=== PATIENT | female | born 1955 | race Caucasian/White ===

== ENCOUNTER 2018-03-03 17:53 | Inpatient (IN) | payer OTHER ==
[~2018-03-03] VITALS: Ht 157.5 cm; Wt 50.8 kg
[2018-03-03] MEDS ORDERED: IPRATROPIUM BROM 0.5 MG/2.5 ML VIAL.NEB (ATROVENT) INH ONE (18:00)
[2018-03-03] MEDS ORDERED: LevALBUTEROL HCL 1.25 MG/0.5 ML *CONC.* VIAL.NEB (XOPENEX CONC.) INH ONE ×2 (18:00→22:00)
[2018-03-03 18:04] VITALS: BP_SYST 146
[2018-03-03] MEDS ORDERED: methylPREDNISolone SOD SUCC/PF 62.5 MG/ML VIAL IVP ONE (18:30)
[2018-03-03] MEDS ORDERED: ALBMDI INH (18:43)
[2018-03-03] MEDS ORDERED: KETOROLAC TROMETHAMINE 15 MG VIAL IVP ONE (18:45)
[2018-03-03 18:46] LABS: CALCIUM 7.6 mg/dL (8.4-11.0); CREATININE 3.04 mg/dL (0.55-1.30); POTASSIUM 5.5 mmol/L (3.5-5.1)
[2018-03-03 18:49] LABS: PROTHROMBIN TIME 9.9 SECS (9.5-12.5)
[2018-03-03 18:50] LABS: ALBUMIN 2.9 g/dL (3.4-4.8); TOTAL BILIRUBIN 0.6 mg/dL (0.0-1.0)
[2018-03-03 19:10] LABS: BASOPHILS % (AUTO) 0.5 % (0.0-2.0); EOSINOPHILS % (AUTO) 0.4 % (0.0-4.0); LYMPHOCYTES # (AUTO) 0.7 K/uL (1.0-5.5); LYMPHOCYTES % (AUTO) 12.4 % (20.5-51.5); MEAN CORPUSCULAR HEMOGLOBIN 24 pg (27-31); MEAN CORPUSCULAR HGB CONC 32 % (32-36); MEAN CORPUSCULAR VOLUME 77 fL (79.0-98.0); MONOCYTES # (AUTO) 0.4 K/uL (0.0-1.0); NEUTROPHILS # (AUTO) 4.9 K/uL (1.8-7.7); NEUTROPHILS % (AUTO) 79.7 % (40.0-70.0); PLATELET COUNT (AUTO) 270 K/uL (130-430); RED CELL DISTRIBUTION WIDTH 18.1 % (9.0-15.0)
[2018-03-03 19:11] LABS: RED BLOOD CELL COUNT(AUTO) 1.46 MIL/uL (4.2-6.2)
[2018-03-03 19:15] LABS: HEMATOCRIT 11.2 % (36-48); HEMOGLOBIN 3.6 g/dL (12.0-16.0)
[2018-03-03 19:17] LABS: CREATINE KINASE MB 2.8 ng/mL (0-3.6)
[2018-03-03 19:43] LABS: TOTAL IRON BIND. CAPACITY 320 ug/dL (250-450)
[2018-03-03 19:59] LABS: PROTHROMBIN TIME 9.8 SECS (9.5-12.5)
[2018-03-03] MEDS ORDERED: MAG-AL HYDROX/SIMETH 30 ML UDC PO ONE (20:15)
[2018-03-03 21:10] VITALS: BP_SYST 131
[2018-03-03] MEDS ORDERED: LevALBUTEROL HCL 1.25 MG/0.5 ML *CONC.* VIAL.NEB (XOPENEX CONC.) INH PRN (21:45)
[2018-03-03] MEDS ORDERED: ACETAMINOPHEN 325 MG TABLET PO PRN (21:45)
[2018-03-03] MEDS: D5/0.45 NS 1,000 ML IV SCH (21:46)
[2018-03-03] MEDS: MORPHINE 2 MG/ML INJ. SYRINGE IVP PRN (21:47)
[2018-03-03 22:00] VITALS: BP_SYST 146
[2018-03-03] MEDS ORDERED: PANTOPRAZOLE SODIUM 40 MG/VIAL (PROTONIX) IVP ONE (22:00)
[2018-03-03 22:03] VITALS: BP_SYST 130
[2018-03-03 23:00] VITALS: BP_SYST 141
[2018-03-04] VITALS (18 sets, daily range): BP systolic 125–160
[2018-03-04 01:03] LABS: BILIRUBIN,URINE NEGATIVE (NEGATIVE); BLOOD, URINE 1+ (NEGATIVE); CLARITY/URINE HAZY (CLEAR); COLOR,URINE YELLOW (YELLOW); GLUCOSE,URINE NEGATIVE (NEGATIVE); KETONES,URINE NEGATIVE (NEGATIVE); LEUKOCYTE ESTERASE ,URINE 3+ (NEGATIVE); NITRITE, URINE NEGATIVE (NEGATIVE); PROTEIN URINE TRACE (NEGATIVE); UROBILINOGEN,URINE 0.2 (0.2-1.0)
[2018-03-04 01:43] LABS: BACTERIA,URINE MODERATE /HPF (None Seen); WBC,URINE 80-100 /HPF (0-3)
[2018-03-04] MEDS: MORPHINE 2 MG/ML INJ. SYRINGE IVP PRN ×3 (02:04→20:51)
[2018-03-04 03:45] LABS: HEMOGLOBIN 6.7 g/dL (12.0-16.0)
[2018-03-04 03:46] LABS: HEMATOCRIT 20.6 % (36-48)
[2018-03-04] MEDS: LevALBUTEROL HCL 1.25 MG/0.5 ML *CONC.* VIAL.NEB (XOPENEX CONC.) INH SCH ×3 (07:00→20:03)
[2018-03-04 09:50] LABS: TOTAL IRON BIND. CAPACITY 304 ug/dL (250-450)
[2018-03-04] MEDS: PANTOPRAZOLE SODIUM 40 MG/VIAL (PROTONIX) IVP SCH ×2 (10:14→20:42)
[2018-03-04] MEDS: traMADol HCL HCL 50 MG TABLET (ULTRAM) PO PRN (12:56)
[2018-03-04] MEDS: D5/0.45 NS 1,000 ML IV SCH (15:52)
[2018-03-04 16:02] LABS: BASOPHILS % (AUTO) 0.4 % (0.0-2.0); HEMOGLOBIN 10.7 g/dL (12.0-16.0); LYMPHOCYTES # (AUTO) 0.7 K/uL (1.0-5.5); LYMPHOCYTES % (AUTO) 5.5 % (20.5-51.5); MEAN CORPUSCULAR HEMOGLOBIN 29 pg (27-31); MEAN CORPUSCULAR HGB CONC 34 % (32-36); MEAN CORPUSCULAR VOLUME 85 fL (79.0-98.0); MONOCYTES # (AUTO) 0.9 K/uL (0.0-1.0); MONOCYTES % (AUTO) 7.2 % (1.7-9.3); NEUTROPHILS # (AUTO) 10.3 K/uL (1.8-7.7); NEUTROPHILS % (AUTO) 86.9 % (40.0-70.0); PLATELET COUNT (AUTO) 242 K/uL (130-430); RED BLOOD CELL COUNT(AUTO) 3.75 MIL/uL (4.2-6.2); RED CELL DISTRIBUTION WIDTH 15.5 % (9.0-15.0); WHITE BLOOD COUNT (AUTO) 11.9 K/uL (4.8-10.8)
[2018-03-04 16:11] LABS: CALCIUM 8.3 mg/dL (8.4-11.0); CREATININE 2.91 mg/dL (0.55-1.30)
[2018-03-04] MEDS ORDERED: ONDANSETRON HCL 4 MG/2 ML VIAL IVP PRN (16:15)
[2018-03-04 16:16] LABS: POTASSIUM 6.1 mmol/L (3.5-5.1)
[2018-03-04 16:20] LABS: PHOSPHORUS 4.4 mg/dL (2.7-4.5)
[2018-03-04] MEDS ORDERED: THIAMINE HCL 100 MG in NS 50 ML IV SCH (17:00)
[2018-03-04] MEDS ORDERED: FOLIC ACID 5 MG/ML VIAL IV ONE (17:00)
[2018-03-04] MEDS ORDERED: CYANOCOBALAMIN 1000 MCG/ML VIAL SUBCUT ONE (17:00)
[2018-03-04] MEDS ORDERED: IRON DEXTRAN COMPLEX 75 MG in NS 100 ML IV ONE (17:15)
[2018-03-04] MEDS ORDERED: IRON DEXTRAN COMPLEX 25 MG in NS 50 ML IV ONE (17:15)
[2018-03-04] MEDS ORDERED: THIAMINE HCL 100 MG in NS 50 ML IV ONE (17:36)
[2018-03-04] MEDS ORDERED: SODIUM POLYSTYRENE SULFONATE 15 GM/60 ML UDBTL PO ONE (22:45)
[2018-03-04] MEDS ORDERED: SODIUM POLYSTYRENE SULFONATE 15 GM/60 ML UDBTL ONE (22:53)
[2018-03-04] MEDS ORDERED: SODIUM POLYSTYRENE SULFONATE 15 GM/60 ML UDBTL GT SCH (23:00)
[2018-03-05 00:35] VITALS: BP_SYST 136
[2018-03-05] MEDS: LevALBUTEROL HCL 1.25 MG/0.5 ML *CONC.* VIAL.NEB (XOPENEX CONC.) INH SCH ×4 (01:30→19:22)
[2018-03-05 02:10] LABS: HEMATOCRIT 30.1 % (36-48); HEMOGLOBIN 10.2 g/dL (12.0-16.0)
[2018-03-05 02:36] LABS: CALCIUM 7.5 mg/dL (8.4-11.0); CREATININE 2.91 mg/dL (0.55-1.30)
[2018-03-05 07:06] LABS: FOLATE (FOLIC ACID) >20.0 ng/mL (>3.0)
[2018-03-05 07:23] LABS: PROTHROMBIN TIME 9.7 SECS (9.5-12.5)
[2018-03-05 07:31] LABS: BASOPHILS % (AUTO) 0.4 % (0.0-2.0); EOSINOPHILS # (AUTO) 0.1 K/uL (0.0-0.4); HEMOGLOBIN 11.1 g/dL (12.0-16.0); LYMPHOCYTES # (AUTO) 0.9 K/uL (1.0-5.5); LYMPHOCYTES % (AUTO) 11.4 % (20.5-51.5); MEAN CORPUSCULAR HEMOGLOBIN 29 pg (27-31); MEAN CORPUSCULAR HGB CONC 34 % (32-36); MEAN CORPUSCULAR VOLUME 86 fL (79.0-98.0); MONOCYTES # (AUTO) 0.7 K/uL (0.0-1.0); MONOCYTES % (AUTO) 9.5 % (1.7-9.3); NEUTROPHILS # (AUTO) 6.1 K/uL (1.8-7.7); NEUTROPHILS % (AUTO) 77.7 % (40.0-70.0); PLATELET COUNT (AUTO) 231 K/uL (130-430); RED BLOOD CELL COUNT(AUTO) 3.83 MIL/uL (4.2-6.2); RED CELL DISTRIBUTION WIDTH 15.5 % (9.0-15.0); WHITE BLOOD COUNT (AUTO) 7.8 K/uL (4.8-10.8)
[2018-03-05 07:55] LABS: ALBUMIN 2.5 g/dL (3.4-4.8); CALCIUM 7.7 mg/dL (8.4-11.0); CREATININE 2.85 mg/dL (0.55-1.30); POTASSIUM 4.8 mmol/L (3.5-5.1); THYROID STIMULATING HORMONE 7.07 uIu/mL (0.34-4.82); TOTAL BILIRUBIN 0.4 mg/dL (0.0-1.0)
[2018-03-05 08:19] VITALS: BP_SYST 150
[2018-03-05] MEDS: PANTOPRAZOLE SODIUM 40 MG/VIAL (PROTONIX) IVP SCH ×2 (08:37→20:57)
[2018-03-05] MEDS: FOLIC ACID 1 MG TABLET PO SCH (08:37)
[2018-03-05] MEDS: THIAMINE HCL 100 MG in NS 50 ML IV SCH (08:38)
[2018-03-05] MEDS: MORPHINE 2 MG/ML INJ. SYRINGE IVP PRN ×4 (08:41→21:11)
[2018-03-05] MEDS: IRON DEXTRAN COMPLEX 100 MG in NS 100 ML IV SCH (08:52)
[2018-03-05] MEDS: D5/0.45 NS 1,000 ML IV SCH (12:20)
[2018-03-05 12:25] VITALS: BP_SYST 146
[2018-03-05 16:15] LABS: ANTI NUCLEAR AB WITH REFLEX Negative (Negative)
[2018-03-05 16:25] VITALS: BP_SYST 151
[2018-03-05 20:20] VITALS: BP_SYST 148
[2018-03-05] MEDS ORDERED: BISACODYL 10 MG/SUPPOSITORY RC PRN (20:30)
[2018-03-05] MEDS ORDERED: BISACODYL 10 MG/SUPPOSITORY RC ONE (20:30)
[2018-03-05] MEDS ORDERED: NA PHOS,M-B/NA PHOS,DI-BA 118 ML (FLEET ENEMA) RC ONE (20:30)
[2018-03-05] MEDS: SENNOSIDES 8.6 MG TABLET PO SCH (20:57)
[2018-03-05] MEDS: hydrALAZINE HCL 10 MG TABLET PO SCH (21:10)
[2018-03-06] VITALS: BP_SYST 149
[2018-03-06 00:40] LABS: HEMOGLOBIN 11.1 g/dL (12.0-16.0)
[2018-03-06] MEDS: LevALBUTEROL HCL 1.25 MG/0.5 ML *CONC.* VIAL.NEB (XOPENEX CONC.) INH SCH ×4 (01:30→19:27)
[2018-03-06] MEDS: MORPHINE 2 MG/ML INJ. SYRINGE IVP PRN ×5 (01:39→20:34)
[2018-03-06] MEDS: hydrALAZINE HCL 10 MG TABLET PO SCH ×3 (06:31→21:21)
[2018-03-06] MEDS: D5/0.45 NS 1,000 ML IV SCH (06:32)
[2018-03-06 08:02] VITALS: BP_SYST 149
[2018-03-06] MEDS: FOLIC ACID 1 MG TABLET PO SCH (08:25)
[2018-03-06] MEDS: PANTOPRAZOLE SODIUM 40 MG/VIAL (PROTONIX) IVP SCH ×2 (08:25→20:35)
[2018-03-06] MEDS: THIAMINE HCL 100 MG in NS 50 ML IV SCH (08:25)
[2018-03-06] MEDS: IRON DEXTRAN COMPLEX 100 MG in NS 100 ML IV SCH (08:31)
[2018-03-06] MEDS: traMADol HCL HCL 50 MG TABLET (ULTRAM) PO PRN ×2 (12:24→17:33)
[2018-03-06 12:30] VITALS: BP_SYST 159
[2018-03-06 14:11] LABS: ATYPICAL pANCA <1:20 titer (Neg:<1:20); CYTOPLASMIC (C-ANCA) <1:20 titer (Neg:<1:20); CYTOPLASMIC (P-ANCA) <1:20 titer (Neg:<1:20)
[2018-03-06 16:20] VITALS: BP_SYST 144
[2018-03-06 17:34] VITALS: BP_SYST 144
[2018-03-06 20:12] VITALS: BP_SYST 164
[2018-03-06] MEDS: SENNOSIDES 8.6 MG TABLET PO SCH (20:37)
[2018-03-07 00:06] VITALS: BP_SYST 131
[2018-03-07] MEDS: MORPHINE 2 MG/ML INJ. SYRINGE IVP PRN ×3 (00:49→14:13)
[2018-03-07] MEDS: LevALBUTEROL HCL 1.25 MG/0.5 ML *CONC.* VIAL.NEB (XOPENEX CONC.) INH SCH ×4 (01:28→19:57)
[2018-03-07 02:57] LABS: HEMATOCRIT 36.9 % (36-48); HEMOGLOBIN 12.1 g/dL (12.0-16.0)
[2018-03-07] MEDS: D5/0.45 NS 1,000 ML IV SCH (03:01)
[2018-03-07] MEDS: hydrALAZINE HCL 10 MG TABLET PO SCH ×3 (06:23→21:01)
[2018-03-07 08:00] VITALS: BP_SYST 144
[2018-03-07 08:23] LABS: BASOPHILS % (AUTO) 0.3 % (0.0-2.0); EOSINOPHILS # (AUTO) 0.1 K/uL (0.0-0.4); EOSINOPHILS % (AUTO) 0.7 % (0.0-4.0); HEMATOCRIT 33.7 % (36-48); HEMOGLOBIN 11.4 g/dL (12.0-16.0); LYMPHOCYTES % (AUTO) 11.3 % (20.5-51.5); MEAN CORPUSCULAR HEMOGLOBIN 29 pg (27-31); MEAN CORPUSCULAR HGB CONC 34 % (32-36); MEAN CORPUSCULAR VOLUME 86 fL (79.0-98.0); MONOCYTES % (AUTO) 11.4 % (1.7-9.3); NEUTROPHILS # (AUTO) 6.5 K/uL (1.8-7.7); NEUTROPHILS % (AUTO) 76.3 % (40.0-70.0); PLATELET COUNT (AUTO) 256 K/uL (130-430); RED BLOOD CELL COUNT(AUTO) 3.94 MIL/uL (4.2-6.2); RED CELL DISTRIBUTION WIDTH 16.1 % (9.0-15.0); WHITE BLOOD COUNT (AUTO) 8.6 K/uL (4.8-10.8)
[2018-03-07 08:38] LABS: CALCIUM 7.8 mg/dL (8.4-11.0)
[2018-03-07 08:39] LABS: ALBUMIN 2.3 g/dL (3.4-4.8); CREATININE 2.73 mg/dL (0.55-1.30); TOTAL BILIRUBIN 0.5 mg/dL (0.0-1.0)
[2018-03-07] MEDS: PANTOPRAZOLE SODIUM 40 MG/VIAL (PROTONIX) IVP SCH ×2 (09:05→21:01)
[2018-03-07] MEDS: FOLIC ACID 1 MG TABLET PO SCH (09:05)
[2018-03-07] MEDS: IRON DEXTRAN COMPLEX 100 MG in NS 100 ML IV SCH (09:05)
[2018-03-07] MEDS: THIAMINE HCL 100 MG in NS 50 ML IV SCH (09:05)
[2018-03-07] MEDS: traMADol HCL HCL 50 MG TABLET (ULTRAM) PO PRN ×3 (11:58→22:39)
[2018-03-07 13:05] VITALS: BP_SYST 146
[2018-03-07 16:58] VITALS: BP_SYST 132
[2018-03-07 20:00] VITALS: BP_SYST 146
[2018-03-07] MEDS: SENNOSIDES 8.6 MG TABLET PO SCH (21:01)
[2018-03-08 00:06] VITALS: BP_SYST 130
[2018-03-08 00:44] LABS: HEMOGLOBIN 10.1 g/dL (12.0-16.0)
[2018-03-08] MEDS: D5/0.45 NS 1,000 ML IV SCH ×2 (00:56→19:27)
[2018-03-08] MEDS: LevALBUTEROL HCL 1.25 MG/0.5 ML *CONC.* VIAL.NEB (XOPENEX CONC.) INH SCH ×4 (01:11→19:48)
[2018-03-08] MEDS: hydrALAZINE HCL 10 MG TABLET PO SCH ×3 (05:35→21:22)
[2018-03-08 07:43] LABS: BASOPHILS % (AUTO) 0.4 % (0.0-2.0); EOSINOPHILS # (AUTO) 0.1 K/uL (0.0-0.4); EOSINOPHILS % (AUTO) 0.7 % (0.0-4.0); HEMATOCRIT 30.4 % (36-48); HEMOGLOBIN 9.9 g/dL (12.0-16.0); LYMPHOCYTES # (AUTO) 0.9 K/uL (1.0-5.5); LYMPHOCYTES % (AUTO) 10.4 % (20.5-51.5); MEAN CORPUSCULAR HEMOGLOBIN 28 pg (27-31); MEAN CORPUSCULAR HGB CONC 33 % (32-36); MEAN CORPUSCULAR VOLUME 86 fL (79.0-98.0); MONOCYTES # (AUTO) 0.9 K/uL (0.0-1.0); MONOCYTES % (AUTO) 10.8 % (1.7-9.3); NEUTROPHILS # (AUTO) 6.4 K/uL (1.8-7.7); NEUTROPHILS % (AUTO) 77.7 % (40.0-70.0); PLATELET COUNT (AUTO) 260 K/uL (130-430); RED BLOOD CELL COUNT(AUTO) 3.54 MIL/uL (4.2-6.2); RED CELL DISTRIBUTION WIDTH 16.2 % (9.0-15.0); WHITE BLOOD COUNT (AUTO) 8.3 K/uL (4.8-10.8)
[2018-03-08 08:05] VITALS: BP_SYST 134
[2018-03-08] MEDS: THIAMINE HCL 100 MG in NS 50 ML IV SCH (09:03)
[2018-03-08] MEDS: FOLIC ACID 1 MG TABLET PO SCH (09:03)
[2018-03-08] MEDS: PANTOPRAZOLE SODIUM 40 MG/VIAL (PROTONIX) IVP SCH ×2 (09:03→21:22)
[2018-03-08] MEDS: SOD FERRIC GLUC COMPLEX/SUC 125 MG in NS 100 ML IV SCH (09:04)
[2018-03-08] MEDS: MORPHINE 2 MG/ML INJ. SYRINGE IVP PRN ×4 (09:06→21:23)
[2018-03-08 12:10] VITALS: BP_SYST 146
[2018-03-08] MEDS: traMADol HCL HCL 50 MG TABLET (ULTRAM) PO PRN ×2 (14:51→23:34)
[2018-03-08 16:01] VITALS: BP_SYST 127
[2018-03-08 19:15] VITALS: BP_SYST 151
[2018-03-08] MEDS: SENNOSIDES 8.6 MG TABLET PO SCH (21:22)
[2018-03-09 00:04] VITALS: BP_SYST 151
[2018-03-09 00:50] LABS: HEMOGLOBIN 10.6 g/dL (12.0-16.0)
[2018-03-09] MEDS: LevALBUTEROL HCL 1.25 MG/0.5 ML *CONC.* VIAL.NEB (XOPENEX CONC.) INH SCH ×4 (01:10→20:10)
[2018-03-09] MEDS: MORPHINE 2 MG/ML INJ. SYRINGE IVP PRN ×5 (01:26→22:37)
[2018-03-09] MEDS: traMADol HCL HCL 50 MG TABLET (ULTRAM) PO PRN ×4 (04:33→20:07)
[2018-03-09] MEDS: hydrALAZINE HCL 10 MG TABLET PO SCH ×3 (05:30→21:25)
[2018-03-09 06:54] LABS: BASOPHILS % (AUTO) 0.1 % (0.0-2.0); EOSINOPHILS # (AUTO) 0.1 K/uL (0.0-0.4); EOSINOPHILS % (AUTO) 0.7 % (0.0-4.0); HEMATOCRIT 29.5 % (36-48); HEMOGLOBIN 9.9 g/dL (12.0-16.0); LYMPHOCYTES # (AUTO) 0.7 K/uL (1.0-5.5); LYMPHOCYTES % (AUTO) 6.9 % (20.5-51.5); MEAN CORPUSCULAR HEMOGLOBIN 29 pg (27-31); MEAN CORPUSCULAR HGB CONC 34 % (32-36); MEAN CORPUSCULAR VOLUME 87 fL (79.0-98.0); MONOCYTES # (AUTO) 1.1 K/uL (0.0-1.0); MONOCYTES % (AUTO) 10.8 % (1.7-9.3); NEUTROPHILS % (AUTO) 81.5 % (40.0-70.0); PLATELET COUNT (AUTO) 280 K/uL (130-430); RED BLOOD CELL COUNT(AUTO) 3.41 MIL/uL (4.2-6.2); RED CELL DISTRIBUTION WIDTH 16.1 % (9.0-15.0); WHITE BLOOD COUNT (AUTO) 9.9 K/uL (4.8-10.8)
[2018-03-09 07:06] LABS: CALCIUM 7.5 mg/dL (8.4-11.0); CREATININE 2.55 mg/dL (0.55-1.30); POTASSIUM 3.4 mmol/L (3.5-5.1); TOTAL BILIRUBIN 0.3 mg/dL (0.0-1.0)
[2018-03-09 07:45] VITALS: BP_SYST 125
[2018-03-09] MEDS: PANTOPRAZOLE SODIUM 40 MG/VIAL (PROTONIX) IVP SCH ×2 (08:52→21:26)
[2018-03-09] MEDS: FOLIC ACID 1 MG TABLET PO SCH (08:52)
[2018-03-09] MEDS: THIAMINE HCL 100 MG in NS 50 ML IV SCH (08:53)
[2018-03-09] MEDS: SOD FERRIC GLUC COMPLEX/SUC 125 MG in NS 100 ML IV SCH (08:53)
[2018-03-09 08:55] VITALS: BP_SYST 125
[2018-03-09] MEDS ORDERED: POTASSIUM CHLORIDE 20 MEQ TAB.PRT.SR PO ONE (10:00)
[2018-03-09 12:42] VITALS: BP_SYST 152
[2018-03-09] MEDS: D5/0.45 NS 1,000 ML IV SCH (16:02)
[2018-03-09 16:22] VITALS: BP_SYST 144
[2018-03-09 19:20] VITALS: BP_SYST 150
[2018-03-09] MEDS: SENNOSIDES 8.6 MG TABLET PO SCH (21:24)
[2018-03-10] VITALS: BP_SYST 145
[2018-03-10] MEDS: LevALBUTEROL HCL 1.25 MG/0.5 ML *CONC.* VIAL.NEB (XOPENEX CONC.) INH SCH ×3 (01:10→19:00)
[2018-03-10] MEDS: MORPHINE 2 MG/ML INJ. SYRINGE IVP PRN ×4 (04:12→20:38)
[2018-03-10] MEDS: traMADol HCL HCL 50 MG TABLET (ULTRAM) PO PRN ×2 (05:48→15:38)
[2018-03-10] MEDS: hydrALAZINE HCL 10 MG TABLET PO SCH ×3 (05:50→22:17)
[2018-03-10 08:08] VITALS: BP_SYST 156
[2018-03-10] MEDS: PANTOPRAZOLE SODIUM 40 MG/VIAL (PROTONIX) IVP SCH ×2 (08:50→20:37)
[2018-03-10] MEDS: FOLIC ACID 1 MG TABLET PO SCH (08:50)
[2018-03-10] MEDS: THIAMINE HCL 100 MG in NS 50 ML IV SCH (09:18)
[2018-03-10] MEDS: SOD FERRIC GLUC COMPLEX/SUC 125 MG in NS 100 ML IV SCH (09:18)
[2018-03-10] MEDS: D5/0.45 NS 1,000 ML IV SCH (11:29)
[2018-03-10 13:03] VITALS: BP_SYST 155
[2018-03-10 16:47] VITALS: BP_SYST 141
[2018-03-10 19:40] VITALS: BP_SYST 147
[2018-03-10] MEDS: SENNOSIDES 8.6 MG TABLET PO SCH (20:37)
[2018-03-11] MEDS: traMADol HCL HCL 50 MG TABLET (ULTRAM) PO PRN ×2 (00:21→09:57)
[2018-03-11 00:26] VITALS: BP_SYST 135
[2018-03-11] MEDS: LevALBUTEROL HCL 1.25 MG/0.5 ML *CONC.* VIAL.NEB (XOPENEX CONC.) INH SCH ×4 (01:00→19:54)
[2018-03-11] MEDS: hydrALAZINE HCL 10 MG TABLET PO SCH ×3 (06:44→22:28)
[2018-03-11] MEDS: D5/0.45 NS 1,000 ML IV SCH (06:45)
[2018-03-11 08:00] VITALS: BP_SYST 151
[2018-03-11] MEDS: FOLIC ACID 1 MG TABLET PO SCH (09:57)
[2018-03-11] MEDS: PANTOPRAZOLE SODIUM 40 MG/VIAL (PROTONIX) IVP SCH ×2 (09:57→20:38)
[2018-03-11] MEDS: THIAMINE HCL 100 MG in NS 50 ML IV SCH (09:58)
[2018-03-11 12:00] VITALS: BP_SYST 149
[2018-03-11] MEDS: MORPHINE 2 MG/ML INJ. SYRINGE IVP PRN ×3 (13:53→23:21)
[2018-03-11] MEDS ORDERED: SOD FERRIC GLUC COMPLEX/SUC 125 MG in NS 100 ML IV ONE (16:00)
[2018-03-11 16:28] VITALS: BP_SYST 139
[2018-03-11] MEDS: SOD FERRIC GLUC COMPLEX/SUC 125 MG in NS 100 ML IV SCH (18:16)
[2018-03-11 20:36] VITALS: BP_SYST 149
[2018-03-11] MEDS: SENNOSIDES 8.6 MG TABLET PO SCH (20:38)
[2018-03-12 00:45] VITALS: BP_SYST 110
[2018-03-12] MEDS: LevALBUTEROL HCL 1.25 MG/0.5 ML *CONC.* VIAL.NEB (XOPENEX CONC.) INH SCH ×4 (01:15→19:53)
[2018-03-12] MEDS: MORPHINE 2 MG/ML INJ. SYRINGE IVP PRN ×4 (05:15→18:37)
[2018-03-12] MEDS: D5/0.45 NS 1,000 ML IV SCH (05:16)
[2018-03-12] MEDS: hydrALAZINE HCL 10 MG TABLET PO SCH ×3 (06:05→20:59)
[2018-03-12 08:04] VITALS: BP_SYST 154
[2018-03-12] MEDS: FOLIC ACID 1 MG TABLET PO SCH (09:08)
[2018-03-12] MEDS: PANTOPRAZOLE SODIUM 40 MG/VIAL (PROTONIX) IVP SCH ×2 (09:08→20:58)
[2018-03-12] MEDS: THIAMINE HCL 100 MG in NS 50 ML IV SCH (09:09)
[2018-03-12 12:20] VITALS: BP_SYST 146
[2018-03-12] MEDS: traMADol HCL HCL 50 MG TABLET (ULTRAM) PO PRN ×2 (12:30→20:59)
[2018-03-12 16:01] VITALS: BP_SYST 137
[2018-03-12 19:20] VITALS: BP_SYST 158
[2018-03-12] MEDS: SENNOSIDES 8.6 MG TABLET PO SCH (20:59)
[2018-03-12 21:19] VITALS: BP_SYST 158
== END 2018-03-12 22:01 | disposition home or self-care (01) | DRG 280 ==
LOC: SED 17:53 → STU 19:56 → SIC 20:23 → STU 03-04 14:57
PROVIDERS: ADMIT Family Medicine; ATTEND Family Medicine
PROC: 30233N1 Transfusion of Nonautologous Red Blood Cells into Peripheral Vein, Percutaneous Approach (ICD-10-PCS; principal; 2018-03-03)
DX: I21.A1 Myocardial infarction type 2 (principal); E43 Unspecified severe protein-calorie malnutrition; N17.9 Acute kidney failure, unspecified; N13.30 Unspecified hydronephrosis; N18.4 Chronic kidney disease, stage 4 (severe); M54.9 Dorsalgia, unspecified; J44.9 Chronic obstructive pulmonary disease, unspecified; D63.1 Anemia in chronic kidney disease; B19.20 Unspecified viral hepatitis C without hepatic coma; D50.9 Iron deficiency anemia, unspecified; N83.202 Unspecified ovarian cyst, left side; R31.9 Hematuria, unspecified; E11.22 Type 2 diabetes mellitus with diabetic chronic kidney disease; E87.5 Hyperkalemia; M19.90 Unspecified osteoarthritis, unspecified site; G89.4 Chronic pain syndrome; Z98.84 Bariatric surgery status; Z87.891 Personal history of nicotine dependence; Z68.20 Body mass index [BMI] 20.0-20.9, adult; Z90.49 Acquired absence of other specified parts of digestive tract
CPT/HCPCS: 36415; 71045; 76700-TC; 80048; 80053; 80061; 81000-TC; 82272; 82306; 82550-TC; 82553-TC; 82607; 82728; 82746; 83540-TC; 83550-TC; 83690-TC; 83735-TC; 83880; 84100-TC; 84443-TC; 84484; 85018-TC; 85025; 85610-TC; 85730-TC; 86038; 86256; 86886; 86900; 86901; 86920; 87081; 87086; 93005; 93306; 94640; 94760; 96374; 96375; 99291; C9113; J1750; J1885; J2270; J2405; J2916; J2930; J3411; J3420; J3490; J7040; J7612; P9021

== ENCOUNTER 2018-04-03 05:55 | Inpatient (IN) | payer OTHER, MEDICAID ==
[~2018-04-03] VITALS: Ht 160 cm; Wt 54.4 kg
[2018-04-03] VITALS (16 sets, daily range): BP systolic 106–191
[~2018-04-03 05:55] MED LIST: ALBMDI INH
[2018-04-03] MEDS ORDERED: NACL 0.9% 1,000 ML IV ONE (06:30)
[2018-04-03] MEDS ORDERED: LORazepam 2 MG/ML VIAL (FOR ER USE) IM ONE (06:30)
[2018-04-03] MEDS ORDERED: DIPHENHYDRAMINE INJ 50 MG/ML VIAL IM ONE (06:30)
[2018-04-03] MEDS ORDERED: HALOPERIDOL LACTATE 5 MG/ML VIAL IM ONE (06:30)
[2018-04-03] MEDS ORDERED: FOLI-43 PO (06:42)
[2018-04-03] MEDS ORDERED: BACL20TA PO (06:42)
[2018-04-03 07:14] LABS: ANION GAP 14 (5-15); CALCIUM 7.8 mg/dL (8.4-11.0); CHLORIDE 112 mmol/L (98-107); CREATININE 2.32 mg/dL (0.55-1.30); GLUCOSE 126 mg/dL (70-99); POTASSIUM 4.8 mmol/L (3.5-5.1); SODIUM SERUM 143 mmol/L (136-145); UREA NITROGEN, BLOOD 45 mg/dL (8-21)
[2018-04-03 07:18] LABS: GFR AFRICAN AMERICAN 27 mL/min (>90)
[2018-04-03 07:19] LABS: ALANINE AMINOTRANSFERASE 24 U/L (12-78); ALBUMIN 3.2 g/dL (3.4-4.8); ASPARTATE AMINOTRANSFERASE 20 U/L (10-37); TOTAL BILIRUBIN 0.2 mg/dL (0.0-1.0)
[2018-04-03 07:22] LABS: ALCOHOL, BLOOD < 3 mg/dL (<10)
[2018-04-03 07:27] LABS: HEMATOCRIT 30.1 % (36-48); HEMOGLOBIN 10.2 g/dL (12.0-16.0); MEAN CORPUSCULAR HEMOGLOBIN 30 pg (27-31); MEAN CORPUSCULAR HGB CONC 34 % (32-36); MEAN CORPUSCULAR VOLUME 89 fL (79.0-98.0); PLATELET COUNT (AUTO) 175 K/uL (130-430); RED BLOOD CELL COUNT(AUTO) 3.39 MIL/uL (4.2-6.2); RED CELL DISTRIBUTION WIDTH 17.5 % (9.0-15.0); WHITE BLOOD COUNT (AUTO) 9.9 K/uL (4.8-10.8)
[2018-04-03 07:41] LABS: INR 0.9 (0.8-1.2); PROTHROMBIN TIME 9.2 SECS (9.5-12.5)
[2018-04-03] MEDS ORDERED: LORazepam 2 MG/ML VIAL (FOR ER USE) ONE (07:41)
[2018-04-03] MEDS ORDERED: LORazepam 2 MG/ML VIAL (FOR ER USE) IVP ONE (07:45)
[2018-04-03 07:47] LABS: ACETAMINOPHEN < 1 ug/mL (1-30)
[2018-04-03 08:06] LABS: BAND % (MANUAL) 2 % (0-6); BASOPHILS % (MANUAL) 0 % (0-2); EOSINOPHILS % (MANUAL) 2 % (0-7); LYMPHOCYTES % (MANUAL) 12 % (20-46); MONOCYTES % (MANUAL) 3 % (0-11)
[2018-04-03] MEDS ORDERED: KCL 20 mEq in D5/0.45NS 1000mL 1,000 ML IV ONE (09:00)
[2018-04-03 09:28] LABS: BILIRUBIN,URINE NEGATIVE (NEGATIVE); BLOOD, URINE 2+ (NEGATIVE); CLARITY/URINE CLEAR (CLEAR); COLOR,URINE YELLOW (YELLOW); GLUCOSE,URINE NEGATIVE (NEGATIVE); KETONES,URINE NEGATIVE (NEGATIVE); LEUKOCYTE ESTERASE ,URINE 2+ (NEGATIVE); NITRITE, URINE NEGATIVE (NEGATIVE); PH,URINE 6.5 (5.0-8.0); PROTEIN URINE 2+ (NEGATIVE); UROBILINOGEN,URINE 0.2 (0.2-1.0)
[2018-04-03 09:45] LABS: BARBITURATE, URINE NEGATIVE (NEG <=200); BENZODIAZEPINE, URINE NEGATIVE (NEG <=150); CANNABINOID, URINE NEGATIVE (NEG <=50); COCAINE, URINE NEGATIVE (NEG <=150); METHAMPHETAMINES SCREEN,URINE NEGATIVE (NEG <=500); OPIATE, URINE NEGATIVE (NEG <=100); PHENCYCLIDINE SCREEN,URINE NEGATIVE (NEG <=25); UR TRICYCLIC ANTIDEPRESSANTS NEGATIVE (NEG <=300); URINE AMPHETAMINE NEGATIVE (NEG <=500); URINE METHADONE NEGATIVE (NEG <=200); URINE OXYCODONE SCREEN NEGATIVE (NEG <=100); URINE PROPOXYPHENE SCREEN NEGATIVE (NEG <=300)
[2018-04-03 09:54] LABS: BACTERIA,URINE FEW /HPF (None Seen)
[2018-04-03 09:55] LABS: MUCUS,URINE None Seen /LPF (None Seen)
[2018-04-03] MEDS ORDERED: ONDANSETRON HCL 4 MG/2 ML VIAL IVP PRN (13:00)
[2018-04-03] MEDS ORDERED: PANTOPRAZOLE SODIUM 40 MG/VIAL (PROTONIX) IVP ONE (13:15)
[2018-04-03] MEDS ORDERED: KCL 20 mEq in D5NS 1000 mL 1,000 ML IV SCH (14:00)
[2018-04-03] MEDS ORDERED: cefTRIAXone 1 GM in D5W 50 ML IV ONE (14:00)
[2018-04-03] MEDS: SODIUM BICARBONATE 8.4% VIAL 100 MEQ in 0.45% NACL 1,000 ML IV SCH (15:00)
[2018-04-03] MEDS: PANTOPRAZOLE SODIUM 40 MG/VIAL (PROTONIX) IVP SCH (21:15)
[2018-04-04] VITALS (24 sets, daily range): BP systolic 111–210
[2018-04-04] MEDS: SODIUM BICARBONATE 8.4% VIAL 100 MEQ in 0.45% NACL 1,000 ML IV SCH ×3 (01:05→21:34)
[2018-04-04 06:48] LABS: CALCIUM 8.2 mg/dL (8.4-11.0); CREATININE 2.06 mg/dL (0.55-1.30); POTASSIUM 3.9 mmol/L (3.5-5.1)
[2018-04-04 07:33] LABS: HEMATOCRIT 30.8 % (36-48); HEMOGLOBIN 10.3 g/dL (12.0-16.0); MEAN CORPUSCULAR HEMOGLOBIN 30 pg (27-31); MEAN CORPUSCULAR HGB CONC 33 % (32-36); MEAN CORPUSCULAR VOLUME 89 fL (79.0-98.0); PLATELET COUNT (AUTO) 201 K/uL (130-430); RED BLOOD CELL COUNT(AUTO) 3.48 MIL/uL (4.2-6.2); RED CELL DISTRIBUTION WIDTH 17.7 % (9.0-15.0); WHITE BLOOD COUNT (AUTO) 9.9 K/uL (4.8-10.8)
[2018-04-04] MEDS: PANTOPRAZOLE SODIUM 40 MG/VIAL (PROTONIX) IVP SCH ×2 (09:07→21:34)
[2018-04-04] MEDS: cefTRIAXone 1 GM in D5W 50 ML IV SCH (09:07)
[2018-04-04 10:05] LABS: BASOPHILS % (MANUAL) 0 % (0-2); EOSINOPHILS % (MANUAL) 1 % (0-7); LYMPHOCYTES % (MANUAL) 6 % (20-46); MONOCYTES % (MANUAL) 2 % (0-11)
[2018-04-04] MEDS: hydrALAZINE HCL 20 MG/ML VIAL IVP PRN ×3 (10:27→21:35)
[2018-04-04] MEDS ORDERED: LABETALOL 100 MG/ 20ML VIAL IVP PRN (15:45)
[2018-04-05] VITALS (24 sets, daily range): BP systolic 90–157
[2018-04-05 06:26] LABS: BASOPHILS # (AUTO) 0.1 K/uL (0.0-0.2); BASOPHILS % (AUTO) 0.5 % (0.0-2.0); EOSINOPHILS # (AUTO) 0.1 K/uL (0.0-0.4); EOSINOPHILS % (AUTO) 0.7 % (0.0-4.0); HEMATOCRIT 33.1 % (36-48); HEMOGLOBIN 11.2 g/dL (12.0-16.0); LYMPHOCYTES # (AUTO) 1.2 K/uL (1.0-5.5); LYMPHOCYTES % (AUTO) 10.4 % (20.5-51.5); MEAN CORPUSCULAR HEMOGLOBIN 30 pg (27-31); MEAN CORPUSCULAR HGB CONC 34 % (32-36); MEAN CORPUSCULAR VOLUME 88 fL (79.0-98.0); MONOCYTES # (AUTO) 1.3 K/uL (0.0-1.0); MONOCYTES % (AUTO) 10.9 % (1.7-9.3); NEUTROPHILS # (AUTO) 9.2 K/uL (1.8-7.7); NEUTROPHILS % (AUTO) 77.5 % (40.0-70.0); PLATELET COUNT (AUTO) 210 K/uL (130-430); RED BLOOD CELL COUNT(AUTO) 3.78 MIL/uL (4.2-6.2); RED CELL DISTRIBUTION WIDTH 17.6 % (9.0-15.0); WHITE BLOOD COUNT (AUTO) 11.9 K/uL (4.8-10.8)
[2018-04-05 07:03] LABS: POTASSIUM 3.4 mmol/L (3.5-5.1)
[2018-04-05 07:04] LABS: CALCIUM 8.8 mg/dL (8.4-11.0); CREATININE 1.97 mg/dL (0.55-1.30)
[2018-04-05 07:13] LABS: ALBUMIN 2.7 g/dL (3.4-4.8); TOTAL BILIRUBIN 0.2 mg/dL (0.0-1.0)
[2018-04-05 07:14] LABS: THYROID STIMULATING HORMONE 2.48 uIu/mL (0.36-3.74)
[2018-04-05] MEDS: PANTOPRAZOLE SODIUM 40 MG/VIAL (PROTONIX) IVP SCH ×2 (09:14→20:19)
[2018-04-05] MEDS: cefTRIAXone 1 GM in D5W 50 ML IV SCH (09:14)
[2018-04-05] MEDS: SODIUM BICARBONATE 8.4% VIAL 100 MEQ in 0.45% NACL 1,000 ML IV SCH (09:14)
[2018-04-05] MEDS ORDERED: CARVEDILOL 6.25 MG TABLET (COREG) PO ONE (09:15)
[2018-04-05] MEDS: 0.45% NACL 1,000 ML IV SCH (12:09)
[2018-04-05] MEDS: ATORVASTATIN 20 MG TABLET PO SCH (20:19)
[2018-04-05] MEDS: CARVEDILOL 6.25 MG TABLET (COREG) PO SCH (20:21)
[2018-04-05] MEDS ORDERED: VANCOMYCIN HCL 1000 MG/VIAL IV ONE (21:36)
[2018-04-05] MEDS ORDERED: VANCOMYCIN HCL 1 GM/NS PREMIX 250 ML IV ONE (22:00)
[2018-04-05] MEDS: MORPHINE 2 MG/ML INJ. SYRINGE IVP PRN (23:06)
[2018-04-05] MEDS ORDERED: MORPHINE 2 MG/ML INJ. SYRINGE ONE (23:10)
[2018-04-06] VITALS (18 sets, daily range): BP systolic 100–142
[2018-04-06] MEDS: MORPHINE 2 MG/ML INJ. SYRINGE IVP PRN ×4 (03:19→22:43)
[2018-04-06] MEDS: 0.45% NACL 1,000 ML IV SCH (05:37)
[2018-04-06 06:20] LABS: BASOPHILS % (AUTO) 0.4 % (0.0-2.0); EOSINOPHILS # (AUTO) 0.2 K/uL (0.0-0.4); EOSINOPHILS % (AUTO) 2.6 % (0.0-4.0); HEMATOCRIT 29.4 % (36-48); LYMPHOCYTES # (AUTO) 1.5 K/uL (1.0-5.5); LYMPHOCYTES % (AUTO) 18.5 % (20.5-51.5); MEAN CORPUSCULAR HEMOGLOBIN 28 pg (27-31); MEAN CORPUSCULAR HGB CONC 32 % (32-36); MEAN CORPUSCULAR VOLUME 88 fL (79.0-98.0); MONOCYTES # (AUTO) 0.8 K/uL (0.0-1.0); MONOCYTES % (AUTO) 10.1 % (1.7-9.3); NEUTROPHILS # (AUTO) 5.4 K/uL (1.8-7.7); NEUTROPHILS % (AUTO) 68.4 % (40.0-70.0); PLATELET COUNT (AUTO) 175 K/uL (130-430); RED BLOOD CELL COUNT(AUTO) 3.35 MIL/uL (4.2-6.2); RED CELL DISTRIBUTION WIDTH 17.3 % (9.0-15.0); WHITE BLOOD COUNT (AUTO) 7.9 K/uL (4.8-10.8)
[2018-04-06 06:24] LABS: HEMOGLOBIN 9.4 g/dL (12.0-16.0)
[2018-04-06 06:47] LABS: ALBUMIN 2.2 g/dL (3.4-4.8); CALCIUM 7.8 mg/dL (8.4-11.0); CREATININE 1.95 mg/dL (0.55-1.30); POTASSIUM 3.3 mmol/L (3.5-5.1); TOTAL BILIRUBIN 0.4 mg/dL (0.0-1.0)
[2018-04-06] MEDS: cefTRIAXone 1 GM in D5W 50 ML IV SCH (08:06)
[2018-04-06] MEDS: PANTOPRAZOLE SODIUM 40 MG/VIAL (PROTONIX) IVP SCH ×2 (08:06→20:02)
[2018-04-06] MEDS: ASPIRIN 81 MG TAB.CHEW PO SCH (08:06)
[2018-04-06] MEDS: CARVEDILOL 6.25 MG TABLET (COREG) PO SCH ×2 (08:07→20:03)
[2018-04-06] MEDS ORDERED: HEPARIN SODIUM,PORCINE 5000 UNITS/ML VIAL SUBCUT ONE (09:30)
[2018-04-06] MEDS: ATORVASTATIN 20 MG TABLET PO SCH (20:03)
[2018-04-06] MEDS: HEPARIN SODIUM,PORCINE 5000 UNITS/ML VIAL SUBCUT SCH (20:09)
[2018-04-07 01:01] VITALS: BP_SYST 107
[2018-04-07] MEDS: MORPHINE 2 MG/ML INJ. SYRINGE IVP PRN ×2 (05:02→16:02)
[2018-04-07 07:02] LABS: BASOPHILS % (AUTO) 0.3 % (0.0-2.0); EOSINOPHILS # (AUTO) 0.2 K/uL (0.0-0.4); EOSINOPHILS % (AUTO) 3.4 % (0.0-4.0); HEMATOCRIT 29.3 % (36-48); HEMOGLOBIN 9.3 g/dL (12.0-16.0); LYMPHOCYTES # (AUTO) 1.2 K/uL (1.0-5.5); MEAN CORPUSCULAR HEMOGLOBIN 28 pg (27-31); MEAN CORPUSCULAR HGB CONC 32 % (32-36); MEAN CORPUSCULAR VOLUME 88 fL (79.0-98.0); MONOCYTES # (AUTO) 0.6 K/uL (0.0-1.0); MONOCYTES % (AUTO) 8.1 % (1.7-9.3); NEUTROPHILS # (AUTO) 4.9 K/uL (1.8-7.7); NEUTROPHILS % (AUTO) 70.2 % (40.0-70.0); PLATELET COUNT (AUTO) 169 K/uL (130-430); RED BLOOD CELL COUNT(AUTO) 3.33 MIL/uL (4.2-6.2); RED CELL DISTRIBUTION WIDTH 16.7 % (9.0-15.0); WHITE BLOOD COUNT (AUTO) 6.9 K/uL (4.8-10.8)
[2018-04-07 07:11] LABS: CREATININE 2.04 mg/dL (0.55-1.30); POTASSIUM 3.7 mmol/L (3.5-5.1)
[2018-04-07 07:19] LABS: CREATININE 1.96 mg/dL (0.55-1.30); POTASSIUM 3.6 mmol/L (3.5-5.1); TOTAL BILIRUBIN 0.3 mg/dL (0.0-1.0)
[2018-04-07 08:03] VITALS: BP_SYST 109
[2018-04-07] MEDS: cefTRIAXone 1 GM in D5W 50 ML IV SCH (08:32)
[2018-04-07] MEDS: PANTOPRAZOLE SODIUM 40 MG/VIAL (PROTONIX) IVP SCH ×2 (08:32→21:13)
[2018-04-07] MEDS: ASPIRIN 81 MG TAB.CHEW PO SCH (08:33)
[2018-04-07] MEDS: CARVEDILOL 6.25 MG TABLET (COREG) PO SCH (08:33)
[2018-04-07] MEDS: HEPARIN SODIUM,PORCINE 5000 UNITS/ML VIAL SUBCUT SCH ×2 (08:35→21:14)
[2018-04-07 09:14] LABS: ALBUMIN 2.5 g/dL (3.4-4.8)
[2018-04-07 09:20] LABS: CALCIUM 8.2 mg/dL (8.4-10.2)
[2018-04-07 09:59] LABS: VANCOMYCIN,RANDOM 9.6 ug/mL
[2018-04-07 11:21] VITALS: BP_SYST 112
[2018-04-07] MEDS: VANCOMYCIN HCL 1 GM/NS PREMIX 250 ML IV SCH (11:58)
[2018-04-07 15:48] VITALS: BP_SYST 101
[2018-04-07] MEDS ORDERED: VANCOMYCIN HCL 1 GM/NS PREMIX 250 ML IV SCH (20:00)
[2018-04-07 21:00] VITALS: BP_SYST 119
[2018-04-07] MEDS: ATORVASTATIN 20 MG TABLET PO SCH (21:12)
[2018-04-07] MEDS: CARVEDILOL 12.5 MG TABLET (COREG) PO SCH (21:13)
[2018-04-08] VITALS (7 sets, daily range): BP systolic 106–125
[2018-04-08] MEDS: MORPHINE 2 MG/ML INJ. SYRINGE IVP PRN ×6 (00:32→21:29)
[2018-04-08 06:50] LABS: ALBUMIN 2.4 g/dL (3.4-4.8); CREATININE 2.04 mg/dL (0.55-1.30); POTASSIUM 3.7 mmol/L (3.5-5.1); TOTAL BILIRUBIN 0.2 mg/dL (0.0-1.0)
[2018-04-08] MEDS: ASPIRIN 81 MG TAB.CHEW PO SCH (08:54)
[2018-04-08] MEDS: CARVEDILOL 12.5 MG TABLET (COREG) PO SCH ×2 (08:54→20:10)
[2018-04-08] MEDS: cefTRIAXone 1 GM in D5W 50 ML IV SCH (08:55)
[2018-04-08] MEDS: PANTOPRAZOLE SODIUM 40 MG/VIAL (PROTONIX) IVP SCH ×2 (08:55→20:09)
[2018-04-08] MEDS: HEPARIN SODIUM,PORCINE 5000 UNITS/ML VIAL SUBCUT SCH ×2 (08:59→20:12)
[2018-04-08] MEDS: VANCOMYCIN HCL 1 GM/NS PREMIX 250 ML IV SCH (12:58)
[2018-04-08] MEDS ORDERED: LevALBUTEROL HCL 1.25 MG/0.5 ML *CONC.* VIAL.NEB (XOPENEX CONC.) INH SCH (19:15)
[2018-04-08] MEDS: ATORVASTATIN 20 MG TABLET PO SCH (20:09)
[2018-04-09] MEDS: MORPHINE 2 MG/ML INJ. SYRINGE IVP PRN ×5 (01:03→15:01)
[2018-04-09 01:10] VITALS: BP_SYST 115
[2018-04-09 08:01] VITALS: BP_SYST 125
[2018-04-09] MEDS: ASPIRIN 81 MG TAB.CHEW PO SCH (08:45)
[2018-04-09] MEDS: cefTRIAXone 1 GM in D5W 50 ML IV SCH (08:46)
[2018-04-09] MEDS: PANTOPRAZOLE SODIUM 40 MG/VIAL (PROTONIX) IVP SCH (08:46)
[2018-04-09] MEDS: CARVEDILOL 12.5 MG TABLET (COREG) PO SCH (08:46)
[2018-04-09] MEDS: HEPARIN SODIUM,PORCINE 5000 UNITS/ML VIAL SUBCUT SCH (08:49)
[2018-04-09] MEDS ORDERED: COLCHICINE 0.6 MG TABLET PO SCH (09:00)
[2018-04-09 12:01] VITALS: BP_SYST 96
[2018-04-09] MEDS: VANCOMYCIN HCL 1 GM/NS PREMIX 250 ML IV SCH (12:32)
[2018-04-09 12:42] VITALS: BP_SYST 107
[2018-04-09 16:30] VITALS: BP_SYST 107
== END 2018-04-09 19:40 | DRG 871 ==
LOC: SED 05:55 → STU 08:56 → SIC 10:19 → STU 04-06 15:55
PROVIDERS: ADMIT Family Medicine; ATTEND Family Medicine
DX: A41.2 Sepsis due to unspecified staphylococcus (principal); I21.9 Acute myocardial infarction, unspecified; G93.41 Metabolic encephalopathy; E87.2 Acidosis; E46 Unspecified protein-calorie malnutrition; N17.9 Acute kidney failure, unspecified; N18.4 Chronic kidney disease, stage 4 (severe); N13.30 Unspecified hydronephrosis; N39.0 Urinary tract infection, site not specified; N83.209 Unspecified ovarian cyst, unspecified side; M25.571 Pain in right ankle and joints of right foot; M10.9 Gout, unspecified; D64.9 Anemia, unspecified; J44.9 Chronic obstructive pulmonary disease, unspecified; F03.90 Unspecified dementia, unspecified severity, without behavioral disturbance, psychotic disturbance, mood disturbance, and anxiety; I12.9 Hypertensive chronic kidney disease with stage 1 through stage 4 chronic kidney disease, or unspecified chronic kidney disease; B96.20 Unspecified Escherichia coli [E. coli] as the cause of diseases classified elsewhere; R65.20 Severe sepsis without septic shock; T42.8X1A Poisoning by antiparkinsonism drugs and other central muscle-tone depressants, accidental (unintentional), initial encounter; T50.991A Poisoning by other drugs, medicaments and biological substances, accidental (unintentional), initial encounter; M19.90 Unspecified osteoarthritis, unspecified site; G89.29 Other chronic pain; M54.5 Low back pain; E11.22 Type 2 diabetes mellitus with diabetic chronic kidney disease; I25.10 Atherosclerotic heart disease of native coronary artery without angina pectoris; Z87.440 Personal history of urinary (tract) infections; Z98.84 Bariatric surgery status; Z79.899 Other long term (current) drug therapy; Y92.89 Other specified places as the place of occurrence of the external cause; Z68.21 Body mass index [BMI] 21.0-21.9, adult; Z87.891 Personal history of nicotine dependence; Z82.49 Family history of ischemic heart disease and other diseases of the circulatory system
CPT/HCPCS: 36415; 36600; 70450-TC; 70551; 71045; 80048; 80053; 80061; 80069; 80202-TC; 80307; 81000-TC; 82140-TC; 82550-TC; 82803-TC; 83690-TC; 83735-TC; 83880; 84443-TC; 84484; 84550-TC; 85007; 85025; 85027; 85610-TC; 85651-TC; 85730-TC; 87040-TC; 87081; 87086; 87186-TC; 93005; 93306; 94640; 94760; 95816; 96361; 96372; 96374; 97110-GP; 97116-GP; 97530-GP; 97535-GP; 99291; C9113; G0480; G0481; G0482; J0360; J0696; J1200; J1630; J1644; J2060; J2270; J3370; J7030; J7050; J7060; J7612

== ENCOUNTER 2018-05-10 11:31 | Inpatient (IN) | payer OTHER, MEDICAID ==
[~2018-05-10] VITALS: Ht 160 cm; Wt 54.4 kg
[2018-05-10 11:31] VITALS: BP_SYST 150
[~2018-05-10 11:31] MED LIST changes: -ALBMDI INH; +BACL20TA PO; +FOLI-43 PO
[2018-05-10 12:24] LABS: BASOPHILS % (AUTO) 0.2 % (0.0-2.0); EOSINOPHILS # (AUTO) 0.4 K/uL (0.0-0.4); EOSINOPHILS % (AUTO) 5.7 % (0.0-4.0); HEMATOCRIT 37.5 % (36-48); HEMOGLOBIN 12.2 g/dL (12.0-16.0); LYMPHOCYTES # (AUTO) 0.6 K/uL (1.0-5.5); LYMPHOCYTES % (AUTO) 9.5 % (20.5-51.5); MEAN CORPUSCULAR HEMOGLOBIN 29 pg (27-31); MEAN CORPUSCULAR HGB CONC 33 % (32-36); MEAN CORPUSCULAR VOLUME 88 fL (79.0-98.0); MONOCYTES # (AUTO) 0.5 K/uL (0.0-1.0); MONOCYTES % (AUTO) 7.1 % (1.7-9.3); NEUTROPHILS % (AUTO) 77.5 % (40.0-70.0); PLATELET COUNT (AUTO) 159 K/uL (130-430); RED BLOOD CELL COUNT(AUTO) 4.25 MIL/uL (4.2-6.2); RED CELL DISTRIBUTION WIDTH 16.4 % (9.0-15.0); WHITE BLOOD COUNT (AUTO) 6.5 K/uL (4.8-10.8)
[2018-05-10 12:25] LABS: PROTHROMBIN TIME 10.5 SECS (9.5-12.5)
[2018-05-10 13:07] LABS: ACETAMINOPHEN < 1 ug/mL (1-30)
[2018-05-10 13:15] LABS: CHLORIDE 112 mmol/L (98-107); SODIUM SERUM 141 mmol/L (136-145)
[2018-05-10 13:16] LABS: CALCIUM 8.9 mg/dL (8.4-11.0); CREATININE 2.46 mg/dL (0.55-1.30); GFR AFRICAN AMERICAN 25 mL/min (>90); GLUCOSE 106 mg/dL (70-99); UREA NITROGEN, BLOOD 35 mg/dL (8-21)
[2018-05-10 13:18] LABS: ANION GAP 14 (5-15); POTASSIUM 6.9 mmol/L (3.5-5.1)
[2018-05-10 13:19] LABS: TOTAL BILIRUBIN 0.4 mg/dL (0.0-1.0)
[2018-05-10 13:20] LABS: ALANINE AMINOTRANSFERASE 22 U/L (12-78); ALBUMIN 3.4 g/dL (3.4-4.8); ASPARTATE AMINOTRANSFERASE 52 U/L (10-37)
[2018-05-10 13:29] LABS: ALCOHOL, BLOOD < 3 mg/dL (<10)
[2018-05-10] MEDS ORDERED: DEXTROSE 50% JECT 50 ML DISP.SYRIN IVP ONE (13:30)
[2018-05-10] MEDS ORDERED: CALCIUM CHLORIDE 1 GM/10ML VIAL (13.6 mEq Ca++/VIAL) IVP ONE (13:30)
[2018-05-10] MEDS ORDERED: SODIUM BICARBONATE 8.4% JECT 50 MEQ/50 ML SYRINGE IVP ONE (13:30)
[2018-05-10] MEDS ORDERED: INSULIN REGULAR, HUMAN 10 UNITS/0.1 ML INJ IVP ONE (13:30)
[2018-05-10] MEDS ORDERED: SODIUM POLYSTYRENE SULFONATE 15 GM/60 ML UDBTL PO ONE (13:30)
[2018-05-10] MEDS ORDERED: CALCIUM CHLORIDE 1 GM/10 ML DISP.SYRIN (14 mEq Ca++/SYR) ONE (14:11)
[2018-05-10 14:55] VITALS: BP_SYST 92
[2018-05-10] MEDS: D5/0.45 NS 1,000 ML IV SCH (15:06)
[2018-05-10] MEDS ORDERED: LORazepam 2 MG/ML VIAL IVP PRN (17:00)
[2018-05-10] MEDS ORDERED: ACETAMINOPHEN 325 MG TABLET PO PRN (17:00)
[2018-05-10] MEDS ORDERED: ONDANSETRON HCL 4 MG/2 ML VIAL IVP PRN (17:00)
[2018-05-10 17:11] VITALS: BP_SYST 135
[2018-05-10] MEDS ORDERED: SODIUM POLYSTYRENE SULFONATE 15 GM/60 ML UDBTL PO PRN (17:15)
[2018-05-10 19:59] LABS: CREATININE 2.53 mg/dL (0.55-1.30); POTASSIUM 5.1 mmol/L (3.5-5.1)
[2018-05-10 20:00] VITALS: BP_SYST 138
[2018-05-11] MEDS: D5/0.45 NS 1,000 ML IV SCH ×3 (00:25→20:55)
[2018-05-11 00:30] VITALS: BP_SYST 153
[2018-05-11 07:35] LABS: BASOPHILS % (AUTO) 0.3 % (0.0-2.0); EOSINOPHILS # (AUTO) 0.6 K/uL (0.0-0.4); EOSINOPHILS % (AUTO) 7.4 % (0.0-4.0); HEMATOCRIT 32.6 % (36-48); HEMOGLOBIN 10.6 g/dL (12.0-16.0); LYMPHOCYTES # (AUTO) 1.1 K/uL (1.0-5.5); LYMPHOCYTES % (AUTO) 13.8 % (20.5-51.5); MEAN CORPUSCULAR HEMOGLOBIN 29 pg (27-31); MEAN CORPUSCULAR HGB CONC 33 % (32-36); MEAN CORPUSCULAR VOLUME 88 fL (79.0-98.0); MONOCYTES # (AUTO) 0.7 K/uL (0.0-1.0); MONOCYTES % (AUTO) 9.5 % (1.7-9.3); NEUTROPHILS # (AUTO) 5.3 K/uL (1.8-7.7); PLATELET COUNT (AUTO) 135 K/uL (130-430); RED BLOOD CELL COUNT(AUTO) 3.71 MIL/uL (4.2-6.2); RED CELL DISTRIBUTION WIDTH 16.4 % (9.0-15.0); WHITE BLOOD COUNT (AUTO) 7.7 K/uL (4.8-10.8)
[2018-05-11 07:42] VITALS: BP_SYST 152
[2018-05-11] MEDS: HYDROcodone/ACETAMIN 5-325 MG TAB (NORCO/ VICODIN) PO PRN (07:42)
[2018-05-11 08:17] LABS: CALCIUM 7.9 mg/dL (8.4-11.0); CREATININE 2.29 mg/dL (0.55-1.30); POTASSIUM 4.3 mmol/L (3.5-5.1)
[2018-05-11 08:27] LABS: ALBUMIN 2.9 g/dL (3.4-4.8); PHOSPHORUS 3.5 mg/dL (2.7-4.5); TOTAL BILIRUBIN 0.3 mg/dL (0.0-1.0)
[2018-05-11] MEDS ORDERED: MORPHINE 2 MG/ML INJ. SYRINGE IVP ONE (08:45)
[2018-05-11 11:23] VITALS: BP_SYST 142
[2018-05-11 15:25] VITALS: BP_SYST 148
[2018-05-11 20:00] VITALS: BP_SYST 145
[2018-05-11] MEDS: HYDROcodone/ACETAMIN 10-325 MG TAB PO PRN (20:55)
[2018-05-12 02:17] VITALS: BP_SYST 125
[2018-05-12] MEDS: D5/0.45 NS 1,000 ML IV SCH ×2 (06:44→17:00)
[2018-05-12 06:56] LABS: BASOPHILS % (AUTO) 0.3 % (0.0-2.0); EOSINOPHILS # (AUTO) 0.4 K/uL (0.0-0.4); EOSINOPHILS % (AUTO) 6.3 % (0.0-4.0); HEMOGLOBIN 10.9 g/dL (12.0-16.0); LYMPHOCYTES # (AUTO) 0.9 K/uL (1.0-5.5); LYMPHOCYTES % (AUTO) 12.9 % (20.5-51.5); MEAN CORPUSCULAR HEMOGLOBIN 28 pg (27-31); MEAN CORPUSCULAR HGB CONC 32 % (32-36); MEAN CORPUSCULAR VOLUME 89 fL (79.0-98.0); MONOCYTES # (AUTO) 0.6 K/uL (0.0-1.0); MONOCYTES % (AUTO) 8.5 % (1.7-9.3); NEUTROPHILS # (AUTO) 4.8 K/uL (1.8-7.7); PLATELET COUNT (AUTO) 148 K/uL (130-430); RED BLOOD CELL COUNT(AUTO) 3.83 MIL/uL (4.2-6.2); RED CELL DISTRIBUTION WIDTH 16.1 % (9.0-15.0); WHITE BLOOD COUNT (AUTO) 6.7 K/uL (4.8-10.8)
[2018-05-12 07:13] LABS: CALCIUM 7.9 mg/dL (8.4-11.0); CREATININE 2.02 mg/dL (0.55-1.30); PHOSPHORUS 3.3 mg/dL (2.7-4.5); POTASSIUM 3.8 mmol/L (3.5-5.1)
[2018-05-12 08:59] VITALS: BP_SYST 136
[2018-05-12] MEDS: HYDROcodone/ACETAMIN 10-325 MG TAB PO PRN ×3 (11:20→23:17)
[2018-05-12 12:59] VITALS: BP_SYST 122
[2018-05-12 17:54] VITALS: BP_SYST 134
[2018-05-12] MEDS: HYDROcodone/ACETAMIN 5-325 MG TAB (NORCO/ VICODIN) PO PRN (18:51)
[2018-05-12 20:44] VITALS: BP_SYST 125
[2018-05-13 00:40] VITALS: BP_SYST 138
[2018-05-13] MEDS: D5/0.45 NS 1,000 ML IV SCH ×3 (03:12→20:50)
[2018-05-13 06:53] LABS: CALCIUM 7.7 mg/dL (8.4-11.0); CREATININE 1.97 mg/dL (0.55-1.30); PHOSPHORUS 3.8 mg/dL (2.7-4.5); POTASSIUM 3.9 mmol/L (3.5-5.1)
[2018-05-13 07:12] LABS: BASOPHILS % (AUTO) 0.8 % (0.0-2.0); EOSINOPHILS # (AUTO) 0.4 K/uL (0.0-0.4); EOSINOPHILS % (AUTO) 8.9 % (0.0-4.0); HEMATOCRIT 31.8 % (36-48); HEMOGLOBIN 10.1 g/dL (12.0-16.0); LYMPHOCYTES # (AUTO) 0.9 K/uL (1.0-5.5); LYMPHOCYTES % (AUTO) 17.8 % (20.5-51.5); MEAN CORPUSCULAR HEMOGLOBIN 29 pg (27-31); MEAN CORPUSCULAR HGB CONC 32 % (32-36); MEAN CORPUSCULAR VOLUME 91 fL (79.0-98.0); MONOCYTES # (AUTO) 0.5 K/uL (0.0-1.0); MONOCYTES % (AUTO) 10.3 % (1.7-9.3); NEUTROPHILS # (AUTO) 3.1 K/uL (1.8-7.7); NEUTROPHILS % (AUTO) 62.2 % (40.0-70.0); PLATELET COUNT (AUTO) 124 K/uL (130-430); RED BLOOD CELL COUNT(AUTO) 3.52 MIL/uL (4.2-6.2); RED CELL DISTRIBUTION WIDTH 15.8 % (9.0-15.0); WHITE BLOOD COUNT (AUTO) 4.9 K/uL (4.8-10.8)
[2018-05-13 08:27] VITALS: BP_SYST 123
[2018-05-13] MEDS: HYDROcodone/ACETAMIN 10-325 MG TAB PO PRN ×2 (10:16→13:36)
[2018-05-13 11:10] VITALS: BP_SYST 121
[2018-05-13] MEDS ORDERED: DOCUSATE SODIUM 100 MG CAPSULE PO ONE (13:00)
[2018-05-13 15:19] VITALS: BP_SYST 132
[2018-05-13] MEDS: MORPHINE 2 MG/ML INJ. SYRINGE IVP PRN ×2 (16:54→21:26)
[2018-05-13 19:45] VITALS: BP_SYST 135
[2018-05-13] MEDS: DOCUSATE SODIUM 100 MG CAPSULE PO SCH (20:42)
[2018-05-14 00:55] VITALS: BP_SYST 139
[2018-05-14] MEDS: HYDROcodone/ACETAMIN 5-325 MG TAB (NORCO/ VICODIN) PO PRN (05:11)
[2018-05-14] MEDS: D5/0.45 NS 1,000 ML IV SCH (06:38)
[2018-05-14 08:05] VITALS: BP_SYST 129
[2018-05-14 08:24] LABS: CALCIUM 7.6 mg/dL (8.4-11.0); CREATININE 1.93 mg/dL (0.55-1.30); PHOSPHORUS 3.3 mg/dL (2.7-4.5)
[2018-05-14] MEDS: DOCUSATE SODIUM 100 MG CAPSULE PO SCH (08:43)
[2018-05-14] MEDS: HYDROcodone/ACETAMIN 10-325 MG TAB PO PRN (08:43)
[2018-05-14 08:52] LABS: BASOPHILS % (AUTO) 0.6 % (0.0-2.0); EOSINOPHILS # (AUTO) 0.5 K/uL (0.0-0.4); EOSINOPHILS % (AUTO) 7.9 % (0.0-4.0); HEMOGLOBIN 9.8 g/dL (12.0-16.0); LYMPHOCYTES # (AUTO) 0.9 K/uL (1.0-5.5); LYMPHOCYTES % (AUTO) 13.8 % (20.5-51.5); MEAN CORPUSCULAR HEMOGLOBIN 28 pg (27-31); MEAN CORPUSCULAR HGB CONC 32 % (32-36); MEAN CORPUSCULAR VOLUME 90 fL (79.0-98.0); MONOCYTES # (AUTO) 0.7 K/uL (0.0-1.0); MONOCYTES % (AUTO) 11.6 % (1.7-9.3); NEUTROPHILS # (AUTO) 4.3 K/uL (1.8-7.7); NEUTROPHILS % (AUTO) 66.1 % (40.0-70.0); PLATELET COUNT (AUTO) 134 K/uL (130-430); RED BLOOD CELL COUNT(AUTO) 3.45 MIL/uL (4.2-6.2); RED CELL DISTRIBUTION WIDTH 15.3 % (9.0-15.0); WHITE BLOOD COUNT (AUTO) 6.4 K/uL (4.8-10.8)
[2018-05-14] MEDS: MORPHINE 2 MG/ML INJ. SYRINGE IVP PRN (10:56)
[2018-05-14] MEDS ORDERED: DOCU-144 PO (12:37)
[2018-05-14 12:49] VITALS: BP_SYST 128
[2018-05-14 13:49] VITALS: BP_SYST 134
== END 2018-05-14 14:07 | disposition home health service (06) | DRG 917 ==
LOC: SED 11:31 → STU 14:09
PROVIDERS: ADMIT Preventive Medicine Preventive Medicine/Occupational Environmental Medicine; ATTEND Preventive Medicine Preventive Medicine/Occupational Environmental Medicine
DX: T45.0X1A Poisoning by antiallergic and antiemetic drugs, accidental (unintentional), initial encounter (principal); N17.0 Acute kidney failure with tubular necrosis; N13.30 Unspecified hydronephrosis; E87.5 Hyperkalemia; K80.20 Calculus of gallbladder without cholecystitis without obstruction; J44.9 Chronic obstructive pulmonary disease, unspecified; N83.9 Noninflammatory disorder of ovary, fallopian tube and broad ligament, unspecified; D64.9 Anemia, unspecified; I12.9 Hypertensive chronic kidney disease with stage 1 through stage 4 chronic kidney disease, or unspecified chronic kidney disease; N18.9 Chronic kidney disease, unspecified; R73.9 Hyperglycemia, unspecified; R07.9 Chest pain, unspecified; R74.0 Nonspecific elevation of levels of transaminase and lactic acid dehydrogenase [LDH]; D69.6 Thrombocytopenia, unspecified; G89.29 Other chronic pain; M54.9 Dorsalgia, unspecified; F32.9 Major depressive disorder, single episode, unspecified; E83.51 Hypocalcemia; Y92.89 Other specified places as the place of occurrence of the external cause; Z90.710 Acquired absence of both cervix and uterus; Z87.440 Personal history of urinary (tract) infections
CPT/HCPCS: 36415; 70450-TC; 71045; 74018; 76770; 80048; 80053; 80061; 82140-TC; 83605; 83735-TC; 83880; 84100-TC; 84439; 84484; 85025; 85610-TC; 85730-TC; 87040-TC; 87081; 93005; 93306; 96374; 96375; 99285; G0480; G0482; J1815; J2270

== ENCOUNTER 2019-11-22 18:31 | Inpatient (IN) | payer MEDICAID, OTHER ==
[~2019-11-22] VITALS: Ht 160 cm; Wt 59.0 kg
[~2019-11-22 18:31] MED LIST changes: -BACL20TA PO; +DOCU-144 PO; -FOLI-43 PO
[2019-11-22 18:36] VITALS: BP_SYST 155
[2019-11-22] MEDS ORDERED: NACL 0.9% 1,000 ML IV ONE (18:36)
[2019-11-22] MEDS ORDERED: IPRATROPIUM BROM 0.5 MG/2.5 ML VIAL.NEB (ATROVENT) INH ONE (18:45)
[2019-11-22] MEDS ORDERED: ALBUTEROL SULFATE 0.083% 2.5 MG/3 ML VIAL.NEB INH ONE (18:45)
[2019-11-22] MEDS ORDERED: methylPREDNISolone SOD SUCC/PF 62.5 MG/ML VIAL IVP ONE (18:45)
[2019-11-22] MEDS ORDERED: KETOROLAC TROMETHAMINE 30 MG VIAL IVP ONE (18:45)
[2019-11-22 19:18] LABS: BASOPHILS % (AUTO) 0.4 % (0.0-2.0); HEMATOCRIT 28.7 % (36-48); HEMOGLOBIN 9.3 g/dL (12.0-16.0); LYMPHOCYTES # (AUTO) 0.5 K/uL (1.0-5.5); LYMPHOCYTES % (AUTO) 4.5 % (20.5-51.5); MEAN CORPUSCULAR HEMOGLOBIN 28 pg (27-31); MEAN CORPUSCULAR HGB CONC 33 % (32-36); MEAN CORPUSCULAR VOLUME 86 fL (79.0-98.0); MONOCYTES # (AUTO) 0.6 K/uL (0.0-1.0); NEUTROPHILS # (AUTO) 8.9 K/uL (1.8-7.7); NEUTROPHILS % (AUTO) 89.1 % (40.0-70.0); PLATELET COUNT (AUTO) 160 K/uL (130-430); RED BLOOD CELL COUNT(AUTO) 3.35 MIL/uL (4.2-6.2); RED CELL DISTRIBUTION WIDTH 14.9 % (9.0-15.0); WHITE BLOOD COUNT (AUTO) 9.9 K/uL (4.8-10.8)
[2019-11-22 19:38] LABS: BILIRUBIN,URINE NEGATIVE (NEGATIVE); BLOOD, URINE 3+ (NEGATIVE); CLARITY/URINE CLOUDY (CLEAR); GLUCOSE,URINE NEGATIVE (NEGATIVE); KETONES,URINE NEGATIVE (NEGATIVE); LEUKOCYTE ESTERASE ,URINE 1+ (NEGATIVE); NITRITE, URINE POSITIVE (NEGATIVE); PH,URINE 6.5 (5.0-8.0); PROTEIN URINE 3+ (NEGATIVE)
[2019-11-22 19:42] LABS: CREATININE 2.53 mg/dL (0.55-1.30); POTASSIUM 5.4 mmol/L (3.5-5.1)
[2019-11-22 19:48] LABS: ALBUMIN 3.3 g/dL (3.4-4.8); TOTAL BILIRUBIN 0.5 mg/dL (0.0-1.0)
[2019-11-22 19:52] LABS: PROTHROMBIN TIME 10.5 SECS (9.5-12.5)
[2019-11-22 19:57] LABS: CALCIUM 6.5 mg/dL (8.4-11.0)
[2019-11-22] MEDS ORDERED: ALBU8.5H8 INH (20:03)
[2019-11-22 20:07] LABS: COLOR,URINE AMBER (YELLOW)
[2019-11-22 20:17] LABS: CKMB RELATIVE INDEX 0.7 (0.0-2.9); CREATINE KINASE MB 1.9 ng/mL (0-3.6)
[2019-11-22 20:21] LABS: BACTERIA,URINE FEW /HPF (None Seen); RBC,URINE >100 /HPF (0-3); WBC,URINE 80-100 /HPF (0-3)
[2019-11-22 20:22] LABS: MUCUS,URINE None Seen /LPF (None Seen)
[2019-11-22] MEDS ORDERED: CALCIUM CHLORIDE 1 GM in NS 100 ML IV ONE (20:30)
[2019-11-22] MEDS ORDERED: CALCIUM CHLORIDE 1 GM/10 ML DISP.SYRIN (14 mEq Ca++/SYR) ONE (21:57)
[2019-11-22] MEDS ORDERED: cefTRIAXone 1 GM IVPB PREMIX 50 ML IV ONE (22:00)
[2019-11-22] MEDS ORDERED: L.RH1CAP PO (23:15)
[2019-11-22] MEDS ORDERED: ASA81 PO (23:15)
[2019-11-22] MEDS ORDERED: APIX2.5T PO (23:15)
[2019-11-22] MEDS ORDERED: CALC-823 PO (23:15)
[2019-11-22] MEDS ORDERED: CYAN100070 PO (23:15)
[2019-11-22] MEDS ORDERED: LIP40 PO (23:15)
[2019-11-23] MEDS ORDERED: ALBUTEROL SULFATE 0.083% 2.5 MG/3 ML VIAL.NEB INH PRN (02:00)
[2019-11-23] MEDS ORDERED: HYDROcodone/ACETAMIN 5-325 MG TAB (NORCO/ VICODIN) PO PRN (02:00)
[2019-11-23] MEDS ORDERED: ONDANSETRON HCL 4 MG/2 ML VIAL IVP PRN (02:00)
[2019-11-23] MEDS ORDERED: CALCIUM GLUCONATE 1 GM in NS 100 ML IV ONE (02:00)
[2019-11-23] MEDS ORDERED: ACETAMINOPHEN 325 MG TABLET PO PRN (02:00)
[2019-11-23 02:02] VITALS: BP_SYST 133
[2019-11-23] MEDS: HYDROcodone/ACETAMIN 10-325 MG TAB PO PRN ×3 (02:34→19:02)
[2019-11-23] MEDS ORDERED: CALCIUM GLUCONATE 1 GM/10 ML VIAL ONE (02:52)
[2019-11-23 04:26] LABS: BASOPHILS % (AUTO) 0.4 % (0.0-2.0); HEMATOCRIT 25.8 % (36-48); HEMOGLOBIN 8.2 g/dL (12.0-16.0); LYMPHOCYTES # (AUTO) 0.2 K/uL (1.0-5.5); MEAN CORPUSCULAR HEMOGLOBIN 28 pg (27-31); MEAN CORPUSCULAR HGB CONC 32 % (32-36); MEAN CORPUSCULAR VOLUME 87 fL (79.0-98.0); MONOCYTES # (AUTO) 0.1 K/uL (0.0-1.0); MONOCYTES % (AUTO) 1.5 % (1.7-9.3); NEUTROPHILS # (AUTO) 6.8 K/uL (1.8-7.7); NEUTROPHILS % (AUTO) 95.1 % (40.0-70.0); PLATELET COUNT (AUTO) 140 K/uL (130-430); RED BLOOD CELL COUNT(AUTO) 2.98 MIL/uL (4.2-6.2); RED CELL DISTRIBUTION WIDTH 15.2 % (9.0-15.0); WHITE BLOOD COUNT (AUTO) 7.1 K/uL (4.8-10.8)
[2019-11-23 04:37] LABS: ALBUMIN 2.9 g/dL (3.4-4.8); CALCIUM 7.3 mg/dL (8.4-11.0); CREATININE 2.7 mg/dL (0.55-1.30); POTASSIUM 4.8 mmol/L (3.5-5.1); TOTAL BILIRUBIN 0.4 mg/dL (0.0-1.0)
[2019-11-23] MEDS ORDERED: CALCIUM CHLORIDE 1 GM in NS 100 ML IV ONE (06:15)
[2019-11-23 07:56] VITALS: BP_SYST 140
[2019-11-23] MEDS: CALCIUM CARBONATE/VITAMIN D3 1 TAB TABLET PO SCH (10:00)
[2019-11-23] MEDS: ASPIRIN 81 MG TAB.CHEW PO SCH (10:00)
[2019-11-23] MEDS: APIXABAN 2.5 MG TABLET PO SCH ×2 (10:02→20:32)
[2019-11-23] MEDS: cefTRIAXone 1 GM IVPB PREMIX 50 ML IV SCH ×2 (11:09→20:26)
[2019-11-23 12:00] VITALS: BP_SYST 139
[2019-11-23] MEDS ORDERED: MORPHINE SULFATE 10 MG/ML VIAL IVP ONE (13:15)
[2019-11-23 17:15] VITALS: BP_SYST 148
[2019-11-23 20:15] VITALS: BP_SYST 128
[2019-11-23] MEDS: ATORVASTATIN 20 MG TABLET PO SCH (20:25)
[2019-11-24 01:32] VITALS: BP_SYST 118
[2019-11-24] MEDS: HYDROcodone/ACETAMIN 10-325 MG TAB PO PRN ×3 (06:26→19:44)
[2019-11-24 07:08] LABS: BASOPHILS % (AUTO) 0.6 % (0.0-2.0); EOSINOPHILS % (AUTO) 0.3 % (0.0-4.0); HEMATOCRIT 25.1 % (36-48); LYMPHOCYTES # (AUTO) 1.1 K/uL (1.0-5.5); LYMPHOCYTES % (AUTO) 19.6 % (20.5-51.5); MEAN CORPUSCULAR HEMOGLOBIN 28 pg (27-31); MEAN CORPUSCULAR HGB CONC 32 % (32-36); MEAN CORPUSCULAR VOLUME 87 fL (79.0-98.0); MONOCYTES # (AUTO) 0.5 K/uL (0.0-1.0); MONOCYTES % (AUTO) 8.5 % (1.7-9.3); PLATELET COUNT (AUTO) 146 K/uL (130-430); RED BLOOD CELL COUNT(AUTO) 2.91 MIL/uL (4.2-6.2); RED CELL DISTRIBUTION WIDTH 15.4 % (9.0-15.0); WHITE BLOOD COUNT (AUTO) 5.6 K/uL (4.8-10.8)
[2019-11-24 07:32] LABS: ALBUMIN 2.7 g/dL (3.4-4.8); CREATININE 3.01 mg/dL (0.55-1.30); POTASSIUM 4.5 mmol/L (3.5-5.1); TOTAL BILIRUBIN 0.2 mg/dL (0.0-1.0)
[2019-11-24 07:53] LABS: CALCIUM 6.4 mg/dL (8.4-11.0)
[2019-11-24] MEDS: cefTRIAXone 1 GM IVPB PREMIX 50 ML IV SCH ×2 (09:42→21:01)
[2019-11-24] MEDS: ASPIRIN 81 MG TAB.CHEW PO SCH (09:42)
[2019-11-24] MEDS: CALCIUM CARBONATE/VITAMIN D3 1 TAB TABLET PO SCH (09:42)
[2019-11-24] MEDS: APIXABAN 2.5 MG TABLET PO SCH ×2 (09:43→21:02)
[2019-11-24] MEDS ORDERED: CEPH-568 PO (09:50)
[2019-11-24] MEDS ORDERED: CALCIUM GLUCONATE 2 GM in NS 100 ML IV ONE (10:00)
[2019-11-24 10:27] VITALS: BP_SYST 137
[2019-11-24 12:05] VITALS: BP_SYST 135
[2019-11-24] MEDS ORDERED: CALCIUM 500 MG/TAB PO ONE (14:00)
[2019-11-24 17:01] VITALS: BP_SYST 122
[2019-11-24] MEDS: NACL 0.9% 1,000 ML IV SCH (17:18)
[2019-11-24 19:27] LABS: BILIRUBIN,URINE NEGATIVE (NEGATIVE); BLOOD, URINE 2+ (NEGATIVE); CLARITY/URINE CLEAR (CLEAR); COLOR,URINE YELLOW (YELLOW); GLUCOSE,URINE NEGATIVE (NEGATIVE); KETONES,URINE NEGATIVE (NEGATIVE); LEUKOCYTE ESTERASE ,URINE 1+ (NEGATIVE); NITRITE, URINE NEGATIVE (NEGATIVE); PROTEIN URINE NEGATIVE (NEGATIVE); UROBILINOGEN,URINE 0.2 (0.2-1.0)
[2019-11-24 19:38] LABS: BACTERIA,URINE FEW /HPF (None Seen)
[2019-11-24 20:30] VITALS: BP_SYST 152
[2019-11-24] MEDS: ATORVASTATIN 20 MG TABLET PO SCH (21:00)
[2019-11-24] MEDS: CALCIUM 500 MG/TAB PO SCH (21:10)
[2019-11-25 01:03] VITALS: BP_SYST 118
[2019-11-25 06:17] LABS: BASOPHILS % (AUTO) 0.4 % (0.0-2.0); EOSINOPHILS # (AUTO) 0.1 K/uL (0.0-0.4); EOSINOPHILS % (AUTO) 1.1 % (0.0-4.0); HEMATOCRIT 24.4 % (36-48); HEMOGLOBIN 7.7 g/dL (12.0-16.0); LYMPHOCYTES # (AUTO) 1.2 K/uL (1.0-5.5); LYMPHOCYTES % (AUTO) 22.1 % (20.5-51.5); MEAN CORPUSCULAR HEMOGLOBIN 27 pg (27-31); MEAN CORPUSCULAR HGB CONC 32 % (32-36); MEAN CORPUSCULAR VOLUME 87 fL (79.0-98.0); MONOCYTES # (AUTO) 0.4 K/uL (0.0-1.0); MONOCYTES % (AUTO) 8.4 % (1.7-9.3); NEUTROPHILS # (AUTO) 3.6 K/uL (1.8-7.7); PLATELET COUNT (AUTO) 155 K/uL (130-430); RED BLOOD CELL COUNT(AUTO) 2.82 MIL/uL (4.2-6.2); RED CELL DISTRIBUTION WIDTH 15.6 % (9.0-15.0); WHITE BLOOD COUNT (AUTO) 5.3 K/uL (4.8-10.8)
[2019-11-25] MEDS: HYDROcodone/ACETAMIN 10-325 MG TAB PO PRN ×2 (06:27→10:30)
[2019-11-25] MEDS: NACL 0.9% 1,000 ML IV SCH ×2 (06:34→09:51)
[2019-11-25] MEDS ORDERED: CALCIUM CHLORIDE 1 GM in NS 100 ML IV ONE ×4 (06:45)
[2019-11-25] MEDS ORDERED: CALCIUM CHLORIDE 2 GM in NS 100 ML IV ONE (07:30)
[2019-11-25 08:22] VITALS: BP_SYST 119
[2019-11-25] MEDS: cefTRIAXone 1 GM IVPB PREMIX 50 ML IV SCH (08:31)
[2019-11-25] MEDS: CALCIUM 500 MG/TAB PO SCH ×2 (08:31→15:31)
[2019-11-25] MEDS: ASPIRIN 81 MG TAB.CHEW PO SCH (08:31)
[2019-11-25] MEDS: APIXABAN 2.5 MG TABLET PO SCH (09:00)
[2019-11-25 09:37] VITALS: BP_SYST 119
[2019-11-25] MEDS ORDERED: LEVOFLOXACIN 250 MG TABLET PO SCH (10:00)
[2019-11-25 12:56] VITALS: BP_SYST 148
[2019-11-25 13:14] VITALS: BP_SYST 122
[2019-11-25 16:31] VITALS: BP_SYST 123
== END 2019-11-25 16:37 | disposition home or self-care (01) | DRG 682 ==
LOC: SED 18:31 → STU 21:59
PROVIDERS: ADMIT Internal Medicine; ATTEND Internal Medicine
DX: N17.0 Acute kidney failure with tubular necrosis (principal); R65.11 Systemic inflammatory response syndrome (SIRS) of non-infectious origin with acute organ dysfunction; N13.6 Pyonephrosis; I12.9 Hypertensive chronic kidney disease with stage 1 through stage 4 chronic kidney disease, or unspecified chronic kidney disease; E83.51 Hypocalcemia; D63.8 Anemia in other chronic diseases classified elsewhere; G89.29 Other chronic pain; I48.91 Unspecified atrial fibrillation; J44.9 Chronic obstructive pulmonary disease, unspecified; N18.9 Chronic kidney disease, unspecified; N31.9 Neuromuscular dysfunction of bladder, unspecified; Z86.19 Personal history of other infectious and parasitic diseases; Z79.899 Other long term (current) drug therapy
CPT/HCPCS: 36415; 71045; 76770; 80053; 81000-TC; 82150-TC; 82550-TC; 82553-TC; 83605; 83690-TC; 83735-TC; 83880; 84484; 85025; 85610-TC; 85730-TC; 86710; 87040-TC; 87086; 87186-TC; 93005; 94640; 96361; 96365; 96375; 99285; G0378; J0610; J0696; J1885; J2270; J2405; J2930; J7030; J7613

== ENCOUNTER 2020-03-24 14:39 | Observation (INO) | payer OTHER ==
[~2020-03-24] VITALS: Ht 160 cm; Wt 54.4 kg
[2020-03-24 14:39] VITALS: BP_SYST 134
[~2020-03-24 14:39] MED LIST changes: +ALBU8.5H8 INH; +APIX2.5T PO; +ASA81 PO; +CALC-823 PO; +CEPH-568 PO; +CYAN100070 PO; -DOCU-144 PO; +L.RH1CAP PO; +LIP40 PO
[2020-03-24] MEDS ORDERED: NACL 0.9% 1,000 ML IV ONE (14:46)
[2020-03-24] MEDS ORDERED: ASPIRIN 81 MG TAB.CHEW PO ONE (15:00)
[2020-03-24 15:33] LABS: CALCIUM 7.3 mg/dL (8.4-11.0); CREATININE 2.23 mg/dL (0.55-1.30)
[2020-03-24] MEDS ORDERED: LEVO750T45 PO (15:35)
[2020-03-24 15:37] LABS: BASOPHILS % (AUTO) 0.5 % (0.0-2.0); EOSINOPHILS % (AUTO) 0.1 % (0.0-4.0); HEMATOCRIT 29.6 % (36-48); HEMOGLOBIN 9.3 g/dL (12.0-16.0); LYMPHOCYTES # (AUTO) 0.8 K/uL (1.0-5.5); LYMPHOCYTES % (AUTO) 13.6 % (20.5-51.5); MEAN CORPUSCULAR HEMOGLOBIN 28 pg (27-31); MEAN CORPUSCULAR HGB CONC 32 % (32-36); MEAN CORPUSCULAR VOLUME 87 fL (79.0-98.0); MONOCYTES # (AUTO) 0.6 K/uL (0.0-1.0); NEUTROPHILS # (AUTO) 4.3 K/uL (1.8-7.7); NEUTROPHILS % (AUTO) 75.8 % (40.0-70.0); PLATELET COUNT (AUTO) 154 K/uL (130-430); RED CELL DISTRIBUTION WIDTH 17.2 % (9.0-15.0); WHITE BLOOD COUNT (AUTO) 5.7 K/uL (4.8-10.8)
[2020-03-24 15:45] LABS: ALBUMIN 3.1 g/dL (3.4-4.8); TOTAL BILIRUBIN 0.3 mg/dL (0.0-1.0)
[2020-03-24 16:29] LABS: PROTHROMBIN TIME 10.3 SECS (9.5-12.5)
[2020-03-24] MEDS ORDERED: NACL 0.9% 1,000 ML IV SCH (17:06)
[2020-03-24] MEDS ORDERED: METOCLOPRAMIDE HCL 10 MG/2 ML VIAL IVP PRN (17:15)
[2020-03-24 17:33] VITALS: BP_SYST 138
[2020-03-24] MEDS: D5/0.45 NS 1,000 ML IV SCH (17:56)
[2020-03-24] MEDS: ACETAMINOPHEN 325 MG TABLET PO PRN (19:42)
[2020-03-24 20:00] VITALS: BP_SYST 114
[2020-03-24] MEDS: APIXABAN 2.5 MG TABLET PO SCH (20:24)
[2020-03-24] MEDS ORDERED: NITROGLYCERIN 0.4 MG TAB.SUBL SL PRN (20:45)
[2020-03-24 23:45] VITALS: BP_SYST 113
[2020-03-25 00:57] LABS: ALBUMIN 2.7 g/dL (3.4-4.8); CREATININE 2.1 mg/dL (0.55-1.30); POTASSIUM 4.1 mmol/L (3.5-5.1); TOTAL BILIRUBIN 0.3 mg/dL (0.0-1.0)
[2020-03-25 01:02] LABS: CALCIUM 6.8 mg/dL (8.4-11.0)
[2020-03-25] MEDS: D5/0.45 NS 1,000 ML IV SCH (05:40)
[2020-03-25 08:22] VITALS: BP_SYST 122
[2020-03-25 08:46] LABS: BASOPHILS % (AUTO) 0.6 % (0.0-2.0); EOSINOPHILS # (AUTO) 0.1 K/uL (0.0-0.4); EOSINOPHILS % (AUTO) 1.7 % (0.0-4.0); HEMATOCRIT 28.5 % (36-48); HEMOGLOBIN 9.1 g/dL (12.0-16.0); LYMPHOCYTES # (AUTO) 1.1 K/uL (1.0-5.5); LYMPHOCYTES % (AUTO) 27.2 % (20.5-51.5); MEAN CORPUSCULAR HEMOGLOBIN 28 pg (27-31); MEAN CORPUSCULAR HGB CONC 32 % (32-36); MEAN CORPUSCULAR VOLUME 88 fL (79.0-98.0); MONOCYTES # (AUTO) 0.4 K/uL (0.0-1.0); MONOCYTES % (AUTO) 9.7 % (1.7-9.3); NEUTROPHILS # (AUTO) 2.4 K/uL (1.8-7.7); NEUTROPHILS % (AUTO) 60.8 % (40.0-70.0); PLATELET COUNT (AUTO) 141 K/uL (130-430); RED BLOOD CELL COUNT(AUTO) 3.26 MIL/uL (4.2-6.2)
[2020-03-25] MEDS ORDERED: CALCIUM CARBONATE/VITAMIN D3 1 TAB TABLET PO SCH (09:00)
[2020-03-25] MEDS ORDERED: PANTOPRAZOLE SODIUM 40 MG TAB PO SCH (09:00)
[2020-03-25] MEDS ORDERED: ASPIRIN 81 MG TAB.CHEW PO SCH (09:00)
[2020-03-25] MEDS ORDERED: ATORVASTATIN 20 MG TABLET PO SCH (09:00)
[2020-03-25] MEDS: APIXABAN 2.5 MG TABLET PO SCH (09:45)
[2020-03-25] MEDS: ACETAMINOPHEN 325 MG TABLET PO PRN (13:05)
[2020-03-25] MEDS ORDERED: HYDROcodone/ACETAMIN 5-325 MG TAB (NORCO/ VICODIN) PO ONE (16:00)
[2020-03-25] MEDS ORDERED: NALOXONE HCL 0.4 MG/ML AMP (NARCAN) IVP PRN (16:00)
== END 2020-03-25 18:25 | disposition home or self-care (01) ==
LOC: SED 14:39 → STU 16:58
PROVIDERS: ADMIT Internal Medicine Hospice and Palliative Medicine; ATTEND Internal Medicine Hospice and Palliative Medicine
DX: R07.89 Other chest pain (principal); E16.2 Hypoglycemia, unspecified; I48.0 Paroxysmal atrial fibrillation; I12.9 Hypertensive chronic kidney disease with stage 1 through stage 4 chronic kidney disease, or unspecified chronic kidney disease; N18.9 Chronic kidney disease, unspecified; D63.1 Anemia in chronic kidney disease; J44.9 Chronic obstructive pulmonary disease, unspecified; N31.9 Neuromuscular dysfunction of bladder, unspecified; R29.810 Facial weakness; Z79.899 Other long term (current) drug therapy; Z79.01 Long term (current) use of anticoagulants; Z79.82 Long term (current) use of aspirin; Z98.84 Bariatric surgery status; Z98.1 Arthrodesis status; Z87.440 Personal history of urinary (tract) infections; Z86.73 Personal history of transient ischemic attack (TIA), and cerebral infarction without residual deficits; Z86.711 Personal history of pulmonary embolism
CPT/HCPCS: 36415 ×2; 70450; 71045; 80053; 82962; 84484 ×2; 85025 ×2; 85379; 85610; 85730; 93005; 93306; 96360; 96361 ×2; 99285; G0378; J7030

== ENCOUNTER 2020-03-27 14:31 | Emergency (ER) | payer OTHER ==
[~2020-03-27] VITALS: Ht 160 cm; Wt 58.1 kg
[~2020-03-27 14:31] MED LIST changes: -CEPH-568 PO; +LEVO750T45 PO
[2020-03-27 14:33] VITALS: BP_SYST 139
--- NOTE | 2020-03-27 14:45 | NUR ---
Patient to ER bed 02 to gown for evaluation. Side rails up.
--- NOTE | 2020-03-27 14:47 | NUR ---
Pt brought by self, ambulatory, A&Ox4, pt presents to ER with hematuria and pelvic pain, pt states she had a recent procedure in the bladder (botox of bladder) and started to have more bleeding today, skin pink and warm, respirations even and unlabored, cap refill <3.
--- NOTE | 2020-03-27 14:48 | NUR ---
Dr Toney evaluating patient at bedside
[2020-03-27 15:39] LABS: BASOPHILS % (AUTO) 0.5 % (0.0-2.0); EOSINOPHILS # (AUTO) 0.1 K/uL (0.0-0.4); EOSINOPHILS % (AUTO) 1.8 % (0.0-4.0); HEMATOCRIT 28.7 % (36-48); HEMOGLOBIN 8.9 g/dL (12.0-16.0); LYMPHOCYTES # (AUTO) 1.1 K/uL (1.0-5.5); LYMPHOCYTES % (AUTO) 23.4 % (20.5-51.5); MEAN CORPUSCULAR HEMOGLOBIN 27 pg (27-31); MEAN CORPUSCULAR HGB CONC 31 % (32-36); MEAN CORPUSCULAR VOLUME 88 fL (79.0-98.0); MONOCYTES # (AUTO) 0.5 K/uL (0.0-1.0); MONOCYTES % (AUTO) 10.8 % (1.7-9.3); NEUTROPHILS # (AUTO) 3.1 K/uL (1.8-7.7); NEUTROPHILS % (AUTO) 63.5 % (40.0-70.0); PLATELET COUNT (AUTO) 140 K/uL (130-430); RED BLOOD CELL COUNT(AUTO) 3.26 MIL/uL (4.2-6.2); RED CELL DISTRIBUTION WIDTH 16.8 % (9.0-15.0); WHITE BLOOD COUNT (AUTO) 4.8 K/uL (4.8-10.8)
[2020-03-27 15:58] LABS: BILIRUBIN,URINE NEGATIVE (NEGATIVE); BLOOD, URINE 3+ (NEGATIVE); CLARITY/URINE OTHER (CLEAR); COLOR,URINE RED (YELLOW); GLUCOSE,URINE NEGATIVE (NEGATIVE); KETONES,URINE NEGATIVE (NEGATIVE); LEUKOCYTE ESTERASE ,URINE TRACE (NEGATIVE); NITRITE, URINE NEGATIVE (NEGATIVE); PROTEIN URINE 3+ (NEGATIVE); UROBILINOGEN,URINE 0.2 (0.2-1.0)
[2020-03-27] MEDS ORDERED: HYDROcodone/ACETAMIN 5-325 MG TAB (NORCO/ VICODIN) PO ONE (16:00)
--- NOTE | 2020-03-27 16:10 | NUR ---
medicated the pt w/ [place] per MD order. Will reasssess
[2020-03-27 16:23] LABS: BACTERIA,URINE None Seen /HPF (None Seen); RBC,URINE >100 /HPF (0-3)
[2020-03-27 16:24] LABS: YEAST,URINE None Seen /HPF (None Seen)
--- NOTE | 2020-03-27 17:00 | NUR ---
Pt c/o persistent pelvic pain and bleeding, MD notified, awaiting for orders.
[2020-03-27 17:07] LABS: PROTHROMBIN TIME 10.1 SECS (9.5-12.5)
[2020-03-27 17:12] LABS: CALCIUM 7.5 mg/dL (8.4-11.0); CREATININE 2.12 mg/dL (0.55-1.30); POTASSIUM 4.4 mmol/L (3.5-5.1)
[2020-03-27 17:19] LABS: TOTAL BILIRUBIN 0.3 mg/dL (0.0-1.0)
[2020-03-27] MEDS ORDERED: MORPHINE 4 MG/ML INJ. SYRINGE IM ONE (18:45)
--- NOTE | 2020-03-27 19:00 | NUR ---
Pt medicated as ordered for pain, well tolerated
--- NOTE | 2020-03-27 19:15 | NUR ---
Bladder irrigation started at this time, 20 gauge, 3 port catheter inserted with 30cc balloon, NS administered trough 3rd port , well tolerated, 400 cc of bloody urine collected at this time, irrigation continues.
--- NOTE | 2020-03-27 20:20 | NUR ---
1100 cc of clear urine obtained from folley catheter, Aristeo Flaherty urologist notified by Dr Santo, per Dr Santo irrigation can be discontinued at this time, irrigation discontinued at this time. well tolerated.
--- NOTE | 2020-03-27 21:15 | NUR ---
Pt c/o severe pelvic pain, Morphine 2mg IVP verbal order received by Dr Santo,Morphine 2mg IVP administered,well tolerated
--- NOTE | 2020-03-27 21:30 | NUR ---
Allyn leigh in [facility] - 03/27/20 at 2257 by [email or web address] Blood clots noted in catheter, irrigation started 600 cc of NS administered through folley catheter, well tolerated, small blood clots noted, notified
[2020-03-27] MEDS ORDERED: MORPHINE 2 MG/ML INJ. SYRINGE ONE (21:33)
[2020-03-27] MEDS ORDERED: MORPHINE 2 MG/ML INJ. SYRINGE IVP ONE ×3 (21:45→22:30)
--- NOTE | 2020-03-27 21:50 | NUR ---
Blood clots noted in catheter, irrigation started 600 cc of NS administered through folley catheter, well tolerated, small blood clots noted, MD notified
--- NOTE | 2020-03-27 22:30 | NUR ---
Clear urine noted in urine bag , irrigation discontinued, well tolerated, pt requesting pain medication prior going home ,MD notified, leg bag placed on L lower leg, well tolerated, 200 cc of urine output noted.
--- NOTE | 2020-03-27 22:31 | NUR ---
Total of 2100 cc of Normal saline administered during bladder irrigation, urine output 2150 cc noted
[2020-03-27 22:54] VITALS: BP_SYST 122
--- NOTE | 2020-03-27 22:55 | NUR ---
Patient given written and verbal discharge instructions and verbalizes understanding. ER MD discussed with patient the results and treatment provided. Patient in stable condition. ID arm band removed. IV catheter removed intact and dressing applied, no active bleeding. Rx of Tylenol with codeine given. Patient educated on pain management and to follow up with PMD. Pain Scale 3/10 tolerable for patient . Opportunity for questions provided and answered. Medication side effect fact sheet provided.
[2020-03-31] MEDS ORDERED: POLY17PO4 PO (10:13)
== END 2020-03-27 22:55 | disposition home or self-care (01) ==
LOC: SED 14:31
DX: R31.0 Gross hematuria (principal); J44.9 Chronic obstructive pulmonary disease, unspecified; N28.9 Disorder of kidney and ureter, unspecified; Z86.2 Personal history of diseases of the blood and blood-forming organs and certain disorders involving the immune mechanism; Z87.440 Personal history of urinary (tract) infections; Z79.899 Other long term (current) drug therapy; Z79.82 Long term (current) use of aspirin
CPT/HCPCS: 36415; 51702; 74176; 80053; 81000; 82150; 83605; 83690; 85025; 85610; 85730; 96372; 96374; 96376; 99284; J2270 ×2

== ENCOUNTER 2020-04-21 17:58 | Emergency (ER) | payer OTHER ==
[~2020-04-21] VITALS: Ht 160 cm; Wt 59.0 kg
[~2020-04-21 17:58] MED LIST changes: -APIX2.5T PO; -LEVO750T45 PO; +POLY17PO4 PO
[2020-04-21 18:37] VITALS: BP_SYST 190
[2020-04-21 19:10] LABS: BASOPHILS % (AUTO) 0.7 % (0.0-2.0); EOSINOPHILS % (AUTO) 0.7 % (0.0-4.0); HEMATOCRIT 25.4 % (36-48); HEMOGLOBIN 8.3 g/dL (12.0-16.0); LYMPHOCYTES # (AUTO) 1.3 K/uL (1.0-5.5); LYMPHOCYTES % (AUTO) 22.8 % (20.5-51.5); MEAN CORPUSCULAR HEMOGLOBIN 29 pg (27-31); MEAN CORPUSCULAR HGB CONC 33 % (32-36); MEAN CORPUSCULAR VOLUME 88 fL (79.0-98.0); MONOCYTES # (AUTO) 0.6 K/uL (0.0-1.0); MONOCYTES % (AUTO) 10.4 % (1.7-9.3); NEUTROPHILS # (AUTO) 3.7 K/uL (1.8-7.7); NEUTROPHILS % (AUTO) 65.4 % (40.0-70.0); PLATELET COUNT (AUTO) 135 K/uL (130-430); RED CELL DISTRIBUTION WIDTH 15.8 % (9.0-15.0); WHITE BLOOD COUNT (AUTO) 5.6 K/uL (4.8-10.8)
[2020-04-21 19:20] LABS: CALCIUM 7.1 mg/dL (8.4-11.0); CREATININE 1.98 mg/dL (0.55-1.30); POTASSIUM 4.6 mmol/L (3.5-5.1)
[2020-04-21] MEDS: MORPHINE 4 MG/ML INJ. SYRINGE IVP ONE ×2 (19:21→21:57)
[2020-04-21] MEDS: ONDANSETRON HCL 4 MG/2 ML VIAL IVP ONE (19:22)
[2020-04-21 19:26] LABS: TOTAL BILIRUBIN 0.4 mg/dL (0.0-1.0)
[2020-04-21 20:40] LABS: BILIRUBIN,URINE NEGATIVE (NEGATIVE); BLOOD, URINE 1+ (NEGATIVE); CLARITY/URINE CLEAR (CLEAR); GLUCOSE,URINE NEGATIVE (NEGATIVE); KETONES,URINE NEGATIVE (NEGATIVE); LEUKOCYTE ESTERASE ,URINE TRACE (NEGATIVE); NITRITE, URINE NEGATIVE (NEGATIVE); PH,URINE 6.5 (5.0-8.0); PROTEIN URINE NEGATIVE (NEGATIVE); UROBILINOGEN,URINE 0.2 (0.2-1.0)
[2020-04-21 20:42] LABS: COLOR,URINE STRAW (YELLOW)
[2020-04-21 20:54] LABS: BACTERIA,URINE FEW /HPF (None Seen); YEAST,URINE Rare /HPF (None Seen)
[2020-04-21] MEDS: cefTRIAXone 1 GM IVPB PREMIX 50 ML IV ONE (21:56)
[2020-04-21 23:00] VITALS: BP_SYST 172
== END 2020-04-21 23:00 | disposition home or self-care (01) ==
LOC: SED 17:58
DX: N13.70 Vesicoureteral-reflux, unspecified (principal); N39.0 Urinary tract infection, site not specified; R33.9 Retention of urine, unspecified; I48.91 Unspecified atrial fibrillation; J44.9 Chronic obstructive pulmonary disease, unspecified; N28.9 Disorder of kidney and ureter, unspecified; Z86.2 Personal history of diseases of the blood and blood-forming organs and certain disorders involving the immune mechanism; Z90.49 Acquired absence of other specified parts of digestive tract; Z79.899 Other long term (current) drug therapy; Z79.82 Long term (current) use of aspirin
CPT/HCPCS: 36415; 74176; 80053; 81000; 85025; 87040; 96361; 96374; 96375; 96376; 99284; J0696; J2270; J2405; J7030

== ENCOUNTER 2020-05-31 20:16 | Emergency (ER) | payer OTHER ==
[~2020-05-31] VITALS: Ht 160 cm; Wt 59.0 kg
[2020-05-31 20:23] VITALS: BP_SYST 157
--- NOTE | 2020-05-31 21:11 | NUR ---
Patient to ER bed 08 to gown for evaluation. Side rails up.
--- NOTE | 2020-05-31 22:25 | NUR ---
ER at bedside examining patient.
--- NOTE | 2020-05-31 22:37 | NUR ---
BS 79, Dr Santo notified.
--- NOTE | 2020-05-31 22:53 | NUR ---
Patient given written and verbal discharge instructions and verbalizes understanding. ER MD discussed with patient the results and treatment provided. Patient in stable condition. ID arm band removed. Rx of Fluconazole given. Patient educated on pain management and to follow up with PMD. Pain Scale 5/10. Opportunity for questions provided and answered. Medication side effect fact sheet provided.
[2020-05-31 22:54] VITALS: BP_SYST 157
== END 2020-05-31 22:53 | disposition home or self-care (01) ==
LOC: SED 20:16
DX: R21 Rash and other nonspecific skin eruption (principal); I48.91 Unspecified atrial fibrillation; J44.9 Chronic obstructive pulmonary disease, unspecified; N28.9 Disorder of kidney and ureter, unspecified; Z86.2 Personal history of diseases of the blood and blood-forming organs and certain disorders involving the immune mechanism; Z79.899 Other long term (current) drug therapy; Z79.82 Long term (current) use of aspirin
CPT/HCPCS: 82962; 99283

== ENCOUNTER 2020-06-16 16:03 | Observation (INO) | payer OTHER, SELFPAY ==
[~2020-06-16] VITALS: Ht 160 cm; Wt 57.6 kg
[2020-06-16 16:05] VITALS: BP_SYST 154
[2020-06-16 16:43] LABS: BASOPHILS # (AUTO) 0.1 K/uL (0.0-0.2); EOSINOPHILS # (AUTO) 0.1 K/uL (0.0-0.4); EOSINOPHILS % (AUTO) 0.9 % (0.0-4.0); HEMATOCRIT 30.1 % (36-48); HEMOGLOBIN 9.7 g/dL (12.0-16.0); LYMPHOCYTES # (AUTO) 1.3 K/uL (1.0-5.5); LYMPHOCYTES % (AUTO) 17.8 % (20.5-51.5); MEAN CORPUSCULAR HEMOGLOBIN 27 pg (27-31); MEAN CORPUSCULAR HGB CONC 32 % (32-36); MEAN CORPUSCULAR VOLUME 83 fL (79.0-98.0); MONOCYTES # (AUTO) 0.5 K/uL (0.0-1.0); MONOCYTES % (AUTO) 7.6 % (1.7-9.3); NEUTROPHILS # (AUTO) 5.1 K/uL (1.8-7.7); NEUTROPHILS % (AUTO) 72.7 % (40.0-70.0); PLATELET COUNT (AUTO) 228 K/uL (130-430); RED BLOOD CELL COUNT(AUTO) 3.63 MIL/uL (4.2-6.2); RED CELL DISTRIBUTION WIDTH 15.3 % (9.0-15.0)
[2020-06-16 16:55] LABS: CALCIUM 7.3 mg/dL (8.4-11.0); CREATININE 1.99 mg/dL (0.55-1.30); POTASSIUM 4.3 mmol/L (3.5-5.1)
[2020-06-16 17:01] LABS: ALBUMIN 3.5 g/dL (3.4-4.8); TOTAL BILIRUBIN 0.2 mg/dL (0.0-1.0)
[2020-06-16] MEDS ORDERED: SODI650T PO (17:24)
[2020-06-16] MEDS ORDERED: APIX2.5T PO (17:27)
[2020-06-16] MEDS ORDERED: AMOX-423 PO (17:27)
[2020-06-16] MEDS ORDERED: MORPHINE 4 MG/ML INJ. SYRINGE IVP ONE (18:00)
[2020-06-16] MEDS ORDERED: NALOXONE HCL 0.4 MG/ML AMP (NARCAN) IVP PRN ×2 (19:30)
[2020-06-16] MEDS ORDERED: HYDROcodone/ACETAMIN 10-325 MG TAB PO PRN (19:30)
[2020-06-16] MEDS ORDERED: ALBUTEROL SULFATE 0.083% 2.5 MG/3 ML VIAL.NEB INH PRN (19:30)
[2020-06-16] MEDS: MORPHINE 2 MG/ML INJ. SYRINGE IVP PRN (20:49)
[2020-06-16] MEDS ORDERED: NITROGLYCERIN 0.4 MG TAB.SUBL SL PRN (21:00)
[2020-06-16] MEDS ORDERED: NITROGLYCERIN 0.4 MG TAB.SUBL SL ONE (21:02)
[2020-06-16 21:58] VITALS: BP_SYST 133
[2020-06-16] MEDS ORDERED: FLU VACC QS2020-21(65UP)/PF 0.7 ML/SYRINGE I.M. PRN (22:15)
[2020-06-16] MEDS: SODIUM BICARBONATE 650 MG TABLET PO SCH (22:41)
[2020-06-16] MEDS: APIXABAN 2.5 MG TABLET PO SCH (22:45)
[2020-06-17 00:30] VITALS: BP_SYST 146
[2020-06-17] MEDS: MORPHINE 2 MG/ML INJ. SYRINGE IVP PRN ×2 (02:22→08:10)
[2020-06-17 04:10] VITALS: BP_SYST 127
[2020-06-17 07:06] LABS: BASOPHILS % (AUTO) 0.7 % (0.0-2.0); EOSINOPHILS % (AUTO) 0.7 % (0.0-4.0); HEMATOCRIT 26.9 % (36-48); HEMOGLOBIN 8.5 g/dL (12.0-16.0); LYMPHOCYTES # (AUTO) 2.1 K/uL (1.0-5.5); LYMPHOCYTES % (AUTO) 33.1 % (20.5-51.5); MEAN CORPUSCULAR HEMOGLOBIN 27 pg (27-31); MEAN CORPUSCULAR HGB CONC 32 % (32-36); MEAN CORPUSCULAR VOLUME 85 fL (79.0-98.0); MONOCYTES # (AUTO) 0.5 K/uL (0.0-1.0); MONOCYTES % (AUTO) 7.9 % (1.7-9.3); NEUTROPHILS # (AUTO) 3.6 K/uL (1.8-7.7); NEUTROPHILS % (AUTO) 57.6 % (40.0-70.0); PLATELET COUNT (AUTO) 186 K/uL (130-430); RED BLOOD CELL COUNT(AUTO) 3.17 MIL/uL (4.2-6.2); RED CELL DISTRIBUTION WIDTH 15.4 % (9.0-15.0); WHITE BLOOD COUNT (AUTO) 6.2 K/uL (4.8-10.8)
[2020-06-17 07:32] LABS: ALANINE AMINOTRANSFERASE 16 U/L (12-78); ANION GAP 9 (5-15); ASPARTATE AMINOTRANSFERASE 16 U/L (10-37); CALCIUM 7.2 mg/dL (8.4-11.0); CHLORIDE 112 mmol/L (98-107); CREATININE 1.92 mg/dL (0.55-1.30); GLUCOSE 78 mg/dL (70-99); POTASSIUM 4.4 mmol/L (3.5-5.1); SODIUM SERUM 142 mmol/L (136-145); TOTAL BILIRUBIN 0.2 mg/dL (0.0-1.0); UREA NITROGEN, BLOOD 35 mg/dL (8-21)
[2020-06-17 07:43] LABS: GFR AFRICAN AMERICAN 34 mL/min (>90)
[2020-06-17] MEDS: SODIUM BICARBONATE 650 MG TABLET PO SCH (08:07)
[2020-06-17] MEDS: APIXABAN 2.5 MG TABLET PO SCH (08:09)
[2020-06-17 08:11] LABS: CHOLESTEROL 139 mg/dL (<200); HDL CHOLESTEROL 73 mg/dL (>55); LDL CHOLESTEROL 53 mg/dL (<100); TRIGLYCERIDES 86 mg/dL (30-150)
[2020-06-17 08:29] VITALS: BP_SYST 122
[2020-06-17 08:48] LABS: BILIRUBIN,URINE NEGATIVE (NEGATIVE); BLOOD, URINE 3+ (NEGATIVE); CLARITY/URINE SL CLOUDY (CLEAR); COLOR,URINE YELLOW (YELLOW); GLUCOSE,URINE NEGATIVE (NEGATIVE); KETONES,URINE NEGATIVE (NEGATIVE); LEUKOCYTE ESTERASE ,URINE 1+ (NEGATIVE); NITRITE, URINE NEGATIVE (NEGATIVE); PH,URINE 6.5 (5.0-8.0); PROTEIN URINE TRACE (NEGATIVE); UROBILINOGEN,URINE 0.2 (0.2-1.0)
[2020-06-17] MEDS ORDERED: ATORVASTATIN 20 MG TABLET PO SCH (09:00)
[2020-06-17 10:03] LABS: BACTERIA,URINE FEW /HPF (None Seen); RBC,URINE 20-50 /HPF (0-3)
[2020-06-17 10:24] VITALS: BP_SYST 122
[2020-06-17 12:00] VITALS: BP_SYST 130
== END 2020-06-17 13:15 | disposition home or self-care (01) ==
LOC: SED 16:03 → STU 18:40
PROVIDERS: ADMIT Internal Medicine Hospice and Palliative Medicine; ATTEND Internal Medicine Hospice and Palliative Medicine
DX: R07.89 Other chest pain (principal); Z20.828 Contact with and (suspected) exposure to other viral communicable diseases; I25.10 Atherosclerotic heart disease of native coronary artery without angina pectoris; N18.4 Chronic kidney disease, stage 4 (severe); I48.0 Paroxysmal atrial fibrillation; J44.9 Chronic obstructive pulmonary disease, unspecified; K22.70 Barrett's esophagus without dysplasia; E78.5 Hyperlipidemia, unspecified; Z87.442 Personal history of urinary calculi; Z79.899 Other long term (current) drug therapy; Z86.73 Personal history of transient ischemic attack (TIA), and cerebral infarction without residual deficits; Z86.711 Personal history of pulmonary embolism; Z98.84 Bariatric surgery status; Z98.1 Arthrodesis status; Z79.01 Long term (current) use of anticoagulants; Z23 Encounter for immunization
CPT/HCPCS: 36415 ×2; 71045; 76770; 80053 ×2; 80061; 81000; 82550; 83880; 84484 ×2; 85025 ×2; 87086; 87426; 90471; 90662; 93005; 96374; 96376 ×2; 99284; G0378; J2270 ×3

== ENCOUNTER 2020-06-19 03:51 | Emergency (ER) | payer OTHER, SELFPAY ==
[~2020-06-19] VITALS: Ht 160 cm; Wt 62.6 kg
[~2020-06-19 03:51] MED LIST changes: +AMOX-423 PO; +APIX2.5T PO; +SODI650T PO
[2020-06-19 04:15] VITALS: BP_SYST 135
--- NOTE | 2020-06-19 04:15 | NUR ---
Placed in room 6 . Placed on surveillance monitor, blood pressure machine and pulse oximeter. To gown for exam. Side rails up.
--- NOTE | 2020-06-19 04:20 | NUR ---
ER DR. JORDAN AT THE BEDSIDE EVALUATING PT
--- NOTE | 2020-06-19 04:30 | NUR ---
PT PRESENTS FROM HOME WITH C/O LEFT FLANK PAIN STARTING 1 HOUR PRIOR TO ARRIVAL. PT DESCRIBES PAIN SHARP AND THROBBING. HX OF CKD, APPENDECTOMY, GLEASON CATH IN PLACE. PT IS AAOX4, V/S STABLE
[2020-06-19] MEDS ORDERED: ONDANSETRON HCL 4 MG/2 ML VIAL IVP ONE (04:45)
[2020-06-19] MEDS ORDERED: MORPHINE 4 MG/ML INJ. SYRINGE IVP ONE (04:45)
[2020-06-19] MEDS ORDERED: NACL 0.9% 1,000 ML IV ONE (04:45)
[2020-06-19] MEDS ORDERED: SODI650T PO (06:25)
[2020-06-19] MEDS ORDERED: DOXY100C PO (06:25)
[2020-06-19] MEDS ORDERED: AMOX-423 PO (06:25)
[2020-06-19] MEDS ORDERED: LIP40 PO (06:25)
[2020-06-19] MEDS ORDERED: APIX2.5T PO (06:25)
[2020-06-19] MEDS ORDERED: AMOX500C2 PO (06:25)
[2020-06-19] MEDS ORDERED: HYDC2.5% TP (06:25)
--- NOTE | 2020-06-19 06:26 | NUR ---
Medication reconciliation completed with information provided by PT'S MEDICATION BOTTLES. Any prior medication reconciliation on file was reviewed and corrected.
[2020-06-19] MEDS ORDERED: fentaNYL CITRATE/PF 100 MCG/2 ML AMP IVP ONE ×2 (06:30→08:45)
[2020-06-19 07:16] LABS: BASOPHILS % (AUTO) 0.7 % (0.0-2.0); EOSINOPHILS % (AUTO) 0.1 % (0.0-4.0); HEMATOCRIT 26.6 % (36-48); HEMOGLOBIN 8.6 g/dL (12.0-16.0); LYMPHOCYTES % (AUTO) 15.1 % (20.5-51.5); MEAN CORPUSCULAR HEMOGLOBIN 27 pg (27-31); MEAN CORPUSCULAR HGB CONC 32 % (32-36); MEAN CORPUSCULAR VOLUME 83 fL (79.0-98.0); MONOCYTES # (AUTO) 0.5 K/uL (0.0-1.0); MONOCYTES % (AUTO) 6.9 % (1.7-9.3); NEUTROPHILS # (AUTO) 5.2 K/uL (1.8-7.7); NEUTROPHILS % (AUTO) 77.2 % (40.0-70.0); PLATELET COUNT (AUTO) 173 K/uL (130-430); RED CELL DISTRIBUTION WIDTH 15.2 % (9.0-15.0); WHITE BLOOD COUNT (AUTO) 6.7 K/uL (4.8-10.8)
[2020-06-19 07:25] LABS: CREATININE 1.77 mg/dL (0.55-1.30); POTASSIUM 4.3 mmol/L (3.5-5.1)
[2020-06-19 07:28] LABS: CALCIUM 6.5 mg/dL (8.4-11.0)
[2020-06-19] MEDS ORDERED: CALCIUM CHLORIDE 1 GM in NS 100 ML IV ONE (07:30)
--- NOTE | 2020-06-19 07:30 | NUR ---
REPORT GIVEN TO SARI THOMAS FOR CONTINUING CARE
--- NOTE | 2020-06-19 07:32 | NUR ---
report received from Oralia GUO
[2020-06-19 07:37] LABS: ALBUMIN 3.1 g/dL (3.4-4.8); TOTAL BILIRUBIN 0.2 mg/dL (0.0-1.0)
--- NOTE | 2020-06-19 07:45 | NUR ---
irvingid and UA collected
[2020-06-19 08:12] LABS: BILIRUBIN,URINE NEGATIVE (NEGATIVE); BLOOD, URINE 3+ (NEGATIVE); CLARITY/URINE CLEAR (CLEAR); COLOR,URINE YELLOW (YELLOW); GLUCOSE,URINE NEGATIVE (NEGATIVE); KETONES,URINE NEGATIVE (NEGATIVE); LEUKOCYTE ESTERASE ,URINE TRACE (NEGATIVE); NITRITE, URINE NEGATIVE (NEGATIVE); PH,URINE 6.5 (5.0-8.0); PROTEIN URINE 2+ (NEGATIVE); UROBILINOGEN,URINE 0.2 (0.2-1.0)
[2020-06-19 08:24] LABS: BACTERIA,URINE RARE /HPF (None Seen); RBC,URINE 20-50 /HPF (0-3)
--- NOTE | 2020-06-19 08:44 | NUR ---
Fentanyl 50mcg given per MD order
[2020-06-19 08:54] VITALS: BP_SYST 127
--- NOTE | 2020-06-19 08:55 | NUR ---
Patient given written and verbal discharge instructions and verbalizes understanding. ER MD discussed with patient the results and treatment provided. Patient in stable condition. ID arm band removed. IV catheter removed intact and dressing applied, no active bleeding. Rx of [place] given. Patient educated on pain management and to follow up with PMD. Pain Scale 3/10. Opportunity for questions provided and answered. Medication side effect fact sheet provided.
== END 2020-06-19 08:55 | disposition home or self-care (01) ==
LOC: SED 03:51
DX: R10.2 Pelvic and perineal pain (principal); I48.91 Unspecified atrial fibrillation; J44.9 Chronic obstructive pulmonary disease, unspecified; N28.9 Disorder of kidney and ureter, unspecified; Z86.2 Personal history of diseases of the blood and blood-forming organs and certain disorders involving the immune mechanism; Z79.899 Other long term (current) drug therapy; Z86.79 Personal history of other diseases of the circulatory system; Z20.828 Contact with and (suspected) exposure to other viral communicable diseases
CPT/HCPCS: 36415; 74176; 81000; 80053; 85025; 87086; 87426; 96361; 96365; 96375; 96376; 99284; J2270; J2405; J3010; J7030; 76376

== ENCOUNTER 2020-07-31 20:32 | Inpatient (IN) | payer OTHER, SELFPAY ==
[~2020-07-31] VITALS: Ht 154.9 cm; Wt 71.2 kg
[~2020-07-31 20:32] MED LIST changes: -ALBU8.5H8 INH; +AMOX500C2 PO; -ASA81 PO; -CALC-823 PO; -CYAN100070 PO; +DOXY100C PO; +HYDC2.5% TP; -L.RH1CAP PO; -POLY17PO4 PO
[2020-07-31 20:36] VITALS: BP_SYST 149
--- NOTE | 2020-07-31 20:37 | NUR ---
EKG and report given to Dr Tuttle and Jayme GUO
--- NOTE | 2020-07-31 20:45 | NUR ---
ER Dr. Tuttle in triage examining patient.
[2020-07-31] MEDS ORDERED: ASPIRIN 81 MG TAB.CHEW PO ONE (21:00)
[2020-07-31 21:39] LABS: BASOPHILS % (AUTO) 0.6 % (0.0-2.0); EOSINOPHILS % (AUTO) 0.1 % (0.0-4.0); HEMOGLOBIN 10.3 g/dL (12.0-16.0); LYMPHOCYTES # (AUTO) 1.4 K/uL (1.0-5.5); LYMPHOCYTES % (AUTO) 23.7 % (20.5-51.5); MEAN CORPUSCULAR HEMOGLOBIN 26 pg (27-31); MEAN CORPUSCULAR HGB CONC 32 % (32-36); MEAN CORPUSCULAR VOLUME 82 fL (79.0-98.0); MONOCYTES # (AUTO) 0.4 K/uL (0.0-1.0); MONOCYTES % (AUTO) 7.1 % (1.7-9.3); NEUTROPHILS # (AUTO) 4.1 K/uL (1.8-7.7); NEUTROPHILS % (AUTO) 68.5 % (40.0-70.0); PLATELET COUNT (AUTO) 176 K/uL (130-430); RED BLOOD CELL COUNT(AUTO) 3.92 MIL/uL (4.2-6.2); RED CELL DISTRIBUTION WIDTH 17.8 % (9.0-15.0); WHITE BLOOD COUNT (AUTO) 5.9 K/uL (4.8-10.8)
[2020-07-31 21:54] LABS: CREATININE 2.1 mg/dL (0.55-1.30); POTASSIUM 5.1 mmol/L (3.5-5.1)
[2020-07-31 21:57] LABS: PROTHROMBIN TIME 9.9 SECS (9.5-12.5)
[2020-07-31 22:00] LABS: ALBUMIN 3.6 g/dL (3.4-4.8); TOTAL BILIRUBIN 0.2 mg/dL (0.0-1.0)
--- NOTE | 2020-08-01 00:54 | NUR ---
Patient to ER bed 3 to gown for evaluation. Side rails up. Report given to SARI Kimble.
--- NOTE | 2020-08-01 00:54 | NUR ---
Received patient to ER w/ c/o chest pain to left chest ongoing x4 hours captain cannery tender while resting. States pain is non-radiating, severity 3/10. Introduced self to patient, positioned for comfort and safety w/ bed to low position sr up, continue to monitor. Patient resting quietly. No acute distress noted. Vital signs within normal range.
--- NOTE | 2020-08-01 03:00 | NUR ---
patient c/o increasing cp patient to be medicated w/ ntg tab 0.4mg will follow up w/ pain assessment. Patient resting quietly. No acute distress noted. Vital signs within normal range.
[2020-08-01] MEDS ORDERED: NITROGLYCERIN 0.4 MG TAB.SUBL SL ONE (03:19)
--- NOTE | 2020-08-01 03:30 | NUR ---
cp relieved after receiving ntg sublingual. continue to monitor.
--- NOTE | 2020-08-01 05:10 | NUR ---
Patient resting quietly. No acute distress noted. Vital signs within normal range.
[2020-08-01] MEDS ORDERED: HYDROcodone/ACETAMIN 5-325 MG TAB (NORCO/ VICODIN) PO PRN (06:30)
[2020-08-01] MEDS ORDERED: ACETAMINOPHEN 325 MG TABLET PO PRN ×2 (06:30→10:30)
[2020-08-01] MEDS ORDERED: NALOXONE HCL 0.4 MG/ML AMP (NARCAN) IVP PRN ×2 (06:30)
--- NOTE | 2020-08-01 06:53 | NUR ---
Patient resting quietly. No acute distress noted. Vital signs within normal range.
--- NOTE | 2020-08-01 07:10 | NUR ---
Report from Lamin GUO
--- NOTE | 2020-08-01 07:30 | NUR ---
Patient sleeping in genet
--- NOTE | 2020-08-01 08:05 | NUR ---
PT awake pericare and linen changed.
[2020-08-01] MEDS ORDERED: HYDROCORTISONE 2.5%, 30 GM TOPICAL CREAM TP SCH (09:00)
[2020-08-01] MEDS ORDERED: APIXABAN 2.5 MG TABLET PO SCH ×2 (09:00→21:00)
[2020-08-01] MEDS ORDERED: NITROGLYCERIN 0.4 MG TAB.SUBL SL PRN (09:45)
[2020-08-01] MEDS ORDERED: HEPARIN 25,000 UNITS/D5W 250ML 250 ML IV STA (10:10)
[2020-08-01] MEDS ORDERED: HEPARIN SODIUM,PORCINE 5,000 UNITS/ML VIAL IVP ONE (10:15)
--- NOTE | 2020-08-01 10:17 | NUR ---
Patient will be admitted to care of Dr. Najera. Admitted to tele unit. Belongings list completed. Complete and up to date summary report printed. SBAR report to be given at bedside with opportunity for questions. Transfer to Tele via ACLS protocol. Licensed nurse present. IV present no signs or symptoms of infiltration.
[2020-08-01 10:44] LABS: ALANINE AMINOTRANSFERASE 14 U/L (12-78); ALBUMIN 3.3 g/dL (3.4-4.8); ANION GAP 13 (5-15); ASPARTATE AMINOTRANSFERASE 18 U/L (10-37); CALCIUM 7.2 mg/dL (8.4-11.0); CHLORIDE 112 mmol/L (98-107); CREATININE 1.92 mg/dL (0.55-1.30); GLUCOSE 77 mg/dL (70-99); PHOSPHORUS 3.5 mg/dL (2.7-4.5); POTASSIUM 4.9 mmol/L (3.5-5.1); SODIUM SERUM 144 mmol/L (136-145); TOTAL BILIRUBIN 0.3 mg/dL (0.0-1.0); UREA NITROGEN, BLOOD 26 mg/dL (8-21)
[2020-08-01 10:45] LABS: GFR AFRICAN AMERICAN 34 mL/min (>90)
[2020-08-01 10:51] LABS: BASOPHILS % (AUTO) 0.5 % (0.0-2.0); HEMATOCRIT 28.3 % (36-48); HEMOGLOBIN 9.1 g/dL (12.0-16.0); LYMPHOCYTES # (AUTO) 1.1 K/uL (1.0-5.5); LYMPHOCYTES % (AUTO) 22.7 % (20.5-51.5); MEAN CORPUSCULAR HEMOGLOBIN 26 pg (27-31); MEAN CORPUSCULAR HGB CONC 32 % (32-36); MEAN CORPUSCULAR VOLUME 81 fL (79.0-98.0); MONOCYTES # (AUTO) 0.4 K/uL (0.0-1.0); MONOCYTES % (AUTO) 8.9 % (1.7-9.3); NEUTROPHILS # (AUTO) 3.4 K/uL (1.8-7.7); NEUTROPHILS % (AUTO) 67.9 % (40.0-70.0); PLATELET COUNT (AUTO) 151 K/uL (130-430); RED BLOOD CELL COUNT(AUTO) 3.49 MIL/uL (4.2-6.2); RED CELL DISTRIBUTION WIDTH 17.9 % (9.0-15.0); WHITE BLOOD COUNT (AUTO) 4.9 K/uL (4.8-10.8)
[2020-08-01 11:05] VITALS: BP_SYST 127
[2020-08-01 11:09] LABS: CHOLESTEROL 149 mg/dL (<200); TRIGLYCERIDES 63 mg/dL (30-150)
[2020-08-01 11:10] LABS: HDL CHOLESTEROL 75 mg/dL (>55); LDL CHOLESTEROL 68 mg/dL (<100)
--- NOTE | 2020-08-01 11:10 | NUR ---
CONSULTATION PAGED REASON FOR CONSULTATION:RENAL FAILURE WAS CONSULT CALLED?:Y PERSON WHO WAS NOTIFIED:MANPREET CONSULTING PHYSICIAN:DENTON CORONADO RECORD SEARCHER SPECIALTY:NEPHRO RECORD SEARCHER PHONE NUMBER:[phone] REQUESTING PHYSICIAN:DOMINGUEZ LATIF
--- NOTE | 2020-08-01 11:14 | NUR ---
CONSULTATION PAGED REASON FOR CONSULTATION:ELEVATED D-DIMER AND CHEST PAIN WAS CONSULT CALLED?:Y PERSON WHO WAS NOTIFIED:LEXA CONSULTING PHYSICIAN:AMARJIT MARIN NURSE AIDE SPECIALTY:CARDIO NURSE AIDE PHONE NUMBER:[phone] REQUESTING PHYSICIAN:DOMINGUEZ LATIF
[2020-08-01] MEDS: HYDROcodone/ACETAMIN 10-325 MG TAB PO PRN (12:30)
[2020-08-01] MEDS ORDERED: APIXABAN 2.5 MG TABLET PO ONE (12:45)
--- NOTE | 2020-08-01 12:52 | NUR ---
CONSULTATION PAGED REASON FOR CONSULTATION:PE WAS CONSULT CALLED?:Y PERSON WHO WAS NOTIFIED:ALICIA PEÑA CONSULTING PHYSICIAN:ALICIA PEÑA WHITE METAL CASTER SPECIALTY:PULMONARY WHITE METAL CASTER PHONE NUMBER:[phone] REQUESTING PHYSICIAN:KOSTA RICHARDS
[2020-08-01] MEDS: MORPHINE 2 MG/ML INJ. SYRINGE IVP PRN ×2 (13:56→17:26)
[2020-08-01] MEDS: NORMAL SALINE 5 ML DISP.SYRIN IVF SCH ×2 (14:00→23:23)
[2020-08-01] MEDS ORDERED: NORMAL SALINE 5 ML DISP.SYRIN IVF SCH (14:00)
[2020-08-01] MEDS: SODIUM BICARBONATE 650 MG TABLET PO SCH ×2 (14:05→21:21)
--- NOTE | 2020-08-01 15:37 | NUR ---
ADMIT NOTE LATE ENTRY DUE TO PT CARE 1539 Received pt from ER to the floor with a diagnosis of CHEST PAIN. Admission process initiated. patient oriented to pain management, safety and call light-teach back done.
[2020-08-01 16:00] VITALS: BP_SYST 116
--- NOTE | 2020-08-01 19:12 | NUR ---
CLOSING PATIENT C/O CHEST PRESSURE/PAIN TWICE DURING THE SHIFT. MEDICATED WITH MORPHINE IV. PATIENT STATED RELIEF WITH PAIN MEDICATION. DR RAMIREZ HERE TO SEE PATIENT. INCREASED DOSE OF ELIQUIS REPORT GIVEN TO LISA
[2020-08-01 20:00] VITALS: BP_SYST 116
--- NOTE | 2020-08-01 20:00 | NUR ---
INITIAL NOTES PATIENT RESTING IN BED, CONVERSANT, ALERT AND ORIENTED. STILL C/O PRESSURE ON THE CHEST BUT PAIN MEDICATION NOT DUE YET, STATED WHEN SHE GOT HER ELIQUIS, SHE WILL BE FINE. RESPIRATION EVEN AND UNLABORED, NO SIGN OF RESPIRATORY DISTRESS. PLEASANT AND COOPERATIVE.
[2020-08-01] MEDS: FAMOTIDINE 20 MG TABLET PO SCH (21:22)
[2020-08-01] MEDS: ATORVASTATIN 20 MG TABLET PO SCH (21:22)
[2020-08-01] MEDS: METOPROLOL TARTRATE 25 MG TABLET PO SCH (21:24)
[2020-08-01] MEDS: APIXABAN 2.5 MG TABLET PO SCH (21:25)
[2020-08-02] VITALS: BP_SYST 122
[2020-08-02] MEDS: MORPHINE 2 MG/ML INJ. SYRINGE IVP PRN ×3 (00:18→23:17)
[2020-08-02] MEDS: ONDANSETRON HCL 4 MG/2 ML VIAL IVP PRN (01:04)
--- NOTE | 2020-08-02 01:05 | NUR ---
Patient c/o nausea: Patient c/o being nauseated, Zofran 4 mg given iv push. Offer ice chips and tolerated well. Will continue to monitor
--- NOTE | 2020-08-02 04:00 | NUR ---
Patient sleeping: Patient sleeping at this time, no more c/o nausea. No c/o chest pain or chest pressure at this time. Wheeler Cath intact and draining well to yellow/james urine. Will continue to monitor.
--- NOTE | 2020-08-02 06:00 | NUR ---
Rounds: Patient sleeping, appears comfortable, no sign of distress. No significant changes noted from initial assessment. Will continue to monitor.
[2020-08-02] MEDS: NORMAL SALINE 5 ML DISP.SYRIN IVF SCH ×3 (06:32→20:58)
--- NOTE | 2020-08-02 07:10 | NUR ---
Allyn leigh in [facility] - 08/02/20 at 1256 by SDEDTD Report from Lamin GUO
[2020-08-02 07:30] LABS: ALBUMIN 2.9 g/dL (3.4-4.8); CREATININE 1.97 mg/dL (0.55-1.30); TOTAL BILIRUBIN 0.2 mg/dL (0.0-1.0)
--- NOTE | 2020-08-02 07:30 | NUR ---
Allyn leigh in [facility] - 08/02/20 at 1257 by SDEDTD Patient sleeping in [place]
--- NOTE | 2020-08-02 07:30 | NUR ---
OPENING NOTES PT RESTING IN BED, CHEST RISE AND FALL NOTED. EASILY AWAKEN. NO ACUTE DISTRESS NOTED. GLEASON CATHETER INTACT AND DRAINING. IV LINE INTACT AND PATENT, NO SIGNS OF INFILTRATION NOTED. ALL NEEDS MET. CALL LIGHT IN REACH. FALL AND ASPIRATION PRECAUTIONS IN PLACE. CONTINUE TO MONITOR.
[2020-08-02 07:32] LABS: BASOPHILS % (AUTO) 0.7 % (0.0-2.0); EOSINOPHILS % (AUTO) 0.7 % (0.0-4.0); HEMATOCRIT 25.7 % (36-48); HEMOGLOBIN 8.4 g/dL (12.0-16.0); LYMPHOCYTES # (AUTO) 1.5 K/uL (1.0-5.5); MEAN CORPUSCULAR HEMOGLOBIN 26 pg (27-31); MEAN CORPUSCULAR HGB CONC 33 % (32-36); MEAN CORPUSCULAR VOLUME 80 fL (79.0-98.0); MONOCYTES # (AUTO) 0.4 K/uL (0.0-1.0); MONOCYTES % (AUTO) 9.2 % (1.7-9.3); NEUTROPHILS # (AUTO) 2.5 K/uL (1.8-7.7); NEUTROPHILS % (AUTO) 55.4 % (40.0-70.0); PLATELET COUNT (AUTO) 153 K/uL (130-430); RED CELL DISTRIBUTION WIDTH 17.3 % (9.0-15.0); WHITE BLOOD COUNT (AUTO) 4.5 K/uL (4.8-10.8)
[2020-08-02 08:00] VITALS: BP_SYST 106
--- NOTE | 2020-08-02 08:05 | NUR ---
Allyn leigh in ED - 08/02/20 at 1257 by SDEDTD Patient awake, pericare and linen changed.
[2020-08-02 08:55] LABS: CALCIUM 6.4 mg/dL (8.4-11.0)
[2020-08-02] MEDS: SODIUM BICARBONATE 650 MG TABLET PO SCH ×3 (09:05→20:58)
[2020-08-02] MEDS: METOPROLOL TARTRATE 25 MG TABLET PO SCH ×2 (09:06→21:00)
[2020-08-02] MEDS: FAMOTIDINE 20 MG TABLET PO SCH ×2 (09:07→20:58)
[2020-08-02] MEDS: APIXABAN 2.5 MG TABLET PO SCH ×2 (09:09→20:57)
--- NOTE | 2020-08-02 09:10 | NUR ---
SEEN BY DR. MEJIA AT BEDSIDE. DR. MEJIA AWARE OF PATIENT'S NAUSEA EPISODE LAST NIGHT AT 0100 AND AWARE OF PT'S CHEST PAIN. PT'S BP IS 106/60, STATED TO HOLD PAIN MEDICATION AT THIS TIME SINCE PT IS RECEIVING BP MED. WILL ADMINISTER THE NITRO ORDERED AND WILL MONITOR PT'S PAIN. PT VERBALIZED UNDERSTANDING. MD ALSO ORDERED US OF THE ABDOMEN, PT NPO STARTING AT 0850. RADIOLOGY DEPT MADE AWARE, PT VERBALIZED UNDERSTANDING. DC'D HYDROCORTISONE. CONTINUE TO MONITOR.
--- NOTE | 2020-08-02 09:13 | NUR ---
ROUTINE MEDS ADMINISTERED ORDERED PER MD, EDUCATION GIVEN, PT VERBALIZED UNDERSTANDING, TOLERATED WELL. CONTINUE TO MONITOR.
[2020-08-02] MEDS: NITROGLYCERIN 0.2 MG/HR PATCH.TD24 TD SCH (09:50)
--- NOTE | 2020-08-02 09:52 | NUR ---
ADMINISTERED NITRO ORDERED PER MD, EDUCATION GIVEN, TOLERATED WELL. CONTINUE TO MONITOR.
--- NOTE | 2020-08-02 11:30 | NUR ---
PT RESTING IN BED, CHEST RISE AND FALL NOTED. EASILY AWAKEN. NO ACUTE DISTRESS NOTED. ALL NEEDS MET. CALL LIGHT IN REACH. CONTINUE TO MONITOR.
[2020-08-02 12:00] VITALS: BP_SYST 102
--- NOTE | 2020-08-02 13:26 | NUR ---
GAVE REPORT TO SARI ÁLVAREZ. RN VERBALIZED UNDERSTANDING. ENDORSED US ABD, BEEN NPO SINCE 0848.
--- NOTE | 2020-08-02 16:11 | NUR ---
roshan followed up with cuco islas sched. kept patient on npo
--- NOTE | 2020-08-02 19:20 | NUR ---
OPENING NOTE; RECEIVED SBAR REPORT DAY SHIFT RN. PATIENT IS AWAKE, ALERT AND ORIENTED X 4. BREATHING IS EVEN AND UNLABORED ON RA. IV SALINE LOCK NOTED ON R AC, DOES NOT FLUSH WELL. WILL START NEW IV. NO S/S ACUTE DISTRESS NOTED. CALL LIGHT IS WITH PATIENT. WILL CONTINUE TO MONITOR.
--- NOTE | 2020-08-02 19:36 | NUR ---
closing patient remained comfortable. no new complaints
[2020-08-02 20:00] VITALS: BP_SYST 102
[2020-08-02] MEDS: ATORVASTATIN 20 MG TABLET PO SCH (20:58)
[2020-08-03] VITALS: BP_SYST 142
[2020-08-03] MEDS: NORMAL SALINE 5 ML DISP.SYRIN IVF SCH ×3 (06:00→22:00)
--- NOTE | 2020-08-03 07:05 | NUR ---
closing note: patient is awake, denies pain. IV is patent and flushes well. no s/s acute distress noted. all needs met through out shift. safety and fall precautions in place. call light is with patient. will endorse patient care to day shift RN.
[2020-08-03 08:00] VITALS: BP_SYST 137
--- NOTE | 2020-08-03 08:00 | NUR ---
INITIAL NOTES AWAKE, ORIENTED, AMBULATORY. ON ROOM AIR TOLERATING WELL. DENIES ANY CHEST PAIN AT THIS TIME OR SHORTNESS OF BREATH AT THIS TIME. ENC TO CALL FOR HELP NEEDED. CALL LIGHT IN REACH. WILL MONITOR.
--- NOTE | 2020-08-03 09:21 | NUR ---
CONSULTATION PAGED/CALLED Reason for Consultation: [] ANEMIA Person Who was Notified: [] MINE Consulting Physician: [] DR DISA Burial Agent Specialty: [] GI Ordering Physician: [] DR MEJIA
[2020-08-03] MEDS: HYDROcodone/ACETAMIN 10-325 MG TAB PO PRN ×2 (09:25→20:38)
[2020-08-03] MEDS: METOPROLOL TARTRATE 25 MG TABLET PO SCH ×2 (09:26→20:32)
[2020-08-03] MEDS: SODIUM BICARBONATE 650 MG TABLET PO SCH ×3 (09:26→20:30)
[2020-08-03] MEDS: NITROGLYCERIN 0.2 MG/HR PATCH.TD24 TD SCH (09:27)
[2020-08-03] MEDS: FAMOTIDINE 20 MG TABLET PO SCH ×2 (09:27→20:30)
[2020-08-03] MEDS: APIXABAN 2.5 MG TABLET PO SCH ×2 (09:32→20:31)
--- NOTE | 2020-08-03 09:36 | NUR ---
Physical Therapy evaluation was performed yesterday, 08/02/20, with recommendation for supervised ambulation with nursing. Patient is independent in her functional mobility. Spoke with patient's RN.
[2020-08-03 12:57] VITALS: BP_SYST 129
[2020-08-03] MEDS: MORPHINE 2 MG/ML INJ. SYRINGE IVP PRN (14:48)
--- NOTE | 2020-08-03 16:25 | NUR ---
Dietitian Recommendations *Recommend continue Cardiac Diet *Recommend add Ensure Enlive BID to provide additional 700 kcal, 40 g protein to promote PO intake. Please see Nutrition Assessment for details. JOSE CARLOS DYE
--- NOTE | 2020-08-03 16:40 | NUR ---
MD ROUNDS/NOTES- RESTING AT THIS TIME. PAIN IS CONTROLLED. WAS SEEN BY DR. DIAS EARLIER
[2020-08-03 16:55] VITALS: BP_SYST 112
--- NOTE | 2020-08-03 18:24 | NUR ---
CLOSING NOTES EATING DINNER, DENIES ANY PAIN AT THIS TIME. NO DISTRESS NOTED.
--- NOTE | 2020-08-03 19:30 | NUR ---
OPENING NOTES: Received report from dayshift nurse. Patient is sitting in bed talking with her neighbor patient. She appears to be in stable condition. Wheeler noted, draining to gravity. Patient in on room air, tolerating well. All safety precautions were ensured. Bed is locked and in the lowest position, call light within reach.
[2020-08-03 20:00] VITALS: BP_SYST 121
[2020-08-03] MEDS: ATORVASTATIN 20 MG TABLET PO SCH (20:30)
--- NOTE | 2020-08-03 20:30 | NUR ---
MEDICATION ADMINISTRATION: Administered medications as ordered by MD. Patient tolerated well. Educated patient about Eliquis, it's benefits and potential side effects. She verbalized understanding.
--- NOTE | 2020-08-03 23:00 | NUR ---
RN ROUNDS: Patient is sitting up in bed with no s/s of distress or discomfort. I discontinued IV on left hand as it was infiltrated. IV was removed with catheter patent. New IV was inserted, 22 g on left arm. Patient tolerated well.
[2020-08-04] VITALS: BP_SYST 103
--- NOTE | 2020-08-04 01:00 | NUR ---
RN ROUNDS: Patient is laying in bed with no s/s of distress or discomfort. She is in stable condition. Will continue to monitor.
[2020-08-04] MEDS: NORMAL SALINE 5 ML DISP.SYRIN IVF SCH ×3 (06:00→22:22)
--- NOTE | 2020-08-04 07:37 | NUR ---
CLOSING NOTES: Patient is laying in bed and instable condition. All needs were met throughout shift. I have endorsed care to dayshift nurse.
[2020-08-04 08:00] VITALS: BP_SYST 102
[2020-08-04 08:04] LABS: BASOPHILS % (AUTO) 0.7 % (0.0-2.0); EOSINOPHILS % (AUTO) 0.2 % (0.0-4.0); HEMATOCRIT 27.4 % (36-48); HEMOGLOBIN 8.8 g/dL (12.0-16.0); LYMPHOCYTES # (AUTO) 1.3 K/uL (1.0-5.5); LYMPHOCYTES % (AUTO) 29.9 % (20.5-51.5); MEAN CORPUSCULAR HEMOGLOBIN 26 pg (27-31); MEAN CORPUSCULAR HGB CONC 32 % (32-36); MEAN CORPUSCULAR VOLUME 81 fL (79.0-98.0); MONOCYTES # (AUTO) 0.3 K/uL (0.0-1.0); MONOCYTES % (AUTO) 7.7 % (1.7-9.3); NEUTROPHILS # (AUTO) 2.7 K/uL (1.8-7.7); NEUTROPHILS % (AUTO) 61.5 % (40.0-70.0); PLATELET COUNT (AUTO) 140 K/uL (130-430); RED BLOOD CELL COUNT(AUTO) 3.39 MIL/uL (4.2-6.2); RED CELL DISTRIBUTION WIDTH 17.5 % (9.0-15.0); WHITE BLOOD COUNT (AUTO) 4.4 K/uL (4.8-10.8)
[2020-08-04 08:09] LABS: ALBUMIN 3.1 g/dL (3.4-4.8); BILIRUBIN,DIRECT 0.1 mg/dL (0.0-0.3); CREATININE 2.15 mg/dL (0.55-1.30); POTASSIUM 4.9 mmol/L (3.5-5.1); TOTAL BILIRUBIN 0.3 mg/dL (0.0-1.0)
[2020-08-04] MEDS: FAMOTIDINE 20 MG TABLET PO SCH ×2 (08:10→22:18)
[2020-08-04] MEDS: SODIUM BICARBONATE 650 MG TABLET PO SCH ×3 (08:10→22:20)
[2020-08-04] MEDS: NITROGLYCERIN 0.2 MG/HR PATCH.TD24 TD SCH (08:11)
[2020-08-04] MEDS: LORazepam 2 MG/ML VIAL IVP PRN (08:11)
[2020-08-04] MEDS: APIXABAN 2.5 MG TABLET PO SCH ×2 (08:18→22:19)
[2020-08-04] MEDS: METOPROLOL TARTRATE 25 MG TABLET PO SCH ×2 (08:19→21:00)
[2020-08-04 08:27] LABS: CALCIUM 6.8 mg/dL (8.4-11.0)
[2020-08-04] MEDS ORDERED: POLYETHYLENE GLYCOL 3350, 17 GM/ POWD.PACK PO ONE (09:00)
[2020-08-04] MEDS ORDERED: DOCUSATE SODIUM 100 MG CAPSULE PO PRN (09:00)
[2020-08-04] MEDS ORDERED: BISACODYL 5 MG TABLET.DR (DULCOLAX) PO ONE (09:00)
[2020-08-04 09:19] LABS: TOTAL IRON BIND. CAPACITY 241 ug/dL (250-450)
--- NOTE | 2020-08-04 11:32 | NUR ---
first met this am, while eating breakfast. complained of pressure on middle of chest, asked for NORCO, given with relief. anxiouxs appearing elderly, suggested ATIVAN for her anxiety, agreeable with the proposal, Ativan 0.5mg ivp given
[2020-08-04 12:00] VITALS: BP_SYST 103
[2020-08-04] MEDS ORDERED: BISACODYL 5 MG TABLET.DR (DULCOLAX) ONE ×2 (12:30→16:14)
[2020-08-04] MEDS: HYDROcodone/ACETAMIN 10-325 MG TAB PO PRN (16:13)
--- NOTE | 2020-08-04 16:24 | NUR ---
Per GI, dr Forbes, Miralax, Dulcolax ( given twice so far), " felt urge to go, but so far no bm yet. one last dose of Dulcolax will be given at 1800, will see . again c/o of pressure on middle of chest, Michie 10/325mg po given. Will monitor her chest pressure, her vital signs at this time 102/54, with HR 64
[2020-08-04 16:28] VITALS: BP_SYST 102
[2020-08-04 20:00] VITALS: BP_SYST 103
--- NOTE | 2020-08-04 20:00 | NUR ---
INITIAL NOTES: PT IS AWAKE , PER REPORT PT HAD ONE BM AT THE END OF THE DAY SHIFT , PT NOT IN ANY ACUTE DISTRESS; NO C/O ANY SOB OR CHEST PAIN AT THIS TIME; VITALS ARE STABLE ; BP IS ON THE LOW SIDE ; NOTICED THAT PTS CALCIUM WAS LOW TODAY MORNING , NO ORDERS NOTICED IN THE EMAR AND NO MEDICATION ORDER NOTICED IN EMR ; WILL NOTIFY MD ; ASSESSMENT COMPLETED ; ALL NEEDS ATTENDED ;NOTICED IV TO THE LEFT FA 22 G, NO S/S OF ANY INFILTRATION NOTED ; GLEASON IS DRAINING TO GRAVITY YELLOW COLOR URINE;WILL CONTINUE TO MONITOR PT .
--- NOTE | 2020-08-04 20:23 | NUR ---
CALLED : DR IVORY CALLED BACK , NOTIFIED MD THAT PTS CALCIUM FOR TODAY WAS 6.8 , AND NO ORDERS NOTICED THAT PT GOT REPLACEMENT AND NO MEDICATION IN THE EMR , ORDER CALCIUM CARBONATE 1 GM PO X 1 NOW , NOTIFIED THAT PT IS ON SODIUM BICARBONATE , MD STATED OK TO GIVE BOTH TONIGHT .
[2020-08-04] MEDS ORDERED: CALCIUM CARBONATE 500 MG/ TAB.CHEW PO ONE (20:30)
[2020-08-04] MEDS: ONDANSETRON HCL 4 MG/2 ML VIAL IVP PRN (21:29)
--- NOTE | 2020-08-04 21:30 | NUR ---
ZOFRAN: PT C/O NAUSEA, MEDICATED WITH ZOFRAN PER ORDER . WILL CONTINUE TO MONITOR PT.
[2020-08-04] MEDS: ATORVASTATIN 20 MG TABLET PO SCH (22:18)
--- NOTE | 2020-08-04 22:25 | NUR ---
MEDICATION; DUE MEDS GIVEN PER ORDER, PTS BP IS BELOW 100 , HOLD LOPRESSOR AT THIS TIME ; WILL CONTINUE TO MONITOR PT .
[2020-08-05] MEDS: HYDROcodone/ACETAMIN 10-325 MG TAB PO PRN ×2 (00:03→08:36)
--- NOTE | 2020-08-05 00:03 | NUR ---
PAIN: PT C/O MID CHEST PAIN , MEDICATED WITH NORCO PER ORDER ; WILL CONTINUE TO MONITOR PT .
[2020-08-05 00:20] VITALS: BP_SYST 95
--- NOTE | 2020-08-05 02:30 | NUR ---
RN NOTES: PT IS SLEEPING , NOT IN ANY ACUTE DISTRESS; WILL CONITUE TO MONITOR PT .
--- NOTE | 2020-08-05 04:48 | NUR ---
RN NOTES: PT IS SLEEPING , RESPIRATION IS EVEN AND NON LABORED ; NOT IN ANY ACUTE DISTRESS; WILL CONTINUE TO MONITOR PT .
[2020-08-05 06:28] VITALS: BP_SYST 95
[2020-08-05] MEDS: NORMAL SALINE 5 ML DISP.SYRIN IVF SCH (06:30)
--- NOTE | 2020-08-05 07:35 | NUR ---
CLOSING NOTES: REPORT GIVEN TO RN AT BEDSIDE ; PT IS SLEEPING COMFORTABLY , NOT IN ANY ACUTE DISTRESS;RESPIRATION IS EVEN AND NON LABORED , ALL NEEDS ATTENDED .
[2020-08-05 08:00] VITALS: BP_SYST 129
[2020-08-05] MEDS: APIXABAN 2.5 MG TABLET PO SCH (08:34)
[2020-08-05] MEDS: NITROGLYCERIN 0.2 MG/HR PATCH.TD24 TD SCH (08:35)
[2020-08-05] MEDS: FAMOTIDINE 20 MG TABLET PO SCH (08:36)
[2020-08-05] MEDS: METOPROLOL TARTRATE 25 MG TABLET PO SCH (08:36)
[2020-08-05] MEDS: SODIUM BICARBONATE 650 MG TABLET PO SCH (08:39)
[2020-08-05] MEDS: LORazepam 2 MG/ML VIAL IVP PRN (08:40)
[2020-08-05] MEDS ORDERED: POLY17PO4 PO (08:50)
[2020-08-05] MEDS ORDERED: FAMO20TA8 PO (08:50)
[2020-08-05] MEDS ORDERED: FER300L PO (08:52)
[2020-08-05] MEDS ORDERED: ALBMDI INH (08:55)
[2020-08-05] MEDS ORDERED: POLYETHYLENE GLYCOL 3350, 17 GM/ POWD.PACK PO SCH (09:00)
[2020-08-05 09:39] VITALS: BP_SYST 129
--- NOTE | 2020-08-05 09:58 | NUR ---
WOKE UP, C/O MIDSTERNAL PRESSURE, ASKING FOR PAIN MEDS, NORCO 10/325 MG PO GIVEN TEARFUL, " THIS HOLIDAY I AM HOSPITALIZED, NOT WITH MY FAMILY, MORE ANXIOUS APPEARING ELDERLY. ASKED WHETHER SHE WANTED SOME MED TO CALM HER DOWN, AGREED. ATIVAN 1MG IVP GIVEN SEEN BY ATTENDING, PATIENT IS DISCHARGED TO HOME WITH FAMILY. THE PATIENT CALLED FAMILY HERSELF FOR COOK ITALIAN STYLE FOOD, SAID ESTIMATED TIME FOR COOK ITALIAN STYLE FOOD " IN THE AFTERNOON, LET THEM ENJOY THE HOLIDAY FIRST"
[2020-08-05 11:18] VITALS: BP_SYST 101
--- NOTE | 2020-08-05 14:45 | NUR ---
awaiting the daughter to pick patient up, as scheduled , but did not hear from her. I got to call her daugter , picking belt operator time now estimated at 1530. Patient ready to discharge, alert, oriented, in no respiratory distress, " no pressure on midsternal area.
--- NOTE | 2020-08-05 15:45 | NUR ---
patient will be leaving with indwelling ross remains. According to the patient's report, the ross inserted by her GI dr, " and it should be there with me when leaving the hospital" advised to make an appointment to see her primary care dr, her pulmonary, her GI when home. Verbalized understanding. all discharge instructions reviewed with the daughter.
[2020-08-07 07:06] LABS: FOLATE (FOLIC ACID) 5.7 ng/mL (>3.0)
== END 2020-08-05 15:55 | disposition home or self-care (01) | DRG 175 ==
LOC: SED 20:32 → STU 08-01 05:57
PROVIDERS: ADMIT Internal Medicine Hospice and Palliative Medicine; ATTEND Internal Medicine Hospice and Palliative Medicine
DX: I26.09 Other pulmonary embolism with acute cor pulmonale (principal); J96.01 Acute respiratory failure with hypoxia; I48.20 Chronic atrial fibrillation, unspecified; I12.9 Hypertensive chronic kidney disease with stage 1 through stage 4 chronic kidney disease, or unspecified chronic kidney disease; Z20.828 Contact with and (suspected) exposure to other viral communicable diseases; N18.9 Chronic kidney disease, unspecified; D50.9 Iron deficiency anemia, unspecified; E78.5 Hyperlipidemia, unspecified; Z79.01 Long term (current) use of anticoagulants; Z86.711 Personal history of pulmonary embolism; Z86.718 Personal history of other venous thrombosis and embolism; Z86.73 Personal history of transient ischemic attack (TIA), and cerebral infarction without residual deficits; Z79.899 Other long term (current) drug therapy
CPT/HCPCS: 36415; 71045; 74018; 76700-TC; 78580-TC; 80048; 80053; 80061; 80076; 82550-TC; 82607; 82728; 82746; 82977-TC; 83010; 83540-TC; 83550-TC; 83735-TC; 83880; 84100-TC; 84484; 85025; 85379; 85610-TC; 93005; 93970; 96374; 99285; A9540; G0378; J1644; J2060; J2270; J2405

== ENCOUNTER 2020-08-20 14:50 | Inpatient (IN) | payer OTHER, SELFPAY ==
[~2020-08-20] VITALS: Ht 160 cm; Wt 55.8 kg
[~2020-08-20 14:50] MED LIST changes: +ALBMDI INH; -AMOX500C2 PO; -APIX2.5T PO; +APIX5TAB PO; -DOXY100C PO; +FAMO20TA8 PO; +FER300L PO; +POLY17PO4 PO
[2020-08-20 15:02] VITALS: BP_SYST 146
[2020-08-20] MEDS ORDERED: NACL 0.9% 1,000 ML IV ONE (16:00)
[2020-08-20] MEDS ORDERED: NITROGLYCERIN LINGUAL 400 mCg/SPRAY SL ONE (16:00)
[2020-08-20 16:31] LABS: BASOPHILS % (AUTO) 0.9 % (0.0-2.0); EOSINOPHILS % (AUTO) 0.1 % (0.0-4.0); HEMATOCRIT 26.5 % (36-48); HEMOGLOBIN 8.6 g/dL (12.0-16.0); LYMPHOCYTES # (AUTO) 0.9 K/uL (1.0-5.5); MEAN CORPUSCULAR HEMOGLOBIN 26 pg (27-31); MEAN CORPUSCULAR HGB CONC 33 % (32-36); MEAN CORPUSCULAR VOLUME 80 fL (79.0-98.0); MONOCYTES # (AUTO) 0.4 K/uL (0.0-1.0); MONOCYTES % (AUTO) 7.4 % (1.7-9.3); NEUTROPHILS # (AUTO) 3.8 K/uL (1.8-7.7); NEUTROPHILS % (AUTO) 74.6 % (40.0-70.0); PLATELET COUNT (AUTO) 179 K/uL (130-430); RED CELL DISTRIBUTION WIDTH 18.4 % (9.0-15.0); WHITE BLOOD COUNT (AUTO) 5.1 K/uL (4.8-10.8)
[2020-08-20 16:40] LABS: CREATININE 1.52 mg/dL (0.55-1.30); POTASSIUM 4.9 mmol/L (3.5-5.1)
[2020-08-20 16:52] LABS: TOTAL BILIRUBIN 0.2 mg/dL (0.0-1.0)
[2020-08-20 17:03] LABS: CALCIUM 5.2 mg/dL (8.4-11.0)
[2020-08-20 17:31] LABS: BILIRUBIN,URINE NEGATIVE (NEGATIVE); CLARITY/URINE CLEAR (CLEAR); COLOR,URINE YELLOW (YELLOW); GLUCOSE,URINE NEGATIVE (NEGATIVE); KETONES,URINE NEGATIVE (NEGATIVE); LEUKOCYTE ESTERASE ,URINE 2+ (NEGATIVE); NITRITE, URINE POSITIVE (NEGATIVE); PH,URINE 8.5 (5.0-8.0); PROTEIN URINE 1+ (NEGATIVE); UROBILINOGEN,URINE 0.2 (0.2-1.0)
[2020-08-20 17:37] LABS: BLOOD, URINE TRACE (NEGATIVE)
[2020-08-20 17:45] LABS: BACTERIA,URINE MODERATE /HPF (None Seen)
[2020-08-20 17:48] LABS: OPIATE, URINE POSITIVE (NEG <=100)
[2020-08-20 17:49] LABS: BARBITURATE, URINE NEGATIVE (NEG <=200); METHAMPHETAMINES SCREEN,URINE NEGATIVE (NEG <=500); URINE AMPHETAMINE NEGATIVE (NEG <=500)
[2020-08-20 17:50] LABS: BENZODIAZEPINE, URINE NEGATIVE (NEG <=150); CANNABINOID, URINE NEGATIVE (NEG <=50); COCAINE, URINE NEGATIVE (NEG <=150); PHENCYCLIDINE SCREEN,URINE NEGATIVE (NEG <=25); URINE METHADONE NEGATIVE (NEG <=200)
[2020-08-20 17:51] LABS: UR TRICYCLIC ANTIDEPRESSANTS NEGATIVE (NEG <=300); URINE OXYCODONE SCREEN NEGATIVE (NEG <=100); URINE PROPOXYPHENE SCREEN NEGATIVE (NEG <=300)
[2020-08-20] MEDS ORDERED: cefTRIAXone 1 GM IVPB PREMIX 50 ML IV ONE ×2 (18:45→20:05)
[2020-08-20] MEDS ORDERED: NITROGLYCERIN 1 INCH (GM) OINT. TP ONE (19:30)
[2020-08-20] MEDS: NITROGLYCERIN 1 INCH (GM) OINT. TP SCH (21:00)
[2020-08-20] MEDS ORDERED: CALCIUM GLUCONATE 1 GM/10 ML VIAL IVP ONE (21:30)
[2020-08-20] MEDS ORDERED: ASPIRIN 81 MG TABLET(ECOTRIN) PO ONE (21:30)
[2020-08-20] MEDS ORDERED: AZITHROMYCIN 500 MG/VIAL (ZITHROMAX) IV ONE (21:48)
[2020-08-20] MEDS ORDERED: AZITHROMYCIN 500 MG in NS 250 ML IV ONE (22:00)
[2020-08-20] MEDS: APIXABAN 2.5 MG TABLET PO SCH (22:25)
[2020-08-20] MEDS: CALCIUM 500 MG/TAB PO SCH (22:26)
[2020-08-20] MEDS: ACETAMINOPHEN 325 MG TABLET PO PRN (22:27)
[2020-08-20] MEDS: ALBUTEROL MDI INHALATION 8 GM INH INH SCH (23:28)
[2020-08-21] MEDS ORDERED: NALOXONE HCL 0.4 MG/ML AMP (NARCAN) IVP PRN (02:45)
[2020-08-21] MEDS ORDERED: HYDROmorphone 1 MG INJ. 1 MG/ML AMPUL IVP ONE (02:45)
[2020-08-21 07:03] VITALS: BP_SYST 119
[2020-08-21] MEDS: ALBUTEROL MDI INHALATION 8 GM INH INH SCH ×5 (07:41→23:15)
[2020-08-21 08:32] LABS: BASOPHILS % (AUTO) 0.6 % (0.0-2.0); EOSINOPHILS % (AUTO) 0.2 % (0.0-4.0); HEMATOCRIT 25.2 % (36-48); LYMPHOCYTES # (AUTO) 0.9 K/uL (1.0-5.5); LYMPHOCYTES % (AUTO) 28.6 % (20.5-51.5); MEAN CORPUSCULAR HEMOGLOBIN 26 pg (27-31); MEAN CORPUSCULAR HGB CONC 32 % (32-36); MEAN CORPUSCULAR VOLUME 81 fL (79.0-98.0); MONOCYTES # (AUTO) 0.2 K/uL (0.0-1.0); MONOCYTES % (AUTO) 7.2 % (1.7-9.3); NEUTROPHILS % (AUTO) 63.4 % (40.0-70.0); PLATELET COUNT (AUTO) 178 K/uL (130-430); RED BLOOD CELL COUNT(AUTO) 3.12 MIL/uL (4.2-6.2); RED CELL DISTRIBUTION WIDTH 18.1 % (9.0-15.0); WHITE BLOOD COUNT (AUTO) 3.2 K/uL (4.8-10.8)
[2020-08-21] MEDS ORDERED: ATORVASTATIN 20 MG TABLET PO SCH (09:00)
[2020-08-21 09:05] LABS: ALANINE AMINOTRANSFERASE 24 U/L (12-78); ALBUMIN 2.8 g/dL (3.4-4.8); ANION GAP 9 (5-15); ASPARTATE AMINOTRANSFERASE 24 U/L (10-37); CHLORIDE 111 mmol/L (98-107); CREATININE 1.64 mg/dL (0.55-1.30); GLUCOSE 76 mg/dL (70-99); POTASSIUM 4.5 mmol/L (3.5-5.1); SODIUM SERUM 144 mmol/L (136-145); TOTAL BILIRUBIN 0.6 mg/dL (0.0-1.0); UREA NITROGEN, BLOOD 20 mg/dL (8-21)
[2020-08-21 09:30] LABS: CALCIUM 5.6 mg/dL (8.4-11.0); GFR AFRICAN AMERICAN 40 mL/min (>90)
[2020-08-21 10:08] LABS: C-REACTIVE PROTEIN QUANT 1.3 mg/dL (0-0.5)
[2020-08-21] MEDS: APIXABAN 2.5 MG TABLET PO SCH ×2 (10:52→21:00)
[2020-08-21] MEDS: CALCIUM 500 MG/TAB PO SCH ×2 (10:53→21:00)
[2020-08-21] MEDS: POLYETHYLENE GLYCOL 3350, 17 GM/ POWD.PACK PO SCH (10:54)
[2020-08-21] MEDS: FAMOTIDINE 20 MG TABLET PO SCH ×2 (10:54→21:00)
[2020-08-21] MEDS: HYDROCORTISONE 2.5%, 30 GM TOPICAL CREAM TP SCH (10:55)
[2020-08-21] MEDS: SODIUM BICARBONATE 650 MG TABLET PO SCH ×3 (10:55→21:00)
[2020-08-21] MEDS ORDERED: NITROGLYCERIN 1 INCH (GM) OINT. ONE (10:57)
[2020-08-21] MEDS: NITROGLYCERIN 1 INCH (GM) OINT. TP SCH ×2 (10:58→21:00)
[2020-08-21] MEDS ORDERED: METOPROLOL SUCCINATE 25 MG TAB.SR.24H (TOPROL XL) PO ONE (14:15)
[2020-08-21 14:16] VITALS: BP_SYST 153
[2020-08-21] MEDS: ACETAMINOPHEN 325 MG TABLET PO PRN (15:15)
[2020-08-21 16:45] VITALS: BP_SYST 106
[2020-08-21 20:00] VITALS: BP_SYST 142
[2020-08-21] MEDS: ATORVASTATIN 20 MG TABLET PO SCH (21:00)
[2020-08-21] MEDS ORDERED: AZITHROMYCIN 500 MG in NS 250 ML IV SCH (21:00)
[2020-08-22] VITALS: BP_SYST 135
[2020-08-22] MEDS: ALBUTEROL MDI INHALATION 8 GM INH INH SCH ×5 (07:58→23:22)
[2020-08-22 08:00] VITALS: BP_SYST 129
[2020-08-22] MEDS ORDERED: TOPIRAMATE 25 MG TABLET(TOPAMAX) ONE (09:45)
[2020-08-22] MEDS ORDERED: METOPROLOL SUCCINATE 25 MG TAB.SR.24H (TOPROL XL) PO ONE (09:46)
[2020-08-22] MEDS: POLYETHYLENE GLYCOL 3350, 17 GM/ POWD.PACK PO SCH (10:21)
[2020-08-22] MEDS: CALCIUM 500 MG/TAB PO SCH ×2 (10:21→20:30)
[2020-08-22] MEDS: FAMOTIDINE 20 MG TABLET PO SCH ×2 (10:21→20:30)
[2020-08-22] MEDS: SODIUM BICARBONATE 650 MG TABLET PO SCH ×3 (10:21→20:30)
[2020-08-22] MEDS: METOPROLOL SUCCINATE 25 MG TAB.SR.24H (TOPROL XL) PO SCH (10:21)
[2020-08-22] MEDS: NITROGLYCERIN 1 INCH (GM) OINT. TP SCH ×2 (10:22→21:00)
[2020-08-22] MEDS: HYDROCORTISONE 2.5%, 30 GM TOPICAL CREAM TP SCH (10:22)
[2020-08-22] MEDS: APIXABAN 2.5 MG TABLET PO SCH ×2 (10:23→20:30)
[2020-08-22 12:36] VITALS: BP_SYST 133
[2020-08-22] MEDS: ACETAMINOPHEN 325 MG TABLET PO PRN (12:45)
[2020-08-22] MEDS ORDERED: traMADol HCL HCL 50 MG TABLET (ULTRAM) PO ONE (14:15)
[2020-08-22 16:00] VITALS: BP_SYST 123
[2020-08-22 20:00] VITALS: BP_SYST 128
[2020-08-22] MEDS: ATORVASTATIN 20 MG TABLET PO SCH (20:30)
[2020-08-22] MEDS: traMADol HCL HCL 50 MG TABLET (ULTRAM) PO PRN (22:00)
[2020-08-23] VITALS: BP_SYST 116
[2020-08-23] MEDS: ALBUTEROL MDI INHALATION 8 GM INH INH SCH ×4 (07:00→23:07)
[2020-08-23] MEDS: APIXABAN 2.5 MG TABLET PO SCH (09:42)
[2020-08-23] MEDS: POLYETHYLENE GLYCOL 3350, 17 GM/ POWD.PACK PO SCH (09:42)
[2020-08-23] MEDS: CALCIUM 500 MG/TAB PO SCH (09:43)
[2020-08-23] MEDS: HYDROCORTISONE 2.5%, 30 GM TOPICAL CREAM TP SCH (09:43)
[2020-08-23] MEDS: FAMOTIDINE 20 MG TABLET PO SCH (09:44)
[2020-08-23] MEDS: SODIUM BICARBONATE 650 MG TABLET PO SCH ×2 (09:44→16:14)
[2020-08-23 10:02] VITALS: BP_SYST 119
[2020-08-23] MEDS: METOPROLOL SUCCINATE 25 MG TAB.SR.24H (TOPROL XL) PO SCH (10:04)
[2020-08-23] MEDS: NITROGLYCERIN 1 INCH (GM) OINT. TP SCH ×2 (10:05→21:00)
[2020-08-23 11:48] VITALS: BP_SYST 111
[2020-08-23] MEDS: traMADol HCL HCL 50 MG TABLET (ULTRAM) PO PRN (13:41)
[2020-08-23 16:25] VITALS: BP_SYST 114
[2020-08-23 20:00] VITALS: BP_SYST 112
[2020-08-24] VITALS: BP_SYST 117
[2020-08-24] MEDS: SODIUM BICARBONATE 650 MG TABLET PO SCH ×3 (00:18→14:56)
[2020-08-24] MEDS: FAMOTIDINE 20 MG TABLET PO SCH ×2 (00:19→09:30)
[2020-08-24] MEDS: CALCIUM 500 MG/TAB PO SCH ×2 (00:19→09:30)
[2020-08-24] MEDS: traMADol HCL HCL 50 MG TABLET (ULTRAM) PO PRN ×3 (00:20→14:56)
[2020-08-24] MEDS: ATORVASTATIN 20 MG TABLET PO SCH (00:28)
[2020-08-24] MEDS: HYDROCORTISONE 2.5%, 30 GM TOPICAL CREAM TP SCH ×2 (00:29→00:31)
[2020-08-24] MEDS: APIXABAN 2.5 MG TABLET PO SCH ×2 (00:53→09:30)
[2020-08-24] MEDS: ALBUTEROL MDI INHALATION 8 GM INH INH SCH (07:30)
[2020-08-24 09:00] VITALS: BP_SYST 128
[2020-08-24] MEDS: POLYETHYLENE GLYCOL 3350, 17 GM/ POWD.PACK PO SCH (09:00)
[2020-08-24] MEDS ORDERED: METOPROLOL SUCCINATE 25 MG TAB.SR.24H (TOPROL XL) PO ONE (09:13)
[2020-08-24] MEDS ORDERED: NITROGLYCERIN 1 INCH (GM) OINT. ONE (09:14)
[2020-08-24] MEDS: NITROGLYCERIN 1 INCH (GM) OINT. TP SCH (09:30)
[2020-08-24] MEDS: METOPROLOL SUCCINATE 25 MG TAB.SR.24H (TOPROL XL) PO SCH (09:30)
[2020-08-24] MEDS ORDERED: CALC-823 PO (10:44)
[2020-08-24 12:00] VITALS: BP_SYST 134
[2020-08-24 12:44] VITALS: BP_SYST 134
[2020-08-24] MEDS: ACETAMINOPHEN 325 MG TABLET PO PRN (12:45)
[2020-08-24 15:14] VITALS: BP_SYST 134
[2020-08-24 16:41] VITALS: BP_SYST 128
== END 2020-08-24 19:25 | disposition home or self-care (01) | DRG 177 ==
LOC: SED 14:50 → STU 18:48
PROVIDERS: ADMIT Internal Medicine Hospice and Palliative Medicine; ATTEND Internal Medicine Hospice and Palliative Medicine
DX: U07.1 COVID-19 (principal); J12.82 Pneumonia due to coronavirus disease 2019; N17.9 Acute kidney failure, unspecified; N13.6 Pyonephrosis; I12.9 Hypertensive chronic kidney disease with stage 1 through stage 4 chronic kidney disease, or unspecified chronic kidney disease; E83.51 Hypocalcemia; N18.2 Chronic kidney disease, stage 2 (mild); I48.0 Paroxysmal atrial fibrillation; J44.9 Chronic obstructive pulmonary disease, unspecified; D64.9 Anemia, unspecified; M54.9 Dorsalgia, unspecified; G89.29 Other chronic pain; F41.9 Anxiety disorder, unspecified; D63.8 Anemia in other chronic diseases classified elsewhere; E78.5 Hyperlipidemia, unspecified; E11.22 Type 2 diabetes mellitus with diabetic chronic kidney disease; N31.9 Neuromuscular dysfunction of bladder, unspecified; D72.810 Lymphocytopenia; Z88.8 Allergy status to other drugs, medicaments and biological substances; Z79.899 Other long term (current) drug therapy; Z86.73 Personal history of transient ischemic attack (TIA), and cerebral infarction without residual deficits; Z90.49 Acquired absence of other specified parts of digestive tract; Z79.01 Long term (current) use of anticoagulants; Z86.718 Personal history of other venous thrombosis and embolism; Z83.3 Family history of diabetes mellitus; Z86.711 Personal history of pulmonary embolism; Z87.891 Personal history of nicotine dependence; Z98.84 Bariatric surgery status
CPT/HCPCS: 36415; 70450-TC; 70551; 71045; 76376; 80053; 80307; 81000-TC; 82330; 82728; 83735-TC; 83880; 84484; 85025; 85379; 85610-TC; 85730-TC; 86140; 87040-TC; 87081; 87086; 93005; 94640; 94760; 96365; 99285; G0378; J0456; J0610; J0696; J1170; J7030; J7050; J7060

== ENCOUNTER 2020-10-25 22:25 | Observation (INO) | payer OTHER, SELFPAY ==
[~2020-10-25] VITALS: Ht 160 cm; Wt 58.6 kg
[~2020-10-25 22:25] MED LIST changes: -AMOX-423 PO; +CALC-823 PO
[2020-10-25 22:34] VITALS: BP_SYST 154
[2020-10-25] MEDS ORDERED: ASPIRIN 81 MG TAB.CHEW PO ONE (23:00)
[2020-10-25 23:21] LABS: BASOPHILS % (AUTO) 0.5 % (0.0-2.0); EOSINOPHILS % (AUTO) 0.7 % (0.0-4.0); HEMATOCRIT 24.9 % (36-48); HEMOGLOBIN 7.8 g/dL (12.0-16.0); LYMPHOCYTES # (AUTO) 1.3 K/uL (1.0-5.5); LYMPHOCYTES % (AUTO) 25.2 % (20.5-51.5); MEAN CORPUSCULAR HEMOGLOBIN 25 pg (27-31); MEAN CORPUSCULAR HGB CONC 31 % (32-36); MEAN CORPUSCULAR VOLUME 80 fL (79.0-98.0); MONOCYTES # (AUTO) 0.5 K/uL (0.0-1.0); MONOCYTES % (AUTO) 9.4 % (1.7-9.3); NEUTROPHILS # (AUTO) 3.4 K/uL (1.8-7.7); NEUTROPHILS % (AUTO) 64.2 % (40.0-70.0); PLATELET COUNT (AUTO) 174 K/uL (130-430); RED CELL DISTRIBUTION WIDTH 17.7 % (9.0-15.0); WHITE BLOOD COUNT (AUTO) 5.4 K/uL (4.8-10.8)
[2020-10-25] MEDS ORDERED: NITROGLYCERIN 1 INCH (GM) OINT. TP ONE (23:30)
[2020-10-25] MEDS ORDERED: ASPIRIN 325 MG TABLET PO ONE (23:30)
[2020-10-25] MEDS ORDERED: ASPIRIN 81 MG TAB.CHEW ONE (23:33)
[2020-10-25] MEDS ORDERED: NITROGLYCERIN 1 INCH (GM) OINT. ONE (23:34)
[2020-10-25 23:35] LABS: CREATININE 1.9 mg/dL (0.55-1.30); POTASSIUM 4.8 mmol/L (3.5-5.1)
[2020-10-25 23:42] LABS: TOTAL BILIRUBIN 0.2 mg/dL (0.0-1.0)
[2020-10-25] MEDS ORDERED: OXYC10TA56 PO (23:42)
[2020-10-25 23:57] LABS: CALCIUM 6.3 mg/dL (8.4-11.0)
[2020-10-26] MEDS ORDERED: MORPHINE 2 MG/ML INJ. SYRINGE IVP ONE (01:00)
[2020-10-26 01:27] LABS: INR 0.9 (0.8-1.2); PROTHROMBIN TIME 9.6 SECS (9.5-12.5)
[2020-10-26] MEDS ORDERED: HYDROcodone/ACETAMIN 5-325 MG TAB (NORCO/ VICODIN) PO PRN (01:45)
[2020-10-26] MEDS ORDERED: ALBUTEROL SULFATE 0.083% 2.5 MG/3 ML VIAL.NEB INH PRN (01:45)
[2020-10-26] MEDS ORDERED: ACETAMINOPHEN 325 MG TABLET PO PRN (01:45)
[2020-10-26] MEDS ORDERED: LORazepam 2 MG/ML VIAL IVP PRN (01:45)
[2020-10-26 02:41] VITALS: BP_SYST 126
[2020-10-26 02:51] VITALS: BP_SYST 131
[2020-10-26 03:16] LABS: TOTAL IRON BIND. CAPACITY 307 ug/dL (250-450)
[2020-10-26] MEDS ORDERED: ALBUTEROL MDI INHALATION 8 GM INH INH SCH (07:00)
[2020-10-26 07:46] LABS: BASOPHILS % (AUTO) 0.5 % (0.0-2.0); EOSINOPHILS % (AUTO) 0.3 % (0.0-4.0); HEMATOCRIT 23.6 % (36-48); HEMOGLOBIN 7.4 g/dL (12.0-16.0); LYMPHOCYTES # (AUTO) 1.7 K/uL (1.0-5.5); LYMPHOCYTES % (AUTO) 28.9 % (20.5-51.5); MEAN CORPUSCULAR HEMOGLOBIN 25 pg (27-31); MEAN CORPUSCULAR HGB CONC 31 % (32-36); MEAN CORPUSCULAR VOLUME 80 fL (79.0-98.0); MONOCYTES # (AUTO) 0.5 K/uL (0.0-1.0); NEUTROPHILS # (AUTO) 3.5 K/uL (1.8-7.7); NEUTROPHILS % (AUTO) 61.3 % (40.0-70.0); PLATELET COUNT (AUTO) 165 K/uL (130-430); RED BLOOD CELL COUNT(AUTO) 2.96 MIL/uL (4.2-6.2); RED CELL DISTRIBUTION WIDTH 18.2 % (9.0-15.0); WHITE BLOOD COUNT (AUTO) 5.7 K/uL (4.8-10.8)
[2020-10-26 08:00] VITALS: BP_SYST 137
[2020-10-26 08:01] LABS: ALANINE AMINOTRANSFERASE 31 U/L (12-78); ALBUMIN 2.7 g/dL (3.4-4.8); ANION GAP 10 (5-15); ASPARTATE AMINOTRANSFERASE 22 U/L (10-37); CHLORIDE 112 mmol/L (98-107); CREATININE 1.85 mg/dL (0.55-1.30); GLUCOSE 88 mg/dL (70-99); POTASSIUM 4.7 mmol/L (3.5-5.1); SODIUM SERUM 144 mmol/L (136-145); TOTAL BILIRUBIN 0.2 mg/dL (0.0-1.0); UREA NITROGEN, BLOOD 24 mg/dL (8-21)
[2020-10-26 08:31] LABS: CALCIUM 6.4 mg/dL (8.4-11.0); GFR AFRICAN AMERICAN 35 mL/min (>90)
[2020-10-26 08:39] LABS: CHOLESTEROL 150 mg/dL (<200); HDL CHOLESTEROL 78 mg/dL (>55); LDL CHOLESTEROL 78 mg/dL (<100); TRIGLYCERIDES 35 mg/dL (30-150)
[2020-10-26] MEDS ORDERED: APIXABAN 2.5 MG TABLET PO SCH (09:00)
[2020-10-26] MEDS ORDERED: oxyCODONE HCL 10 MG TAB.ER.12H PO SCH (09:00)
[2020-10-26] MEDS ORDERED: CALCIUM CARBONATE/VITAMIN D3 1 TAB TABLET PO SCH (09:00)
[2020-10-26] MEDS ORDERED: FAMOTIDINE 20 MG TABLET PO SCH (09:00)
[2020-10-26] MEDS ORDERED: ATORVASTATIN 20 MG TABLET PO SCH (09:00)
[2020-10-26] MEDS ORDERED: CALCIUM GLUCONATE 2 GM in NS 100 ML IV ONE (10:00)
[2020-10-26] MEDS: MORPHINE 4 MG/ML INJ. SYRINGE IVP PRN ×2 (10:46→16:18)
[2020-10-26] MEDS ORDERED: ALBUTEROL SULFATE 0.083% 2.5 MG/3 ML VIAL.NEB INH SCH (11:00)
[2020-10-26 12:32] VITALS: BP_SYST 144
[2020-10-26 14:57] VITALS: BP_SYST 131
[2020-10-26 16:36] VITALS: BP_SYST 143
== END 2020-10-26 16:45 | disposition home or self-care (01) ==
LOC: SED 22:25 → STU 10-26 01:38
PROVIDERS: ADMIT Internal Medicine Hospice and Palliative Medicine; ATTEND Internal Medicine Hospice and Palliative Medicine
DX: R07.89 Other chest pain (principal); Z20.822 Contact with and (suspected) exposure to COVID-19; E83.51 Hypocalcemia; I12.9 Hypertensive chronic kidney disease with stage 1 through stage 4 chronic kidney disease, or unspecified chronic kidney disease; N18.2 Chronic kidney disease, stage 2 (mild); D63.1 Anemia in chronic kidney disease; I48.0 Paroxysmal atrial fibrillation; R79.89 Other specified abnormal findings of blood chemistry; E78.5 Hyperlipidemia, unspecified; I26.99 Other pulmonary embolism without acute cor pulmonale; J44.9 Chronic obstructive pulmonary disease, unspecified; N31.9 Neuromuscular dysfunction of bladder, unspecified; N13.30 Unspecified hydronephrosis; I25.2 Old myocardial infarction; F41.9 Anxiety disorder, unspecified; I25.10 Atherosclerotic heart disease of native coronary artery without angina pectoris; Z79.01 Long term (current) use of anticoagulants; Z79.899 Other long term (current) drug therapy; Z98.84 Bariatric surgery status; Z86.711 Personal history of pulmonary embolism; Z86.73 Personal history of transient ischemic attack (TIA), and cerebral infarction without residual deficits; Z87.891 Personal history of nicotine dependence; Z86.718 Personal history of other venous thrombosis and embolism
CPT/HCPCS: 36415; 71045; 80053 ×2; 80061 ×2; 82550; 83540; 83550; 83880; 84484 ×2; 85025 ×2; 85379; 85610; 85730; 87426; 93005 ×2; 93306; 96365; 96366; 96375; 96376; 99285; G0378; J0610; J2270 ×2; J7613; 96374

== ENCOUNTER 2020-11-15 07:24 | Emergency (ER) | payer OTHER, SELFPAY ==
[~2020-11-15] VITALS: Ht 165.1 cm; Wt 59.9 kg
[~2020-11-15 07:24] MED LIST changes: -FER300L PO; -HYDC2.5% TP; -LIP40 PO; +OXYC10TA56 PO; -POLY17PO4 PO; -SODI650T PO
[2020-11-15 07:41] VITALS: BP_SYST 136
[2020-11-15] MEDS ORDERED: HYDROcodone/ACETAMIN 5-325 MG TAB (NORCO/ VICODIN) PO ONE (08:00)
[2020-11-15 08:07] LABS: BASOPHILS # (AUTO) 0.1 K/uL (0.0-0.2); BASOPHILS % (AUTO) 0.7 % (0.0-2.0); CREATININE 1.9 mg/dL (0.55-1.30); EOSINOPHILS % (AUTO) 0.2 % (0.0-4.0); HEMATOCRIT 27.7 % (36-48); HEMOGLOBIN 8.6 g/dL (12.0-16.0); LYMPHOCYTES # (AUTO) 0.9 K/uL (1.0-5.5); LYMPHOCYTES % (AUTO) 10.9 % (20.5-51.5); MEAN CORPUSCULAR HEMOGLOBIN 25 pg (27-31); MEAN CORPUSCULAR HGB CONC 31 % (32-36); MEAN CORPUSCULAR VOLUME 80 fL (79.0-98.0); MONOCYTES # (AUTO) 0.4 K/uL (0.0-1.0); MONOCYTES % (AUTO) 5.4 % (1.7-9.3); NEUTROPHILS # (AUTO) 6.9 K/uL (1.8-7.7); NEUTROPHILS % (AUTO) 82.8 % (40.0-70.0); PLATELET COUNT (AUTO) 198 K/uL (130-430); POTASSIUM 3.8 mmol/L (3.5-5.1); RED BLOOD CELL COUNT(AUTO) 3.48 MIL/uL (4.2-6.2); RED CELL DISTRIBUTION WIDTH 18.3 % (9.0-15.0); WHITE BLOOD COUNT (AUTO) 8.3 K/uL (4.8-10.8)
[2020-11-15 08:13] LABS: ALBUMIN 3.6 g/dL (3.4-4.8); TOTAL BILIRUBIN 0.3 mg/dL (0.0-1.0)
[2020-11-15 08:16] LABS: CALCIUM 6.9 mg/dL (8.4-11.0)
[2020-11-15] MEDS ORDERED: CALCIUM GLUCONATE 1 GM in NS 100 ML IV ONE (08:30)
[2020-11-15] MEDS ORDERED: CALCIUM GLUCONATE 1 GM/10 ML VIAL ONE (08:46)
[2020-11-15] MEDS ORDERED: HYDR-3919 PO (09:05)
[2020-11-15] MEDS ORDERED: BISA5TAB10 PO (09:09)
[2020-11-15 10:14] VITALS: BP_SYST 141
== END 2020-11-15 10:14 | disposition home or self-care (01) ==
LOC: SED 07:24
DX: M54.5 Low back pain (principal); R33.9 Retention of urine, unspecified; E83.51 Hypocalcemia; D64.9 Anemia, unspecified; I12.9 Hypertensive chronic kidney disease with stage 1 through stage 4 chronic kidney disease, or unspecified chronic kidney disease; E11.22 Type 2 diabetes mellitus with diabetic chronic kidney disease; N18.9 Chronic kidney disease, unspecified
CPT/HCPCS: 36415; 74018; 80053; 82330; 85025; 96365; 99284; J0610

== ENCOUNTER 2020-11-17 18:27 | Observation (INO) | payer OTHER, SELFPAY ==
[~2020-11-17] VITALS: Ht 160 cm; Wt 59.0 kg
[2020-11-17 18:27] VITALS: BP_SYST 161
[~2020-11-17 18:27] MED LIST changes: +BISA5TAB10 PO; +HYDR-3919 PO
[2020-11-17] MEDS ORDERED: NACL 0.9% 1,000 ML IV ONE (19:15)
[2020-11-17] MEDS ORDERED: MORPHINE 4 MG INJ. 4 MG/ML VIAL IVP ONE ×2 (19:15→21:15)
[2020-11-17] MEDS ORDERED: KETOROLAC TROMETHAMINE 15 MG VIAL IVP ONE (19:15)
[2020-11-17 19:35] LABS: HEMOGLOBIN 7.3 g/dL (12.0-16.0); WHITE BLOOD COUNT (AUTO) 6.9 K/uL (4.8-10.8)
[2020-11-17 19:42] LABS: BASOPHILS % (AUTO) 0.6 % (0.0-2.0); CREATININE 2.15 mg/dL (0.55-1.30); EOSINOPHILS % (AUTO) 0.1 % (0.0-4.0); LYMPHOCYTES # (AUTO) 1.5 K/uL (1.0-5.5); LYMPHOCYTES % (AUTO) 21.9 % (20.5-51.5); MEAN CORPUSCULAR HEMOGLOBIN 25 pg (27-31); MEAN CORPUSCULAR HGB CONC 32 % (32-36); MEAN CORPUSCULAR VOLUME 78 fL (79.0-98.0); MONOCYTES # (AUTO) 0.6 K/uL (0.0-1.0); NEUTROPHILS # (AUTO) 4.8 K/uL (1.8-7.7); NEUTROPHILS % (AUTO) 69.4 % (40.0-70.0); PLATELET COUNT (AUTO) 161 K/uL (130-430); POTASSIUM 5.1 mmol/L (3.5-5.1); RED BLOOD CELL COUNT(AUTO) 2.93 MIL/uL (4.2-6.2); RED CELL DISTRIBUTION WIDTH 18.2 % (9.0-15.0)
[2020-11-17 19:47] LABS: ALBUMIN 3.3 g/dL (3.4-4.8); TOTAL BILIRUBIN 0.2 mg/dL (0.0-1.0)
[2020-11-17 19:51] LABS: CALCIUM 6.4 mg/dL (8.4-11.0)
[2020-11-17 20:33] LABS: BILIRUBIN,URINE NEGATIVE (NEGATIVE); BLOOD, URINE 1+ (NEGATIVE); CLARITY/URINE CLEAR (CLEAR); GLUCOSE,URINE NEGATIVE (NEGATIVE); KETONES,URINE NEGATIVE (NEGATIVE); LEUKOCYTE ESTERASE ,URINE TRACE (NEGATIVE); NITRITE, URINE NEGATIVE (NEGATIVE); PROTEIN URINE TRACE (NEGATIVE); UROBILINOGEN,URINE 0.2 (0.2-1.0)
[2020-11-17 20:56] LABS: COLOR,URINE YELLOW (YELLOW)
[2020-11-17 21:27] LABS: BACTERIA,URINE FEW /HPF (None Seen); MUCUS,URINE None Seen /LPF (None Seen)
[2020-11-17] MEDS ORDERED: ALBUTEROL SULFATE 0.083% 2.5 MG/3 ML VIAL.NEB INH PRN (22:15)
[2020-11-17] MEDS ORDERED: cefTRIAXone 1 GM IVPB PREMIX 50 ML IV SCH (22:15)
[2020-11-17 22:55] VITALS: BP_SYST 161
[2020-11-17] MEDS ORDERED: cefTRIAXone 1 GM IVPB PREMIX 50 ML IV ONE (23:59)
[2020-11-18] VITALS (7 sets, daily range): BP systolic 130–159
[2020-11-18] MEDS: HYDROcodone/ACETAMIN 5-325 MG TAB (NORCO/ VICODIN) PO PRN ×2 (00:24→04:49)
[2020-11-18 08:08] LABS: BASOPHILS % (AUTO) 0.7 % (0.0-2.0); EOSINOPHILS % (AUTO) 0.6 % (0.0-4.0); HEMATOCRIT 26.8 % (36-48); HEMOGLOBIN 8.6 g/dL (12.0-16.0); LYMPHOCYTES # (AUTO) 1.4 K/uL (1.0-5.5); LYMPHOCYTES % (AUTO) 25.6 % (20.5-51.5); MEAN CORPUSCULAR HEMOGLOBIN 25 pg (27-31); MEAN CORPUSCULAR HGB CONC 32 % (32-36); MEAN CORPUSCULAR VOLUME 79 fL (79.0-98.0); MONOCYTES # (AUTO) 0.5 K/uL (0.0-1.0); MONOCYTES % (AUTO) 8.9 % (1.7-9.3); NEUTROPHILS # (AUTO) 3.4 K/uL (1.8-7.7); NEUTROPHILS % (AUTO) 64.2 % (40.0-70.0); PLATELET COUNT (AUTO) 146 K/uL (130-430); RED BLOOD CELL COUNT(AUTO) 3.41 MIL/uL (4.2-6.2); RED CELL DISTRIBUTION WIDTH 17.5 % (9.0-15.0); WHITE BLOOD COUNT (AUTO) 5.4 K/uL (4.8-10.8)
[2020-11-18 08:21] LABS: CREATININE 2.15 mg/dL (0.55-1.30); POTASSIUM 5.7 mmol/L (3.5-5.1); TOTAL BILIRUBIN 0.3 mg/dL (0.0-1.0)
[2020-11-18 08:29] LABS: CALCIUM 6.5 mg/dL (8.4-11.0)
[2020-11-18] MEDS ORDERED: BISACODYL 5 MG TABLET.DR (DULCOLAX) PO SCH (09:00)
[2020-11-18] MEDS ORDERED: CALCIUM CARBONATE/VITAMIN D3 1 TAB TABLET PO SCH (09:00)
[2020-11-18] MEDS ORDERED: FAMOTIDINE 20 MG TABLET PO SCH (09:00)
[2020-11-18] MEDS ORDERED: ALBUTEROL SULFATE 0.083% 2.5 MG/3 ML VIAL.NEB INH SCH (11:00)
[2020-11-18] MEDS: MORPHINE 4 MG INJ. 4 MG/ML VIAL IVP PRN ×2 (11:29→16:25)
[2020-11-18 14:41] LABS: BILIRUBIN,URINE NEGATIVE (NEGATIVE); CLARITY/URINE CLEAR (CLEAR); COLOR,URINE YELLOW (YELLOW); GLUCOSE,URINE NEGATIVE (NEGATIVE); KETONES,URINE NEGATIVE (NEGATIVE); LEUKOCYTE ESTERASE ,URINE TRACE (NEGATIVE); NITRITE, URINE NEGATIVE (NEGATIVE); PH,URINE 5.5 (5.0-8.0); PROTEIN URINE TRACE (NEGATIVE); UROBILINOGEN,URINE 0.2 (0.2-1.0)
[2020-11-18 14:53] LABS: BLOOD, URINE TRACE (NEGATIVE)
[2020-11-18 14:55] LABS: BACTERIA,URINE FEW /HPF (None Seen); RBC,URINE 0-3 /HPF (0-3)
[2020-11-18 14:56] LABS: MUCUS,URINE None Seen /LPF (None Seen)
== END 2020-11-18 18:10 | disposition home or self-care (01) ==
LOC: SED 18:27 → SMU 22:12 → INTOOBSV 22:12 → SMU 23:17
PROVIDERS: ADMIT Internal Medicine Hospice and Palliative Medicine; ATTEND Internal Medicine Hospice and Palliative Medicine
DX: D50.0 Iron deficiency anemia secondary to blood loss (chronic) (principal); Z20.822 Contact with and (suspected) exposure to COVID-19; G89.18 Other acute postprocedural pain; N31.9 Neuromuscular dysfunction of bladder, unspecified; I48.91 Unspecified atrial fibrillation; E78.5 Hyperlipidemia, unspecified; I12.9 Hypertensive chronic kidney disease with stage 1 through stage 4 chronic kidney disease, or unspecified chronic kidney disease; N18.9 Chronic kidney disease, unspecified; D63.8 Anemia in other chronic diseases classified elsewhere; J44.9 Chronic obstructive pulmonary disease, unspecified; Z86.73 Personal history of transient ischemic attack (TIA), and cerebral infarction without residual deficits; Z79.01 Long term (current) use of anticoagulants; Z86.711 Personal history of pulmonary embolism; Z98.84 Bariatric surgery status; Z79.899 Other long term (current) drug therapy
CPT/HCPCS: 36415 ×2; 36430; 76770; 80053 ×2; 81000 ×2; 83690; 85025 ×2; 86886; 86900; 86901; 86920; 87081; 87086; 87426; 96365; 96375 ×2; 96376 ×2; 97162; 99285; G0378; J0696; J1885; J2270 ×2; J7030; J7040; J7050; P9021; 96374

== ENCOUNTER 2020-11-28 15:25 | Emergency (ER) | payer OTHER, SELFPAY ==
[~2020-11-28] VITALS: Ht 160 cm; Wt 58.5 kg
[2020-11-28 15:33] VITALS: BP_SYST 161
[2020-11-28] MEDS ORDERED: MORPHINE 4 MG INJ. 4 MG/ML VIAL IVP ONE ×2 (16:15→18:30)
[2020-11-28] MEDS ORDERED: DIPHENHYDRAMINE INJ 50 MG/ML VIAL IVP ONE ×2 (16:15→18:30)
[2020-11-28] MEDS ORDERED: NACL 0.9% 1,000 ML IV ONE (16:15)
[2020-11-28 16:57] LABS: BASOPHILS # (AUTO) 0.1 K/uL (0.0-0.2); BASOPHILS % (AUTO) 1.7 % (0.0-2.0); EOSINOPHILS % (AUTO) 0.9 % (0.0-4.0); HEMATOCRIT 28.4 % (36-48); LYMPHOCYTES # (AUTO) 1.4 K/uL (1.0-5.5); LYMPHOCYTES % (AUTO) 28.4 % (20.5-51.5); MEAN CORPUSCULAR HEMOGLOBIN 26 pg (27-31); MEAN CORPUSCULAR HGB CONC 32 % (32-36); MEAN CORPUSCULAR VOLUME 80 fL (79.0-98.0); MONOCYTES # (AUTO) 0.4 K/uL (0.0-1.0); MONOCYTES % (AUTO) 7.6 % (1.7-9.3); NEUTROPHILS % (AUTO) 61.4 % (40.0-70.0); PLATELET COUNT (AUTO) 187 K/uL (130-430); RED BLOOD CELL COUNT(AUTO) 3.55 MIL/uL (4.2-6.2); RED CELL DISTRIBUTION WIDTH 18.2 % (9.0-15.0); WHITE BLOOD COUNT (AUTO) 4.9 K/uL (4.8-10.8)
[2020-11-28 17:11] LABS: BILIRUBIN,URINE NEGATIVE (NEGATIVE); BLOOD, URINE 1+ (NEGATIVE); COLOR,URINE YELLOW (YELLOW); GLUCOSE,URINE NEGATIVE (NEGATIVE); KETONES,URINE NEGATIVE (NEGATIVE); LEUKOCYTE ESTERASE ,URINE 1+ (NEGATIVE); NITRITE, URINE NEGATIVE (NEGATIVE); PROTEIN URINE 2+ (NEGATIVE); UROBILINOGEN,URINE 0.2 (0.2-1.0)
[2020-11-28 17:13] LABS: PROTHROMBIN TIME 9.8 SECS (9.5-12.5)
[2020-11-28 17:15] LABS: ALBUMIN 3.4 g/dL (3.4-4.8); CREATININE 2.45 mg/dL (0.55-1.30); POTASSIUM 4.4 mmol/L (3.5-5.1); TOTAL BILIRUBIN 0.4 mg/dL (0.0-1.0)
[2020-11-28 17:21] LABS: CLARITY/URINE SLIGHTLY HAZY (CLEAR)
[2020-11-28 17:24] LABS: CALCIUM 6.5 mg/dL (8.4-11.0)
[2020-11-28 17:43] LABS: BACTERIA,URINE FEW /HPF (None Seen)
[2020-11-28 17:44] LABS: MUCUS,URINE None Seen /LPF (None Seen)
[2020-11-28] MEDS ORDERED: cefTRIAXone 1 GM IVPB PREMIX 50 ML IV ONE (19:45)
[2020-11-28] MEDS ORDERED: NITR-85 PO (20:19)
[2020-11-28] MEDS ORDERED: MAGN296S30 PO (20:19)
[2020-11-28] MEDS ORDERED: fentaNYL CITRATE/PF 100 MCG/2 ML AMP IVP ONE (20:30)
[2020-11-28] MEDS ORDERED: ONDANSETRON HCL 4 MG/2 ML VIAL IVP ONE (20:30)
[2020-11-28 21:30] VITALS: BP_SYST 126
== END 2020-11-28 21:30 | disposition home or self-care (01) ==
LOC: SED 15:25
DX: M53.3 Sacrococcygeal disorders, not elsewhere classified (principal); N39.0 Urinary tract infection, site not specified; K59.00 Constipation, unspecified; I10 Essential (primary) hypertension; J44.9 Chronic obstructive pulmonary disease, unspecified; I48.91 Unspecified atrial fibrillation; Z88.1 Allergy status to other antibiotic agents; Z79.899 Other long term (current) drug therapy
CPT/HCPCS: 36415; 72192; 76376; 80053; 81000; 83605; 85025; 85610; 85730; 87040; 87086; 96361; 96365; 96375; 96376; 99284; J0696; J1200; J2270; J2405; J3010; J7030

== ENCOUNTER 2020-12-18 18:45 | Observation (INO) | payer OTHER, SELFPAY ==
[~2020-12-18] VITALS: Ht 160 cm; Wt 57.7 kg
[~2020-12-18 18:45] MED LIST changes: +APIXABAN 2.5 MG TABLET PO SCH; +MAGN296S30 PO; +NITR-85 PO
[2020-12-18 18:53] VITALS: BP_SYST 155
[2020-12-18 19:18] LABS: BASOPHILS % (AUTO) 0.8 % (0.0-2.0); EOSINOPHILS # (AUTO) 0.1 K/uL (0.0-0.4); EOSINOPHILS % (AUTO) 1.7 % (0.0-4.0); HEMATOCRIT 29.1 % (36-48); HEMOGLOBIN 9.4 g/dL (12.0-16.0); LYMPHOCYTES # (AUTO) 1.4 K/uL (1.0-5.5); LYMPHOCYTES % (AUTO) 26.6 % (20.5-51.5); MEAN CORPUSCULAR HEMOGLOBIN 26 pg (27-31); MEAN CORPUSCULAR HGB CONC 33 % (32-36); MEAN CORPUSCULAR VOLUME 79 fL (79.0-98.0); MONOCYTES # (AUTO) 0.4 K/uL (0.0-1.0); MONOCYTES % (AUTO) 7.6 % (1.7-9.3); NEUTROPHILS # (AUTO) 3.3 K/uL (1.8-7.7); NEUTROPHILS % (AUTO) 63.3 % (40.0-70.0); PLATELET COUNT (AUTO) 153 K/uL (130-430); RED BLOOD CELL COUNT(AUTO) 3.66 MIL/uL (4.2-6.2); WHITE BLOOD COUNT (AUTO) 5.2 K/uL (4.8-10.8)
[2020-12-18 19:43] LABS: CREATININE 2.04 mg/dL (0.55-1.30); POTASSIUM 4.2 mmol/L (3.5-5.1); PROTHROMBIN TIME 9.9 SECS (9.5-12.5)
[2020-12-18 19:47] LABS: ALBUMIN 3.5 g/dL (3.4-4.8); TOTAL BILIRUBIN 0.2 mg/dL (0.0-1.0)
[2020-12-18 19:48] LABS: CALCIUM 6.4 mg/dL (8.4-11.0)
[2020-12-18] MEDS ORDERED: HYDROcodone/ACETAMIN 5-325 MG TAB (NORCO/ VICODIN) PO ONE (21:00)
[2020-12-18] MEDS ORDERED: HYDROcodone/ACETAMIN 5-325 MG TAB (NORCO/ VICODIN) PO PRN (22:00)
[2020-12-18] MEDS ORDERED: ALBUTEROL SULFATE 0.083% 2.5 MG/3 ML VIAL.NEB INH PRN (22:00)
[2020-12-18] MEDS ORDERED: ACETAMINOPHEN 325 MG TABLET PO PRN (22:00)
[2020-12-18] MEDS ORDERED: MORPHINE 4 MG INJ. 4 MG/ML VIAL IVP PRN (22:00)
[2020-12-18] MEDS ORDERED: CALCIUM CHLORIDE 1 GM in NS 100 ML IV ONE (22:30)
[2020-12-18 23:32] VITALS: BP_SYST 155
[2020-12-18 23:34] VITALS: BP_SYST 130
[2020-12-19] MEDS ORDERED: CALCIUM CHLORIDE 1 GM/10ML VIAL (13.6 mEq Ca++/VIAL) ONE (01:01)
[2020-12-19 01:35] VITALS: BP_SYST 125
[2020-12-19 06:45] LABS: BASOPHILS # (AUTO) 0.1 K/uL (0.0-0.2); BASOPHILS % (AUTO) 1.1 % (0.0-2.0); HEMATOCRIT 26.7 % (36-48); HEMOGLOBIN 8.4 g/dL (12.0-16.0); LYMPHOCYTES # (AUTO) 1.6 K/uL (1.0-5.5); LYMPHOCYTES % (AUTO) 32.7 % (20.5-51.5); MEAN CORPUSCULAR HEMOGLOBIN 25 pg (27-31); MEAN CORPUSCULAR HGB CONC 32 % (32-36); MEAN CORPUSCULAR VOLUME 79 fL (79.0-98.0); MONOCYTES # (AUTO) 0.5 K/uL (0.0-1.0); MONOCYTES % (AUTO) 10.2 % (1.7-9.3); NEUTROPHILS # (AUTO) 2.7 K/uL (1.8-7.7); PLATELET COUNT (AUTO) 138 K/uL (130-430); RED BLOOD CELL COUNT(AUTO) 3.38 MIL/uL (4.2-6.2); RED CELL DISTRIBUTION WIDTH 18.5 % (9.0-15.0); WHITE BLOOD COUNT (AUTO) 4.8 K/uL (4.8-10.8)
[2020-12-19 07:10] LABS: ALBUMIN 3.1 g/dL (3.4-4.8); CALCIUM 7.4 mg/dL (8.4-11.0); POTASSIUM 4.4 mmol/L (3.5-5.1); TOTAL BILIRUBIN 0.3 mg/dL (0.0-1.0)
[2020-12-19 08:05] VITALS: BP_SYST 141
[2020-12-19] MEDS ORDERED: FAMOTIDINE 20 MG TABLET PO SCH (09:00)
[2020-12-19 10:28] VITALS: BP_SYST 141
[2020-12-19 11:26] VITALS: BP_SYST 141
[2020-12-19 15:24] VITALS: BP_SYST 139
== END 2020-12-19 15:34 | disposition home or self-care (01) ==
LOC: SED 18:45 → STU 21:59 → INTOOBSV 21:59 → STU 22:53
PROVIDERS: ADMIT Internal Medicine Hospice and Palliative Medicine; ATTEND Internal Medicine Hospice and Palliative Medicine
DX: R07.89 Other chest pain (principal); Z20.822 Contact with and (suspected) exposure to COVID-19; I48.0 Paroxysmal atrial fibrillation; I12.9 Hypertensive chronic kidney disease with stage 1 through stage 4 chronic kidney disease, or unspecified chronic kidney disease; E11.22 Type 2 diabetes mellitus with diabetic chronic kidney disease; N18.9 Chronic kidney disease, unspecified; D63.1 Anemia in chronic kidney disease; E83.52 Hypercalcemia; E78.5 Hyperlipidemia, unspecified; N31.9 Neuromuscular dysfunction of bladder, unspecified; J44.9 Chronic obstructive pulmonary disease, unspecified; F41.9 Anxiety disorder, unspecified; Z86.711 Personal history of pulmonary embolism; Z86.73 Personal history of transient ischemic attack (TIA), and cerebral infarction without residual deficits; Z98.84 Bariatric surgery status; Z79.899 Other long term (current) drug therapy; Z79.01 Long term (current) use of anticoagulants; Z87.442 Personal history of urinary calculi
CPT/HCPCS: 36415 ×2; 71275; 80053 ×2; 80061; 83880; 84484 ×2; 85025 ×2; 85379; 85610; 85730; 87081; 87426; 93005; 96365; 96366; 96375; 99285; G0378 ×2; J2270; Q9967; 76376; 96374

== ENCOUNTER 2020-12-28 12:50 | Emergency (ER) | payer OTHER, SELFPAY ==
[~2020-12-28] VITALS: Ht 160 cm; Wt 58.5 kg
[2020-12-28 12:50] VITALS: BP_SYST 164
[~2020-12-28 12:50] MED LIST changes: -APIXABAN 2.5 MG TABLET PO SCH; -BISA5TAB10 PO; -HYDR-3919 PO
[2020-12-28] MEDS ORDERED: ASPIRIN 81 MG TAB.CHEW PO ONE (13:30)
[2020-12-28 13:34] LABS: BASOPHILS % (AUTO) 0.9 % (0.0-2.0); EOSINOPHILS % (AUTO) 0.9 % (0.0-4.0); HEMATOCRIT 29.2 % (36-48); HEMOGLOBIN 9.2 g/dL (12.0-16.0); LYMPHOCYTES # (AUTO) 1.9 K/uL (1.0-5.5); LYMPHOCYTES % (AUTO) 35.1 % (20.5-51.5); MEAN CORPUSCULAR HEMOGLOBIN 25 pg (27-31); MEAN CORPUSCULAR HGB CONC 32 % (32-36); MEAN CORPUSCULAR VOLUME 80 fL (79.0-98.0); MONOCYTES # (AUTO) 0.4 K/uL (0.0-1.0); MONOCYTES % (AUTO) 8.1 % (1.7-9.3); NEUTROPHILS # (AUTO) 2.9 K/uL (1.8-7.7); PLATELET COUNT (AUTO) 153 K/uL (130-430); RED BLOOD CELL COUNT(AUTO) 3.66 MIL/uL (4.2-6.2); RED CELL DISTRIBUTION WIDTH 18.4 % (9.0-15.0); WHITE BLOOD COUNT (AUTO) 5.3 K/uL (4.8-10.8)
[2020-12-28] MEDS ORDERED: HYDR-3917 PO (13:34)
[2020-12-28 13:47] LABS: ANION GAP 11 (5-15); CHLORIDE 108 mmol/L (98-107); CREATININE 2.28 mg/dL (0.55-1.30); GLUCOSE 79 mg/dL (70-99); POTASSIUM 4.9 mmol/L (3.5-5.1); SODIUM SERUM 141 mmol/L (136-145); UREA NITROGEN, BLOOD 28 mg/dL (8-21)
[2020-12-28 13:51] LABS: CALCIUM 6.7 mg/dL (8.4-11.0); GFR AFRICAN AMERICAN 27 mL/min (>90)
[2020-12-28 13:56] LABS: ALANINE AMINOTRANSFERASE 39 U/L (12-78); ALBUMIN 3.6 g/dL (3.4-4.8); ASPARTATE AMINOTRANSFERASE 29 U/L (10-37); TOTAL BILIRUBIN 0.2 mg/dL (0.0-1.0)
[2020-12-28 19:30] VITALS: BP_SYST 124
== END 2020-12-28 19:30 | disposition home or self-care (01) ==
LOC: SED 12:50
DX: R07.9 Chest pain, unspecified (principal); J44.9 Chronic obstructive pulmonary disease, unspecified; I48.91 Unspecified atrial fibrillation; E11.9 Type 2 diabetes mellitus without complications; I10 Essential (primary) hypertension; Z88.1 Allergy status to other antibiotic agents; Z79.899 Other long term (current) drug therapy; Z20.822 Contact with and (suspected) exposure to COVID-19
CPT/HCPCS: 36415; 71045; 80053; 84484; 85025; 93005; 99285

== ENCOUNTER 2021-01-08 19:02 | Emergency (ER) | payer OTHER ==
[~2021-01-08] VITALS: Ht 160 cm; Wt 59.0 kg
[2021-01-08 19:10] VITALS: BP_SYST 133
[2021-01-08 19:56] LABS: BASOPHILS # (AUTO) 0.1 K/uL (0.0-0.2); BASOPHILS % (AUTO) 1.3 % (0.0-2.0); EOSINOPHILS % (AUTO) 0.4 % (0.0-4.0); HEMATOCRIT 24.5 % (36-48); HEMOGLOBIN 7.7 g/dL (12.0-16.0); LYMPHOCYTES # (AUTO) 1.5 K/uL (1.0-5.5); LYMPHOCYTES % (AUTO) 29.7 % (20.5-51.5); MEAN CORPUSCULAR HEMOGLOBIN 25 pg (27-31); MEAN CORPUSCULAR HGB CONC 31 % (32-36); MEAN CORPUSCULAR VOLUME 81 fL (79.0-98.0); MONOCYTES # (AUTO) 0.3 K/uL (0.0-1.0); MONOCYTES % (AUTO) 6.4 % (1.7-9.3); NEUTROPHILS # (AUTO) 3.1 K/uL (1.8-7.7); NEUTROPHILS % (AUTO) 62.2 % (40.0-70.0); PLATELET COUNT (AUTO) 151 K/uL (130-430); RED BLOOD CELL COUNT(AUTO) 3.05 MIL/uL (4.2-6.2); RED CELL DISTRIBUTION WIDTH 18.5 % (9.0-15.0)
[2021-01-08 20:07] LABS: CREATININE 2.02 mg/dL (0.55-1.30); POTASSIUM 4.9 mmol/L (3.5-5.1)
[2021-01-08 20:13] LABS: ALBUMIN 2.9 g/dL (3.4-4.8); TOTAL BILIRUBIN 0.2 mg/dL (0.0-1.0)
[2021-01-08 20:16] LABS: CALCIUM 6.3 mg/dL (8.4-11.0)
[2021-01-08] MEDS: FAMOTIDINE PF 20 MG/2 ML VIAL IVP ONE (20:27)
[2021-01-08 20:38] LABS: PROTHROMBIN TIME 10.1 SECS (9.5-12.5)
[2021-01-08] MEDS ORDERED: FAMO40TA71 PO (20:41)
[2021-01-08 20:52] VITALS: BP_SYST 133
== END 2021-01-08 20:52 | disposition home or self-care (01) ==
LOC: SED 19:02
DX: R07.2 Precordial pain (principal); K21.9 Gastro-esophageal reflux disease without esophagitis; I10 Essential (primary) hypertension; E11.9 Type 2 diabetes mellitus without complications; J44.9 Chronic obstructive pulmonary disease, unspecified; Z88.1 Allergy status to other antibiotic agents; Z79.899 Other long term (current) drug therapy
CPT/HCPCS: 36415; 71045; 80053; 83880; 84484; 85025; 85379; 85610-TC; 85730-TC; 93005; 96374; 99285

== ENCOUNTER 2021-01-17 14:12 | Emergency (ER) | payer OTHER ==
[~2021-01-17] VITALS: Ht 160 cm; Wt 56.2 kg
[~2021-01-17 14:12] MED LIST changes: +FAMO40TA71 PO
[2021-01-17 14:19] VITALS: BP_SYST 152
[2021-01-17] MEDS: HYDROcodone/ACETAMIN 5-325 MG TAB (NORCO/ VICODIN) PO ONE (15:49)
[2021-01-17] MEDS ORDERED: HYDR-3917 PO (17:07)
[2021-01-17 17:19] VITALS: BP_SYST 152
== END 2021-01-17 17:19 | disposition home or self-care (01) ==
LOC: SED 14:12
DX: S09.90XA Unspecified injury of head, initial encounter (principal); M54.2 Cervicalgia; I10 Essential (primary) hypertension; E11.9 Type 2 diabetes mellitus without complications; J44.9 Chronic obstructive pulmonary disease, unspecified; I48.91 Unspecified atrial fibrillation; Z88.1 Allergy status to other antibiotic agents; Z79.899 Other long term (current) drug therapy; W01.198A Fall on same level from slipping, tripping and stumbling with subsequent striking against other object, initial encounter; Y93.89 Activity, other specified; Y92.89 Other specified places as the place of occurrence of the external cause; Y99.8 Other external cause status
CPT/HCPCS: 70450-TC; 72125-TC; 76376; 99285

== ENCOUNTER 2021-02-07 11:24 | Inpatient (IN) | payer OTHER, SELFPAY ==
[~2021-02-07] VITALS: Ht 160 cm; Wt 58.1 kg
[~2021-02-07 11:24] MED LIST changes: +HYDR-3917 PO
[2021-02-07 11:38] VITALS: BP_SYST 163
--- NOTE | 2021-02-07 11:45 | NUR ---
ER at bedside examining patient.
--- NOTE | 2021-02-07 11:45 | NUR ---
Pt. bib with c/o chest pain 9/10 and left flank pain 9/10 along with some numbness to left arm and cheek, hx. of renal dx. and stroke
[2021-02-07] MEDS ORDERED: MORPHINE 4 MG INJ. 4 MG/ML VIAL IVP ONE (12:00)
[2021-02-07] MEDS ORDERED: ONDANSETRON HCL 4 MG/2 ML VIAL IVP ONE (12:00)
[2021-02-07] MEDS ORDERED: ASPIRIN 81 MG TAB.CHEW PO ONE (12:00)
--- NOTE | 2021-02-07 12:09 | NUR ---
radiology at bedside
[2021-02-07] MEDS ORDERED: KETOROLAC TROMETHAMINE 30 MG VIAL IVP ONE (12:15)
[2021-02-07 12:16] LABS: BASOPHILS % (AUTO) 0.7 % (0.0-2.0); EOSINOPHILS % (AUTO) 0.7 % (0.0-4.0); HEMATOCRIT 25.2 % (36-48); LYMPHOCYTES % (AUTO) 22.1 % (20.5-51.5); MEAN CORPUSCULAR HEMOGLOBIN 25 pg (27-31); MEAN CORPUSCULAR HGB CONC 32 % (32-36); MEAN CORPUSCULAR VOLUME 79 fL (79.0-98.0); MONOCYTES # (AUTO) 0.4 K/uL (0.0-1.0); MONOCYTES % (AUTO) 9.1 % (1.7-9.3); NEUTROPHILS # (AUTO) 3.1 K/uL (1.8-7.7); NEUTROPHILS % (AUTO) 67.4 % (40.0-70.0); PLATELET COUNT (AUTO) 185 K/uL (130-430); RED BLOOD CELL COUNT(AUTO) 3.21 MIL/uL (4.2-6.2); RED CELL DISTRIBUTION WIDTH 18.5 % (9.0-15.0); WHITE BLOOD COUNT (AUTO) 4.6 K/uL (4.8-10.8)
--- NOTE | 2021-02-07 12:17 | NUR ---
pt. still having 9/[address] morphine [address] Dr[address] Ortiz
[2021-02-07 12:20] LABS: BILIRUBIN,URINE NEGATIVE (NEGATIVE); BLOOD, URINE 1+ (NEGATIVE); CLARITY/URINE CLEAR (CLEAR); COLOR,URINE YELLOW (YELLOW); GLUCOSE,URINE NEGATIVE (NEGATIVE); KETONES,URINE NEGATIVE (NEGATIVE); LEUKOCYTE ESTERASE ,URINE TRACE (NEGATIVE); NITRITE, URINE NEGATIVE (NEGATIVE); PROTEIN URINE NEGATIVE (NEGATIVE); UROBILINOGEN,URINE 0.2 (0.2-1.0)
[2021-02-07 12:22] LABS: CREATININE 2.05 mg/dL (0.55-1.30); POTASSIUM 4.7 mmol/L (3.5-5.1)
[2021-02-07 12:31] LABS: ALBUMIN 3.2 g/dL (3.4-4.8); TOTAL BILIRUBIN 0.3 mg/dL (0.0-1.0)
[2021-02-07 12:35] LABS: CALCIUM 6.6 mg/dL (8.4-11.0)
[2021-02-07 12:38] LABS: BACTERIA,URINE RARE /HPF (None Seen)
[2021-02-07] MEDS ORDERED: CALCIUM GLUCONATE 1 GM/10 ML VIAL ONE (12:44)
[2021-02-07] MEDS ORDERED: CALCIUM GLUCONATE 1 GM in NS 100 ML IV ONE (12:45)
--- NOTE | 2021-02-07 13:28 | NUR ---
Medication reconciliation completed with information provided by Abdirizak GUO. Any prior medication reconciliation on file was reviewed and corrected.
[2021-02-07] MEDS ORDERED: MORPHINE 2 MG/ML INJ. SYRINGE IVP ONE (13:45)
[2021-02-07] MEDS ORDERED: KETAMINE 30 MG/3 ML SYRINGE 15 MG in NS 100 ML IV ONE (13:45)
[2021-02-07] MEDS ORDERED: KETAMINE 30 MG/3 ML SYRINGE ONE (13:55)
[2021-02-07] MEDS ORDERED: ACETAMINOPHEN 325 MG TABLET PO PRN (14:15)
[2021-02-07] MEDS ORDERED: MORPHINE 2 MG/ML INJ. SYRINGE IVP PRN (14:15)
[2021-02-07] MEDS ORDERED: METOCLOPRAMIDE HCL 10 MG/2 ML VIAL IVP PRN (14:15)
[2021-02-07] MEDS ORDERED: ONDANSETRON HCL 4 MG/2 ML VIAL IVP PRN (14:15)
--- NOTE | 2021-02-07 15:08 | NUR ---
pt. states pain relief post ketamine, awaiting room on tele at this time
--- NOTE | 2021-02-07 15:59 | NUR ---
CONSULTATION PAGED/CALLED Reason for Consultation: CHEST PAIN Person Who was Notified: Consulting Physician: DR ANDERSON Real Estate Clerk Specialty: CARDIO Ordering Physician: TONNY
--- NOTE | 2021-02-07 16:00 | NUR ---
Patient will be admitted to care of Dr. Giraldo Admitted to tele unit. Will go to room 107B. Belongings list completed. Complete and up to date summary report printed. SBAR report to be given at bedside with opportunity for questions.
--- NOTE | 2021-02-07 16:05 | NUR ---
ADMIT NOTE Received pt from ER to the floor with a diagnosis of Chest pain and hypocalcemia. Pain is tolerated at this time per patient. IV access to right AC patent. Wheeler catheter placed a week ago per patient. Hooked to oxygen at 2 liters via nasal cannula for SOB due to chest pain. Admission process initiated. Patient oriented to pain management, safety and call light-teach back done.
[2021-02-07 16:30] VITALS: BP_SYST 144
[2021-02-07] MEDS: MORPHINE 4 MG INJ. 4 MG/ML VIAL IVP PRN (18:59)
[2021-02-07 20:28] VITALS: BP_SYST 141
[2021-02-07] MEDS: FAMOTIDINE 20 MG TABLET PO SCH (21:18)
[2021-02-07] MEDS: APIXABAN 2.5 MG TABLET PO SCH (21:25)
[2021-02-07] MEDS: CALCIUM CARBONATE/VITAMIN D3 1 TAB TABLET PO SCH (21:28)
[2021-02-08 03:05] VITALS: BP_SYST 128
--- NOTE | 2021-02-08 03:08 | NUR ---
REPORT GIVEN TO RECEIVING NURSE , PT STABLE , NO PAIN VSS
--- NOTE | 2021-02-08 08:00 | NUR ---
OPENING NOTES PATIENT AAOX 3-4. VITALS SIGNS STABLE. RESPIRATION EVEN AND UNLABORED. LUNGS BILATERALLY CLEAR. ABDOMEN SOFT AND NON DISTENDED. HAS LEG BAG FOR GLEASON. DRAINING CLEAR YELLOW URINE. HAS IV ACCESS X 2 ON THE LEFT HAND #20 SALINE LOCK AND RAC #20. DRY/INTACT. BED LOW POSITION, ALARMED AND LOCKED.
[2021-02-08 08:01] VITALS: BP_SYST 12
[2021-02-08] MEDS: CALCIUM CARBONATE/VITAMIN D3 1 TAB TABLET PO SCH ×2 (08:15→20:51)
[2021-02-08] MEDS: FAMOTIDINE 20 MG TABLET PO SCH ×2 (08:15→20:52)
[2021-02-08] MEDS: MORPHINE 4 MG INJ. 4 MG/ML VIAL IVP PRN ×2 (08:17→21:18)
[2021-02-08] MEDS: APIXABAN 2.5 MG TABLET PO SCH ×2 (08:18→20:56)
--- NOTE | 2021-02-08 08:22 | NUR ---
PAIN MEDS GIVEN. EATING BREAKFAST
[2021-02-08] MEDS ORDERED: FAMOTIDINE 20 MG TABLET PO SCH (09:00)
[2021-02-08 10:32] LABS: CREATININE 2.09 mg/dL (0.55-1.30); POTASSIUM 5.2 mmol/L (3.5-5.1)
[2021-02-08 10:38] LABS: BASOPHILS % (AUTO) 0.8 % (0.0-2.0); EOSINOPHILS % (AUTO) 0.2 % (0.0-4.0); HEMATOCRIT 23.8 % (36-48); HEMOGLOBIN 7.6 g/dL (12.0-16.0); LYMPHOCYTES # (AUTO) 1.2 K/uL (1.0-5.5); LYMPHOCYTES % (AUTO) 24.7 % (20.5-51.5); MEAN CORPUSCULAR HEMOGLOBIN 25 pg (27-31); MEAN CORPUSCULAR HGB CONC 32 % (32-36); MEAN CORPUSCULAR VOLUME 78 fL (79.0-98.0); MONOCYTES # (AUTO) 0.5 K/uL (0.0-1.0); MONOCYTES % (AUTO) 9.6 % (1.7-9.3); NEUTROPHILS # (AUTO) 3.2 K/uL (1.8-7.7); NEUTROPHILS % (AUTO) 64.7 % (40.0-70.0); PLATELET COUNT (AUTO) 170 K/uL (130-430); RED BLOOD CELL COUNT(AUTO) 3.03 MIL/uL (4.2-6.2); RED CELL DISTRIBUTION WIDTH 18.5 % (9.0-15.0)
--- NOTE | 2021-02-08 10:39 | NUR ---
CONSULT NEPHROLOGY ELA[place] DR PARKS [phone] S/W ASIA OFFICE
[2021-02-08 10:43] LABS: CALCIUM 6.8 mg/dL (8.4-11.0); PHOSPHORUS 4.9 mg/dL (2.7-4.5)
--- NOTE | 2021-02-08 18:09 | NUR ---
PATIENT UNINTENTIONALLY PULLED OUT THE IV ACCESS X 2. STILL EATING AT THIS TIME. LATER PLEASE PUT IV ACCESS ON ME. AMBULATES TO THE BATHROOM.
--- NOTE | 2021-02-08 18:36 | NUR ---
TRIED TO INSERT IV ACCESS X 2. DIFFICULT VEINS. PLEASE TRY LATER. THANKS.
--- NOTE | 2021-02-08 19:30 | NUR ---
CHANGE OF SHIFT; endorsed by day shift, no IV site, accidentally came out. no distress. call [facility] within reach.
[2021-02-08 20:15] VITALS: BP_SYST 130
--- NOTE | 2021-02-08 20:15 | NUR ---
NOTES:' pt. pretty awake, up in bed. noted some chest discomfort. no IV site, will start an IV line. on room air. noted slight short of breath on exertion with hx of asthma. on green chain worker and shows sinus rhythm. VS checked.
--- NOTE | 2021-02-08 21:20 | NUR ---
NOTES: pt. medicated with Morphine for c/o chest discomfort. IV restarted on rt. hand.
--- NOTE | 2021-02-08 22:30 | NUR ---
NOTES: pt. checked and sleeping, noted relied.
--- NOTE | 2021-02-09 00:30 | NUR ---
NOTES: pt. been sleeping. no further complaints. call light at bedside.
--- NOTE | 2021-02-09 03:30 | NUR ---
NOTES: condition unchanged, continue to monitor.
[2021-02-09 05:30] VITALS: BP_SYST 122
--- NOTE | 2021-02-09 05:30 | NUR ---
NOTES: pt. already awake, ambulated to the restroom, rt. nephrostomy tube intact and pt. drained her urine at intervals with yellow urine color. VS rechecked. slept most of the night.
--- NOTE | 2021-02-09 06:21 | NUR ---
CLOSING NOTES; IV lock intact, wrapped with kerlix gauze. pt. needs attended. rt. nephrostomy tube to OSD intact. for further care and assistance. call light at bedside.
[2021-02-09 06:51] LABS: BASOPHILS % (AUTO) 0.7 % (0.0-2.0); EOSINOPHILS % (AUTO) 0.6 % (0.0-4.0); HEMATOCRIT 24.5 % (36-48); HEMOGLOBIN 7.7 g/dL (12.0-16.0); LYMPHOCYTES # (AUTO) 1.4 K/uL (1.0-5.5); LYMPHOCYTES % (AUTO) 26.1 % (20.5-51.5); MEAN CORPUSCULAR HEMOGLOBIN 25 pg (27-31); MEAN CORPUSCULAR HGB CONC 32 % (32-36); MEAN CORPUSCULAR VOLUME 79 fL (79.0-98.0); MONOCYTES # (AUTO) 0.5 K/uL (0.0-1.0); NEUTROPHILS # (AUTO) 3.4 K/uL (1.8-7.7); NEUTROPHILS % (AUTO) 63.6 % (40.0-70.0); PLATELET COUNT (AUTO) 164 K/uL (130-430); RED BLOOD CELL COUNT(AUTO) 3.09 MIL/uL (4.2-6.2); RED CELL DISTRIBUTION WIDTH 18.5 % (9.0-15.0); WHITE BLOOD COUNT (AUTO) 5.4 K/uL (4.8-10.8)
[2021-02-09 06:53] LABS: CREATININE 2.11 mg/dL (0.55-1.30); PHOSPHORUS 4.5 mg/dL (2.7-4.5)
[2021-02-09 07:05] LABS: CALCIUM 6.6 mg/dL (8.4-11.0)
--- NOTE | 2021-02-09 07:22 | NUR ---
Attending Md Dr Giraldo was called, Re: Critical Ca level. Spoke to Sandee.
--- NOTE | 2021-02-09 07:23 | NUR ---
NOTES: critical value of Calcium 6.6, called MD but no response yet, endorse to incoming shift.
--- NOTE | 2021-02-09 07:40 | NUR ---
OPENING NOTES PATIENT AAOX 4. RESPIRATION EVEN AND UNLABORED. HAS O2 2LNC. LUNGS BILATERALLY DIMINISHED AT THE BASES. HAS IV ACCESS ON THE LEFT HAND #22. BED LOW POSITION, ALARMED AND LOCKED. WILL CONTINUE TO MONITOR PATIENTS STATUS.
[2021-02-09] MEDS: APIXABAN 2.5 MG TABLET PO SCH ×2 (08:42→21:11)
[2021-02-09] MEDS: CALCIUM CARBONATE/VITAMIN D3 1 TAB TABLET PO SCH ×2 (08:43→21:08)
[2021-02-09] MEDS: MORPHINE 4 MG INJ. 4 MG/ML VIAL IVP PRN ×3 (08:43→21:15)
[2021-02-09] MEDS: FAMOTIDINE 20 MG TABLET PO SCH ×2 (08:43→21:08)
[2021-02-09 08:45] VITALS: BP_SYST 130
--- NOTE | 2021-02-09 08:50 | NUR ---
DR LANCASTER HERE. AND DR ANDERSON INFORMED THE LABS CRITICAL VALUES.
--- NOTE | 2021-02-09 08:50 | NUR ---
DR ANDERSON AND DR LANCASTER MADE AWARE OF THE CRITICAL LABS AND NO ORDER MADE SO FAR.
[2021-02-09 11:15] VITALS: BP_SYST 123
--- NOTE | 2021-02-09 12:59 | NUR ---
PER REQUEST OF [employer] CM MS BELKYS RITTER, I FAXED THE HOME HEALTH ORDER.
[2021-02-09 16:26] VITALS: BP_SYST 136
--- NOTE | 2021-02-09 19:15 | NUR ---
CHANGE OF SHIFT; endorsed by day shift, no acute distress. call light within reach.
[2021-02-09 20:00] VITALS: BP_SYST 126
--- NOTE | 2021-02-09 20:00 | NUR ---
NOTES: pt. awake, alert, watching tv when checked. denies any discomfort at this time. uses O2 on and off. IV lock on rt. hand. on head grinder and shows sinus rhythm. rt. nephrostomy tube intact to OSD with yellow urine output. call light at bedside. ambulates to restroom.
--- NOTE | 2021-02-09 21:15 | NUR ---
NOTES: due medications given and also IV Morphine for c/o back pain. needs attended. instructed to call for help and verbalized understanding.
--- NOTE | 2021-02-09 23:30 | NUR ---
NOTES: pt. been sleeping, noted relief from pain.
--- NOTE | 2021-02-10 02:00 | NUR ---
NOTES: cardiac pattern unchanged. remain sleeping, no distress.
[2021-02-10 05:30] VITALS: BP_SYST 134
--- NOTE | 2021-02-10 05:30 | NUR ---
NOTES: pt. awakened, and ambulated to the restroom, drainde her rt. nephrostomy bag. IV site cleaned and rewrapped with gauize bandage. pt. needs attended. VS rechecked.
--- NOTE | 2021-02-10 06:45 | NUR ---
CLOSING NOTES; pt. resting, no distress. IV site patent. for further care and assist. call light within reach.
[2021-02-10] MEDS: MORPHINE 4 MG INJ. 4 MG/ML VIAL IVP PRN ×2 (07:39→13:04)
--- NOTE | 2021-02-10 07:45 | NUR ---
OPENING NOTE/PAIN MEDICATION REPORT WAS ENDORSED BY NIGHT NURSE. PATIENT IS AWAKE AND ALERT VITAL SIGNS OBTAINED. PATIENT HAS COMPLAINTS OF BACK PAIN. MEDICATED PER ORDER. PATIENT EDUCATED DRUG ABUSE PROGRAM COORDINATOR LIGHT FOR ASSISTANCE. CALL LIGHT IS WITH PATIENT. PATIENT'S BREATHING IS EQUAL AND NON LABORED. PATIENT HAS NO OTHER NEEDS AT THIS TIME.
[2021-02-10 07:53] VITALS: BP_SYST 136
[2021-02-10] MEDS: FAMOTIDINE 20 MG TABLET PO SCH (09:17)
[2021-02-10] MEDS: CALCIUM CARBONATE/VITAMIN D3 1 TAB TABLET PO SCH (09:17)
[2021-02-10] MEDS: APIXABAN 2.5 MG TABLET PO SCH (09:25)
--- NOTE | 2021-02-10 09:26 | NUR ---
MEDICATION PATIENTS SCHEDULED MEDICATION GIVEN PER ORDER. PATIENT IS AWAKE AND ALERT SITTING UP IN BED. PATIENT EDUCATED CLEANING ATTENDANT LIGHT FOR ASSISTANCE. CALL LIGHT IS WITH PATIENT. PATIENT STATES PAIN LEVEL HAS IMPROVED BUT DOES NOT GO DOWN TO 0 BUT IS TOLERABLE. PATIENT HAS NO OTHER NEEDS AT THIS TIME.
--- NOTE | 2021-02-10 09:45 | NUR ---
PAGING TO CLARIFY DISCHARGE
--- NOTE | 2021-02-10 09:46 | NUR ---
SPOKE WITH STATES PATIENT IS OK TO GO HOME, HAS MEDICATION AT HOME. PATIENT JUST NEEDS TO FOLLOW UP WITH DR. GALEANO.
--- NOTE | 2021-02-10 11:00 | NUR ---
SPOKE WITH PATIENT AND INFORMED OF DISCHARGE STATES THAT HER WITH BE ABLE TO PICK HER UP AFTER 1200. NO OTHER NEEDS AT THIS TIME.
[2021-02-10 11:35] VITALS: BP_SYST 143
[2021-02-10 12:40] VITALS: BP_SYST 143
--- NOTE | 2021-02-10 13:16 | NUR ---
PAIN MEDICATION PATIENT COMPLAINS OF PAIN MEDICATED PER ORDER. EDUCATED PATIENT THAT SHE HAS TO WAIT ONE HOUR AFTER MEDICATION PRIOR TO DISCHARGE. PATIENT IS EATING LUNCH. PATIENT HAS ALL SAFETY PRECAUTIONS IN PLACE. CALL LIGHT IS WITH HER. STATES SHE WILL LET ME KNOW WHEN HER IS HER TO PICK HER UP.
--- NOTE | 2021-02-10 13:35 | NUR ---
discharge Patient is awake and alert. Patient discharge paper work given and explain to follow up with . Patients removed IV , IV catheter intact applied gauze and tape to the insertion site. Patient wheeled out via wheel chair to car with . patient has all belongings with her. id band removed and discarded in shredder. Patient has no other needs.
--- NOTE | 2021-02-10 14:58 | NUR ---
PER [employer] CM MS BELKYS RITTER, FAXED CLINICALS, H/H, F/S, COVID RESULT TO CHARTER PALLIATIVE ATTENTION ASHA.
== END 2021-02-10 14:35 | disposition home or self-care (01) | DRG 206 ==
LOC: SED 11:24 → STU 13:40 → UNDOADMOB 13:40 → STU 13:41 → OBSVTOIN 02-09 09:20 → INTOOBSV 02-09 09:20
PROVIDERS: ADMIT Internal Medicine Hospice and Palliative Medicine; ATTEND Internal Medicine Hospice and Palliative Medicine
DX: M94.0 Chondrocostal junction syndrome [Tietze] (principal); N17.9 Acute kidney failure, unspecified; N18.4 Chronic kidney disease, stage 4 (severe); N13.30 Unspecified hydronephrosis; R07.89 Other chest pain; I12.9 Hypertensive chronic kidney disease with stage 1 through stage 4 chronic kidney disease, or unspecified chronic kidney disease; E11.22 Type 2 diabetes mellitus with diabetic chronic kidney disease; I48.91 Unspecified atrial fibrillation; J44.9 Chronic obstructive pulmonary disease, unspecified; M54.9 Dorsalgia, unspecified; G89.29 Other chronic pain; D64.9 Anemia, unspecified; E83.51 Hypocalcemia; Z20.822 Contact with and (suspected) exposure to COVID-19; E88.09 Other disorders of plasma-protein metabolism, not elsewhere classified; E11.21 Type 2 diabetes mellitus with diabetic nephropathy; D63.8 Anemia in other chronic diseases classified elsewhere; R33.9 Retention of urine, unspecified; N18.9 Chronic kidney disease, unspecified; Z88.8 Allergy status to other drugs, medicaments and biological substances; Z79.899 Other long term (current) drug therapy; Z79.01 Long term (current) use of anticoagulants
CPT/HCPCS: 36415; 71045; 80048; 80053; 81000; 83735; 83880; 84100; 84484; 85025; 93005; 96365; 96375; 96376; 99285; G0378; J0610; J1885; J2270; J2405

== ENCOUNTER 2021-02-12 13:28 | Observation (INO) | payer OTHER, SELFPAY ==
[~2021-02-12] VITALS: Ht 165.1 cm; Wt 63.0 kg
[~2021-02-12 13:28] MED LIST changes: -HYDR-3917 PO; -NITR-85 PO; -OXYC10TA56 PO
[2021-02-12 13:34] VITALS: BP_SYST 178
--- NOTE | 2021-02-12 13:35 | NUR ---
Patient to ER bed 5 to gown for evaluation. Side rails up. Report given to Oralia GUO.
--- NOTE | 2021-02-12 13:36 | NUR ---
ER Brooke Tran at bedside examining patient.
--- NOTE | 2021-02-12 13:40 | NUR ---
PT CAME IN FROM HOME STATING SHE WOKE UP THIS AM WITH RIGHT SIDED NUMBNESS. STATES SHE THOUGHT AT FIRST THAT SHE SLEPT WRONG BUT IT DID NOT SUBSIDE SO SHE CAME TO THE ER. UPON ARRIVAL PT'S V/S STABLE, AAOX4, RIGHT SIDED WEAKNESS AND LOSS OF SENSATION. PT STATES SHE HAS HAD A STROKE IN THE PAST.
--- NOTE | 2021-02-12 13:41 | NUR ---
Patient transported to radiology via [place], accompanied by jasbir.
--- NOTE | 2021-02-12 14:00 | NUR ---
TELE NEURO WITH PT
[2021-02-12 14:13] LABS: BASOPHILS % (AUTO) 0.7 % (0.0-2.0); EOSINOPHILS % (AUTO) 0.6 % (0.0-4.0); HEMATOCRIT 25.5 % (36-48); LYMPHOCYTES # (AUTO) 0.8 K/uL (1.0-5.5); LYMPHOCYTES % (AUTO) 17.3 % (20.5-51.5); MEAN CORPUSCULAR HEMOGLOBIN 25 pg (27-31); MEAN CORPUSCULAR HGB CONC 31 % (32-36); MEAN CORPUSCULAR VOLUME 79 fL (79.0-98.0); MONOCYTES # (AUTO) 0.5 K/uL (0.0-1.0); MONOCYTES % (AUTO) 9.3 % (1.7-9.3); NEUTROPHILS # (AUTO) 3.5 K/uL (1.8-7.7); NEUTROPHILS % (AUTO) 72.1 % (40.0-70.0); PLATELET COUNT (AUTO) 157 K/uL (130-430); RED BLOOD CELL COUNT(AUTO) 3.21 MIL/uL (4.2-6.2); RED CELL DISTRIBUTION WIDTH 18.1 % (9.0-15.0); WHITE BLOOD COUNT (AUTO) 4.9 K/uL (4.8-10.8)
[2021-02-12 14:26] LABS: CREATININE 2.11 mg/dL (0.55-1.30); POTASSIUM 4.8 mmol/L (3.5-5.1)
--- NOTE | 2021-02-12 14:28 | NUR ---
COVID AND MRSA SWAB DONE
[2021-02-12 14:32] LABS: ALBUMIN 3.1 g/dL (3.4-4.8); PROTHROMBIN TIME 10.1 SECS (9.5-12.5); TOTAL BILIRUBIN 0.2 mg/dL (0.0-1.0)
--- NOTE | 2021-02-12 14:36 | NUR ---
Medication reconciliation completed with information provided by PATIENT. Any prior medication reconciliation on file was reviewed and corrected.
[2021-02-12 14:41] LABS: CALCIUM 6.6 mg/dL (8.4-11.0)
--- NOTE | 2021-02-12 15:12 | NUR ---
ADMISSION ORDERS RECEIVED FROM DR. LANCASTER
[2021-02-12] MEDS ORDERED: HYDROcodone/ACETAMIN 10-325 MG TAB PO ONE (15:15)
[2021-02-12] MEDS ORDERED: HYDROcodone/ACETAMIN 10-325 MG TAB ONE (15:24)
--- NOTE | 2021-02-12 15:26 | NUR ---
Patient will be admitted to care of DR. LANCASTER. Admitted to TELE OBS unit. Will go to room 100A. Belongings list completed. Complete and up to date summary report printed. SBAR report to be given at bedside with opportunity for questions.
--- NOTE | 2021-02-12 15:45 | NUR ---
ADMIT NOTE Received pt from ER to the floor with a diagnosis of TIA. Admission process initiated. patient oriented to pain management, safety and call light-teach back done.
[2021-02-12 15:56] VITALS: BP_SYST 143
[2021-02-12 16:39] VITALS: BP_SYST 142
[2021-02-12] MEDS ORDERED: ASPIRIN 325 MG TABLET (ECOTRIN) PO ONE (17:15)
--- NOTE | 2021-02-12 17:45 | NUR ---
PATIENT IS EATING DINNER. NO SIGNS OF DYSPHAGIA, CHOKING, OR ASPIRATION NOTED AT THIS TIME.
[2021-02-12 20:00] VITALS: BP_SYST 135
--- NOTE | 2021-02-12 20:09 | NUR ---
ASSIST Patient out of bed ambulates to Rest Room with assist FALL MEASURES IMPLEMENTED no SOB back to bed tolerate call alcantara given to patient .
[2021-02-12 20:24] VITALS: BP_SYST 141
--- NOTE | 2021-02-12 21:06 | NUR ---
PHONED PAGED DR DIANELYS RAJPUT Regarding patient c/o lower back pain .
[2021-02-12] MEDS: HYDROcodone/ACETAMIN 5-325 MG TAB (NORCO/ VICODIN) PO PRN (21:51)
[2021-02-12] MEDS: FAMOTIDINE 20 MG TABLET PO SCH (21:51)
[2021-02-12] MEDS: CALCIUM CARBONATE/VITAMIN D3 1 TAB TABLET PO SCH (21:51)
[2021-02-12] MEDS: APIXABAN 2.5 MG TABLET PO SCH (21:53)
--- NOTE | 2021-02-12 22:05 | NUR ---
New ORDERS OBTAINED NORCO TABLET 5/325 MG PO AAS NEEDED FOR BACK PAIN .
--- NOTE | 2021-02-13 00:27 | NUR ---
CHRONIC GLEASON CATHETER Patient has family DR Feng RAJPUT change her URINE CATHETER as needed , per Patient was done two weeks ago .
--- NOTE | 2021-02-13 00:28 | NUR ---
Leg bag for URINE Change to bedside bag ( ross catheter ) .
[2021-02-13 00:41] VITALS: BP_SYST 131
[2021-02-13 02:00] VITALS: BP_SYST 136
--- NOTE | 2021-02-13 05:31 | NUR ---
Hourly Rounding patient resting chest movement symmetrical .
--- NOTE | 2021-02-13 07:35 | NUR ---
AM ROUNDS: PATIENT LYING ON THE BED,RESTING.ON TARE WEIGHER. IV TO SALINE LOCK.CALL LIGHT WITH IN REACH. NO OTHER COMPLAINED MADE. NO DISTRESS. Addendum: 02/14/21 at 0730 by Yumiko Negro RN ADDED NOTES: PATIENT WITH GLEASON DRAINING TO YELLOW URINE FOR CHRONIC USED.
[2021-02-13 08:00] VITALS: BP_SYST 138
[2021-02-13] MEDS ORDERED: ASPIRIN 325 MG TABLET (ECOTRIN) PO SCH (09:00)
[2021-02-13] MEDS ORDERED: FAMOTIDINE 20 MG TABLET PO SCH (09:00)
[2021-02-13] MEDS: CALCIUM CARBONATE/VITAMIN D3 1 TAB TABLET PO SCH (09:42)
[2021-02-13] MEDS: FAMOTIDINE 20 MG TABLET PO SCH (09:42)
[2021-02-13] MEDS: APIXABAN 2.5 MG TABLET PO SCH (09:43)
[2021-02-13] MEDS: HYDROcodone/ACETAMIN 5-325 MG TAB (NORCO/ VICODIN) PO PRN (09:45)
--- NOTE | 2021-02-13 10:06 | NUR ---
CONSULTATION PAGED/CALLED Reason for Consultation: [] afib Person Who was Notified: [] Tj Consulting Physician: [] Dr Hobbs Hand Touch Up Painter Specialty: [] Dr Hobbs Ordering Physician: [] Dr Giraldo
[2021-02-13 12:00] VITALS: BP_SYST 127
[2021-02-13 16:30] VITALS: BP_SYST 140
--- NOTE | 2021-02-13 16:45 | NUR ---
MD CALLED: SPOKE WITH DR LANCASTER ,CAROTID ULTRASOUND NORMAL AND WITH ORDERS DC HOME PATIENT.MD WILL TALK TO NEUROLOGIST REGARDING THE PATIENT AND DISCHARGE HOME PATIENT.
[2021-02-13 16:49] VITALS: BP_SYST 140
--- NOTE | 2021-02-13 18:00 | NUR ---
CHANGED TO LEG BAG: CHANGED TO LEG BAG PRIOR TO DISCHARGE.
--- NOTE | 2021-02-13 18:29 | NUR ---
D/C Patient Patient given medication reconciliation form and D/C instructions. Exit Care provided. Patient verbalized understanding. MD discussed with patient the results and treatment provided. Ambulatory with steady gait for discharge to home. Patient in stable condition, ID band removed. IV catheter removed, intact and dressing applied, no active bleedinG. Patient educated on pain management. All belongings sent with patient. Addendum: 02/14/21 at 0731 by Yumiko Negro RN PATIENT KEPT GLEASON ORDERED FOR CHRONIC USED.
== END 2021-02-13 18:29 | disposition home or self-care (01) ==
LOC: SED 13:28 → STU 15:11
PROVIDERS: ADMIT Internal Medicine Hospice and Palliative Medicine; ATTEND Internal Medicine Hospice and Palliative Medicine
DX: R20.0 Anesthesia of skin (principal); Z20.822 Contact with and (suspected) exposure to COVID-19; R07.89 Other chest pain; R29.810 Facial weakness; I63.9 Cerebral infarction, unspecified; I12.9 Hypertensive chronic kidney disease with stage 1 through stage 4 chronic kidney disease, or unspecified chronic kidney disease; E11.22 Type 2 diabetes mellitus with diabetic chronic kidney disease; N18.9 Chronic kidney disease, unspecified; D63.1 Anemia in chronic kidney disease; I48.0 Paroxysmal atrial fibrillation; J44.9 Chronic obstructive pulmonary disease, unspecified; E83.51 Hypocalcemia; G89.4 Chronic pain syndrome; N13.30 Unspecified hydronephrosis; F41.9 Anxiety disorder, unspecified; Z86.711 Personal history of pulmonary embolism; Z79.01 Long term (current) use of anticoagulants; Z86.73 Personal history of transient ischemic attack (TIA), and cerebral infarction without residual deficits; Z79.899 Other long term (current) drug therapy; Z86.718 Personal history of other venous thrombosis and embolism; Z98.84 Bariatric surgery status
CPT/HCPCS: 36415; 70450; 71045; 76376; 80053; 84484; 85025; 85610; 85730; 87081; 87426; 93005; 93880; 97162; 99285; G0378 ×2

== ENCOUNTER 2021-04-11 18:20 | Emergency (ER) | payer OTHER ==
[~2021-04-11] VITALS: Ht 160 cm; Wt 54.4 kg
[~2021-04-11 18:20] MED LIST changes: -FAMO40TA71 PO; +NEU100 PO
[2021-04-11 18:40] VITALS: BP_SYST 166
[2021-04-11 19:54] LABS: BASOPHILS % (AUTO) 0.9 % (0.0-2.0); EOSINOPHILS # (AUTO) 0.1 K/uL (0.0-0.4); EOSINOPHILS % (AUTO) 2.2 % (0.0-4.0); HEMATOCRIT 34.8 % (36-48); LYMPHOCYTES # (AUTO) 0.9 K/uL (1.0-5.5); LYMPHOCYTES % (AUTO) 20.3 % (20.5-51.5); MEAN CORPUSCULAR HEMOGLOBIN 28 pg (27-31); MEAN CORPUSCULAR HGB CONC 32 % (32-36); MEAN CORPUSCULAR VOLUME 89 fL (79.0-98.0); MONOCYTES # (AUTO) 0.7 K/uL (0.0-1.0); MONOCYTES % (AUTO) 15.2 % (1.7-9.3); NEUTROPHILS # (AUTO) 2.7 K/uL (1.8-7.7); NEUTROPHILS % (AUTO) 61.4 % (40.0-70.0); PLATELET COUNT (AUTO) 142 K/uL (130-430); RED BLOOD CELL COUNT(AUTO) 3.92 MIL/uL (4.2-6.2); RED CELL DISTRIBUTION WIDTH 20.6 % (9.0-15.0); WHITE BLOOD COUNT (AUTO) 4.4 K/uL (4.8-10.8)
[2021-04-11 20:10] LABS: CALCIUM 7.9 mg/dL (8.4-11.0); CREATININE 1.95 mg/dL (0.55-1.30)
[2021-04-11 20:16] LABS: ALBUMIN 2.9 g/dL (3.4-4.8); TOTAL BILIRUBIN 0.1 mg/dL (0.0-1.0)
[2021-04-11 20:30] LABS: POTASSIUM 5.5 mmol/L (3.5-5.1)
--- NOTE | 2021-04-11 21:39 | NUR ---
Patient to ER bed 02 to gown for evaluation. Side rails up.
--- NOTE | 2021-04-11 21:45 | NUR ---
Patient BIB by family from home. C/O Right flank pain x 2 days. Patient reported, had right flank pain for 2 days, seen by ERMD at [facility]-D/C home with Antibiotics, no relief. A/O,X4, on Wheeler cath with bag (incontinence- per patient on Wheeler cath 2 years).
[2021-04-11 22:21] LABS: BILIRUBIN,URINE NEGATIVE (NEGATIVE); COLOR,URINE YELLOW (YELLOW); GLUCOSE,URINE NEGATIVE (NEGATIVE); KETONES,URINE NEGATIVE (NEGATIVE); LEUKOCYTE ESTERASE ,URINE 1+ (NEGATIVE); NITRITE, URINE POSITIVE (NEGATIVE); PROTEIN URINE TRACE (NEGATIVE); UROBILINOGEN,URINE 0.2 (0.2-1.0)
--- NOTE | 2021-04-11 22:24 | NUR ---
ER Dr. Salgado at bedside examining patient.
[2021-04-11 22:26] LABS: BLOOD, URINE TRACE (NEGATIVE); CLARITY/URINE SLIGHTLY HAZY (CLEAR)
[2021-04-11 22:31] LABS: BACTERIA,URINE MODERATE /HPF (None Seen); RBC,URINE 0-3 /HPF (0-3)
[2021-04-11 22:32] LABS: MUCUS,URINE None Seen /LPF (None Seen)
[2021-04-11] MEDS ORDERED: cefTRIAXone 1 GM VIAL IM ONE (22:45)
[2021-04-11] MEDS ORDERED: HYDROcodone/ACETAMIN 10-325 MG TAB PO ONE (22:45)
[2021-04-11] MEDS ORDERED: CIPR500T5 PO (22:49)
[2021-04-11] MEDS ORDERED: HYDR-3917 PO (22:49)
[2021-04-11] MEDS ORDERED: LIDOCAINE 1%, 20 ML MDV 20 ML ONE (22:54)
[2021-04-11 23:50] VITALS: BP_SYST 142
--- NOTE | 2021-04-11 23:50 | NUR ---
Patient given written and verbal discharge instructions and verbalizes understanding. ER MD discussed with patient the results and treatment provided. Patient in stable condition. ID arm band removed. Rx of Ciprofloxacin and Holt given. Patient educated on pain management and to follow up with PMD. Pain Scale 3/10. Opportunity for questions provided and answered. Medication side effect fact sheet provided.
[2021-04-12] MEDS ORDERED: ALBMDI INH (02:40)
[2021-04-12] MEDS ORDERED: PRED20TA PO (02:40)
[2021-04-12] MEDS ORDERED: KAY15 PO (02:40)
== END 2021-04-11 23:50 | disposition home or self-care (01) ==
LOC: SED 18:20
DX: N12 Tubulo-interstitial nephritis, not specified as acute or chronic (principal); E87.5 Hyperkalemia; I12.9 Hypertensive chronic kidney disease with stage 1 through stage 4 chronic kidney disease, or unspecified chronic kidney disease; N18.9 Chronic kidney disease, unspecified; J45.901 Unspecified asthma with (acute) exacerbation; I48.91 Unspecified atrial fibrillation; I10 Essential (primary) hypertension; Z88.1 Allergy status to other antibiotic agents; Z79.899 Other long term (current) drug therapy
CPT/HCPCS: 36415; 80053; 81000; 85025; 87086; 96372; 99283; J0696; J2001

== ENCOUNTER 2021-04-24 14:18 | Observation (INO) | payer OTHER, SELFPAY ==
[~2021-04-24] VITALS: Ht 160 cm; Wt 56.7 kg
[~2021-04-24 14:18] MED LIST changes: +CIPR500T5 PO; +HYDR-3917 PO; +KAY15 PO; +PRED20TA PO
[2021-04-24 14:21] VITALS: BP_SYST 150
--- NOTE | 2021-04-24 14:30 | NUR ---
Dr. Thornton to ambulance bay to assess.
--- NOTE | 2021-04-24 16:18 | NUR ---
Pt to bed 8 for evaluation. Report received from SARI Dickson.
--- NOTE | 2021-04-24 16:20 | NUR ---
Pt AAO reporting right-sided flank and chest wall pain x 1 hour. Pt has history of renal/bladder cancer and reports 10/10 pain scale.
--- NOTE | 2021-04-24 17:11 | NUR ---
Covid swab obtained and sent to lab for analysis.
--- NOTE | 2021-04-24 18:31 | NUR ---
DR. KNAPP AT BEDSIDE TO ASSESS.
--- NOTE | 2021-04-24 18:48 | NUR ---
PORTABLE CXR DONE AT BEDSIDE.
--- NOTE | 2021-04-24 18:55 | NUR ---
PT TO RADIOLOGY BY WHEELCHAIR FOR CT SCAN.
--- NOTE | 2021-04-24 19:10 | NUR ---
REPORT GIVEN TO SARI PARIKH WHO WILL ASSUME CARE.
[2021-04-24 19:31] LABS: BASOPHILS % (AUTO) 0.6 % (0.0-2.0); EOSINOPHILS # (AUTO) 0.1 K/uL (0.0-0.4); EOSINOPHILS % (AUTO) 0.7 % (0.0-4.0); HEMOGLOBIN 10.9 g/dL (12.0-16.0); LYMPHOCYTES # (AUTO) 1.3 K/uL (1.0-5.5); LYMPHOCYTES % (AUTO) 15.3 % (20.5-51.5); MEAN CORPUSCULAR HEMOGLOBIN 28 pg (27-31); MEAN CORPUSCULAR HGB CONC 32 % (32-36); MEAN CORPUSCULAR VOLUME 87 fL (79.0-98.0); MONOCYTES # (AUTO) 0.5 K/uL (0.0-1.0); MONOCYTES % (AUTO) 6.5 % (1.7-9.3); NEUTROPHILS # (AUTO) 6.4 K/uL (1.8-7.7); NEUTROPHILS % (AUTO) 76.9 % (40.0-70.0); PLATELET COUNT (AUTO) 195 K/uL (130-430); RED BLOOD CELL COUNT(AUTO) 3.91 MIL/uL (4.2-6.2); RED CELL DISTRIBUTION WIDTH 21.8 % (9.0-15.0); WHITE BLOOD COUNT (AUTO) 8.3 K/uL (4.8-10.8)
--- NOTE | 2021-04-24 19:35 | NUR ---
Urine sample sent
[2021-04-24 19:40] LABS: BILIRUBIN,URINE NEGATIVE (NEGATIVE); CLARITY/URINE CLEAR (CLEAR); COLOR,URINE YELLOW (YELLOW); GLUCOSE,URINE NEGATIVE (NEGATIVE); KETONES,URINE NEGATIVE (NEGATIVE); LEUKOCYTE ESTERASE ,URINE 1+ (NEGATIVE); NITRITE, URINE NEGATIVE (NEGATIVE); PROTEIN URINE NEGATIVE (NEGATIVE); UROBILINOGEN,URINE 0.2 (0.2-1.0)
[2021-04-24 20:22] LABS: CALCIUM 7.9 mg/dL (8.4-11.0); CREATININE 1.95 mg/dL (0.55-1.30); POTASSIUM 4.8 mmol/L (3.5-5.1)
[2021-04-24 20:28] LABS: ALBUMIN 3.2 g/dL (3.4-4.8); TOTAL BILIRUBIN 0.2 mg/dL (0.0-1.0)
[2021-04-24 20:29] LABS: BLOOD, URINE TRACE (NEGATIVE)
[2021-04-24 20:52] LABS: BARBITURATE, URINE NEGATIVE (NEG <=200); BENZODIAZEPINE, URINE NEGATIVE (NEG <=150); CANNABINOID, URINE NEGATIVE (NEG <=50); COCAINE, URINE NEGATIVE (NEG <=150); METHAMPHETAMINES SCREEN,URINE NEGATIVE (NEG <=500); PHENCYCLIDINE SCREEN,URINE NEGATIVE (NEG <=25); URINE AMPHETAMINE NEGATIVE (NEG <=500); URINE METHADONE NEGATIVE (NEG <=200)
[2021-04-24 20:53] LABS: OPIATE, URINE NEGATIVE (NEG <=100); UR TRICYCLIC ANTIDEPRESSANTS NEGATIVE (NEG <=300); URINE OXYCODONE SCREEN NEGATIVE (NEG <=100); URINE PROPOXYPHENE SCREEN NEGATIVE (NEG <=300)
--- NOTE | 2021-04-24 21:22 | NUR ---
ADMISSION ORDERS RECEIVED FROM DR. PEREZ FOR MAR[facility]A ELENAAL PT. TELE BED ORDERED, FLOOR NOTIFIED.
[2021-04-24 21:27] LABS: PROTHROMBIN TIME 10.4 SECS (9.5-12.5)
[2021-04-24] MEDS ORDERED: cefTRIAXone 1 GM in D5W 50 ML IV ONE (21:30)
[2021-04-24] MEDS ORDERED: cefTRIAXone 1 GM VIAL ONE (21:40)
[2021-04-24 22:21] LABS: BACTERIA,URINE FEW /HPF (None Seen); RBC,URINE 0-3 /HPF (0-3)
[2021-04-24 22:22] LABS: MUCUS,URINE None Seen /LPF (None Seen); YEAST,URINE Moderate /HPF (None Seen)
--- NOTE | 2021-04-24 22:32 | NUR ---
VSS no s/s of acute distress Resting on gurney rails up
[2021-04-24] MEDS ORDERED: NALOXONE HCL 0.4 MG/ML AMP (NARCAN) IVP PRN (23:15)
[2021-04-24] MEDS ORDERED: ACETAMINOPHEN 325 MG TABLET PO PRN (23:15)
[2021-04-24] MEDS: APIXABAN 2.5 MG TABLET PO SCH (23:15)
[2021-04-24] MEDS ORDERED: ALBUTEROL SULFATE 0.083% 2.5 MG/3 ML VIAL.NEB INH PRN (23:15)
--- NOTE | 2021-04-25 | NUR ---
Pt's suprapubic urinary cath outputing clear yellow urine
[2021-04-25] MEDS ORDERED: APIXABAN 2.5 MG TABLET ONE (01:21)
--- NOTE | 2021-04-25 02:00 | NUR ---
Pt resting in comfort on gurney rails up
[2021-04-25 02:27] VITALS: BP_SYST 147
--- NOTE | 2021-04-25 04:00 | NUR ---
Pt remains in stable condition, no s/s of acute distress
[2021-04-25] MEDS: HYDROcodone/ACETAMIN 5-325 MG TAB (NORCO/ VICODIN) PO PRN ×2 (05:15→12:17)
--- NOTE | 2021-04-25 06:00 | NUR ---
2 x PRN pain med, effective and well tolerated. 1L clear yellow urine emptied from bag
[2021-04-25] MEDS ORDERED: ALBUTEROL MDI INHALATION 8 GM INH INH SCH (07:00)
--- NOTE | 2021-04-25 07:00 | NUR ---
Assumed care of patient, report received from SARI Brasher. Pt currently resting in bed, no acute distress noted.
[2021-04-25 07:08] LABS: BASOPHILS % (AUTO) 0.9 % (0.0-2.0); EOSINOPHILS # (AUTO) 0.1 K/uL (0.0-0.4); EOSINOPHILS % (AUTO) 2.2 % (0.0-4.0); HEMATOCRIT 34.4 % (36-48); HEMOGLOBIN 10.9 g/dL (12.0-16.0); LYMPHOCYTES # (AUTO) 1.4 K/uL (1.0-5.5); LYMPHOCYTES % (AUTO) 24.7 % (20.5-51.5); MEAN CORPUSCULAR HEMOGLOBIN 28 pg (27-31); MEAN CORPUSCULAR HGB CONC 32 % (32-36); MEAN CORPUSCULAR VOLUME 87 fL (79.0-98.0); MONOCYTES # (AUTO) 0.5 K/uL (0.0-1.0); MONOCYTES % (AUTO) 9.4 % (1.7-9.3); NEUTROPHILS # (AUTO) 3.6 K/uL (1.8-7.7); NEUTROPHILS % (AUTO) 62.8 % (40.0-70.0); PLATELET COUNT (AUTO) 200 K/uL (130-430); RED BLOOD CELL COUNT(AUTO) 3.94 MIL/uL (4.2-6.2); RED CELL DISTRIBUTION WIDTH 21.9 % (9.0-15.0); WHITE BLOOD COUNT (AUTO) 5.7 K/uL (4.8-10.8)
[2021-04-25 07:33] LABS: ALBUMIN 2.9 g/dL (3.4-4.8); CALCIUM 7.6 mg/dL (8.4-11.0); CREATININE 1.91 mg/dL (0.55-1.30); POTASSIUM 4.7 mmol/L (3.5-5.1); TOTAL BILIRUBIN 0.3 mg/dL (0.0-1.0)
--- NOTE | 2021-04-25 08:00 | NUR ---
Pt provided with breakfast tray.
--- NOTE | 2021-04-25 08:45 | NUR ---
Talked to Niurka in the pharmacy to request pt's morning meds, she will bring them to the ER.
[2021-04-25] MEDS ORDERED: FAMOTIDINE 20 MG TABLET PO SCH (09:00)
[2021-04-25] MEDS ORDERED: GABAPENTIN 100 MG CAPSULE PO SCH (09:00)
[2021-04-25] MEDS ORDERED: predniSONE 20 MG TABLET PO SCH (09:00)
--- NOTE | 2021-04-25 09:30 | NUR ---
Pt will be a tele hold in the ER, transfered to hospital bed.
--- NOTE | 2021-04-25 10:30 | NUR ---
Called cardio/pulm to f/u with EKG order, they will be here later this morning to complete it.
[2021-04-25] MEDS: APIXABAN 2.5 MG TABLET PO SCH (10:48)
--- NOTE | 2021-04-25 11:15 | NUR ---
Dr. Giraldo at bedside to assess patient.
[2021-04-25] MEDS ORDERED: HYDROcodone/ACETAMIN 5-325 MG TAB (NORCO/ VICODIN) ONE (12:20)
--- NOTE | 2021-04-25 12:48 | NUR ---
Pt to MRI via wheelchair, questionnaire completed and placed in chart
--- NOTE | 2021-04-25 13:00 | NUR ---
Pt provided with lunch tray, ate approx 75%, tolerated well.
--- NOTE | 2021-04-25 15:16 | NUR ---
Called pharmacy to request pt's evening meds, Lula will send them over.
--- NOTE | 2021-04-25 18:00 | NUR ---
Pt provided dinner tray, ate approx 75%, pt tolerated well.
[2021-04-25] MEDS ORDERED: ALBUTEROL SULFATE 0.083% 2.5 MG/3 ML VIAL.NEB INH SCH (19:00)
--- NOTE | 2021-04-25 19:21 | NUR ---
REPORT RECIEVED FROM SARI SUAREZ. PT TO BE DISCHARGED HOME PER NEW ORDERS. IV REMOVED. PT WAITING FOR DAUGHTER TO ARRIVE TO SAMPLE WASH[employer]. VSS. DENIES ANY ISSUES AT THIS TIME.
[2021-04-25 19:37] VITALS: BP_SYST 156
--- NOTE | 2021-04-25 19:38 | NUR ---
Patient given written and verbal discharge instructions and verbalizes understanding. DR. TONNY GRIJALVA MD discussed with patient the results and treatment provided. Patient in stable condition. ID arm band removed. IV catheter removed intact and dressing applied, no active bleeding. Patient educated on pain management and to follow up with PMD. Pain Scale 0/10 Opportunity for questions provided and answered. Medication side effect fact sheet provided. PATIENT DAUGHTER TO RETAIL LINK ANALYST PATIENT.
--- NOTE | 2021-04-25 20:20 | NUR ---
S.T. SPEECH/LANG EVAL SPEECH/LANG EVAL PERFORMED ORDERED. PT PRESENTS W/ FUNCTIONAL COMMUNICATION. NO WORD RETRIEVAL DIFFICULTY. FULL SPEECH INTELLIGIBILITY. NO TX INDICATED. NURSE CHRIS BARRAGAN NOTIFIED.
[2021-04-25] MEDS ORDERED: cefTRIAXone 1 GM IVPB PREMIX 50 ML IV SCH (21:30)
== END 2021-04-25 19:38 | disposition home or self-care (01) ==
LOC: SED 14:18 → INTOOBSV 21:24 → STU 21:24
PROVIDERS: ADMIT Internal Medicine Hospice and Palliative Medicine; ATTEND Internal Medicine Hospice and Palliative Medicine
DX: G45.9 Transient cerebral ischemic attack, unspecified (principal); Z20.822 Contact with and (suspected) exposure to COVID-19; E11.40 Type 2 diabetes mellitus with diabetic neuropathy, unspecified; E11.21 Type 2 diabetes mellitus with diabetic nephropathy; I12.9 Hypertensive chronic kidney disease with stage 1 through stage 4 chronic kidney disease, or unspecified chronic kidney disease; E11.22 Type 2 diabetes mellitus with diabetic chronic kidney disease; N18.4 Chronic kidney disease, stage 4 (severe); D63.1 Anemia in chronic kidney disease; J44.9 Chronic obstructive pulmonary disease, unspecified; E46 Unspecified protein-calorie malnutrition; E88.09 Other disorders of plasma-protein metabolism, not elsewhere classified; R79.89 Other specified abnormal findings of blood chemistry; N39.0 Urinary tract infection, site not specified; I25.10 Atherosclerotic heart disease of native coronary artery without angina pectoris; I48.91 Unspecified atrial fibrillation; Z86.73 Personal history of transient ischemic attack (TIA), and cerebral infarction without residual deficits; Z87.440 Personal history of urinary (tract) infections; Z79.899 Other long term (current) drug therapy
CPT/HCPCS: 36415 ×2; 70450; 70551; 71045; 74176; 76376; 80048; 80053 ×2; 80307; 81000; 84484 ×2; 85025 ×2; 85610; 85730; 86886; 86900; 86901; 87081; 87086; 87426; 92523; 93005; 96365; 99285; G0378; J0696

== ENCOUNTER 2021-05-10 14:22 | Emergency (ER) | payer OTHER, SELFPAY ==
[~2021-05-10] VITALS: Ht 160 cm; Wt 58.5 kg
[2021-05-10 14:24] VITALS: BP_SYST 109
[2021-05-10] MEDS ORDERED: DIPHENHYDRAMINE INJ 50 MG/ML VIAL IVP ONE (15:30)
[2021-05-10] MEDS ORDERED: fentaNYL CITRATE/PF 100 MCG/2 ML AMP IVP ONE ×2 (15:30→17:45)
[2021-05-10 16:08] LABS: BASOPHILS % (AUTO) 0.4 % (0.0-2.0); EOSINOPHILS # (AUTO) 0.1 K/uL (0.0-0.4); MEAN CORPUSCULAR HEMOGLOBIN 28 pg (27-31); MEAN CORPUSCULAR VOLUME 89 fL (79.0-98.0); MONOCYTES # (AUTO) 0.6 K/uL (0.0-1.0); NEUTROPHILS # (AUTO) 4.4 K/uL (1.8-7.7)
[2021-05-10 16:34] LABS: EOSINOPHILS % (AUTO) 1.9 % (0.0-4.0); HEMATOCRIT 33.7 % (36-48); HEMOGLOBIN 10.8 g/dL (12.0-16.0); LYMPHOCYTES % (AUTO) 27.7 % (20.5-51.5); MEAN CORPUSCULAR HGB CONC 32 % (32-36); MONOCYTES % (AUTO) 8.3 % (1.7-9.3); NEUTROPHILS % (AUTO) 61.7 % (40.0-70.0); PLATELET COUNT (AUTO) 117 K/uL (130-430); RED CELL DISTRIBUTION WIDTH 21.1 % (9.0-15.0); WHITE BLOOD COUNT (AUTO) 7.1 K/uL (4.8-10.8)
[2021-05-10 16:45] LABS: CREATININE 1.98 mg/dL (0.55-1.30); POTASSIUM 5.1 mmol/L (3.5-5.1)
[2021-05-10 17:13] LABS: CALCIUM 7.1 mg/dL (8.4-11.0)
[2021-05-10] MEDS ORDERED: ONDANSETRON HCL 4 MG/2 ML VIAL IVP ONE (17:45)
[2021-05-10] MEDS ORDERED: CYCL10TA24 PO (17:47)
[2021-05-10] MEDS ORDERED: NEU100 PO (17:47)
[2021-05-10 17:51] LABS: BILIRUBIN,URINE NEGATIVE (NEGATIVE); BLOOD, URINE NEGATIVE (NEGATIVE); CLARITY/URINE SL CLOUDY (CLEAR); COLOR,URINE YELLOW (YELLOW); GLUCOSE,URINE NEGATIVE (NEGATIVE); KETONES,URINE NEGATIVE (NEGATIVE); LEUKOCYTE ESTERASE ,URINE 2+ (NEGATIVE); NITRITE, URINE NEGATIVE (NEGATIVE); PROTEIN URINE TRACE (NEGATIVE); UROBILINOGEN,URINE 0.2 (0.2-1.0)
[2021-05-10 18:20] LABS: BACTERIA,URINE FEW /HPF (None Seen); RBC,URINE 0-3 /HPF (0-3)
[2021-05-10 18:21] LABS: COARSE GRANULAR CASTS,URINE 0-10 /LPF (None Seen); MUCUS,URINE None Seen /LPF (None Seen); URINE AMORPHOUS URATE 2+ /HPF (None Seen)
[2021-05-10 18:24] VITALS: BP_SYST 124
== END 2021-05-10 18:15 | disposition home or self-care (01) ==
LOC: SED 14:22
DX: M54.41 Lumbago with sciatica, right side (principal); I10 Essential (primary) hypertension; E11.9 Type 2 diabetes mellitus without complications; I48.91 Unspecified atrial fibrillation; J44.9 Chronic obstructive pulmonary disease, unspecified; Z88.1 Allergy status to other antibiotic agents; Z79.899 Other long term (current) drug therapy
CPT/HCPCS: 36415; 72131; 76376; 80048; 81000; 85025; 87086; 96374; 96375; 96376; 99285; J1200; J2405; J3010; 87186-TC

== ENCOUNTER 2021-06-29 11:31 | Observation (INO) | payer OTHER, SELFPAY ==
[~2021-06-29] VITALS: Ht 160 cm; Wt 58.1 kg
[2021-06-29 11:31] VITALS: BP_SYST 189
[~2021-06-29 11:31] MED LIST changes: +CYCL10TA24 PO
--- NOTE | 2021-06-29 11:31 | NUR ---
BROUGHT BACK TO BED #2 AND TRIAGED. REPORT GIVEN TO CRISPIN
--- NOTE | 2021-06-29 11:55 | NUR ---
CODE STROKE CALLED BY DR PRADHAN
--- NOTE | 2021-06-29 11:55 | NUR ---
CODE STROKE TO CT SCAN
[2021-06-29 12:24] LABS: BASOPHILS % (AUTO) 0.9 % (0.0-2.0); EOSINOPHILS # (AUTO) 0.1 K/uL (0.0-0.4); EOSINOPHILS % (AUTO) 1.9 % (0.0-4.0); HEMATOCRIT 37.8 % (36-48); HEMOGLOBIN 12.3 g/dL (12.0-16.0); LYMPHOCYTES # (AUTO) 0.9 K/uL (1.0-5.5); LYMPHOCYTES % (AUTO) 17.2 % (20.5-51.5); MEAN CORPUSCULAR HEMOGLOBIN 29 pg (27-31); MEAN CORPUSCULAR HGB CONC 33 % (32-36); MEAN CORPUSCULAR VOLUME 87 fL (79.0-98.0); MONOCYTES # (AUTO) 0.3 K/uL (0.0-1.0); MONOCYTES % (AUTO) 6.3 % (1.7-9.3); NEUTROPHILS # (AUTO) 3.8 K/uL (1.8-7.7); NEUTROPHILS % (AUTO) 73.7 % (40.0-70.0); PLATELET COUNT (AUTO) 145 K/uL (130-430); RED BLOOD CELL COUNT(AUTO) 4.34 MIL/uL (4.2-6.2); RED CELL DISTRIBUTION WIDTH 15.3 % (9.0-15.0); WHITE BLOOD COUNT (AUTO) 5.2 K/uL (4.8-10.8)
--- NOTE | 2021-06-29 12:40 | NUR ---
PT C/O CHEST PAIN 12 LEAD DONE TO .
[2021-06-29 13:08] LABS: BILIRUBIN,URINE NEGATIVE (NEGATIVE); CLARITY/URINE CLEAR (CLEAR); COLOR,URINE YELLOW (YELLOW); GLUCOSE,URINE NEGATIVE (NEGATIVE); KETONES,URINE NEGATIVE (NEGATIVE); LEUKOCYTE ESTERASE ,URINE 1+ (NEGATIVE); NITRITE, URINE POSITIVE (NEGATIVE); PROTEIN URINE 1+ (NEGATIVE); UROBILINOGEN,URINE 0.2 (0.2-1.0)
[2021-06-29 13:12] LABS: BLOOD, URINE TRACE (NEGATIVE)
[2021-06-29 13:13] LABS: CALCIUM 7.9 mg/dL (8.4-11.0); CREATININE 1.87 mg/dL (0.55-1.30); POTASSIUM 4.3 mmol/L (3.5-5.1)
[2021-06-29 13:16] LABS: INR 0.9 (0.8-1.2); PROTHROMBIN TIME 9.7 SECS (9.5-12.5)
[2021-06-29 13:35] LABS: ALBUMIN 3.5 g/dL (3.4-4.8); TOTAL BILIRUBIN 0.2 mg/dL (0.0-1.0)
[2021-06-29] MEDS ORDERED: cefTRIAXone 1 GM in D5W 50 ML IV ONE (13:45)
[2021-06-29] MEDS ORDERED: cefTRIAXone 1 GM VIAL ONE (13:52)
--- NOTE | 2021-06-29 14:12 | NUR ---
MEDICATED WITH MORPHINE VSS
[2021-06-29] MEDS ORDERED: MORPHINE 4 MG INJ. 4 MG/ML VIAL IVP ONE (14:15)
[2021-06-29 14:25] LABS: BACTERIA,URINE MANY /HPF (None Seen); RBC,URINE 0-3 /HPF (0-3)
--- NOTE | 2021-06-29 14:29 | NUR ---
ADMIT ORDERS RECEIVED PT AND AWARE OF ADMISSION
--- NOTE | 2021-06-29 15:34 | NUR ---
CONSULTATION PAGED/CALLED Reason for Consultation: CHEST PAIN Person Who was Notified: SHREYA Consulting Physician: JUSTIN Offset Pressman Specialty: CARDIO Ordering Physician: TONNY
--- NOTE | 2021-06-29 15:37 | NUR ---
Patient will be admitted to care of [facility]. Admitted to TELE OBS unit. Will go to room 101 a. Belongings list completed. Complete and up to date summary report printed. SBAR report to be given at bedside with opportunity for questions.
--- NOTE | 2021-06-29 15:45 | NUR ---
1545: Pt admitted to room 101A from ER. A+Ox4. IV noted to R arm S/L. Pt denies pain, other than to chest. Pt states it "feels like an elephant is sitting on my chest." Dr. Solis- awaiting orders. 03/21 pain. CSMW satisfactory. Pt c/o headache. No dizziness. Pt c/o numbnes and tingling to L face, arm, leg. No edema. Lungs clear bilat. No SOB/cough noted. 96% RA. BS x4. LBM Nov . Void via ross (chronic)- clear yellow urine noted. No N+V. No skin concerns. IND with mobility/ADLs. Will continue to monitor.
[2021-06-29 15:58] VITALS: BP_SYST 173
[2021-06-29 16:14] VITALS: BP_SYST 173
--- NOTE | 2021-06-29 17:20 | NUR ---
1720: Dr. Hobbs in to see patient.
--- NOTE | 2021-06-29 18:50 | NUR ---
Pt resting in bed. Tele insitu. Awaiting lab to come draw bloodwork. Awaiting orders for pain medications for patients chest pain. Pt has call alcantara and is instructed to call if pain changes. Will continue to monitor.
[2021-06-29 19:00] VITALS: BP_SYST 148
[2021-06-29] MEDS ORDERED: ACETAMINOPHEN 325 MG TABLET PO PRN (19:00)
[2021-06-29] MEDS ORDERED: ALBUTEROL SULFATE 0.083% 2.5 MG/3 ML VIAL.NEB INH PRN (19:00)
--- NOTE | 2021-06-29 19:15 | NUR ---
change of shift.pt.presents quiescent affect;calm,resting.pt.stated lt.sided tinlging,weakness.i have assessed the pt. maynor:lt.sided weakness slight extant. pt.stated chest pain/general pain.dr.samant yeh.pt.capable to reposition self.call light/telephone w/in access of the pt.
[2021-06-29 20:00] VITALS: BP_SYST 148
--- NOTE | 2021-06-29 20:00 | NUR ---
pt.assessed.neuro-assessment attended to.lt.sided weakness extant.dr.samant yeh x2 has not returned the page.pt.apprised. pt.assessed for cleanliness.pt.repositioned.i have apprised the pt.that npo diet status until stroke/tia bedside swalloow exam performed.call light/telephone placed w/in access of the pt.
--- NOTE | 2021-06-29 20:30 | NUR ---
returned the page.i apprised of the pt's neuro-status/pain status. stated he had ordered tylenol. to administer solely the tylenol for pain presented..i have attended to the stroke/tia bedside swallow exam pt.passed x3 status. i have administered tylenol:650mg po.to assess the efficacy of the pain medication per pain mgx protocol.
[2021-06-29] MEDS: GABAPENTIN 100 MG CAPSULE PO SCH (20:47)
[2021-06-29] MEDS: FAMOTIDINE 20 MG TABLET PO SCH (20:47)
[2021-06-29] MEDS: APIXABAN 2.5 MG TABLET PO SCH (20:49)
[2021-06-29] MEDS ORDERED: CYCLOBENZAPRINE HCL 10 MG TABLET (FLEXERIL) PO SCH (21:00)
--- NOTE | 2021-06-29 21:00 | NUR ---
2100p medications administered.pt.capable to ingest the po medications w/out difficulty.pt.had requested snacks/juices povided.pt. s/p stroke/tia bedside swallow:passed x3 status.call light/telephone w/in access of the pt. Addendum: 06/30/21 at 0328 by Ryan Peoples RN original diet status;npo until stroke/tia bedside swallow exam performed.diet status ordered cardiac post pass;stroke bedside swallow exam. pt.was offered light snacks/jellos;apple sauce/juices.pt.capable to ingest the food items w/out difficulty.
--- NOTE | 2021-06-29 22:00 | NUR ---
pt.assessed.pt.stated tingling sensation/weakness had been mitigated but general pain persisted.to f/u w ; on-call:.no requests posited @this hour.@this hour.pt.assessed for cleanliness.pt.repositioned.call light/ telephone place w/in access of the pt.
[2021-06-29] MEDS ORDERED: HYDROcodone/ACETAMIN 5-325 MG TAB (NORCO/ VICODIN) PO PRN (22:45)
[2021-06-29] MEDS ORDERED: NALOXONE HCL 0.4 MG/ML AMP (NARCAN) IVP PRN ×2 (22:45→23:15)
--- NOTE | 2021-06-29 23:00 | NUR ---
;on-call returned the page.i apprised pt.pain status. ordered norco;5/325mg po 1 tab q-4hrs/prn;pain.
--- NOTE | 2021-06-29 23:15 | NUR ---
i have administered norco;5/325mg po.to assess the efficacy of the pain medication per pain mgx protocol.
[2021-06-29] MEDS: HYDROcodone/ACETAMIN 5-325 MG TAB (NORCO/ VICODIN) PO PRN (23:36)
[2021-06-30] VITALS: BP_SYST 135
--- NOTE | 2021-06-30 | NUR ---
pt.assessed.v/s assessed values wnl.pt.stated pain present tolerable.neuro check attended to.lt.sided numbness/weakness mitigated.no requests posited@this hour.pt.capable to reposition ose;letitiaca;iofghbtr/tel;epho w/iacvcess f thpt.
--- NOTE | 2021-06-30 02:00 | NUR ---
pt.assessed.pt.presents quiescent affect;calm,somnolent.per flacc pain mgx pt.absent facial grimaces/body posturing.pt.capable to reposition self.call light/telephone w/in access of the pt.
--- NOTE | 2021-06-30 04:00 | NUR ---
pt.assessed.pt.presents quiescent affect;calm,somnolent.per flacc pain mgx pt.absent facial grimaces/body posturing.pt.capable to reposition self.call light/telephone w/in access of the pt.
--- NOTE | 2021-06-30 06:06 | NUR ---
pt.assessed.pt.presents quiescent affect;calm,somnolent.per flacc pain mgx pt.absent facial grimaces/body posturing. pt.assessed for cleanliness.pt.repositioned.ross cath intact i have attended to the ross cath.call light/telephone placed w/in access of the pt.
[2021-06-30 08:00] VITALS: BP_SYST 142
[2021-06-30] MEDS: GABAPENTIN 100 MG CAPSULE PO SCH (09:17)
[2021-06-30] MEDS: FAMOTIDINE 20 MG TABLET PO SCH (09:17)
[2021-06-30] MEDS: APIXABAN 2.5 MG TABLET PO SCH (09:18)
[2021-06-30] MEDS: HYDROcodone/ACETAMIN 5-325 MG TAB (NORCO/ VICODIN) PO PRN (09:18)
[2021-06-30 12:00] VITALS: BP_SYST 113
[2021-06-30 14:52] VITALS: BP_SYST 113
--- NOTE | 2021-06-30 15:08 | NUR ---
0830AM: DR ANDERSON AT THE BEDSIDE. PATIENT C/O MILD TINGLING/NUMBNESS TO THE LEFT SIDE OF BODY (FACE, ARM, AND LEG). PER MD POSSIBLE RESIDUAL FROM PREVIOUS STROKE. CT HEAD AND CXRAY NORMAL. MAY GIVE PRN MED PAIN FOR PAIN TO THE LEFT SIDE OF BODY. NO ADDITIONAL DISTRESS NOTED. WILL CONT TO MONITOR. 1650:DC INSTRUCTION EXPLAINED AND GIVEN TO PATIENT AND SHE VERBALIZED UNDERSTANDING. IV REMOVED FROM THE RFA. IV CATH INTACT WHEN REMOVED. COVER SITE WITH GAUZE AND SECURE WITH BAND-AID. ER PRECAUTION DISCUSSED. ALL PERSONAL BELONGINGS GIVEN TO PATIENT AND DENIES MISSING ITEMS. 1500: PATIENT'S OUTSIDE THE FACILITY TO NEWSCAST PRODUCER PATIENT. 1508: PATIENT WHEELED OUT BY SAMM BOLTON IN A STABLE CONDITION. NO ADDITIONAL DISTRESS NOTED. PATIENT STILL HAVE HER F/C. CHRONIC F/C DUE TO OBS. UROPATHY/HYDRONEPHROSIS. PATIENT WILL F/U WITH PCP AND DR ART (UROLOGIST).
== END 2021-06-30 14:15 | disposition home or self-care (01) ==
LOC: SED 11:31 → STU 14:20
PROVIDERS: ADMIT Internal Medicine Hospice and Palliative Medicine; ATTEND Internal Medicine Hospice and Palliative Medicine
DX: R20.0 Anesthesia of skin (principal); Z20.822 Contact with and (suspected) exposure to COVID-19; R07.89 Other chest pain; I12.9 Hypertensive chronic kidney disease with stage 1 through stage 4 chronic kidney disease, or unspecified chronic kidney disease; E11.22 Type 2 diabetes mellitus with diabetic chronic kidney disease; N18.4 Chronic kidney disease, stage 4 (severe); N13.30 Unspecified hydronephrosis; N39.0 Urinary tract infection, site not specified; J44.9 Chronic obstructive pulmonary disease, unspecified; G89.4 Chronic pain syndrome; I48.91 Unspecified atrial fibrillation; E83.51 Hypocalcemia; F41.9 Anxiety disorder, unspecified; Z87.440 Personal history of urinary (tract) infections; Z86.718 Personal history of other venous thrombosis and embolism; Z79.01 Long term (current) use of anticoagulants; Z86.73 Personal history of transient ischemic attack (TIA), and cerebral infarction without residual deficits; Z98.84 Bariatric surgery status; Z87.891 Personal history of nicotine dependence; Z79.899 Other long term (current) drug therapy
CPT/HCPCS: 36415 ×2; 70450; 71045; 76376; 80053; 80061; 81000; 82962; 84484 ×2; 85025; 85610; 85730; 86886; 86900; 86901; 87086; 87426; 96374; 96375; 99291; G0378 ×2; J0696; J2270; 93005

== ENCOUNTER 2021-07-11 15:53 | Emergency (ER) | payer OTHER, SELFPAY ==
[~2021-07-11] VITALS: Ht 160 cm; Wt 59.0 kg
[2021-07-11 15:53] VITALS: BP_SYST 152
--- NOTE | 2021-07-11 16:14 | NUR ---
Patient triaged and placed in waiting room. VSS and patient appears in no acute distress at this time. Accompanied by SELF, awaiting available bed, and MD notified of need for MSE.
--- NOTE | 2021-07-11 17:07 | NUR ---
REPORT RECEIVED, PT LAYING ON GURNEY. RESP EVEN AND UNLABORED, ON RA @100%. REPORTS SUDDEN ONSET ANTERIOR CHEST WALL PAIN 2 HRS VISCOSITY TESTER WHILE SITTING AT HOME, STATES PRESSURE LIKE 10/10 AT THIS TIME RADIATING TO RT ARM WITH NUMBNESS TO RT EXTREMITY. PT ADMITS SHE'S BEEN SEEN FOR THE SAME THING LAST WEEK AND WAS CLEARED. PT DENIES ANY FEVERS/CHILLS. DENIES ANY ABDOMINAL PAIN, NO NAUSEA.VOMITITNG. SKIN W/D/I. SAFETY PRECAUTIONS IN PLACE, WILL CONT TO MONITOR. EKG ALREADY DONE AND SEEN BY ENID LOPEZ FOR HIS EVAULATION.
--- NOTE | 2021-07-11 18:03 | NUR ---
DR GUZMÁN IN ROOM FOR EXAM.
[2021-07-11] MEDS ORDERED: NITROGLYCERIN 0.4 MG TAB.SUBL SL ONE (18:15)
--- NOTE | 2021-07-11 18:28 | NUR ---
PATROL POLICE SERGEANT AT BEDSIDE FOR BLOOD DRAW.
[2021-07-11 18:39] LABS: BASOPHILS % (AUTO) 0.7 % (0.0-2.0); EOSINOPHILS # (AUTO) 0.2 K/uL (0.0-0.4); HEMATOCRIT 35.7 % (36-48); HEMOGLOBIN 11.7 g/dL (12.0-16.0); LYMPHOCYTES # (AUTO) 1.1 K/uL (1.0-5.5); LYMPHOCYTES % (AUTO) 19.9 % (20.5-51.5); MEAN CORPUSCULAR HEMOGLOBIN 29 pg (27-31); MEAN CORPUSCULAR HGB CONC 33 % (32-36); MEAN CORPUSCULAR VOLUME 87 fL (79.0-98.0); MONOCYTES # (AUTO) 0.4 K/uL (0.0-1.0); MONOCYTES % (AUTO) 7.7 % (1.7-9.3); NEUTROPHILS # (AUTO) 3.7 K/uL (1.8-7.7); NEUTROPHILS % (AUTO) 68.7 % (40.0-70.0); PLATELET COUNT (AUTO) 148 K/uL (130-430); RED BLOOD CELL COUNT(AUTO) 4.12 MIL/uL (4.2-6.2); RED CELL DISTRIBUTION WIDTH 14.9 % (9.0-15.0); WHITE BLOOD COUNT (AUTO) 5.3 K/uL (4.8-10.8)
[2021-07-11 18:59] LABS: CALCIUM 7.2 mg/dL (8.4-11.0); CREATININE 1.68 mg/dL (0.55-1.30); POTASSIUM 4.2 mmol/L (3.5-5.1)
[2021-07-11 19:04] LABS: ALBUMIN 3.6 g/dL (3.4-4.8); TOTAL BILIRUBIN 0.2 mg/dL (0.0-1.0)
--- NOTE | 2021-07-11 19:17 | NUR ---
ASSUMED CARE OF PT FROM TABBY GUO
[2021-07-11] MEDS ORDERED: PRO40 PO (19:45)
[2021-07-11] MEDS ORDERED: PANTOPRAZOLE SODIUM 40 MG/VIAL (PROTONIX) IVP ONE (19:45)
--- NOTE | 2021-07-11 20:22 | NUR ---
Patient given written and verbal discharge instructions and verbalizes understanding. ER MD discussed with patient the results and treatment provided. Patient in stable condition. ID arm band removed. IV catheter removed intact and dressing applied, no active bleeding. Rx of PROTONIX given. Patient educated on pain management and to follow up with PMD. Pain Scale 0/10. Opportunity for questions provided and answered. Medication side effect fact sheet provided.
[2021-07-11 20:24] VITALS: BP_SYST 129
== END 2021-07-11 20:24 | disposition home or self-care (01) ==
LOC: SED 15:53
DX: R07.89 Other chest pain (principal); R06.02 Shortness of breath; I10 Essential (primary) hypertension; E11.9 Type 2 diabetes mellitus without complications; I48.91 Unspecified atrial fibrillation; J44.9 Chronic obstructive pulmonary disease, unspecified; Z88.1 Allergy status to other antibiotic agents; Z79.899 Other long term (current) drug therapy
CPT/HCPCS: 36415; 71045; 80053; 83880; 84484; 85025; 93005; 96374; 99285; C9113

== ENCOUNTER 2021-10-02 19:06 | Observation (INO) | payer OTHER, SELFPAY ==
[~2021-10-02] VITALS: Ht 160 cm; Wt 59.0 kg
[~2021-10-02 19:06] MED LIST changes: +CEPH250C PO; -CIPR500T5 PO; -CYCL10TA24 PO; -MAGN296S30 PO; +MAGN296S8 PO; -PRED20TA PO; +PRO40 PO
[2021-10-02 19:43] VITALS: BP_SYST 150
[2021-10-02 20:38] LABS: HEMOGLOBIN 12.2 g/dL (12.0-16.0); MONOCYTES # (AUTO) 0.4 K/uL (0.0-1.0); WHITE BLOOD COUNT (AUTO) 4.8 K/uL (4.8-10.8)
[2021-10-02 20:53] LABS: CREATININE 1.7 mg/dL (0.55-1.30); POTASSIUM 4.6 mmol/L (3.5-5.1)
[2021-10-02 20:54] LABS: BASOPHILS % (AUTO) 0.5 % (0.0-2.0); EOSINOPHILS # (AUTO) 0.1 K/uL (0.0-0.4); EOSINOPHILS % (AUTO) 1.1 % (0.0-4.0); HEMATOCRIT 37.6 % (36-48); MEAN CORPUSCULAR HEMOGLOBIN 28 pg (27-31); MEAN CORPUSCULAR HGB CONC 32 % (32-36); MEAN CORPUSCULAR VOLUME 86 fL (79.0-98.0); MONOCYTES % (AUTO) 8.4 % (1.7-9.3); NEUTROPHILS # (AUTO) 3.3 K/uL (1.8-7.7); PLATELET COUNT (AUTO) 176 K/uL (130-430); RED CELL DISTRIBUTION WIDTH 16.1 % (9.0-15.0)
[2021-10-02 20:59] LABS: ALBUMIN 3.5 g/dL (3.4-4.8); TOTAL BILIRUBIN 0.2 mg/dL (0.0-1.0)
[2021-10-02 21:06] LABS: CALCIUM 7.1 mg/dL (8.4-11.0)
[2021-10-03 00:12] LABS: BILIRUBIN,URINE NEGATIVE (NEGATIVE); BLOOD, URINE 1+ (NEGATIVE); COLOR,URINE YELLOW (YELLOW); GLUCOSE,URINE NEGATIVE (NEGATIVE); KETONES,URINE NEGATIVE (NEGATIVE); LEUKOCYTE ESTERASE ,URINE 1+ (NEGATIVE); NITRITE, URINE NEGATIVE (NEGATIVE); PH,URINE 5.5 (5.0-8.0); PROTEIN URINE NEGATIVE (NEGATIVE); UROBILINOGEN,URINE 0.2 (0.2-1.0)
[2021-10-03 00:13] LABS: CLARITY/URINE SLIGHTLY HAZY (CLEAR)
[2021-10-03 00:36] LABS: BACTERIA,URINE MODERATE /HPF (None Seen)
[2021-10-03] MEDS ORDERED: ONDANSETRON HCL 4 MG/2 ML VIAL IVP ONE (01:00)
[2021-10-03] MEDS ORDERED: HYDROmorphone 1 MG/ML INJ. CARTRIDGE IVP ONE ×2 (01:00→04:15)
[2021-10-03] MEDS ORDERED: KETOROLAC TROMETHAMINE 30 MG VIAL IVP ONE (01:00)
[2021-10-03] MEDS ORDERED: ALBUTEROL SULFATE 0.083% 2.5 MG/3 ML VIAL.NEB INH PRN (01:30)
[2021-10-03] MEDS ORDERED: ACETAMINOPHEN 325 MG TABLET PO PRN (01:30)
[2021-10-03] MEDS ORDERED: ONDANSETRON HCL 4 MG/2 ML VIAL IVP PRN (01:30)
[2021-10-03] MEDS: NACL 0.9% 1,000 ML IV SCH ×2 (01:41→01:48)
[2021-10-03] MEDS: MORPHINE 4 MG INJ. 4 MG/ML VIAL IVP PRN ×3 (04:28→22:01)
[2021-10-03 05:24] VITALS: BP_SYST 156
[2021-10-03] MEDS ORDERED: cefTRIAXone 1 GM IVPB PREMIX 100 ML IV ONE (05:41)
[2021-10-03 07:29] LABS: BASOPHILS % (AUTO) 0.3 % (0.0-2.0); EOSINOPHILS # (AUTO) 0.1 K/uL (0.0-0.4); EOSINOPHILS % (AUTO) 1.8 % (0.0-4.0); HEMATOCRIT 34.2 % (36-48); HEMOGLOBIN 11.1 g/dL (12.0-16.0); LYMPHOCYTES # (AUTO) 1.6 K/uL (1.0-5.5); LYMPHOCYTES % (AUTO) 38.4 % (20.5-51.5); MEAN CORPUSCULAR HEMOGLOBIN 28 pg (27-31); MEAN CORPUSCULAR HGB CONC 32 % (32-36); MEAN CORPUSCULAR VOLUME 87 fL (79.0-98.0); MONOCYTES # (AUTO) 0.5 K/uL (0.0-1.0); NEUTROPHILS % (AUTO) 47.5 % (40.0-70.0); PLATELET COUNT (AUTO) 151 K/uL (130-430); RED BLOOD CELL COUNT(AUTO) 3.94 MIL/uL (4.2-6.2); RED CELL DISTRIBUTION WIDTH 15.8 % (9.0-15.0); WHITE BLOOD COUNT (AUTO) 4.2 K/uL (4.8-10.8)
[2021-10-03 08:00] VITALS: BP_SYST 146
[2021-10-03 08:27] LABS: ALBUMIN 2.9 g/dL (3.4-4.8); CREATININE 1.5 mg/dL (0.55-1.30); POTASSIUM 4.2 mmol/L (3.5-5.1); TOTAL BILIRUBIN 0.2 mg/dL (0.0-1.0)
[2021-10-03 09:31] LABS: CALCIUM 6.6 mg/dL (8.4-11.0)
[2021-10-03] MEDS ORDERED: MORPHINE 2 MG/ML INJ. SYRINGE IVP ONE (09:45)
[2021-10-03] MEDS ORDERED: CALCIUM GLUCONATE 1 GM in NS 100 ML IV ONE (11:00)
[2021-10-03 12:00] VITALS: BP_SYST 136
[2021-10-03 16:00] VITALS: BP_SYST 141
[2021-10-03 21:49] VITALS: BP_SYST 144
== END 2021-10-03 22:44 | disposition home or self-care (01) ==
LOC: SED 19:06 → SMU 10-03 01:18
PROVIDERS: ADMIT Internal Medicine Hospice and Palliative Medicine; ATTEND Internal Medicine Hospice and Palliative Medicine
DX: G89.18 Other acute postprocedural pain (principal); R10.32 Left lower quadrant pain; Z20.822 Contact with and (suspected) exposure to COVID-19; N31.9 Neuromuscular dysfunction of bladder, unspecified; N39.0 Urinary tract infection, site not specified; I12.9 Hypertensive chronic kidney disease with stage 1 through stage 4 chronic kidney disease, or unspecified chronic kidney disease; N18.30 Chronic kidney disease, stage 3 unspecified; N17.9 Acute kidney failure, unspecified; I48.91 Unspecified atrial fibrillation; J44.9 Chronic obstructive pulmonary disease, unspecified; Z86.73 Personal history of transient ischemic attack (TIA), and cerebral infarction without residual deficits; Z79.899 Other long term (current) drug therapy; Z96.0 Presence of urogenital implants
CPT/HCPCS: 36415 ×2; 74176; 76376; 80053 ×2; 81000; 83605; 83690; 85025 ×2; 87086; 87186; 87426; 96365; 96367; 96375; 96376; 99285; G0378; J0610; J0696 ×2; J1170; J1885; J2270; J2405; J7060; J7613

== ENCOUNTER 2021-12-02 17:11 | Emergency (ER) | payer OTHER ==
[~2021-12-02] VITALS: Ht 160 cm; Wt 59.4 kg
[~2021-12-02 17:11] MED LIST changes: +ASA81 PO; +ATOR40TA68 PO; +LEVO250T43 PO; +MECO10005; +SODI650T PO
[2021-12-02 17:26] VITALS: BP_SYST 131
--- NOTE | 2021-12-02 17:34 | NUR ---
pt. bib with concern that today after her shower she started to experience pain around her suprapubic catheter 04/21 and noticed some discoloration around the area, states draining well, cathter was placed in September by Dr. Lisette Toney
--- NOTE | 2021-12-02 17:40 | NUR ---
MD ART AT BEDSIDE ASSESSING PT.
[2021-12-02 18:42] LABS: BASOPHILS % (AUTO) 0.6 % (0.0-2.0); EOSINOPHILS % (AUTO) 0.3 % (0.0-4.0); HEMATOCRIT 34.8 % (36-48); HEMOGLOBIN 11.1 g/dL (12.0-16.0); LYMPHOCYTES # (AUTO) 1.1 K/uL (1.0-5.5); LYMPHOCYTES % (AUTO) 18.7 % (20.5-51.5); MEAN CORPUSCULAR HEMOGLOBIN 28 pg (27-31); MEAN CORPUSCULAR HGB CONC 32 % (32-36); MEAN CORPUSCULAR VOLUME 86 fL (79.0-98.0); MONOCYTES # (AUTO) 0.6 K/uL (0.0-1.0); MONOCYTES % (AUTO) 10.3 % (1.7-9.3); NEUTROPHILS # (AUTO) 4.2 K/uL (1.8-7.7); NEUTROPHILS % (AUTO) 70.1 % (40.0-70.0); PLATELET COUNT (AUTO) 232 K/uL (130-430); RED BLOOD CELL COUNT(AUTO) 4.04 MIL/uL (4.2-6.2); RED CELL DISTRIBUTION WIDTH 15.4 % (9.0-15.0); WHITE BLOOD COUNT (AUTO) 5.9 K/uL (4.8-10.8)
[2021-12-02 18:56] LABS: ALANINE AMINOTRANSFERASE 25 U/L (12-78); ALBUMIN 3.3 g/dL (3.4-4.8); ASPARTATE AMINOTRANSFERASE 26 U/L (10-37); CALCIUM 8.2 mg/dL (8.4-11.0); CREATININE 1.96 mg/dL (0.55-1.30); GLUCOSE 86 mg/dL (70-99); UREA NITROGEN, BLOOD 25 mg/dL (8-21)
[2021-12-02 19:16] LABS: GFR AFRICAN AMERICAN 33 mL/min (>90)
[2021-12-02 19:17] LABS: C-REACTIVE PROTEIN QUANT < 0.2 mg/dL (0-0.5)
[2021-12-02 19:34] LABS: ANION GAP 11 (5-15); CHLORIDE 108 mmol/L (98-107); POTASSIUM 4.2 mmol/L (3.5-5.1); SODIUM SERUM 139 mmol/L (136-145)
[2021-12-02 19:50] LABS: TOTAL BILIRUBIN 0.4 mg/dL (0.0-1.0)
[2021-12-02 20:10] VITALS: BP_SYST 128
--- NOTE | 2021-12-02 20:10 | NUR ---
Patient given written and verbal discharge instructions and verbalizes understanding. ER MD discussed with patient the results and treatment provided. Patient in stable condition. ID arm band removed. Patient educated on pain management and to follow up with PMD. Opportunity for questions provided and answered. Medication side effect fact sheet provided.
== END 2021-12-02 20:10 | disposition home or self-care (01) ==
LOC: SED 17:11
DX: T83.198A Other mechanical complication of other urinary devices and implants, initial encounter (principal); I10 Essential (primary) hypertension; I48.91 Unspecified atrial fibrillation; J45.909 Unspecified asthma, uncomplicated; Z88.1 Allergy status to other antibiotic agents; Z79.899 Other long term (current) drug therapy
CPT/HCPCS: 36415; 80053; 81002; 83605; 85025; 86140; 99283

== ENCOUNTER 2021-12-16 20:44 | Emergency (ER) | payer OTHER ==
[~2021-12-16] VITALS: Ht 160 cm; Wt 59.0 kg
[2021-12-16] MEDS ORDERED: NITROGLYCERIN 1 INCH (GM) OINT. TP ONE (20:48)
[2021-12-16] MEDS ORDERED: MORPHINE 4 MG INJ. 4 MG/ML VIAL IVP ONE (20:58)
[2021-12-16 21:00] VITALS: BP_SYST 166
[2021-12-16] MEDS ORDERED: ENOXAPARIN SODIUM 60 MG/0.6 ML SYRINGE SUBCUT ONE (21:00)
--- NOTE | 2021-12-16 21:07 | NUR ---
Initial assessment by SARI Montoya 66yo female PMH CVA 2y ago. Here c/o 7/10 burning pain to L abd and middle chest pain. Pt also c/o numbness and body weakness to R arm. No facial droop/ edema noted. Ambulate. MD Roach do eval at bed side. VS documented. Will continue to monitor
[2021-12-16 21:53] LABS: ANION GAP 9 (5-15); CALCIUM 7.4 mg/dL (8.4-11.0); CHLORIDE 111 mmol/L (98-107); CREATININE 1.72 mg/dL (0.55-1.30); GFR AFRICAN AMERICAN 38 mL/min (>90); GLUCOSE 87 mg/dL (70-99); POTASSIUM 3.9 mmol/L (3.5-5.1); SODIUM SERUM 142 mmol/L (136-145); UREA NITROGEN, BLOOD 28 mg/dL (8-21)
[2021-12-16 22:00] LABS: BASOPHILS % (AUTO) 0.8 % (0.0-2.0); EOSINOPHILS # (AUTO) 0.1 K/uL (0.0-0.4); EOSINOPHILS % (AUTO) 1.6 % (0.0-4.0); HEMATOCRIT 31.2 % (36-48); HEMOGLOBIN 10.1 g/dL (12.0-16.0); LYMPHOCYTES # (AUTO) 1.5 K/uL (1.0-5.5); MEAN CORPUSCULAR HEMOGLOBIN 28 pg (27-31); MEAN CORPUSCULAR HGB CONC 32 % (32-36); MEAN CORPUSCULAR VOLUME 86 fL (79.0-98.0); MONOCYTES # (AUTO) 0.5 K/uL (0.0-1.0); MONOCYTES % (AUTO) 8.6 % (1.7-9.3); NEUTROPHILS # (AUTO) 3.6 K/uL (1.8-7.7); PLATELET COUNT (AUTO) 141 K/uL (130-430); RED BLOOD CELL COUNT(AUTO) 3.64 MIL/uL (4.2-6.2); RED CELL DISTRIBUTION WIDTH 15.6 % (9.0-15.0); WHITE BLOOD COUNT (AUTO) 5.7 K/uL (4.8-10.8)
[2021-12-16 22:06] LABS: ALANINE AMINOTRANSFERASE 31 U/L (12-78); ALBUMIN 3.3 g/dL (3.4-4.8); ASPARTATE AMINOTRANSFERASE 22 U/L (10-37); TOTAL BILIRUBIN 0.2 mg/dL (0.0-1.0)
--- NOTE | 2021-12-16 23:00 | NUR ---
IV line insertion succesfully inserted to L upper arm 24 gauge by SARI Montoya
--- NOTE | 2021-12-16 23:12 | NUR ---
Reassessmnet note by SARI Montoya Pt continue c/o 8/10 pain to L abd and stated feel bloated and pressure more to L abd s/p pain med administration. Pt has been on ross cath since September 2021. Clear UO noted from ross. UA sent as per MD order. Will continue to monitor
[2021-12-16 23:28] LABS: BILIRUBIN,URINE NEGATIVE (NEGATIVE); CLARITY/URINE CLEAR (CLEAR); COLOR,URINE YELLOW (YELLOW); GLUCOSE,URINE NEGATIVE (NEGATIVE); KETONES,URINE NEGATIVE (NEGATIVE); LEUKOCYTE ESTERASE ,URINE 3+ (NEGATIVE); NITRITE, URINE POSITIVE (NEGATIVE); PROTEIN URINE TRACE (NEGATIVE); UROBILINOGEN,URINE 0.2 (0.2-1.0)
[2021-12-16 23:31] LABS: BLOOD, URINE TRACE (NEGATIVE)
[2021-12-16 23:55] LABS: BACTERIA,URINE FEW /HPF (None Seen)
[2021-12-16 23:56] LABS: MUCUS,URINE 1+ /LPF (None Seen)
[2021-12-17] MEDS ORDERED: cefTRIAXone 1 GM in D5W 50 ML IV ONE (00:15)
[2021-12-17] MEDS ORDERED: cefTRIAXone 1 GM VIAL ONE (00:24)
[2021-12-17] MEDS ORDERED: HYOS0.1275 PO (03:15)
[2021-12-17] MEDS ORDERED: CEFU250T85 PO (03:18)
[2021-12-17 03:42] VITALS: BP_SYST 146
--- NOTE | 2021-12-17 03:57 | NUR ---
Discharge note by SARI Montoya Patient given written and verbal discharge instructions and verbalizes understanding. ER MD discussed with patient the results and treatment provided. Patient in stable condition. ID arm band removed. IV catheter removed intact and dressing applied, no active bleeding. Rx of 2 given. Patient educated on pain management and to follow up with PMD. Pain Scale . Opportunity for questions provided and answered. Medication side effect fact sheet provided.
== END 2021-12-17 04:16 | disposition home or self-care (01) ==
LOC: SED 20:44
DX: R07.89 Other chest pain (principal); N32.89 Other specified disorders of bladder; I10 Essential (primary) hypertension; I48.91 Unspecified atrial fibrillation; J45.909 Unspecified asthma, uncomplicated; Z88.1 Allergy status to other antibiotic agents; Z79.899 Other long term (current) drug therapy; Z20.822 Contact with and (suspected) exposure to COVID-19
CPT/HCPCS: 36415; 71045; 74176; 76376; 80053; 81000; 83880; 84484; 85025; 85379; 87086; 87426; 93005; 96365; 96372; 96375; 99291; J0696; J1650; J2270

== ENCOUNTER 2022-01-04 14:22 | Inpatient (IN) | payer OTHER ==
[~2022-01-04] VITALS: Ht 160 cm; Wt 59.0 kg
[2022-01-04 14:22] VITALS: BP_SYST 169
[~2022-01-04 14:22] MED LIST changes: +CEFU250T85 PO; +HYOS0.1275 PO
--- NOTE | 2022-01-04 14:22 | NUR ---
BROUGHT INTO TRIAGE ROOM AND STARTED TO TRIAGE. CALLED DR GROVE TO TRIAGE ROOM FOR EVALUATION
--- NOTE | 2022-01-04 14:28 | NUR ---
DR GROVE TO TRIAGE ROOM FOR EVALUATION
--- NOTE | 2022-01-04 14:30 | NUR ---
PT STATES FOR ABOUT 1 HOUR, PT STATES RIGHT SIDED WEAKNESS MORE THAN NORMAL. PT STATES SHE HAD OLD CVA THAT INVOLVED DEFICIT TO RIGHT SIDE. PT STATES HER RIGHT SIDE OF FACE FEELS HEAVY AND TINGLY. PT IS ALERT AND ORIENTED WITH VSS.
--- NOTE | 2022-01-04 14:32 | NUR ---
TAKEN TO RADIOLOGY VIA WHEELCHAIR
--- NOTE | 2022-01-04 15:13 | NUR ---
AWAITING ER BED AVAILABILITY
[2022-01-04 16:06] LABS: LYMPHOCYTES # (AUTO) 0.9 K/uL (1.0-5.5); NEUTROPHILS # (AUTO) 4.8 K/uL (1.8-7.7)
[2022-01-04 16:18] LABS: BASOPHILS % (AUTO) 0.4 % (0.0-2.0); EOSINOPHILS % (AUTO) 0.2 % (0.0-4.0); HEMATOCRIT 30.5 % (36-48); LYMPHOCYTES % (AUTO) 14.8 % (20.5-51.5); MEAN CORPUSCULAR HEMOGLOBIN 28 pg (27-31); MEAN CORPUSCULAR HGB CONC 33 % (32-36); MEAN CORPUSCULAR VOLUME 85 fL (79.0-98.0); MONOCYTES # (AUTO) 0.4 K/uL (0.0-1.0); MONOCYTES % (AUTO) 7.1 % (1.7-9.3); NEUTROPHILS % (AUTO) 77.5 % (40.0-70.0); PLATELET COUNT (AUTO) 208 K/uL (130-430); RED BLOOD CELL COUNT(AUTO) 3.59 MIL/uL (4.2-6.2); RED CELL DISTRIBUTION WIDTH 16.2 % (9.0-15.0); WHITE BLOOD COUNT (AUTO) 6.2 K/uL (4.8-10.8)
--- NOTE | 2022-01-04 16:36 | NUR ---
Made first contact with patient. Pt alert and oriented. Resting in bed. VSS on v belt builder. Continues to await further dispo.
[2022-01-04 16:59] LABS: CREATININE 1.64 mg/dL (0.55-1.30); POTASSIUM 4.6 mmol/L (3.5-5.1)
[2022-01-04 17:04] LABS: CALCIUM 6.9 mg/dL (8.4-11.0)
[2022-01-04 17:15] LABS: TOTAL BILIRUBIN 0.2 mg/dL (0.0-1.0)
[2022-01-04] MEDS ORDERED: CALCIUM GLUCONATE 1 GM in NS 100 ML IV ONE (17:15)
[2022-01-04 17:16] LABS: ALBUMIN 3.1 g/dL (3.4-4.8)
--- NOTE | 2022-01-04 17:20 | NUR ---
COID swab collected at bedside and sent to lab Addendum: 01/04/22 at 1726 by SDEDJT COVID
[2022-01-04] MEDS ORDERED: SODI650T PO (17:21)
[2022-01-04] MEDS ORDERED: LIP40 PO (17:21)
[2022-01-04] MEDS ORDERED: APIX5TAB4 PO (17:21)
--- NOTE | 2022-01-04 17:21 | NUR ---
Medication reconciliation completed with information provided by list per patient. Any prior medication reconciliation on file was reviewed and corrected.
[2022-01-04] MEDS ORDERED: CALCIUM GLUCONATE 1 GM/10 ML VIAL ONE (17:29)
--- NOTE | 2022-01-04 17:32 | NUR ---
COVID-19 SHANNON SWAB OBTAINED AND SENT TO THE LAB.
--- NOTE | 2022-01-04 18:10 | NUR ---
Admit bed requested Patient will be admitted to care of Dr. Najera. Admitted to MS unit. Diagnosis Hypocalcemia Inpatient (Yes or No) Y Observation (Yes or No) N Orientation concerns or request close to nursing station (Yes or No) N Covid Status Pend On vent or bipap N Isolation requirements N Needs a sitter N From Home (Yes or if No enter name of facility) Home Requires Dialysis (Yes or No) N Med Rec Completed (Yes of No) Y
--- NOTE | 2022-01-04 18:10 | NUR ---
20G SL placed to L FA per Yoel GUO
[2022-01-04 19:04] LABS: BILIRUBIN,URINE NEGATIVE (NEGATIVE); BLOOD, URINE 1+ (NEGATIVE); COLOR,URINE YELLOW (YELLOW); GLUCOSE,URINE NEGATIVE (NEGATIVE); KETONES,URINE NEGATIVE (NEGATIVE); LEUKOCYTE ESTERASE ,URINE 1+ (NEGATIVE); NITRITE, URINE POSITIVE (NEGATIVE); PROTEIN URINE NEGATIVE (NEGATIVE); UROBILINOGEN,URINE 0.2 (0.2-1.0)
[2022-01-04 19:10] LABS: CLARITY/URINE HAZY (CLEAR)
[2022-01-04 19:18] LABS: BARBITURATE, URINE NEGATIVE (NEG <=200); BENZODIAZEPINE, URINE NEGATIVE (NEG <=150); CANNABINOID, URINE NEGATIVE (NEG <=50); COCAINE, URINE NEGATIVE (NEG <=150); METHAMPHETAMINES SCREEN,URINE NEGATIVE (NEG <=500); OPIATE, URINE NEGATIVE (NEG <=100); PHENCYCLIDINE SCREEN,URINE NEGATIVE (NEG <=25); UR TRICYCLIC ANTIDEPRESSANTS NEGATIVE (NEG <=300); URINE AMPHETAMINE NEGATIVE (NEG <=500); URINE METHADONE NEGATIVE (NEG <=200); URINE OXYCODONE SCREEN NEGATIVE (NEG <=100); URINE PROPOXYPHENE SCREEN NEGATIVE (NEG <=300)
[2022-01-04 19:29] LABS: BACTERIA,URINE FEW /HPF (None Seen); MUCUS,URINE None Seen /LPF (None Seen); URINE AMORPHOUS URATE 2+ /HPF (None Seen)
[2022-01-04] MEDS ORDERED: ALBUTEROL MDI INHALATION 8 GM INH INH PRN (19:30)
[2022-01-04] MEDS ORDERED: NALOXONE HCL 0.4 MG/ML AMP (NARCAN) IVP PRN (19:30)
--- NOTE | 2022-01-04 19:30 | NUR ---
Received report at this time. Aware that patient has bed at this time.
[2022-01-04] MEDS: HYDROcodone/ACETAMIN 5-325 MG TAB (NORCO/ VICODIN) PO PRN (19:55)
[2022-01-04] MEDS ORDERED: ALBUTEROL SULFATE 0.083% 2.5 MG/3 ML VIAL.NEB INH PRN (20:00)
--- NOTE | 2022-01-04 20:02 | NUR ---
Patient will be admitted to care of Dr. Najera. Admitted to med/surg unit. Will go to room 122 bed A. Belongings list completed. Complete and up to date summary report printed. SBAR bedside report given to SARI Lemus
--- NOTE | 2022-01-04 20:15 | NUR ---
ADMISSION NOTE Received patient from ER via gurney. Patient admitted with diagnosis of hypocalcemia. Patient is awake, alert, oriented X 4. Patient oriented to hospital room, call light, toileting, pain management and safety-teach back done. Patient informed that Geronimo Jimenes will be assigned nurse and that their room number is 122A. Personal belongings checked and Belongings List documented. Call light within reach.
[2022-01-04] MEDS ORDERED: cephALEXin 250 MG CAPSULE PO SCH (21:00)
[2022-01-04] MEDS: ATORVASTATIN 20 MG TABLET PO SCH (21:23)
[2022-01-04] MEDS: SODIUM BICARBONATE 650 MG TABLET PO SCH (21:23)
[2022-01-04] MEDS: GABAPENTIN 100 MG CAPSULE PO SCH (21:24)
[2022-01-04] MEDS: CALCIUM CARBONATE/VITAMIN D3 1 TAB TABLET PO SCH (21:25)
[2022-01-04] MEDS: APIXABAN 2.5 MG TABLET PO SCH (21:27)
[2022-01-04 21:43] VITALS: BP_SYST 154
[2022-01-05] VITALS: BP_SYST 147
--- NOTE | 2022-01-05 00:30 | NUR ---
ROUNDS: Patient is in bed resting no s/s of distress at this time. Safety measures are in place, patient is able to verbalize needs, and call light is within reach. Will continue to monitor.
--- NOTE | 2022-01-05 04:56 | NUR ---
CONSULTATION PAGED/CALLED Reason for Consultation: [HYPOCALCEMIA] Person Who was Notified: [VOICEMAIL] Consulting Physician: [LORENA GOLDEN] Shorer Specialty: [ENDOCRINOLOGY] Ordering Physician: [DOMINGUEZ CALDERON]
--- NOTE | 2022-01-05 06:39 | NUR ---
CLOSING NOTES: Patient is in bed sleeping no s/s of distress is noted at this time. Patient is AA&Ox4, able to verbalize needs and has call light within reach. All current shift needs have been met and patient is stable at this time. Safety measures remain in place, will differ further care to AM shift nurse for continuity of care.
--- NOTE | 2022-01-05 06:53 | NUR ---
ENDOCRINE CONSULT DR BABIN WAS CALLED, RE: HYPOCALCEMIA.
--- NOTE | 2022-01-05 07:43 | NUR ---
CONSULTATION PAGED/CALLED Reason for Consultation: [] PARASTHESIS Person Who was Notified: [] DR Divina MORRIS Consulting Physician: [] DR Divina MORRIS Tool And Die Technician Specialty: [] NEURO Ordering Physician: [] DR CALDERON
[2022-01-05 08:00] VITALS: BP_SYST 150
[2022-01-05] MEDS: GABAPENTIN 100 MG CAPSULE PO SCH ×2 (08:33→21:43)
[2022-01-05] MEDS: PANTOPRAZOLE SODIUM 40 MG TAB PO SCH (08:33)
[2022-01-05] MEDS: SODIUM BICARBONATE 650 MG TABLET PO SCH ×3 (08:33→21:43)
[2022-01-05] MEDS: ASPIRIN 81 MG TAB.CHEW PO SCH (08:33)
[2022-01-05] MEDS: CYANOCOBALAMIN 1000 mCg TABLET PO SCH (08:33)
[2022-01-05] MEDS: APIXABAN 2.5 MG TABLET PO SCH ×2 (08:33→21:43)
[2022-01-05] MEDS: HYDROcodone/ACETAMIN 5-325 MG TAB (NORCO/ VICODIN) PO PRN ×3 (08:34→21:43)
[2022-01-05] MEDS: CALCIUM CARBONATE/VITAMIN D3 1 TAB TABLET PO SCH ×2 (08:35→21:43)
[2022-01-05] MEDS ORDERED: levoFLOXacin 250 MG TABLET PO SCH (09:00)
--- NOTE | 2022-01-05 09:36 | NUR ---
CONSULTATION PAGED/CALLED Reason for Consultation: []PARASTHESIA Person Who was Notified: []SHASHANK Consulting Physician: [] DEMETRIA Uke Operator Specialty: []NEURO Ordering Physician: []Liz CALDERON
[2022-01-05 11:26] LABS: BASOPHILS % (AUTO) 0.9 % (0.0-2.0); EOSINOPHILS # (AUTO) 0.1 K/uL (0.0-0.4); EOSINOPHILS % (AUTO) 1.6 % (0.0-4.0); HEMATOCRIT 32.4 % (36-48); HEMOGLOBIN 10.7 g/dL (12.0-16.0); LYMPHOCYTES # (AUTO) 1.1 K/uL (1.0-5.5); LYMPHOCYTES % (AUTO) 24.7 % (20.5-51.5); MEAN CORPUSCULAR HEMOGLOBIN 28 pg (27-31); MEAN CORPUSCULAR HGB CONC 33 % (32-36); MEAN CORPUSCULAR VOLUME 84 fL (79.0-98.0); MONOCYTES # (AUTO) 0.5 K/uL (0.0-1.0); MONOCYTES % (AUTO) 10.9 % (1.7-9.3); NEUTROPHILS # (AUTO) 2.7 K/uL (1.8-7.7); NEUTROPHILS % (AUTO) 61.9 % (40.0-70.0); PLATELET COUNT (AUTO) 208 K/uL (130-430); RED BLOOD CELL COUNT(AUTO) 3.84 MIL/uL (4.2-6.2); RED CELL DISTRIBUTION WIDTH 16.2 % (9.0-15.0); WHITE BLOOD COUNT (AUTO) 4.4 K/uL (4.8-10.8)
[2022-01-05 11:27] VITALS: BP_SYST 158
--- NOTE | 2022-01-05 11:39 | NUR ---
Logo Admission Assessment - Care Management Last Saved By: Kelsie Diaz Last Saved On: 01/05/2022 11:38 AM (PT) Created By: Kelsie Diaz Created On: 01/05/2022 11:32 AM (PT) Patient Information Patient Name: CHELSEY DELGADO [address]: [address] [place] [address] [place] [address] SSN: : 1955 (age 66 years) Work Phone: [phone] Gender: Female Alternative Phone: Marital Status: Race: WHITE- Race 2: Ethnicity: or or Panamanian Origin Ethnicity 2: Patient's Information Who was Interviewed? Answers: Patient What language does the patient speak? Answers: Chadian Admitting Facility Answers: *[facility] [[id number]] Admitting Diagnosis right side numbness tingling Advanced Care Planning (check all that apply) Answers: Patient does NOT have advanced Care Planning. Additional Patient Notes covid vaccine , fully vaccinated History and Prior Level of Function DME--PRIOR to Admission: Answers: Walker (document patient usage or frequency of use. Exp; uses walker at all times, uses walker when leaving home) Cane Cognitive--PRIOR to Admission: Answers: Alert & Orientated Home Setting--PRIOR to Admission: Answers: Private Home Notes: [facility] lives w Was patient receiving Home Health Services prior to Admission? Answers: No Potential Barriers to Discharge Anticipated Discharge Disposition Answers: Home Does the patient have any potential barriers to DC? (indicate barrier & plan to address) Answers: NO, anticipate DC to previous living situations, no additional services anticipated Signature Signature: Signature Date Signed: 01/05/2022 11:38 AM (PT) Signed By: Kelsie Diaz Position: Inpatient Hydropulper Pager Number: Allscripts Generated (Scan) Page 1 of Copyright 2021 [employer]. [Production(pc--065)]
[2022-01-05 11:53] LABS: CALCIUM 7.4 mg/dL (8.4-11.0); CREATININE 1.72 mg/dL (0.55-1.30); PHOSPHORUS 4.7 mg/dL (2.7-4.5); POTASSIUM 4.7 mmol/L (3.5-5.1)
[2022-01-05] MEDS: D5/0.45 NS 1,000 ML IV SCH ×2 (13:41→21:42)
[2022-01-05 16:57] VITALS: BP_SYST 147
[2022-01-05 21:39] VITALS: BP_SYST 134
[2022-01-05] MEDS: ATORVASTATIN 20 MG TABLET PO SCH (21:43)
[2022-01-06 00:05] VITALS: BP_SYST 139
[2022-01-06] MEDS: D5/0.45 NS 1,000 ML IV SCH ×2 (05:46→17:48)
[2022-01-06 07:00] LABS: BASOPHILS % (AUTO) 0.6 % (0.0-2.0); EOSINOPHILS % (AUTO) 1.2 % (0.0-4.0); HEMATOCRIT 29.3 % (36-48); HEMOGLOBIN 9.8 g/dL (12.0-16.0); LYMPHOCYTES # (AUTO) 1.2 K/uL (1.0-5.5); LYMPHOCYTES % (AUTO) 28.9 % (20.5-51.5); MEAN CORPUSCULAR HEMOGLOBIN 28 pg (27-31); MEAN CORPUSCULAR HGB CONC 33 % (32-36); MEAN CORPUSCULAR VOLUME 85 fL (79.0-98.0); MONOCYTES # (AUTO) 0.5 K/uL (0.0-1.0); MONOCYTES % (AUTO) 11.1 % (1.7-9.3); NEUTROPHILS # (AUTO) 2.5 K/uL (1.8-7.7); NEUTROPHILS % (AUTO) 58.2 % (40.0-70.0); PLATELET COUNT (AUTO) 193 K/uL (130-430); RED BLOOD CELL COUNT(AUTO) 3.47 MIL/uL (4.2-6.2); RED CELL DISTRIBUTION WIDTH 16.4 % (9.0-15.0); WHITE BLOOD COUNT (AUTO) 4.2 K/uL (4.8-10.8)
[2022-01-06 07:28] LABS: CREATININE 1.7 mg/dL (0.55-1.30); POTASSIUM 4.8 mmol/L (3.5-5.1)
--- NOTE | 2022-01-06 07:30 | NUR ---
bedside report given. pt in bed asleep. pt does not appear to be in distress. endorse care to day rn.
[2022-01-06 08:13] LABS: CALCIUM 6.8 mg/dL (8.4-11.0)
[2022-01-06] MEDS: GABAPENTIN 100 MG CAPSULE PO SCH ×2 (08:29→21:50)
[2022-01-06] MEDS: CYANOCOBALAMIN 1000 mCg TABLET PO SCH (08:30)
[2022-01-06] MEDS: ASPIRIN 81 MG TAB.CHEW PO SCH (08:31)
[2022-01-06] MEDS: PANTOPRAZOLE SODIUM 40 MG TAB PO SCH (08:31)
[2022-01-06] MEDS: SODIUM BICARBONATE 650 MG TABLET PO SCH ×3 (08:31→21:50)
[2022-01-06] MEDS: CALCIUM CARBONATE/VITAMIN D3 1 TAB TABLET PO SCH ×2 (08:32→21:50)
[2022-01-06] MEDS: HYDROcodone/ACETAMIN 5-325 MG TAB (NORCO/ VICODIN) PO PRN (08:32)
[2022-01-06] MEDS: APIXABAN 2.5 MG TABLET PO SCH ×2 (08:34→21:50)
[2022-01-06] MEDS ORDERED: POTASSIUM CHLORIDE 40 MEQ in NS 250 ML IV ONE (10:30)
[2022-01-06] MEDS ORDERED: CALCIUM GLUCONATE 2 GM in NS 100 ML IV ONE (11:00)
[2022-01-06] MEDS ORDERED: calcitrioL 0.25 MCG CAPSULE PO ONE (11:30)
[2022-01-06] MEDS: cefTRIAXone 1 GM in D5W 50 ML IV SCH (12:00)
[2022-01-06] MEDS: PHENAZOPYRIDINE HCL 100 MG TABLET PO SCH ×2 (13:33→19:06)
--- NOTE | 2022-01-06 13:53 | NUR ---
CONSULT ID UTI RASHEL AGUILAR [phone] S/W WOOD EXCHANGE
[2022-01-06 20:53] VITALS: BP_SYST 158
[2022-01-06] MEDS: ATORVASTATIN 20 MG TABLET PO SCH (21:50)
[2022-01-07] MEDS: HYDROcodone/ACETAMIN 5-325 MG TAB (NORCO/ VICODIN) PO PRN ×3 (01:00→17:02)
[2022-01-07 01:23] VITALS: BP_SYST 150
--- NOTE | 2022-01-07 02:12 | NUR ---
1930 Pt. in bed, aaox4. No acute distress noted, call light in reach 2200 Pt. resting quielty, call light in reach 0100 Pt. given pain meds, call light in reach, vss
[2022-01-07] MEDS: D5/0.45 NS 1,000 ML IV SCH ×2 (02:19→12:31)
--- NOTE | 2022-01-07 06:21 | NUR ---
0600 Pt. needs met this shift, vss, medicated for pain with good results. Call light in reach, no resp. distress.
[2022-01-07 06:42] LABS: BASOPHILS % (AUTO) 0.5 % (0.0-2.0); EOSINOPHILS % (AUTO) 0.9 % (0.0-4.0); HEMATOCRIT 28.9 % (36-48); HEMOGLOBIN 9.5 g/dL (12.0-16.0); LYMPHOCYTES # (AUTO) 1.2 K/uL (1.0-5.5); LYMPHOCYTES % (AUTO) 24.6 % (20.5-51.5); MEAN CORPUSCULAR HEMOGLOBIN 28 pg (27-31); MEAN CORPUSCULAR HGB CONC 33 % (32-36); MEAN CORPUSCULAR VOLUME 84 fL (79.0-98.0); MONOCYTES # (AUTO) 0.6 K/uL (0.0-1.0); MONOCYTES % (AUTO) 13.5 % (1.7-9.3); NEUTROPHILS # (AUTO) 2.9 K/uL (1.8-7.7); NEUTROPHILS % (AUTO) 60.5 % (40.0-70.0); PLATELET COUNT (AUTO) 183 K/uL (130-430); RED BLOOD CELL COUNT(AUTO) 3.42 MIL/uL (4.2-6.2); RED CELL DISTRIBUTION WIDTH 15.9 % (9.0-15.0); WHITE BLOOD COUNT (AUTO) 4.7 K/uL (4.8-10.8)
[2022-01-07 07:49] LABS: ALANINE AMINOTRANSFERASE 15 U/L (12-78); ALBUMIN 2.5 g/dL (3.4-4.8); ANION GAP 6 (5-15); ASPARTATE AMINOTRANSFERASE 18 U/L (10-37); C-REACTIVE PROTEIN QUANT 0.4 mg/dL (0-0.5); CALCIUM 7.6 mg/dL (8.4-11.0); CHLORIDE 110 mmol/L (98-107); CREATININE 1.67 mg/dL (0.55-1.30); GLUCOSE 91 mg/dL (70-99); PHOSPHORUS 3.5 mg/dL (2.7-4.5); POTASSIUM 4.6 mmol/L (3.5-5.1); SODIUM SERUM 140 mmol/L (136-145); THYROID STIMULATING HORMONE 3.88 uIu/mL (0.36-3.74); TOTAL BILIRUBIN < 0.1 mg/dL (0.0-1.0); UREA NITROGEN, BLOOD 17 mg/dL (8-21)
[2022-01-07 07:53] LABS: GFR AFRICAN AMERICAN 39 mL/min (>90)
[2022-01-07 08:05] VITALS: BP_SYST 135
--- NOTE | 2022-01-07 08:05 | NUR ---
Opening Note Patient laying in bed awake. A/O x4. No apparent distress noted. Vitals as charted. Call light within reach. Safety and fall precautions in place. All needs met.
[2022-01-07] MEDS ORDERED: calcitrioL 0.25 MCG CAPSULE PO SCH (09:00)
[2022-01-07] MEDS: GABAPENTIN 100 MG CAPSULE PO SCH ×2 (09:34→21:05)
[2022-01-07] MEDS: ASPIRIN 81 MG TAB.CHEW PO SCH (09:34)
[2022-01-07] MEDS: PANTOPRAZOLE SODIUM 40 MG TAB PO SCH (09:34)
[2022-01-07] MEDS: CYANOCOBALAMIN 1000 mCg TABLET PO SCH (09:34)
[2022-01-07] MEDS: PHENAZOPYRIDINE HCL 100 MG TABLET PO SCH ×3 (09:35→21:04)
[2022-01-07] MEDS: SODIUM BICARBONATE 650 MG TABLET PO SCH ×3 (09:36→21:05)
[2022-01-07] MEDS: CALCIUM CARBONATE/VITAMIN D3 1 TAB TABLET PO SCH ×2 (09:36→21:05)
[2022-01-07] MEDS: APIXABAN 2.5 MG TABLET PO SCH ×2 (09:36→21:07)
[2022-01-07 10:02] LABS: ERYTHROCYTE SEDIMENTATION RATE 30 MM/HR (0-20)
--- NOTE | 2022-01-07 10:21 | NUR ---
Note Patient requested pain medication. Pain medication given as charted.
[2022-01-07 12:05] VITALS: BP_SYST 139
[2022-01-07] MEDS: cefTRIAXone 1 GM in D5W 50 ML IV SCH (12:30)
[2022-01-07 12:42] LABS: CREATININE 1.79 mg/dL (0.55-1.30); POTASSIUM 4.6 mmol/L (3.5-5.1)
[2022-01-07] MEDS ORDERED: CALCIUM GLUCONATE 1 GM in NS 100 ML IV ONE (13:00)
--- NOTE | 2022-01-07 14:41 | NUR ---
Note Spoke with Dr. Dash-sayed, he will be ordering a one time dose of calcitriol for patient in addition to the dose that was given this morning.
[2022-01-07] MEDS ORDERED: calcitrioL 0.25 MCG CAPSULE PO ONE (15:00)
[2022-01-07 16:05] VITALS: BP_SYST 114
--- NOTE | 2022-01-07 18:28 | NUR ---
Closing Note Patient is sitting up in bed eating dinner. No apparent distress noted. Call light within reach. Safety and fall precautions in place. Provided patient with ice, per patient request. All need met. Will endorse care to slot shift manager RN.
--- NOTE | 2022-01-07 18:58 | NUR ---
Paged Dr. Najera Regarding patient's pain at the insertion site of her suprapubic catheter. Paged per Dr. Nielsen's request.
[2022-01-07 19:00] VITALS: BP_SYST 153
--- NOTE | 2022-01-07 19:15 | NUR ---
change of shift.pt.presents quiescent affect calm,resting.pt.present general status stable.respiratory status stable; unlabored@room air.pt.capable to reposition self/ambulate unassisted.call light/telephone w/in access of the pt.
[2022-01-07 20:00] VITALS: BP_SYST 153
--- NOTE | 2022-01-07 20:00 | NUR ---
pt.assessed.v/s assessed values wnl.no c/o pain,nausea.iv access intact iv fluids infusing.i have apprised the pt.that snacks/beverages are available w/in the shift.no requests posited@this hour.pt.capable to reposition self.call light/telephone w/in access of the pt.
--- NOTE | 2022-01-07 21:00 | NUR ---
2100p medications administered.pt.capable to ingest the po medications w/out difficulty.no c/o pain,nausea.call light/ telephone w/in access of the pt.
[2022-01-07] MEDS: ATORVASTATIN 20 MG TABLET PO SCH (21:04)
--- NOTE | 2022-01-07 22:00 | NUR ---
pt.assessed.pt.presents quiescent affect;calm,somnolent.per flacc pain mgx pt.absent facial grimaces/body posturing. pt.capable to reposition self.call light/telephone w/in access of the pt.
[2022-01-08] VITALS: BP_SYST 135
--- NOTE | 2022-01-08 | NUR ---
pt.assessed.v/s assessed values wnl.no c/o pain,nausea.no requests posited@this hour.pt capable to reposition self. danielle light/telephone w/in access of the pt.
[2022-01-08 00:48] VITALS: BP_SYST 153
--- NOTE | 2022-01-08 02:00 | NUR ---
pt.assessed.pt.presents quiescent affect;calm,somnolent.pt.capable to reposition self.per flacc pain mgx pt.absent facial grimaces/body posturing.call light/telephone w/in access of the pt.
--- NOTE | 2022-01-08 04:00 | NUR ---
pt.assessed.pt.presents quiescent affect;calm,somnolent.per flacc pain mgx pt.absent facial grimaces/body posturing. pt.capable to reposition self.call light/telephone w/in access of the pt.
[2022-01-08 06:35] LABS: BASOPHILS % (AUTO) 0.6 % (0.0-2.0); EOSINOPHILS % (AUTO) 0.9 % (0.0-4.0); HEMATOCRIT 30.1 % (36-48); HEMOGLOBIN 9.8 g/dL (12.0-16.0); LYMPHOCYTES # (AUTO) 1.1 K/uL (1.0-5.5); LYMPHOCYTES % (AUTO) 22.1 % (20.5-51.5); MEAN CORPUSCULAR HEMOGLOBIN 28 pg (27-31); MEAN CORPUSCULAR HGB CONC 33 % (32-36); MEAN CORPUSCULAR VOLUME 84 fL (79.0-98.0); MONOCYTES # (AUTO) 0.6 K/uL (0.0-1.0); MONOCYTES % (AUTO) 11.6 % (1.7-9.3); NEUTROPHILS # (AUTO) 3.2 K/uL (1.8-7.7); NEUTROPHILS % (AUTO) 64.8 % (40.0-70.0); PLATELET COUNT (AUTO) 178 K/uL (130-430); RED BLOOD CELL COUNT(AUTO) 3.57 MIL/uL (4.2-6.2); RED CELL DISTRIBUTION WIDTH 16.1 % (9.0-15.0); WHITE BLOOD COUNT (AUTO) 4.9 K/uL (4.8-10.8)
--- NOTE | 2022-01-08 06:36 | NUR ---
pt.assessed.iv access intact iv fluids infusing.supra-pubic cath intact;patent.i have provided the pt.w crackers:gustavo/juice;apple.no c/o pain,nausea.pt.capable to reposition self.call light/telephone w/in access of the pt.
[2022-01-08 07:05] LABS: ALBUMIN 2.4 g/dL (3.4-4.8); C-REACTIVE PROTEIN QUANT 0.7 mg/dL (0-0.5); CALCIUM 7.6 mg/dL (8.4-11.0); CREATININE 1.78 mg/dL (0.55-1.30); PHOSPHORUS 3.7 mg/dL (2.7-4.5); POTASSIUM 4.7 mmol/L (3.5-5.1); TOTAL BILIRUBIN 0.2 mg/dL (0.0-1.0)
[2022-01-08 08:00] VITALS: BP_SYST 155
[2022-01-08] MEDS: APIXABAN 2.5 MG TABLET PO SCH ×2 (09:31→21:58)
[2022-01-08] MEDS: CYANOCOBALAMIN 1000 mCg TABLET PO SCH (09:32)
[2022-01-08] MEDS: GABAPENTIN 100 MG CAPSULE PO SCH ×2 (09:32→21:57)
[2022-01-08] MEDS: SODIUM BICARBONATE 650 MG TABLET PO SCH ×3 (09:32→21:57)
[2022-01-08] MEDS: PHENAZOPYRIDINE HCL 100 MG TABLET PO SCH ×3 (09:32→19:33)
[2022-01-08] MEDS: CALCIUM CARBONATE/VITAMIN D3 1 TAB TABLET PO SCH ×2 (09:33→21:58)
[2022-01-08] MEDS: HYOSCYAMINE SULFATE 0.125 MG TABLET PO PRN (09:33)
[2022-01-08] MEDS: PANTOPRAZOLE SODIUM 40 MG TAB PO SCH (09:33)
[2022-01-08] MEDS: calcitrioL 0.25 MCG CAPSULE PO SCH ×2 (09:33→21:57)
[2022-01-08] MEDS: ASPIRIN 81 MG TAB.CHEW PO SCH (09:33)
[2022-01-08] MEDS: HYDROcodone/ACETAMIN 5-325 MG TAB (NORCO/ VICODIN) PO PRN ×2 (09:35→16:50)
--- NOTE | 2022-01-08 10:12 | NUR ---
Dr. Najera here to round on patient. Inform MD that pt suprapubic site has foul odor, reddened and draining around site. Order received for culture on site and urology consult, Dr. Del Rio.
[2022-01-08 10:15] LABS: ERYTHROCYTE SEDIMENTATION RATE 30 MM/HR (0-20)
--- NOTE | 2022-01-08 10:37 | NUR ---
CONSULTATION PAGED/CALLED Reason for Consultation: [] SUPRAPUBIC SITE LEAKING/DRAINAGE WITH FOUL ODOR Person Who was Notified: [] LEFT A VOICE MESSAGE Consulting Physician: [] DR Gin ARIAS Manager [employer] Insurance Specialty: [] UROLOGIST Ordering Physician: [] DR CALDERON
[2022-01-08 11:32] VITALS: BP_SYST 122
[2022-01-08] MEDS: cefTRIAXone 1 GM in D5W 50 ML IV SCH (12:50)
[2022-01-08 16:09] VITALS: BP_SYST 129
[2022-01-08] MEDS: NORMAL SALINE 5 ML DISP.SYRIN IVF SCH ×2 (16:50→21:59)
[2022-01-08] MEDS ORDERED: KETOROLAC TROMETHAMINE 30 MG VIAL IVP PRN (17:45)
[2022-01-08 20:00] VITALS: BP_SYST 151
[2022-01-08] MEDS: KETOROLAC TROMETHAMINE 15 MG VIAL IVP PRN (21:49)
[2022-01-08] MEDS: ATORVASTATIN 20 MG TABLET PO SCH (21:57)
[2022-01-09] VITALS: BP_SYST 135
[2022-01-09 06:09] LABS: BASOPHILS % (AUTO) 0.5 % (0.0-2.0); EOSINOPHILS % (AUTO) 1.3 % (0.0-4.0); HEMOGLOBIN 9.5 g/dL (12.0-16.0); LYMPHOCYTES # (AUTO) 1.2 K/uL (1.0-5.5); LYMPHOCYTES % (AUTO) 31.8 % (20.5-51.5); MEAN CORPUSCULAR HEMOGLOBIN 28 pg (27-31); MEAN CORPUSCULAR HGB CONC 33 % (32-36); MEAN CORPUSCULAR VOLUME 85 fL (79.0-98.0); MONOCYTES # (AUTO) 0.5 K/uL (0.0-1.0); MONOCYTES % (AUTO) 11.7 % (1.7-9.3); NEUTROPHILS # (AUTO) 2.1 K/uL (1.8-7.7); NEUTROPHILS % (AUTO) 54.7 % (40.0-70.0); PLATELET COUNT (AUTO) 167 K/uL (130-430); RED BLOOD CELL COUNT(AUTO) 3.41 MIL/uL (4.2-6.2); WHITE BLOOD COUNT (AUTO) 3.9 K/uL (4.8-10.8)
[2022-01-09 06:38] LABS: C-REACTIVE PROTEIN QUANT 0.2 mg/dL (0-0.5); CREATININE 1.93 mg/dL (0.55-1.30); PHOSPHORUS 4.1 mg/dL (2.7-4.5); POTASSIUM 4.3 mmol/L (3.5-5.1)
[2022-01-09] MEDS: NORMAL SALINE 5 ML DISP.SYRIN IVF SCH ×3 (06:42→22:00)
[2022-01-09 07:42] LABS: CALCIUM 7.5 mg/dL (8.4-11.0)
[2022-01-09 08:00] VITALS: BP_SYST 145
[2022-01-09] MEDS: CYANOCOBALAMIN 1000 mCg TABLET PO SCH (08:54)
[2022-01-09] MEDS: GABAPENTIN 100 MG CAPSULE PO SCH ×2 (08:54→20:38)
[2022-01-09] MEDS: ASPIRIN 81 MG TAB.CHEW PO SCH (08:54)
[2022-01-09] MEDS: CALCIUM CARBONATE/VITAMIN D3 1 TAB TABLET PO SCH ×2 (08:54→20:37)
[2022-01-09] MEDS: PANTOPRAZOLE SODIUM 40 MG TAB PO SCH (08:54)
[2022-01-09] MEDS: calcitrioL 0.25 MCG CAPSULE PO SCH ×2 (08:54→20:37)
[2022-01-09] MEDS: SODIUM BICARBONATE 650 MG TABLET PO SCH ×3 (08:54→20:37)
[2022-01-09] MEDS: APIXABAN 2.5 MG TABLET PO SCH ×2 (08:56→20:38)
[2022-01-09] MEDS: PHENAZOPYRIDINE HCL 100 MG TABLET PO SCH (08:59)
[2022-01-09 09:39] LABS: ERYTHROCYTE SEDIMENTATION RATE 33 MM/HR (0-20)
[2022-01-09] MEDS: KETOROLAC TROMETHAMINE 15 MG VIAL IVP PRN ×2 (11:01→20:38)
[2022-01-09 12:00] VITALS: BP_SYST 157
[2022-01-09] MEDS: HYDROcodone/ACETAMIN 5-325 MG TAB (NORCO/ VICODIN) PO PRN (13:18)
[2022-01-09] MEDS: D5/0.45 NS 1,000 ML IV SCH ×2 (13:19→21:30)
[2022-01-09] MEDS: cefTRIAXone 1 GM in D5W 50 ML IV SCH (13:55)
--- NOTE | 2022-01-09 14:35 | NUR ---
Dietitian Recommendations * Consider changing diet to Cardiac Renal Please refer to Nutrition Assessment for details. Addendum: 01/09/22 at [address] Amended: Links added.
[2022-01-09] MEDS ORDERED: CHOLECALCIFEROL (VITAMIN D3) 5,000 UNIT TABLET PO ONE (16:00)
--- NOTE | 2022-01-09 18:00 | NUR ---
NEW IV PLACED Previous IV was pulled out by mistake by patient. Bleeding stopped, bandage applied. New IV placed, 22g, in the left hand.
[2022-01-09 18:50] VITALS: BP_SYST 183
--- NOTE | 2022-01-09 19:05 | NUR ---
PAGED Paged Dr Najera regarding patient's elevated BP. Awaiting call back.
--- NOTE | 2022-01-09 19:25 | NUR ---
CLOSING NOTE Patient sitting up in bed, no sign of distress. Patient states that she has pain, 7/10 on her lower extremities. Oncoming nurse aware and prepared to administer prn medication. Patient's BP elevated, awaiting call back from MD for orders. IV site is intact and running prescribed fluids. Suprapubic catheter patent and draining james urine. All needs met at this time and safety checks made. Endorsed to international trade specialist nurse.
[2022-01-09 20:00] VITALS: BP_SYST 141
[2022-01-09] MEDS: ATORVASTATIN 20 MG TABLET PO SCH (20:37)
[2022-01-10] VITALS (7 sets, daily range): BP systolic 135–162
[2022-01-10 05:38] LABS: BASOPHILS % (AUTO) 0.4 % (0.0-2.0); EOSINOPHILS # (AUTO) 0.1 K/uL (0.0-0.4); EOSINOPHILS % (AUTO) 2.2 % (0.0-4.0); HEMATOCRIT 28.3 % (36-48); HEMOGLOBIN 9.2 g/dL (12.0-16.0); LYMPHOCYTES # (AUTO) 1.1 K/uL (1.0-5.5); LYMPHOCYTES % (AUTO) 24.6 % (20.5-51.5); MEAN CORPUSCULAR HEMOGLOBIN 27 pg (27-31); MEAN CORPUSCULAR HGB CONC 32 % (32-36); MEAN CORPUSCULAR VOLUME 84 fL (79.0-98.0); MONOCYTES # (AUTO) 0.4 K/uL (0.0-1.0); MONOCYTES % (AUTO) 9.7 % (1.7-9.3); NEUTROPHILS # (AUTO) 2.8 K/uL (1.8-7.7); NEUTROPHILS % (AUTO) 63.1 % (40.0-70.0); PLATELET COUNT (AUTO) 153 K/uL (130-430); RED BLOOD CELL COUNT(AUTO) 3.35 MIL/uL (4.2-6.2); WHITE BLOOD COUNT (AUTO) 4.4 K/uL (4.8-10.8)
[2022-01-10] MEDS: NORMAL SALINE 5 ML DISP.SYRIN IVF SCH ×3 (06:00→21:41)
[2022-01-10 06:40] LABS: ANION GAP 8 (5-15); CHLORIDE 112 mmol/L (98-107); CREATININE 1.89 mg/dL (0.55-1.30); GLUCOSE 94 mg/dL (70-99); PHOSPHORUS 4.2 mg/dL (2.7-4.5); POTASSIUM 4.4 mmol/L (3.5-5.1); SODIUM SERUM 145 mmol/L (136-145); UREA NITROGEN, BLOOD 23 mg/dL (8-21)
--- NOTE | 2022-01-10 07:00 | NUR ---
CRITICAL LAB: DAVID from Laboratory called with critical lab value OF Ca+ 6.9, BUN 23, AND CLORIDE 112. Medical record number and patient name verified. Read back of values done. DR. CALDERON WAS notified of value. Noorders given at this time.
[2022-01-10 07:03] LABS: CALCIUM 6.9 mg/dL (8.4-11.0); GFR AFRICAN AMERICAN 34 mL/min (>90)
[2022-01-10] MEDS: D5/0.45 NS 1,000 ML IV SCH ×2 (07:30→18:32)
[2022-01-10] MEDS: PANTOPRAZOLE SODIUM 40 MG TAB PO SCH (08:28)
[2022-01-10] MEDS: GABAPENTIN 100 MG CAPSULE PO SCH ×2 (08:28→21:40)
[2022-01-10] MEDS: calcitrioL 0.25 MCG CAPSULE PO SCH ×2 (08:28→21:39)
[2022-01-10] MEDS: ASPIRIN 81 MG TAB.CHEW PO SCH (08:28)
[2022-01-10] MEDS: CHOLECALCIFEROL (VITAMIN D3) 5,000 UNIT TABLET PO SCH (08:28)
[2022-01-10] MEDS: CALCIUM CARBONATE/VITAMIN D3 1 TAB TABLET PO SCH ×2 (08:28→21:40)
[2022-01-10] MEDS: SODIUM BICARBONATE 650 MG TABLET PO SCH ×3 (08:28→21:40)
[2022-01-10] MEDS: APIXABAN 2.5 MG TABLET PO SCH ×2 (08:29→21:40)
--- NOTE | 2022-01-10 08:34 | NUR ---
OPENING NOTE Patient in bed resting, AxO x4. No sign of distress, complains of pain 7/10. States that her pain is in her stomach and lower extremities. Suprapubic catheter in place draining yellow urine. IV is intact and patent. Updated patient on her plan of care for the day. All needs met at this time and safety checks made. Will continue to monitor.
[2022-01-10] MEDS: KETOROLAC TROMETHAMINE 15 MG VIAL IVP PRN ×2 (08:56→18:47)
[2022-01-10 09:28] LABS: ERYTHROCYTE SEDIMENTATION RATE 29 MM/HR (0-20)
[2022-01-10 10:32] LABS: C-REACTIVE PROTEIN QUANT < 0.2 mg/dL (0-0.5)
[2022-01-10] MEDS ORDERED: CALCIUM GLUCONATE 2 GM in NS 100 ML IV ONE (11:30)
[2022-01-10] MEDS: cefTRIAXone 1 GM in D5W 50 ML IV SCH (12:22)
[2022-01-10] MEDS: HYDROcodone/ACETAMIN 5-325 MG TAB (NORCO/ VICODIN) PO PRN ×2 (12:41→21:41)
--- NOTE | 2022-01-10 18:49 | NUR ---
CLOSING NOTE Patient resting in bed, no sign of distress. Complains of persistent pain in her lower abdomen radiating to her low back, 02/18. PRN medication given. IV is patent and running prescribed fluids. Suprapubic catheter is patent and draining yellow urine. Patient able to ambulate to the restroom with steady gait. All needs met at this time and safety checks made. Will endorse to nightclub manager nurse.
[2022-01-10] MEDS: ATORVASTATIN 20 MG TABLET PO SCH (21:40)
[2022-01-11 00:34] VITALS: BP_SYST 146
[2022-01-11] MEDS: D5/0.45 NS 1,000 ML IV SCH ×3 (04:49→23:30)
[2022-01-11] MEDS: NORMAL SALINE 5 ML DISP.SYRIN IVF SCH ×3 (05:44→20:40)
--- NOTE | 2022-01-11 05:55 | NUR ---
Pt remained stable throughout the night, attended to all needs/concerns. pt endorsing abdominal pain last night, medicated with prn medication which therapeutic goal reached. abdomen non distended and soft, pt does not report constipation. suprapubic cath intact & draining yellow urine. slight redness around cath site, no tenderness noted or drainage. pt able to self turn in bed and perform ADL's. IV to left wrist intact/patent infusing d5 1/2 @ 100 ml/hr. pt remained room air tolerating well with no sob. will cont w plan of care and endorse to AM RN.
[2022-01-11 06:28] LABS: BASOPHILS % (AUTO) 0.4 % (0.0-2.0); EOSINOPHILS # (AUTO) 0.1 K/uL (0.0-0.4); EOSINOPHILS % (AUTO) 1.6 % (0.0-4.0); HEMATOCRIT 27.2 % (36-48); HEMOGLOBIN 8.9 g/dL (12.0-16.0); LYMPHOCYTES # (AUTO) 0.7 K/uL (1.0-5.5); MEAN CORPUSCULAR HEMOGLOBIN 28 pg (27-31); MEAN CORPUSCULAR HGB CONC 33 % (32-36); MEAN CORPUSCULAR VOLUME 85 fL (79.0-98.0); MONOCYTES # (AUTO) 0.4 K/uL (0.0-1.0); NEUTROPHILS # (AUTO) 3.5 K/uL (1.8-7.7); PLATELET COUNT (AUTO) 138 K/uL (130-430); RED BLOOD CELL COUNT(AUTO) 3.22 MIL/uL (4.2-6.2); RED CELL DISTRIBUTION WIDTH 15.5 % (9.0-15.0); WHITE BLOOD COUNT (AUTO) 4.7 K/uL (4.8-10.8)
[2022-01-11 06:52] LABS: ALANINE AMINOTRANSFERASE 12 U/L (12-78); ALBUMIN 2.2 g/dL (3.4-4.8); ANION GAP 7 (5-15); ASPARTATE AMINOTRANSFERASE 17 U/L (10-37); C-REACTIVE PROTEIN QUANT < 0.2 mg/dL (0-0.5); CALCIUM 7.2 mg/dL (8.4-11.0); CHLORIDE 111 mmol/L (98-107); CREATININE 2.05 mg/dL (0.55-1.30); POTASSIUM 4.4 mmol/L (3.5-5.1); SODIUM SERUM 143 mmol/L (136-145); TOTAL BILIRUBIN 0.1 mg/dL (0.0-1.0); UREA NITROGEN, BLOOD 25 mg/dL (8-21)
[2022-01-11 07:15] LABS: GLUCOSE 85 mg/dL (70-99); PHOSPHORUS 4.1 mg/dL (2.7-4.5)
[2022-01-11 07:31] LABS: GFR AFRICAN AMERICAN 31 mL/min (>90)
[2022-01-11] MEDS: ASPIRIN 81 MG TAB.CHEW PO SCH (08:38)
[2022-01-11] MEDS: calcitrioL 0.25 MCG CAPSULE PO SCH ×2 (08:38→20:40)
[2022-01-11] MEDS: SODIUM BICARBONATE 650 MG TABLET PO SCH ×3 (08:38→20:40)
[2022-01-11] MEDS: GABAPENTIN 100 MG CAPSULE PO SCH ×2 (08:39→20:40)
[2022-01-11] MEDS: PANTOPRAZOLE SODIUM 40 MG TAB PO SCH (08:39)
[2022-01-11] MEDS: HYDROcodone/ACETAMIN 5-325 MG TAB (NORCO/ VICODIN) PO PRN ×3 (08:42→20:34)
[2022-01-11] MEDS: APIXABAN 2.5 MG TABLET PO SCH ×2 (08:42→20:39)
[2022-01-11] MEDS: CALCIUM CARBONATE/VITAMIN D3 1 TAB TABLET PO SCH ×2 (08:44→20:40)
[2022-01-11] MEDS: CHOLECALCIFEROL (VITAMIN D3) 5,000 UNIT TABLET PO SCH (09:00)
[2022-01-11 10:18] VITALS: BP_SYST 152
[2022-01-11] MEDS: cefTRIAXone 1 GM in D5W 50 ML IV SCH (11:51)
[2022-01-11 11:56] LABS: ERYTHROCYTE SEDIMENTATION RATE 30 MM/HR (0-20)
[2022-01-11 12:33] VITALS: BP_SYST 124
[2022-01-11 16:27] VITALS: BP_SYST 147
[2022-01-11] MEDS: HYOSCYAMINE SULFATE 0.125 MG TABLET PO PRN (19:04)
[2022-01-11 20:00] VITALS: BP_SYST 144
--- NOTE | 2022-01-11 20:00 | NUR ---
OPENING NOTE Patient sitting up in bed in tears reports her pain is 10/10 on her lower extremities and back. Pt is AOX4. Patient's BP elevated, per pt its related to her pain. IV site is intact and running prescribed fluids. V/s with in normal limits except for slightly elevated. Suprapubic catheter patent and draining james urine. All needs met at this time and safety precautions in place Endorsed to car shifter nurse
[2022-01-11 20:28] VITALS: BP_SYST 144
--- NOTE | 2022-01-11 20:30 | NUR ---
PAIN MEDICATION PT GIVEN BOTH PAIN MEDICATION AD REPORTS THAT IS WHAT USUALLY WORK TO GET RID OF HER PAIN
[2022-01-11] MEDS: KETOROLAC TROMETHAMINE 15 MG VIAL IVP PRN (20:38)
[2022-01-11] MEDS: ATORVASTATIN 20 MG TABLET PO SCH (20:39)
--- NOTE | 2022-01-11 23:05 | NUR ---
OPENING NOTE Received pt from Liz GUO @[id number] due to change in assignments. Liz report 2100 medication have not been Pt, AOX4 Patient sitting up in bed, no sign of distress. Patient states that she has pain, 10/10 on her lower extremities. Iv intact and patent with fluids infusing. Suprapubic catheter patent and draining james urine. All needs met at this time and safety precautions in place . Addendum: 01/12/22 at 0554 by Javier Randall RN THIS IS THE WRONG PT
--- NOTE | 2022-01-11 23:35 | NUR ---
2100 MEDICATIONS PT DID NOT WAN TO TAKE ALL OF HER MEDICATION R/T THEY WERE OT GIVEN TO HER AT 2100. PT AGREED TO DO HER ACCU CHECK WHICH WAS 205 AND COVERED WITH 4 UNITS REG INSULIN. PT TOOK NORCO PAIN PILL. PT TOOK HER ELIQUIS . PT DID A COUPLE OF MORE MEDS AND REFUSED THE RESTY Addendum: 01/12/22 at 0554 by [employer] polymerization supervisor THIS IS THE WRONG PT
--- NOTE | 2022-01-12 00:03 | NUR ---
PAIN 04/21 PT DID REQUEST MS CONTIN R/T VERO DID NOT RELIVE HER PAIN Addendum: 01/12/22 at 0554 by [facility] field mechanic THIS IS THE WRONG PT
[2022-01-12 00:08] VITALS: BP_SYST 133
[2022-01-12] MEDS: NORMAL SALINE 5 ML DISP.SYRIN IVF SCH ×3 (05:52→21:36)
[2022-01-12 07:19] LABS: HEMATOCRIT 26.5 % (36-48); HEMOGLOBIN 8.6 g/dL (12.0-16.0); MEAN CORPUSCULAR HEMOGLOBIN 27 pg (27-31); MEAN CORPUSCULAR HGB CONC 32 % (32-36); MEAN CORPUSCULAR VOLUME 85 fL (79.0-98.0); PLATELET COUNT (AUTO) 153 K/uL (130-430); RED BLOOD CELL COUNT(AUTO) 3.14 MIL/uL (4.2-6.2); RED CELL DISTRIBUTION WIDTH 15.6 % (9.0-15.0); WHITE BLOOD COUNT (AUTO) 3.7 K/uL (4.8-10.8)
[2022-01-12 07:44] LABS: CREATININE 2.09 mg/dL (0.55-1.30); POTASSIUM 4.6 mmol/L (3.5-5.1); TOTAL BILIRUBIN 0.1 mg/dL (0.0-1.0)
[2022-01-12 07:45] LABS: ALBUMIN 2.2 g/dL (3.4-4.8)
[2022-01-12 08:00] VITALS: BP_SYST 125
[2022-01-12 08:34] LABS: CALCIUM 6.8 mg/dL (8.4-11.0)
[2022-01-12] MEDS: D5/0.45 NS 1,000 ML IV SCH ×2 (09:30→21:35)
[2022-01-12] MEDS ORDERED: CALCIUM GLUCONATE 2 GM in NS 100 ML IV ONE (10:00)
[2022-01-12] MEDS: ASPIRIN 81 MG TAB.CHEW PO SCH (10:02)
[2022-01-12] MEDS: calcitrioL 0.25 MCG CAPSULE PO SCH ×2 (10:02→21:31)
[2022-01-12] MEDS: PANTOPRAZOLE SODIUM 40 MG TAB PO SCH (10:02)
[2022-01-12] MEDS: GABAPENTIN 100 MG CAPSULE PO SCH ×2 (10:02→21:33)
[2022-01-12] MEDS: CHOLECALCIFEROL (VITAMIN D3) 5,000 UNIT TABLET PO SCH (10:03)
[2022-01-12] MEDS: SODIUM BICARBONATE 650 MG TABLET PO SCH ×3 (10:03→21:31)
[2022-01-12] MEDS: CALCIUM CARBONATE/VITAMIN D3 1 TAB TABLET PO SCH ×2 (10:05→21:34)
[2022-01-12] MEDS: HYDROcodone/ACETAMIN 5-325 MG TAB (NORCO/ VICODIN) PO PRN ×3 (10:06→22:17)
[2022-01-12 12:35] VITALS: BP_SYST 140
[2022-01-12] MEDS: cefTRIAXone 1 GM in D5W 50 ML IV SCH (13:12)
[2022-01-12] MEDS: APIXABAN 2.5 MG TABLET PO SCH ×2 (13:12→21:33)
[2022-01-12 15:46] LABS: BAND % (MANUAL) 0 % (0-6); BASOPHILS % (MANUAL) 0 % (0-2); EOSINOPHILS % (MANUAL) 5 % (0-7); LYMPHOCYTES % (MANUAL) 33 % (20-46); MONOCYTES % (MANUAL) 12 % (0-11)
[2022-01-12 16:34] VITALS: BP_SYST 137
--- NOTE | 2022-01-12 18:30 | NUR ---
Patient has had an uneventful shift. Respirations evne t unlabored. Pt continues on IV antibiotic therapy. Pt received calcium replacement IV as per ordered while being monitored on telemetry. NO ectopy noted. Pain managed with prn [place]. Pt teaching done on the s/s of medications that can affect the kidneys. Pt verbalized understanding. S/P cath patent et secure and draqining yellow urine. Will continue to monitor pt.
--- NOTE | 2022-01-12 19:15 | NUR ---
OPENING NOTE REPORT RECEIVED FROM DAYSHIFT NURSE. PATIENT RECEIVED LYING IN BED, AWAKE, ALERT, NO S/S OF ACUTE DISTRESS. BREATHING EVEN AND UNLABORED. PATIENT DENIES PAIN. IVF INFUSING WELL, IV SITE PATENT, NO SIGNS OF INFILTRATION OR INFECTION NOTED. HOB RAISED, PATIENT WATCHING TV. CALL LIGHT WITH PATIENT, DEMONSTRATED PROPER USE. BED IS LOCKED AND AT LOWEST POSITION. WILL CONTINUE TO MONITOR.
[2022-01-12 20:00] VITALS: BP_SYST 145
[2022-01-12] MEDS: ATORVASTATIN 20 MG TABLET PO SCH (21:31)
--- NOTE | 2022-01-12 22:15 | NUR ---
PAIN PATIENT COMPLAINED OF LOWER BACK PAIN. PRN MEDICATION ADMINISTERED. WILL CONTINUE TO MONITOR AND REASSESS.
[2022-01-13] VITALS: BP_SYST 138
[2022-01-13] MEDS: HYDROcodone/ACETAMIN 5-325 MG TAB (NORCO/ VICODIN) PO PRN ×3 (04:17→21:39)
--- NOTE | 2022-01-13 04:17 | NUR ---
PAIN PATIENT COMPLAINING OF PAIN. PRN MEDICATION ADMINISTERED. WILL CONTINUE TO MONITOR.
[2022-01-13] MEDS: D5/0.45 NS 1,000 ML IV SCH ×2 (05:30→16:01)
[2022-01-13] MEDS: NORMAL SALINE 5 ML DISP.SYRIN IVF SCH ×3 (05:36→21:19)
--- NOTE | 2022-01-13 06:16 | NUR ---
CLOSING NOTE PATIENT IN BED ASLEEP, NO S/S OF ACUTE DISTRESS NOTED. BREATHING EVEN AND UNLABORED. IVF INFUSING WELL, IV SITE IS PATENT, NO SIGNS OF INFILTRATION OR INFECTION NOTED. GLEASON ATTACHED, SECURED, AND DRAINING BY GRAVITY. ALL NEEDS MET THROUGHOUT SHIFT. FALL AND SAFETY PRECAUTIONS MAINTAINED THROUGHOUT SHIFT. WILL CONTINUE TO MONITOR UNTIL PATIENT CARE IS ENDORSED TO ONCOMING DAYSHIFT NURSE.
[2022-01-13 06:44] LABS: BASOPHILS % (AUTO) 0.7 % (0.0-2.0); EOSINOPHILS # (AUTO) 0.1 K/uL (0.0-0.4); EOSINOPHILS % (AUTO) 1.6 % (0.0-4.0); HEMOGLOBIN 8.5 g/dL (12.0-16.0); LYMPHOCYTES # (AUTO) 1.2 K/uL (1.0-5.5); LYMPHOCYTES % (AUTO) 31.5 % (20.5-51.5); MEAN CORPUSCULAR HEMOGLOBIN 28 pg (27-31); MEAN CORPUSCULAR HGB CONC 33 % (32-36); MEAN CORPUSCULAR VOLUME 84 fL (79.0-98.0); MONOCYTES # (AUTO) 0.5 K/uL (0.0-1.0); MONOCYTES % (AUTO) 12.2 % (1.7-9.3); NEUTROPHILS # (AUTO) 2.1 K/uL (1.8-7.7); PLATELET COUNT (AUTO) 138 K/uL (130-430); RED BLOOD CELL COUNT(AUTO) 3.09 MIL/uL (4.2-6.2); RED CELL DISTRIBUTION WIDTH 15.8 % (9.0-15.0); WHITE BLOOD COUNT (AUTO) 3.9 K/uL (4.8-10.8)
[2022-01-13 06:57] LABS: C-REACTIVE PROTEIN QUANT 0.4 mg/dL (0-0.5); CREATININE 2.17 mg/dL (0.55-1.30); PHOSPHORUS 4.4 mg/dL (2.7-4.5); POTASSIUM 4.6 mmol/L (3.5-5.1)
[2022-01-13 07:40] LABS: CALCIUM 6.9 mg/dL (8.4-11.0)
[2022-01-13 08:00] VITALS: BP_SYST 150
--- NOTE | 2022-01-13 08:00 | NUR ---
OPENING NOTES: PATIENT RESTING IN BED. IV INFUSING WELL. BREATHING EVEN AND NO LABORED TO RA. FALL, SAFETY AND ASPIRATION MEASURES REINFORCED. CALL LIGHT WITHIN REACH.
[2022-01-13 08:58] LABS: ERYTHROCYTE SEDIMENTATION RATE 28 MM/HR (0-20)
[2022-01-13] MEDS: ASPIRIN 81 MG TAB.CHEW PO SCH (09:31)
[2022-01-13] MEDS: GABAPENTIN 100 MG CAPSULE PO SCH ×2 (09:31→21:18)
[2022-01-13] MEDS: CHOLECALCIFEROL (VITAMIN D3) 5,000 UNIT TABLET PO SCH (09:31)
[2022-01-13] MEDS: CALCIUM CARBONATE/VITAMIN D3 1 TAB TABLET PO SCH ×2 (09:31→21:19)
[2022-01-13] MEDS: PANTOPRAZOLE SODIUM 40 MG TAB PO SCH (09:32)
[2022-01-13] MEDS: APIXABAN 2.5 MG TABLET PO SCH ×2 (09:33→21:00)
[2022-01-13] MEDS: SODIUM BICARBONATE 650 MG TABLET PO SCH ×3 (09:35→21:19)
[2022-01-13] MEDS: calcitrioL 0.25 MCG CAPSULE PO SCH ×2 (09:36→21:19)
[2022-01-13 12:00] VITALS: BP_SYST 139
[2022-01-13] MEDS: cefTRIAXone 1 GM in D5W 50 ML IV SCH (13:22)
[2022-01-13] MEDS ORDERED: CALCIUM GLUCONATE 2 GM in NS 100 ML IV ONE (14:00)
--- NOTE | 2022-01-13 14:30 | NUR ---
RN NOTES: PATIENT RESTING IN BED. STABLE VS. NO S/S OF ACUTE DISTRESS NOTED. CALCIUM GLUCONATE GIVEN ORDERED. CALL LIGHT WITHIN REACH.
[2022-01-13 16:24] VITALS: BP_SYST 142
[2022-01-13 18:36] LABS: BILIRUBIN,URINE NEGATIVE (NEGATIVE); BLOOD, URINE 1+ (NEGATIVE); CLARITY/URINE CLOUDY (CLEAR); COLOR,URINE STRAW (YELLOW); GLUCOSE,URINE NEGATIVE (NEGATIVE); KETONES,URINE NEGATIVE (NEGATIVE); LEUKOCYTE ESTERASE ,URINE 1+ (NEGATIVE); NITRITE, URINE NEGATIVE (NEGATIVE); PROTEIN URINE NEGATIVE (NEGATIVE); UROBILINOGEN,URINE 0.2 (0.2-1.0)
--- NOTE | 2022-01-13 18:46 | NUR ---
CLOSING NOTES: PATIENT RESTING IN BED. NO S/S OF ACUTE DISTRESS NOTED. FALL AND SAFETY MEASURES PROVIDED. IV PATENT AND INFUSING WELL. NEEDS MET THROUGHOUT SHIFT. CALL LIGHT WITHIN REACH. WILL CONTINUE MONITOR UNTIL ENDORSE TO MOTION PICTURE PROJECTIONIST RN.
[2022-01-13 19:04] LABS: BACTERIA,URINE MODERATE /HPF (None Seen); WBC,URINE 0-3 /HPF (0-3)
[2022-01-13 19:07] VITALS: BP_SYST 184
--- NOTE | 2022-01-13 21:15 | NUR ---
SIGNS OF BRUISING EASY BLEEDING ON PATIENT IV SITE AND BILATERAL ARMS. CALL TO MD CALDERON FOR HOLD APPROVAL ON ELIQUIS GIVEN PER . ANILA MURPHY RN
[2022-01-13] MEDS ORDERED: COMMUNICATION ORDER XX ONE (21:30)
[2022-01-13 23:38] VITALS: BP_SYST 178
[2022-01-14] MEDS: D5/0.45 NS 1,000 ML IV SCH ×2 (02:39→11:30)
[2022-01-14] MEDS: NORMAL SALINE 5 ML DISP.SYRIN IVF SCH ×2 (06:18→14:00)
[2022-01-14 07:04] LABS: BASOPHILS % (AUTO) 0.6 % (0.0-2.0); EOSINOPHILS # (AUTO) 0.1 K/uL (0.0-0.4); EOSINOPHILS % (AUTO) 2.3 % (0.0-4.0); HEMOGLOBIN 9.9 g/dL (12.0-16.0); LYMPHOCYTES # (AUTO) 1.2 K/uL (1.0-5.5); LYMPHOCYTES % (AUTO) 31.1 % (20.5-51.5); MEAN CORPUSCULAR HEMOGLOBIN 28 pg (27-31); MEAN CORPUSCULAR HGB CONC 33 % (32-36); MEAN CORPUSCULAR VOLUME 84 fL (79.0-98.0); MONOCYTES # (AUTO) 0.4 K/uL (0.0-1.0); MONOCYTES % (AUTO) 10.6 % (1.7-9.3); NEUTROPHILS # (AUTO) 2.2 K/uL (1.8-7.7); NEUTROPHILS % (AUTO) 55.4 % (40.0-70.0); PLATELET COUNT (AUTO) 168 K/uL (130-430); RED BLOOD CELL COUNT(AUTO) 3.56 MIL/uL (4.2-6.2)
--- NOTE | 2022-01-14 07:30 | NUR ---
OPENING NOTES: PATIENT RESTING IN BED. REFUSED IV REINSERTION AT THIS TIME. BREATHING EVEN AND NO LABORED TO RA. SUPRAPUBIC CATHETER IN PLACED AND DRAINING BY GRAVITY. FALL, SAFETY AND ASPIRATION MEASURES REINFORCED. CALL LIGHT WITHIN REACH.
[2022-01-14 07:32] LABS: ALANINE AMINOTRANSFERASE 14 U/L (12-78); ALBUMIN 2.8 g/dL (3.4-4.8); ANION GAP 8 (5-15); ASPARTATE AMINOTRANSFERASE 22 U/L (10-37); CALCIUM 7.7 mg/dL (8.4-11.0); CHLORIDE 110 mmol/L (98-107); CREATININE 2.25 mg/dL (0.55-1.30); GLUCOSE 85 mg/dL (70-99); PHOSPHORUS 4.7 mg/dL (2.7-4.5); POTASSIUM 4.4 mmol/L (3.5-5.1); SODIUM SERUM 143 mmol/L (136-145); TOTAL BILIRUBIN < 0.1 mg/dL (0.0-1.0); UREA NITROGEN, BLOOD 21 mg/dL (8-21)
[2022-01-14 07:34] LABS: C-REACTIVE PROTEIN QUANT < 0.2 mg/dL (0-0.5); GFR AFRICAN AMERICAN 28 mL/min (>90)
[2022-01-14 07:57] VITALS: BP_SYST 134
[2022-01-14] MEDS: calcitrioL 0.25 MCG CAPSULE PO SCH (08:17)
[2022-01-14] MEDS: SODIUM BICARBONATE 650 MG TABLET PO SCH (08:17)
[2022-01-14] MEDS: ASPIRIN 81 MG TAB.CHEW PO SCH (08:18)
[2022-01-14] MEDS: GABAPENTIN 100 MG CAPSULE PO SCH (08:18)
[2022-01-14] MEDS: CHOLECALCIFEROL (VITAMIN D3) 5,000 UNIT TABLET PO SCH (08:18)
[2022-01-14] MEDS: PANTOPRAZOLE SODIUM 40 MG TAB PO SCH (08:18)
[2022-01-14] MEDS: CALCIUM CARBONATE/VITAMIN D3 1 TAB TABLET PO SCH (08:18)
--- NOTE | 2022-01-14 10:00 | NUR ---
Pt refused iv reinsertion. Patient refused IV reinsertion. Patient will be discharged.
[2022-01-14 10:14] LABS: ERYTHROCYTE SEDIMENTATION RATE 34 MM/HR (0-20)
[2022-01-14] MEDS ORDERED: CHOL500013 PO (11:28)
[2022-01-14] MEDS ORDERED: CALC0.258 PO (11:28)
[2022-01-14 12:00] VITALS: BP_SYST 138
[2022-01-14] MEDS: cefTRIAXone 1 GM in D5W 50 ML IV SCH (12:00)
--- NOTE | 2022-01-14 13:00 | NUR ---
SPOKE TO DR. PARKS (RE: DISCHARGE): SPOKE TO DR. PARKS REGARDING DISCHARGE. PER DR. PARKS, OKAY TO DISCHARGE PATIENT AND FOLLOW UP IN HIS OFFICE IN 2 WEEKS.
--- NOTE | 2022-01-14 13:42 | NUR ---
[facility]/HCP CM AFTER SCHOOL PROGRAM DIRECTOR MS SHER RIVERO WAS CALLED, RE: TO [facility] HOME HEALTH FOR HOME MEDS RECONCILLATION. LEFT CM A VOICE MESSAGE.
[2022-01-14 14:44] VITALS: BP_SYST 138
--- NOTE | 2022-01-14 15:30 | NUR ---
D/C Patient Patient given medication reconciliation form and D/C instructions. Discharge home w/ home health c/o [facility]/ HCP. Exit Care provided. Patient verbalized understanding. MD discussed with patient the results and treatment provided. Ambulatory with steady gait for discharge to home. Patient in stable condition, ID band removed. IV catheter removed, intact and dressing applied, no active bleeding. E script sent to preferred pharmacy. Patient educated on pain management. All belongings sent with patient.
[2022-01-18 11:07] LABS: ATYPICAL pANCA <1:20 titer (Neg:<1:20); CYTOPLASMIC (C-ANCA) <1:20 titer (Neg:<1:20); CYTOPLASMIC (P-ANCA) <1:20 titer (Neg:<1:20)
== END 2022-01-14 18:00 | disposition home health service (06) | DRG 871 ==
LOC: SED 14:22 → SMU 17:34 → STU 01-12 13:00 → SMU 01-12 22:09
PROVIDERS: ADMIT Preventive Medicine Preventive Medicine/Occupational Environmental Medicine; ATTEND Preventive Medicine Preventive Medicine/Occupational Environmental Medicine
DX: A41.9 Sepsis, unspecified organism (principal); N17.0 Acute kidney failure with tubular necrosis; N39.0 Urinary tract infection, site not specified; E44.0 Moderate protein-calorie malnutrition; B96.1 Klebsiella pneumoniae [K. pneumoniae] as the cause of diseases classified elsewhere; E83.41 Hypermagnesemia; E83.51 Hypocalcemia; B96.89 Other specified bacterial agents as the cause of diseases classified elsewhere; D64.9 Anemia, unspecified; G89.4 Chronic pain syndrome; I12.9 Hypertensive chronic kidney disease with stage 1 through stage 4 chronic kidney disease, or unspecified chronic kidney disease; E11.22 Type 2 diabetes mellitus with diabetic chronic kidney disease; N18.9 Chronic kidney disease, unspecified; E88.09 Other disorders of plasma-protein metabolism, not elsewhere classified; E83.52 Hypercalcemia; J45.909 Unspecified asthma, uncomplicated; E83.39 Other disorders of phosphorus metabolism; I48.91 Unspecified atrial fibrillation; I25.10 Atherosclerotic heart disease of native coronary artery without angina pectoris; Z20.822 Contact with and (suspected) exposure to COVID-19; E11.21 Type 2 diabetes mellitus with diabetic nephropathy; N31.2 Flaccid neuropathic bladder, not elsewhere classified; N31.9 Neuromuscular dysfunction of bladder, unspecified; Z98.84 Bariatric surgery status; Z86.73 Personal history of transient ischemic attack (TIA), and cerebral infarction without residual deficits; Z79.899 Other long term (current) drug therapy; Z79.01 Long term (current) use of anticoagulants; Z68.23 Body mass index [BMI] 23.0-23.9, adult
CPT/HCPCS: 36415; 70450-TC; 71045; 76376; 76700-TC; 76770; 80048; 80053; 80307; 81000; 82306; 82607; 83735; 83970; 84100; 84443; 85007; 85025; 85027; 85651-TC; 86038; 86140; 86256; 86886; 86900; 86901; 87070-TC; 87086; 93005; 96365; 99291; J0610; J0696; J1885; J3480; J7050; J7060

== ENCOUNTER 2022-02-05 11:53 | Emergency (ER) | payer OTHER ==
[~2022-02-05] VITALS: Ht 160 cm; Wt 58.5 kg
[~2022-02-05 11:53] MED LIST changes: -ATOR40TA68 PO; +CALC0.258 PO; -CEFU250T85 PO; -CEPH250C PO; +CHOL500013 PO; -KAY15 PO; -LEVO250T43 PO; +LIP40 PO
--- NOTE | 2022-02-05 12:04 | NUR ---
TRIAGE DONE, READ BY AILIN BLEVINS FOR PT TO BE INLOBBY WAIITNG ROOM FOR NOW. PT INFORMED TO ADVISE STAFF IF PAIN WORSENS OR SYMPTOMS CHANGE.
[2022-02-05 12:36] LABS: BASOPHILS # (AUTO) 0.1 K/uL (0.0-0.2); BASOPHILS % (AUTO) 1.1 % (0.0-2.0); EOSINOPHILS # (AUTO) 0.1 K/uL (0.0-0.4); EOSINOPHILS % (AUTO) 1.6 % (0.0-4.0); HEMATOCRIT 29.2 % (36-48); HEMOGLOBIN 9.6 g/dL (12.0-16.0); LYMPHOCYTES # (AUTO) 0.8 K/uL (1.0-5.5); LYMPHOCYTES % (AUTO) 11.7 % (20.5-51.5); MEAN CORPUSCULAR HEMOGLOBIN 27 pg (27-31); MEAN CORPUSCULAR HGB CONC 33 % (32-36); MEAN CORPUSCULAR VOLUME 83 fL (79.0-98.0); MONOCYTES # (AUTO) 0.5 K/uL (0.0-1.0); MONOCYTES % (AUTO) 6.6 % (1.7-9.3); NEUTROPHILS # (AUTO) 5.6 K/uL (1.8-7.7); PLATELET COUNT (AUTO) 140 K/uL (130-430); RED BLOOD CELL COUNT(AUTO) 3.51 MIL/uL (4.2-6.2); RED CELL DISTRIBUTION WIDTH 16.5 % (9.0-15.0); WHITE BLOOD COUNT (AUTO) 7.1 K/uL (4.8-10.8)
[2022-02-05 12:59] LABS: ANION GAP 15 (5-15); CALCIUM 7.1 mg/dL (8.4-11.0); CHLORIDE 113 mmol/L (98-107); CREATININE 1.81 mg/dL (0.55-1.30); GLUCOSE 79 mg/dL (70-99); POTASSIUM 3.9 mmol/L (3.5-5.1); SODIUM SERUM 146 mmol/L (136-145); UREA NITROGEN, BLOOD 21 mg/dL (8-21)
[2022-02-05 13:00] LABS: GFR AFRICAN AMERICAN 36 mL/min (>90)
[2022-02-05 13:08] LABS: ALANINE AMINOTRANSFERASE 24 U/L (12-78); ASPARTATE AMINOTRANSFERASE 21 U/L (10-37); TOTAL BILIRUBIN 0.4 mg/dL (0.0-1.0)
[2022-02-05 13:29] VITALS: BP_SYST 159
[2022-02-05 13:40] VITALS: BP_SYST 142
--- NOTE | 2022-02-05 13:49 | NUR ---
Patient given written and verbal discharge instructions and verbalizes understanding. ER MD discussed with patient the results and treatment provided. Patient in stable condition. ID arm band removed. Patient educated on pain management and to follow up with PMD. Pain Scale . Opportunity for questions provided and answered. Medication side effect fact sheet provided.
== END 2022-02-05 13:40 | disposition home or self-care (01) ==
LOC: SED 11:53
DX: R07.89 Other chest pain (principal); J45.909 Unspecified asthma, uncomplicated; E11.9 Type 2 diabetes mellitus without complications; Z88.1 Allergy status to other antibiotic agents; Z79.899 Other long term (current) drug therapy
CPT/HCPCS: 36415; 71045; 80053; 84484; 85025; 93005; 99285

== ENCOUNTER 2022-02-18 13:42 | Emergency (ER) | payer OTHER ==
[~2022-02-18] VITALS: Ht 160 cm; Wt 59.0 kg
[2022-02-18 14:20] VITALS: BP_SYST 134
--- NOTE | 2022-02-18 14:20 | NUR ---
PT CAME IN FROM HOME REPORTS WAKING UP AT 0900 WITH LOWER MID ABD SWELLING AND PAIN SHARP AND BURNING, HAS GLEASON IN PLACE, REPORTSNORMAL DRAINAGE, LAST BM THIS MORNING. PT IS AMBULATORY, AAOX4, VSS
--- NOTE | 2022-02-18 14:20 | NUR ---
PT TRAIGED AND PLACED IN ED WAITING ROOM FOR AVAILABLE BED IN MAIN ED. ER MD AWARE OF MSE NEEDS
[2022-02-18 14:33] LABS: BILIRUBIN,URINE NEGATIVE (NEGATIVE); BLOOD, URINE 3+ (NEGATIVE); CLARITY/URINE CLEAR (CLEAR); COLOR,URINE YELLOW (YELLOW); GLUCOSE,URINE NEGATIVE (NEGATIVE); KETONES,URINE NEGATIVE (NEGATIVE); NITRITE, URINE NEGATIVE (NEGATIVE); PH,URINE 6.5 (5.0-8.0); PROTEIN URINE TRACE (NEGATIVE); UROBILINOGEN,URINE 0.2 (0.2-1.0)
[2022-02-18 14:37] LABS: LEUKOCYTE ESTERASE ,URINE 1+ (NEGATIVE)
[2022-02-18 14:39] LABS: BACTERIA,URINE MODERATE /HPF (None Seen); MUCUS,URINE None Seen /LPF (None Seen); YEAST,URINE Moderate /HPF (None Seen)
--- NOTE | 2022-02-18 15:15 | NUR ---
LAB WITH PT FOR BLOOD DRAW
--- NOTE | 2022-02-18 15:27 | NUR ---
COVID-19 swabbed, sent to lab.
[2022-02-18 15:33] LABS: BASOPHILS # (AUTO) 0.1 K/uL (0.0-0.2); EOSINOPHILS # (AUTO) 0.1 K/uL (0.0-0.4); EOSINOPHILS % (AUTO) 1.3 % (0.0-4.0); HEMATOCRIT 29.7 % (36-48); HEMOGLOBIN 9.7 g/dL (12.0-16.0); LYMPHOCYTES # (AUTO) 0.7 K/uL (1.0-5.5); LYMPHOCYTES % (AUTO) 11.8 % (20.5-51.5); MEAN CORPUSCULAR HEMOGLOBIN 27 pg (27-31); MEAN CORPUSCULAR HGB CONC 33 % (32-36); MEAN CORPUSCULAR VOLUME 83 fL (79.0-98.0); MONOCYTES # (AUTO) 0.5 K/uL (0.0-1.0); MONOCYTES % (AUTO) 9.3 % (1.7-9.3); NEUTROPHILS # (AUTO) 4.3 K/uL (1.8-7.7); NEUTROPHILS % (AUTO) 76.6 % (40.0-70.0); PLATELET COUNT (AUTO) 276 K/uL (130-430); RED CELL DISTRIBUTION WIDTH 16.6 % (9.0-15.0); WHITE BLOOD COUNT (AUTO) 5.6 K/uL (4.8-10.8)
[2022-02-18 15:39] LABS: CALCIUM 8.2 mg/dL (8.4-11.0); CREATININE 2.12 mg/dL (0.55-1.30)
[2022-02-18 15:45] LABS: ALBUMIN 3.2 g/dL (3.4-4.8); TOTAL BILIRUBIN 0.4 mg/dL (0.0-1.0)
--- NOTE | 2022-02-18 16:57 | NUR ---
ER DR. BECERRIL EXAMINING PT IN TRIAGE
[2022-02-18] MEDS ORDERED: NYST15PO2 TP (17:14)
[2022-02-18] MEDS ORDERED: CEPH250C PO (17:14)
[2022-02-18 17:35] VITALS: BP_SYST 134
--- NOTE | 2022-02-18 17:36 | NUR ---
Patient given written and verbal discharge instructions and verbalizes understanding. ER MD discussed with patient the results and treatment provided. Patient in stable condition. ID arm band removed. Rx of KEFLEX AND NYSTATIN given. Patient educated on pain management and to follow up with PMD. Pain Scale 0/10. Opportunity for questions provided and answered. Medication side effect fact sheet provided.
== END 2022-02-18 17:35 | disposition home or self-care (01) ==
LOC: SED 13:42
DX: L03.311 Cellulitis of abdominal wall (principal); L08.9 Local infection of the skin and subcutaneous tissue, unspecified; J45.909 Unspecified asthma, uncomplicated; I11.0 Hypertensive heart disease with heart failure; I50.9 Heart failure, unspecified; Z88.1 Allergy status to other antibiotic agents; Z79.899 Other long term (current) drug therapy; Z20.822 Contact with and (suspected) exposure to COVID-19
CPT/HCPCS: 36415; 76376; 80053; 81000; 83605; 83690; 85025; 87086; 99284

== ENCOUNTER 2022-02-28 15:21 | Outpatient (CLI) | payer OTHER ==
[~2022-02-28 15:21] MED LIST changes: +CEPH250C PO; +NYST15PO2 TP
== END 2022-02-28 20:19 | disposition home or self-care (01) ==
LOC: SCT 15:21
PROVIDERS: ATTEND Urology Pediatric Urology
DX: N26.1 Atrophy of kidney (terminal) (principal); K44.9 Diaphragmatic hernia without obstruction or gangrene; K43.9 Ventral hernia without obstruction or gangrene; K63.89 Other specified diseases of intestine; I70.90 Unspecified atherosclerosis; M41.80 Other forms of scoliosis, site unspecified; N31.9 Neuromuscular dysfunction of bladder, unspecified
CPT/HCPCS: 76376

== ENCOUNTER 2022-03-07 11:56 | Emergency (ER) | payer OTHER ==
[~2022-03-07] VITALS: Ht 160 cm; Wt 59.4 kg
[2022-03-07 12:00] VITALS: BP_SYST 165
--- NOTE | 2022-03-07 12:05 | NUR ---
Patient triaged and placed in waiting room. VSS and patient appears in no acute distress at this time. Accompanied by SELF, awaiting available bed, and MD notified of need for MSE.
--- NOTE | 2022-03-07 12:40 | NUR ---
PT STATES THAT LEFT SIDE OF LOWER ABDOMINAL AREA IS SWOLLEN, STATES THAT HER UROLOGIST TOLD HER TO COME IN. PT HAS INDWELLING SUPRAPUBIC CATHETER FOR THE PAST COUPLE MONTHS.
--- NOTE | 2022-03-07 13:10 | NUR ---
AWAITING ER BED AVAILABILITY.
--- NOTE | 2022-03-07 14:18 | NUR ---
DR ART OUT TO TRIAGE ROOM TO EVALUATE
[2022-03-07 14:59] LABS: BILIRUBIN,URINE NEGATIVE (NEGATIVE); BLOOD, URINE 1+ (NEGATIVE); COLOR,URINE YELLOW (YELLOW); GLUCOSE,URINE NEGATIVE (NEGATIVE); KETONES,URINE NEGATIVE (NEGATIVE); LEUKOCYTE ESTERASE ,URINE TRACE (NEGATIVE); NITRITE, URINE POSITIVE (NEGATIVE); PROTEIN URINE NEGATIVE (NEGATIVE); UROBILINOGEN,URINE 0.2 (0.2-1.0)
[2022-03-07 15:08] LABS: CLARITY/URINE HAZY (CLEAR)
--- NOTE | 2022-03-07 15:15 | NUR ---
DR ART OUT TO TRIAGE AREA TO SPEAK WITH PT.
[2022-03-07 15:41] LABS: BACTERIA,URINE MODERATE /HPF (None Seen); RBC,URINE 0-3 /HPF (0-3)
[2022-03-07 15:42] LABS: MUCUS,URINE None Seen /LPF (None Seen); URINE AMORPHOUS URATE 2+ /HPF (None Seen)
[2022-03-07 16:07] LABS: BASOPHILS % (AUTO) 0.5 % (0.0-2.0); EOSINOPHILS % (AUTO) 0.7 % (0.0-4.0); HEMATOCRIT 28.7 % (36-48); HEMOGLOBIN 9.4 g/dL (12.0-16.0); LYMPHOCYTES # (AUTO) 1.1 K/uL (1.0-5.5); LYMPHOCYTES % (AUTO) 20.6 % (20.5-51.5); MEAN CORPUSCULAR HEMOGLOBIN 27 pg (27-31); MEAN CORPUSCULAR HGB CONC 33 % (32-36); MEAN CORPUSCULAR VOLUME 82 fL (79.0-98.0); MONOCYTES # (AUTO) 0.6 K/uL (0.0-1.0); MONOCYTES % (AUTO) 11.7 % (1.7-9.3); NEUTROPHILS # (AUTO) 3.6 K/uL (1.8-7.7); NEUTROPHILS % (AUTO) 66.5 % (40.0-70.0); PLATELET COUNT (AUTO) 174 K/uL (130-430); RED BLOOD CELL COUNT(AUTO) 3.52 MIL/uL (4.2-6.2); RED CELL DISTRIBUTION WIDTH 16.5 % (9.0-15.0); WHITE BLOOD COUNT (AUTO) 5.4 K/uL (4.8-10.8)
[2022-03-07 16:23] LABS: ANION GAP 9 (5-15); CALCIUM 8.2 mg/dL (8.4-11.0); CHLORIDE 107 mmol/L (98-107); CREATININE 1.76 mg/dL (0.55-1.30); GLUCOSE 84 mg/dL (70-99); POTASSIUM 4.7 mmol/L (3.5-5.1); SODIUM SERUM 140 mmol/L (136-145); UREA NITROGEN, BLOOD 20 mg/dL (8-21)
[2022-03-07 16:27] LABS: GFR AFRICAN AMERICAN 37 mL/min (>90)
[2022-03-07 16:34] LABS: ALANINE AMINOTRANSFERASE 31 U/L (12-78); ALBUMIN 3.2 g/dL (3.4-4.8); AMYLASE 140 U/L (0-100); ASPARTATE AMINOTRANSFERASE 33 U/L (10-37); LIPASE 125 U/L (73-393); TOTAL BILIRUBIN 0.3 mg/dL (0.0-1.0)
[2022-03-07 16:44] LABS: C-REACTIVE PROTEIN QUANT < 0.2 mg/dL (0-0.5)
--- NOTE | 2022-03-07 16:54 | NUR ---
RECEIVED PT FROM TRIAGE NURSE, PT HAS C/O LOWER ABDOMEN PAIN 02/18. PT HAS SUPRAPUBIC CATHETER IN PLACE DRAINING CLEAR YELLOW URINE TO GRAVITY. RESP E/U. ON R/A. ABDOMEN SOFT, NONTENDER, NONDISTENDED. DENIES N/V/D/C. PT'S PAIN WILL BE MEDICATED PER MAR. SIDE RAILS UP X 2. CALL LIGHT WITHIN REACH.
--- NOTE | 2022-03-07 17:13 | NUR ---
DR. ART AT THE BEDSIDE. RECEIVED ORDER FOR MOTRIN PO 600MG X1. DR. ART INFORMED SHE HAS UTI AND WILL RECEIVED ORDER FOR ABX AND DISCHARGE TO HOME. PT AGREED WITH POC.
[2022-03-07] MEDS ORDERED: cefTRIAXone 1 GM in LIDOCAINE 1%, 20 ML MDV 2.1 ML IM ONE (17:15)
[2022-03-07] MEDS ORDERED: ACET-2634 PO (17:17)
[2022-03-07] MEDS ORDERED: NITR-85 PO (17:17)
[2022-03-07] MEDS ORDERED: IBUPROFEN 600 MG TABLET PO ONE (17:30)
--- NOTE | 2022-03-07 17:38 | NUR ---
LABS DRAWN AT THIS TIME.
--- NOTE | 2022-03-07 17:41 | NUR ---
MORTRIN GIVEN PO FOR LOWER AB PAIN. CEFTRIAXONE IM GIVEN TO R BUTTOCK, GIVEN AFTER LAB DRAW COMPLETED.
--- NOTE | 2022-03-07 18:00 | NUR ---
Patient given written and verbal discharge instructions and verbalizes understanding. ER MD discussed with patient the results and treatment provided. Patient in stable condition. ID arm band removed. Rx of MACROBID, TYENOL EXTRA STRENTH given. Patient educated on pain management and to follow up with PMD. Pain Scale 0/10. . Opportunity for questions provided and answered. Medication side effect fact sheet provided.
[2022-03-07 18:11] VITALS: BP_SYST 152
== END 2022-03-07 18:11 | disposition home or self-care (01) ==
LOC: SED 11:56
DX: N39.0 Urinary tract infection, site not specified (principal); R10.32 Left lower quadrant pain; J45.909 Unspecified asthma, uncomplicated; I48.91 Unspecified atrial fibrillation; Z88.1 Allergy status to other antibiotic agents; Z79.899 Other long term (current) drug therapy; Z79.82 Long term (current) use of aspirin
CPT/HCPCS: 99284; 80053; 81000; 82150; 83690; 85025; 86140; 87086; 36415; 74018; 96372; 83605; J0696; J2001

== ENCOUNTER 2022-03-27 14:48 | Emergency (ER) | payer OTHER ==
[~2022-03-27] VITALS: Ht 160 cm; Wt 59.0 kg
[~2022-03-27 14:48] MED LIST changes: +ACET-2634 PO; +NITR-85 PO
[2022-03-27 15:13] VITALS: BP_SYST 166
--- NOTE | 2022-03-27 15:55 | NUR ---
RECEIVED PT FROM SARI MCNAIR. PT HAS C/O ABDOMINAL PAIN 8/10 AND BLOATING. PT HAS SUPRA-PUBIC CATH IN PLACE DRAINING LIGHT YELLOW CLOUDY URINE. URINE SAMPLE OBTAINED. IV CATH TO RFA 22 G PLACED. RESP E/U. ON R/A. ABDOMEN SOFT, NONTENDER, NONDISTENDED. BOWEL SOUNDS ACTIVE X4. DENIES N/V. DISTAL PULSES NORMAL, SKIN WARM, NO EDEMA. PT AMBULATORY. SIDE RAILS UP X2.
[2022-03-27 16:07] LABS: BASOPHILS % (AUTO) 0.5 % (0.0-2.0); EOSINOPHILS % (AUTO) 0.7 % (0.0-4.0); HEMATOCRIT 29.2 % (36-48); HEMOGLOBIN 9.2 g/dL (12.0-16.0); LYMPHOCYTES # (AUTO) 1.5 K/uL (1.0-5.5); LYMPHOCYTES % (AUTO) 25.3 % (20.5-51.5); MEAN CORPUSCULAR HEMOGLOBIN 25 pg (27-31); MEAN CORPUSCULAR HGB CONC 32 % (32-36); MEAN CORPUSCULAR VOLUME 80 fL (79.0-98.0); MONOCYTES # (AUTO) 0.5 K/uL (0.0-1.0); MONOCYTES % (AUTO) 8.7 % (1.7-9.3); NEUTROPHILS # (AUTO) 3.9 K/uL (1.8-7.7); NEUTROPHILS % (AUTO) 64.8 % (40.0-70.0); PLATELET COUNT (AUTO) 203 K/uL (130-430); RED BLOOD CELL COUNT(AUTO) 3.65 MIL/uL (4.2-6.2)
[2022-03-27] MEDS ORDERED: MORPHINE 4 MG INJ. 4 MG/ML VIAL IVP ONE (16:15)
[2022-03-27] MEDS ORDERED: ONDANSETRON HCL 4 MG/2 ML VIAL IVP ONE (16:15)
[2022-03-27 16:26] LABS: CALCIUM 8.2 mg/dL (8.4-11.0); CREATININE 1.75 mg/dL (0.55-1.30); POTASSIUM 4.7 mmol/L (3.5-5.1)
--- NOTE | 2022-03-27 16:30 | NUR ---
CT PELVIS COMPLETED.
--- NOTE | 2022-03-27 16:30 | NUR ---
Urine sample collected sent to lab.
[2022-03-27 16:40] LABS: ALBUMIN 2.9 g/dL (3.4-4.8); TOTAL BILIRUBIN 0.2 mg/dL (0.0-1.0)
[2022-03-27 16:58] LABS: BILIRUBIN,URINE NEGATIVE (NEGATIVE); BLOOD, URINE 1+ (NEGATIVE); CLARITY/URINE SL CLOUDY (CLEAR); COLOR,URINE YELLOW (YELLOW); GLUCOSE,URINE NEGATIVE (NEGATIVE); KETONES,URINE NEGATIVE (NEGATIVE); LEUKOCYTE ESTERASE ,URINE 2+ (NEGATIVE); NITRITE, URINE POSITIVE (NEGATIVE); PROTEIN URINE NEGATIVE (NEGATIVE); UROBILINOGEN,URINE 0.2 (0.2-1.0)
[2022-03-27] MEDS ORDERED: HYOS0.1275 SL (17:30)
[2022-03-27] MEDS ORDERED: cefTRIAXone 1 GM in D5W 50 ML IV ONE (17:30)
[2022-03-27] MEDS ORDERED: AUG875 PO (17:30)
[2022-03-27] MEDS ORDERED: HYOSCYAMINE SULFATE 0.125 MG TABLET PO ONE (17:30)
[2022-03-27] MEDS ORDERED: cefTRIAXone 1 GM VIAL ONE (18:25)
[2022-03-27 19:13] VITALS: BP_SYST 149
--- NOTE | 2022-03-27 19:25 | NUR ---
Patient given written and verbal discharge instructions and verbalizes understanding. ER MD discussed with patient the results and treatment provided. Patient in stable condition. ID arm band removed. IV catheter removed intact and dressing applied, no active bleeding. Rx of AUGMENTIN AND LEVSIN given. Patient educated on pain management and to follow up with PMD. Pain Scale 1/10. Opportunity for questions provided and answered. Medication side effect fact sheet provided.
[2022-03-27 20:25] LABS: RBC,URINE 0-3 /HPF (0-3)
[2022-03-27 20:26] LABS: BACTERIA,URINE MODERATE /HPF (None Seen)
[2022-03-27 20:27] LABS: MUCUS,URINE None Seen /LPF (None Seen)
--- NOTE | 2022-04-08 06:10 | NUR ---
ADDENDUM Ceftriaxone 1gm in D5w 50ml start time 18:25 end time 18:55
== END 2022-03-27 19:14 | disposition home or self-care (01) ==
LOC: SED 14:48
DX: N39.0 Urinary tract infection, site not specified (principal); R10.32 Left lower quadrant pain; D64.9 Anemia, unspecified; I13.10 Hypertensive heart and chronic kidney disease without heart failure, with stage 1 through stage 4 chronic kidney disease, or unspecified chronic kidney disease; N18.30 Chronic kidney disease, stage 3 unspecified; Z88.1 Allergy status to other antibiotic agents; Z79.899 Other long term (current) drug therapy
CPT/HCPCS: 99284; 74176; 96365; 96375; 80053; 81000; 83690; 85025; 87086; 36415; 76376; J0696; J2405; J2270; J7060

== ENCOUNTER 2022-04-19 20:18 | Emergency (ER) | payer OTHER ==
[~2022-04-19] VITALS: Ht 162.6 cm; Wt 59.0 kg
[~2022-04-19 20:18] MED LIST changes: +AUG875 PO; +HYOS0.1275 SL
[2022-04-19 20:38] VITALS: BP_SYST 138
--- NOTE | 2022-04-19 20:45 | NUR ---
PT HERE C/O LT SIDED NUMBNESS X4 DAYS WITH LLE SWELLING. PT ASSISTED TO ROOM 6 AMBULATED SLOWLY WITH STEADY GAIT.
--- NOTE | 2022-04-19 20:52 | NUR ---
PATIENT STATES THAT SHE HAS HAD NUMBNESS TO LEFT SIDE X 4 DAYS, NO WEAKNESS IN EXTREMITIES AT THIS TIME. PATIENT WAS RECENTLY ADMITTED FOR LOW POTASSIUM AND DISCHARGED A WEEK AGO. PATIENT HAS A HISTORY OF STROKE WITH RIGHT SIDED DEFICITS BUT IS EQUAL PUSH PULL, NO WEAKNESS AT THIS TIME. PATIENT IN BED 6 AND GETTING EKG AT THIS TIME.
[2022-04-19 21:42] LABS: EOSINOPHILS % (AUTO) 0.6 % (0.0-4.0); HEMATOCRIT 27.4 % (36-48); LYMPHOCYTES # (AUTO) 1.1 K/uL (1.0-5.5); LYMPHOCYTES % (AUTO) 24.5 % (20.5-51.5); MEAN CORPUSCULAR VOLUME 80 fL (79.0-98.0); MONOCYTES # (AUTO) 0.5 K/uL (0.0-1.0); MONOCYTES % (AUTO) 10.7 % (1.7-9.3); NEUTROPHILS % (AUTO) 63.2 % (40.0-70.0); PLATELET COUNT (AUTO) 203 K/uL (130-430); RED BLOOD CELL COUNT(AUTO) 3.43 MIL/uL (4.2-6.2); RED CELL DISTRIBUTION WIDTH 18.8 % (9.0-15.0); WHITE BLOOD COUNT (AUTO) 4.7 K/uL (4.8-10.8)
[2022-04-19 22:21] LABS: CALCIUM 8.3 mg/dL (8.4-11.0); CREATININE 2.15 mg/dL (0.55-1.30); POTASSIUM 4.5 mmol/L (3.5-5.1)
[2022-04-19 22:28] LABS: ALBUMIN 3.1 g/dL (3.4-4.8); TOTAL BILIRUBIN 0.3 mg/dL (0.0-1.0)
--- NOTE | 2022-04-19 22:28 | NUR ---
DR. GROVE AT BEDSIDE ASSESSING PATIENT.
[2022-04-19] MEDS ORDERED: LORazepam 1 MG TABLET PO ONE ×2 (22:45)
[2022-04-19 23:38] LABS: BILIRUBIN,URINE NEGATIVE (NEGATIVE); BLOOD, URINE TRACE (NEGATIVE); CLARITY/URINE CLEAR (CLEAR); COLOR,URINE YELLOW (YELLOW); GLUCOSE,URINE NEGATIVE (NEGATIVE); KETONES,URINE NEGATIVE (NEGATIVE); LEUKOCYTE ESTERASE ,URINE 1+ (NEGATIVE); NITRITE, URINE NEGATIVE (NEGATIVE); PH,URINE 6.5 (5.0-8.0); PROTEIN URINE NEGATIVE (NEGATIVE); UROBILINOGEN,URINE 0.2 (0.2-1.0)
[2022-04-19 23:49] LABS: BACTERIA,URINE RARE /HPF (None Seen); RBC,URINE 0-3 /HPF (0-3); WBC,URINE 0-3 /HPF (0-3)
[2022-04-20] MEDS ORDERED: IPRATROPIUM/ALBUTEROL SULFATE 3 ML AMPUL.NEB (DUONEB) INH ONE (00:30)
[2022-04-20] MEDS ORDERED: NITR-85 PO (01:01)
--- NOTE | 2022-04-20 01:29 | NUR ---
Patient given written and verbal discharge instructions and verbalizes understanding. ER MD discussed with patient the results and treatment provided. Patient in stable condition. ID arm band removed. IV catheter removed intact and dressing applied, no active bleeding. Rx of MACROBID given. Patient educated on pain management and to follow up with PMD. Pain Scale . Opportunity for questions provided and answered. Medication side effect fact sheet provided.
[2022-04-20 08:57] LABS: HEMOGLOBIN 8.8 g/dL (12.0-16.0); MEAN CORPUSCULAR HEMOGLOBIN 26 pg (27-31); MEAN CORPUSCULAR HGB CONC 31 % (32-36)
== END 2022-04-20 01:29 | disposition home or self-care (01) ==
LOC: SED 20:18
DX: R20.2 Paresthesia of skin (principal); E86.0 Dehydration; R25.2 Cramp and spasm; J45.909 Unspecified asthma, uncomplicated; I10 Essential (primary) hypertension; Z88.1 Allergy status to other antibiotic agents; Z79.899 Other long term (current) drug therapy
CPT/HCPCS: 36415; 70450-TC; 76376; 80053; 81000; 85025; 93005; 93971; 99285

== ENCOUNTER 2022-05-20 18:52 | Observation (INO) | payer OTHER ==
[~2022-05-20] VITALS: Ht 160 cm; Wt 59.2 kg
[~2022-05-20 18:52] MED LIST changes: -MECO10005; +MECO10005 PO
[2022-05-20 18:55] VITALS: BP_SYST 115
--- NOTE | 2022-05-20 18:55 | NUR ---
Patient triaged and placed in waiting room. VSS and patient appears in no acute distress at this time. Accompanied by FAMILY, awaiting available bed, and MD notified of need for MSE.
--- NOTE | 2022-05-20 20:13 | NUR ---
Placed in room 03 . Placed on cardiac monitor technician, blood pressure machine and pulse oximeter. To gown for exam. Side rails up.
--- NOTE | 2022-05-20 20:39 | NUR ---
PT C/O SHARP NON RADIATING CHEST PAIN. PER PT, CHEST PAIN COMES AND GOES. PT DENIES PAIN AT THIS TIME. PT HAD STROKE X2 YEARS AGO. TAKE ELOQUIS DAILY. PT AMBULATORY WITH STEADY GAIT. PT HAS LEG GLEASON IN PLACE. PT STATES HAS "BLADDER ISSUES." NO SIGNS OF DISTRESS AT THIS TIME PT SPEAKING FULL SENTENCES FAMILY AT BED SIDE
[2022-05-20 20:44] LABS: BASOPHILS # (AUTO) 0.1 K/uL (0.0-0.2); BASOPHILS % (AUTO) 0.9 % (0.0-2.0); EOSINOPHILS % (AUTO) 0.4 % (0.0-4.0); HEMOGLOBIN 10.7 g/dL (12.0-16.0); LYMPHOCYTES # (AUTO) 1.2 K/uL (1.0-5.5); LYMPHOCYTES % (AUTO) 19.8 % (20.5-51.5); MEAN CORPUSCULAR HEMOGLOBIN 26 pg (27-31); MEAN CORPUSCULAR HGB CONC 32 % (32-36); MEAN CORPUSCULAR VOLUME 82 fL (79.0-98.0); MONOCYTES # (AUTO) 0.5 K/uL (0.0-1.0); MONOCYTES % (AUTO) 8.8 % (1.7-9.3); NEUTROPHILS # (AUTO) 4.2 K/uL (1.8-7.7); NEUTROPHILS % (AUTO) 70.1 % (40.0-70.0); PLATELET COUNT (AUTO) 199 K/uL (130-430); RED BLOOD CELL COUNT(AUTO) 4.04 MIL/uL (4.2-6.2); RED CELL DISTRIBUTION WIDTH 19.8 % (9.0-15.0)
[2022-05-20 21:04] LABS: ANION GAP 11 (5-15); CALCIUM 8.4 mg/dL (8.4-11.0); CHLORIDE 107 mmol/L (98-107); CREATININE 2.39 mg/dL (0.55-1.30); GLUCOSE 101 mg/dL (70-99); UREA NITROGEN, BLOOD 40 mg/dL (8-21)
[2022-05-20 21:06] LABS: GFR AFRICAN AMERICAN 26 mL/min (>90)
--- NOTE | 2022-05-20 21:08 | NUR ---
PER PT, SHE'S TAKING ELIQUIS 5MG BID AT HOME AND TOOK BOTH DOSES TODAY. PT REFUSED ASA DUE TO THE ELIQUIS REASON. DR. SANDOVAL IS AWARE & I OKY TO HOLD OFF ON ASA.
[2022-05-20 21:13] LABS: ALANINE AMINOTRANSFERASE 16 U/L (12-78); ALBUMIN 3.5 g/dL (3.4-4.8); ASPARTATE AMINOTRANSFERASE 20 U/L (10-37); TOTAL BILIRUBIN 0.2 mg/dL (0.0-1.0)
[2022-05-20] MEDS ORDERED: ASPIRIN 325 MG TABLET PO ONE (21:15)
[2022-05-20] MEDS ORDERED: NITROGLYCERIN 1 INCH (GM) OINT. TP ONE (21:15)
[2022-05-20 21:37] LABS: BILIRUBIN,URINE NEGATIVE (NEGATIVE); BLOOD, URINE 2+ (NEGATIVE); COLOR,URINE YELLOW (YELLOW); GLUCOSE,URINE NEGATIVE (NEGATIVE); KETONES,URINE NEGATIVE (NEGATIVE); LEUKOCYTE ESTERASE ,URINE 3+ (NEGATIVE); NITRITE, URINE NEGATIVE (NEGATIVE); PROTEIN URINE TRACE (NEGATIVE); UROBILINOGEN,URINE 0.2 (0.2-1.0)
[2022-05-20 21:45] LABS: CLARITY/URINE HAZY (CLEAR)
[2022-05-20 21:53] LABS: WBC,URINE >100 /HPF (0-3)
[2022-05-20 21:54] LABS: BACTERIA,URINE MODERATE /HPF (None Seen); MUCUS,URINE None Seen /LPF (None Seen)
[2022-05-20] MEDS ORDERED: cefTRIAXone 1 GM in D5W 50 ML IV ONE (22:00)
[2022-05-20] MEDS ORDERED: MORPHINE 2 MG/ML INJ. SYRINGE ONE (22:26)
--- NOTE | 2022-05-20 23:00 | NUR ---
Admit bed requested Patient will be admitted to care of Admitted to Telemetry Obs unit. Diagnosis Chest Pain Inpatient (Yes or No) no Observation (Yes or No) yes Orientation concerns or request close to nursing station (Yes or No) no Covid Status negative On vent or bipap no Isolation requirements no Needs a sitter no From Home (Yes or if No enter name of facility) yes Requires Dialysis (Yes or No) no Med Rec Completed (Yes of No) yes
[2022-05-20] MEDS ORDERED: cefTRIAXone 1 GM VIAL ONE (23:24)
[2022-05-20] MEDS: MORPHINE 2 MG/ML INJ. SYRINGE IVP PRN (23:27)
--- NOTE | 2022-05-21 00:35 | NUR ---
ADMIT NOTE Received pt from ER to the floor with a diagnosis of CHEST PAIN. Admission process initiated. patient oriented to pain management, safety and call light-teach back done SUPRA PUBIC CATHETER FOR URINE is in place patient alert X 4 procedures explained / .
[2022-05-21 00:51] VITALS: BP_SYST 150
--- NOTE | 2022-05-21 03:15 | NUR ---
Photo picture taken of skin tear to Right FA 1 CM X 1 CM .
[2022-05-21 08:00] VITALS: BP_SYST 140
[2022-05-21 08:19] LABS: BASOPHILS % (AUTO) 0.9 % (0.0-2.0); EOSINOPHILS % (AUTO) 0.5 % (0.0-4.0); HEMATOCRIT 29.8 % (36-48); HEMOGLOBIN 9.8 g/dL (12.0-16.0); LYMPHOCYTES # (AUTO) 1.2 K/uL (1.0-5.5); LYMPHOCYTES % (AUTO) 21.8 % (20.5-51.5); MEAN CORPUSCULAR HEMOGLOBIN 27 pg (27-31); MEAN CORPUSCULAR HGB CONC 33 % (32-36); MEAN CORPUSCULAR VOLUME 81 fL (79.0-98.0); MONOCYTES # (AUTO) 0.5 K/uL (0.0-1.0); MONOCYTES % (AUTO) 9.9 % (1.7-9.3); NEUTROPHILS # (AUTO) 3.7 K/uL (1.8-7.7); NEUTROPHILS % (AUTO) 66.9 % (40.0-70.0); PLATELET COUNT (AUTO) 191 K/uL (130-430); RED BLOOD CELL COUNT(AUTO) 3.68 MIL/uL (4.2-6.2); RED CELL DISTRIBUTION WIDTH 19.7 % (9.0-15.0); WHITE BLOOD COUNT (AUTO) 5.5 K/uL (4.8-10.8)
[2022-05-21 09:00] LABS: ALBUMIN 2.9 g/dL (3.4-4.8); CALCIUM 7.7 mg/dL (8.4-11.0); CREATININE 2.09 mg/dL (0.55-1.30); POTASSIUM 4.4 mmol/L (3.5-5.1); TOTAL BILIRUBIN 0.2 mg/dL (0.0-1.0)
[2022-05-21] MEDS: MORPHINE 2 MG/ML INJ. SYRINGE IVP PRN ×2 (09:15→19:36)
[2022-05-21] MEDS ORDERED: ALBMDI INH (12:24)
[2022-05-21 12:33] VITALS: BP_SYST 118
[2022-05-21] MEDS ORDERED: PREGABALIN 25 MG CAPSULE (LYRICA) PO ONE (13:15)
[2022-05-21] MEDS ORDERED: LIDOCAINE PATCH 5% 1 EA TP ONE (13:45)
[2022-05-21 16:03] VITALS: BP_SYST 121
[2022-05-21 20:00] VITALS: BP_SYST 143
[2022-05-21] MEDS: PREGABALIN 25 MG CAPSULE (LYRICA) PO SCH (20:31)
[2022-05-22] VITALS: BP_SYST 138
--- NOTE | 2022-05-22 05:02 | NUR ---
Shift Summary: patient is AAOX4. vitals are stable. skin care offered. patient currently resting. patient states she has no questions or concerns during end of shift. will endorse to oncoming nurse. call light within reach. bed set to low and locked.
--- NOTE | 2022-05-22 07:30 | NUR ---
OPENING NOTE Patient in bed resting, no sign of distress. Patent complaining of abdominal pain radiating into the chest. Comfort measures provided and patient updated on the plan of care, verbalized understanding. All needs met at this time and safety checks made.
[2022-05-22 08:03] VITALS: BP_SYST 138
[2022-05-22] MEDS: PREGABALIN 25 MG CAPSULE (LYRICA) PO SCH (08:44)
[2022-05-22] MEDS ORDERED: LIDOCAINE PATCH 5% 1 EA TP SCH (09:00)
[2022-05-22 09:18] LABS: BASOPHILS # (AUTO) 0.1 K/uL (0.0-0.2); EOSINOPHILS # (AUTO) 0.1 K/uL (0.0-0.4); MEAN CORPUSCULAR VOLUME 82 fL (79.0-98.0); MONOCYTES # (AUTO) 0.5 K/uL (0.0-1.0); WHITE BLOOD COUNT (AUTO) 5.6 K/uL (4.8-10.8)
[2022-05-22 09:41] LABS: ALBUMIN 3.2 g/dL (3.4-4.8); CALCIUM 7.9 mg/dL (8.4-11.0); CREATININE 2.1 mg/dL (0.55-1.30); POTASSIUM 5.1 mmol/L (3.5-5.1); TOTAL BILIRUBIN 0.4 mg/dL (0.0-1.0)
--- NOTE | 2022-05-22 09:48 | NUR ---
CRITICAL LAB: Sherry from Laboratory called with critical lab value toponin 78. Medical record number and patient name verified. Read back of values done. Dr Solis yeh to be notified of value. Addendum: 05/22/22 at 1235 by Ml Cabrera LVN NOTIFIED, NEW ORDERS RECEIVED
[2022-05-22 10:06] LABS: BASOPHILS % (AUTO) 0.9 % (0.0-2.0); EOSINOPHILS % (AUTO) 1.2 % (0.0-4.0); HEMATOCRIT 33.8 % (36-48); HEMOGLOBIN 11.1 g/dL (12.0-16.0); LYMPHOCYTES # (AUTO) 1.3 K/uL (1.0-5.5); LYMPHOCYTES % (AUTO) 23.9 % (20.5-51.5); MEAN CORPUSCULAR HEMOGLOBIN 27 pg (27-31); MEAN CORPUSCULAR HGB CONC 33 % (32-36); MONOCYTES % (AUTO) 9.5 % (1.7-9.3); NEUTROPHILS # (AUTO) 3.6 K/uL (1.8-7.7); NEUTROPHILS % (AUTO) 64.5 % (40.0-70.0); PLATELET COUNT (AUTO) 204 K/uL (130-430); RED BLOOD CELL COUNT(AUTO) 4.13 MIL/uL (4.2-6.2); RED CELL DISTRIBUTION WIDTH 19.5 % (9.0-15.0)
[2022-05-22] MEDS ORDERED: BISACODYL 10 MG/SUPPOSITORY RC PRN (10:30)
--- NOTE | 2022-05-22 10:38 | NUR ---
CONSULTATION: REASON FOR CONSULT: ELEVATED TROPONIN CONSULTING PHYSICIAN: PRITI CALDERON ORDERED BY: JOSEPH SPOKE WITH KASSANDRA FROM EXCHANGE [phone]
[2022-05-22 11:05] VITALS: BP_SYST 133
[2022-05-22] MEDS ORDERED: MELOXICAM 7.5 MG TABLET PO ONE (12:30)
[2022-05-22] MEDS ORDERED: LYR25 PO (12:46)
[2022-05-22] MEDS ORDERED: MELO-89 PO (12:46)
--- NOTE | 2022-05-22 12:48 | NUR ---
ROUNDS Patient sitting up in bed eating lunch, no complaints of pain or sign of distress. Patient updated on her plan of care, including discharge home with home health. Patient verbalized understanding. All needs met at this time and safety checks made.
[2022-05-22 14:01] VITALS: BP_SYST 139
[2022-05-22 14:58] VITALS: BP_SYST 139
[2022-05-22 15:15] VITALS: BP_SYST 142
--- NOTE | 2022-05-22 15:25 | NUR ---
DISCHARGE PAPERWORK GAVE ALL DISCHARGE PAPER WORK TO PATIENT, EXPLAINED ALL RISK AND BENEFITS. RXS CALLED INTO [facility]. WILL FOLLOW UP WITH MD IN 2-3 DAYS, WILL GO TO ER IF ANY MORE PROBLEMS ACCURA. IV D/C. AT BEDSIDE WILL BE TAKING PATIENT HOME VIA CAR.
--- NOTE | 2022-05-22 15:54 | NUR ---
D/C Patient Patient given medication reconciliation form and D/C instructions. Exit Care provided. Patient verbalized understanding. MD discussed with patient the results and treatment provided. Ambulatory with steady gait for discharge to home WITH PRIVATE AUT[employer]. . Patient in stable condition, ID band removed. IV catheter removed, intact and dressing applied, no active bleeding. Patient educated on pain management. All belongings sent with patient.
[2022-05-23] MEDS ORDERED: MELOXICAM 7.5 MG TABLET PO SCH (09:00)
== END 2022-05-22 15:54 | disposition home or self-care (01) ==
LOC: SED 18:52 → STU 22:15
PROVIDERS: ADMIT Specialist; ATTEND Specialist
DX: M94.0 Chondrocostal junction syndrome [Tietze] (principal); Z20.822 Contact with and (suspected) exposure to COVID-19; M54.10 Radiculopathy, site unspecified; R07.89 Other chest pain; E78.5 Hyperlipidemia, unspecified; N39.0 Urinary tract infection, site not specified; J45.909 Unspecified asthma, uncomplicated; I48.91 Unspecified atrial fibrillation; I12.9 Hypertensive chronic kidney disease with stage 1 through stage 4 chronic kidney disease, or unspecified chronic kidney disease; E11.22 Type 2 diabetes mellitus with diabetic chronic kidney disease; N18.30 Chronic kidney disease, stage 3 unspecified; Z86.73 Personal history of transient ischemic attack (TIA), and cerebral infarction without residual deficits; Z79.01 Long term (current) use of anticoagulants; Z79.899 Other long term (current) drug therapy
CPT/HCPCS: 96365; 96375; 80053 ×3; 81000; 85025 ×3; 87040; 87086; 84484 ×2; 36415 ×3; 93005 ×2; 71045; 99285; 87426; 96376; J0696; J2270 ×2; G0378 ×3

== ENCOUNTER 2022-06-06 20:54 | Inpatient (IN) | payer OTHER ==
[~2022-06-06] VITALS: Ht 160 cm; Wt 60.8 kg
[~2022-06-06 20:54] MED LIST changes: -ACET-2634 PO; -AUG875 PO; -CALC-823 PO; -CALC0.258 PO; -CEPH250C PO; -FAMO20TA8 PO; -HYOS0.1275 PO; -HYOS0.1275 SL; -LIP40 PO; +LYR25 PO; -MAGN296S8 PO; +MELO-89 PO; -NEU100 PO; -NITR-85 PO; -NYST15PO2 TP; -PRO40 PO
[2022-06-06 20:56] VITALS: BP_SYST 165
[2022-06-06 21:23] LABS: BASOPHILS % (AUTO) 0.4 % (0.0-2.0); EOSINOPHILS # (AUTO) 0.1 K/uL (0.0-0.4); EOSINOPHILS % (AUTO) 1.4 % (0.0-4.0); HEMATOCRIT 30.6 % (36-48); LYMPHOCYTES # (AUTO) 1.3 K/uL (1.0-5.5); LYMPHOCYTES % (AUTO) 22.4 % (20.5-51.5); MEAN CORPUSCULAR HEMOGLOBIN 27 pg (27-31); MEAN CORPUSCULAR HGB CONC 33 % (32-36); MEAN CORPUSCULAR VOLUME 82 fL (79.0-98.0); MONOCYTES # (AUTO) 0.7 K/uL (0.0-1.0); MONOCYTES % (AUTO) 11.5 % (1.7-9.3); NEUTROPHILS # (AUTO) 3.8 K/uL (1.8-7.7); NEUTROPHILS % (AUTO) 64.3 % (40.0-70.0); PLATELET COUNT (AUTO) 162 K/uL (130-430); RED BLOOD CELL COUNT(AUTO) 3.73 MIL/uL (4.2-6.2); RED CELL DISTRIBUTION WIDTH 19.5 % (9.0-15.0); WHITE BLOOD COUNT (AUTO) 5.9 K/uL (4.8-10.8)
[2022-06-06] MEDS ORDERED: IBUPROFEN 800 MG TABLET PO ONE (21:30)
[2022-06-06 21:48] LABS: ANION GAP 9 (5-15); CHLORIDE 112 mmol/L (98-107); POTASSIUM 4.5 mmol/L (3.5-5.1); UREA NITROGEN, BLOOD 37 mg/dL (8-21)
[2022-06-06 21:57] LABS: ALANINE AMINOTRANSFERASE 18 U/L (12-78); ALBUMIN 3.3 g/dL (3.4-4.8); ASPARTATE AMINOTRANSFERASE 21 U/L (10-37); GFR AFRICAN AMERICAN 32 mL/min (>90); TOTAL BILIRUBIN 0.1 mg/dL (0.0-1.0)
[2022-06-06 21:59] LABS: GLUCOSE 45 mg/dL (70-99)
[2022-06-06] MEDS ORDERED: NITROGLYCERIN 1 INCH (GM) OINT. TP ONE (22:30)
[2022-06-06] MEDS ORDERED: NITROGLYCERIN 0.4 MG TAB.SUBL SL ONE (22:30)
[2022-06-06] MEDS ORDERED: MORPHINE 4 MG INJ. 4 MG/ML VIAL IVP ONE (22:30)
[2022-06-07 00:44] VITALS: BP_SYST 134
[2022-06-07] MEDS ORDERED: NITROGLYCERIN 0.4 MG TAB.SUBL SL PRN (03:00)
[2022-06-07 06:48] LABS: BASOPHILS % (AUTO) 0.4 % (0.0-2.0); EOSINOPHILS % (AUTO) 0.4 % (0.0-4.0); HEMATOCRIT 28.1 % (36-48); HEMOGLOBIN 9.2 g/dL (12.0-16.0); LYMPHOCYTES # (AUTO) 1.5 K/uL (1.0-5.5); LYMPHOCYTES % (AUTO) 30.3 % (20.5-51.5); MEAN CORPUSCULAR HEMOGLOBIN 27 pg (27-31); MEAN CORPUSCULAR HGB CONC 33 % (32-36); MEAN CORPUSCULAR VOLUME 82 fL (79.0-98.0); MONOCYTES # (AUTO) 0.6 K/uL (0.0-1.0); MONOCYTES % (AUTO) 12.8 % (1.7-9.3); NEUTROPHILS # (AUTO) 2.7 K/uL (1.8-7.7); NEUTROPHILS % (AUTO) 56.1 % (40.0-70.0); PLATELET COUNT (AUTO) 143 K/uL (130-430); RED BLOOD CELL COUNT(AUTO) 3.42 MIL/uL (4.2-6.2); RED CELL DISTRIBUTION WIDTH 19.5 % (9.0-15.0); WHITE BLOOD COUNT (AUTO) 4.9 K/uL (4.8-10.8)
[2022-06-07 07:16] LABS: ALBUMIN 2.8 g/dL (3.4-4.8); CALCIUM 7.9 mg/dL (8.4-11.0); CREATININE 1.89 mg/dL (0.55-1.30); TOTAL BILIRUBIN 0.1 mg/dL (0.0-1.0)
[2022-06-07 08:00] VITALS: BP_SYST 131
[2022-06-07] MEDS: ASPIRIN 81 MG TAB.CHEW PO SCH (08:06)
[2022-06-07] MEDS: CYANOCOBALAMIN 1000 mCg TABLET PO SCH (08:07)
[2022-06-07] MEDS: PREGABALIN 25 MG CAPSULE (LYRICA) PO SCH ×2 (08:09→22:41)
[2022-06-07] MEDS: APIXABAN 2.5 MG TABLET PO SCH ×2 (08:09→22:42)
[2022-06-07] MEDS: SODIUM BICARBONATE 650 MG TABLET PO SCH ×3 (08:16→22:41)
[2022-06-07] MEDS: CHOLECALCIFEROL (VITAMIN D3) 5,000 UNIT TABLET PO SCH (08:18)
[2022-06-07] MEDS ORDERED: MELOXICAM 7.5 MG TABLET PO SCH (09:00)
[2022-06-07 11:34] VITALS: BP_SYST 151
[2022-06-07 15:31] VITALS: BP_SYST 136
[2022-06-07] MEDS ORDERED: EPOETIN ALFA 20,000 UNITS/ML VIAL SUBCUT ONE (16:30)
[2022-06-07] MEDS ORDERED: FAMOTIDINE 20 MG TABLET PO ONE (16:30)
[2022-06-07] MEDS ORDERED: predniSONE 20 MG TABLET PO ONE (16:30)
[2022-06-07 21:00] VITALS: BP_SYST 135
[2022-06-08 01:15] VITALS: BP_SYST 131
[2022-06-08 07:28] LABS: BASOPHILS % (AUTO) 0.3 % (0.0-2.0); HEMATOCRIT 31.7 % (36-48); HEMOGLOBIN 10.3 g/dL (12.0-16.0); LYMPHOCYTES % (AUTO) 16.2 % (20.5-51.5); MEAN CORPUSCULAR HEMOGLOBIN 27 pg (27-31); MEAN CORPUSCULAR HGB CONC 32 % (32-36); MEAN CORPUSCULAR VOLUME 82 fL (79.0-98.0); MONOCYTES # (AUTO) 0.4 K/uL (0.0-1.0); MONOCYTES % (AUTO) 6.4 % (1.7-9.3); NEUTROPHILS # (AUTO) 4.6 K/uL (1.8-7.7); NEUTROPHILS % (AUTO) 77.1 % (40.0-70.0); PLATELET COUNT (AUTO) 155 K/uL (130-430); RED BLOOD CELL COUNT(AUTO) 3.85 MIL/uL (4.2-6.2); RED CELL DISTRIBUTION WIDTH 19.3 % (9.0-15.0); WHITE BLOOD COUNT (AUTO) 5.9 K/uL (4.8-10.8)
[2022-06-08 08:47] LABS: ALBUMIN 3.1 g/dL (3.4-4.8); CALCIUM 8.7 mg/dL (8.4-11.0); CREATININE 1.85 mg/dL (0.55-1.30); POTASSIUM 4.7 mmol/L (3.5-5.1); THYROID STIMULATING HORMONE 0.64 uIu/mL (0.36-3.74)
[2022-06-08] MEDS: APIXABAN 2.5 MG TABLET PO SCH (09:00)
[2022-06-08] MEDS ORDERED: FAMOTIDINE 20 MG TABLET PO SCH (09:00)
[2022-06-08] MEDS ORDERED: predniSONE 20 MG TABLET PO SCH (09:00)
[2022-06-08 09:13] LABS: TOTAL BILIRUBIN 0.1 mg/dL (0.0-1.0)
[2022-06-08] MEDS: SODIUM BICARBONATE 650 MG TABLET PO SCH ×2 (10:30→16:15)
[2022-06-08] MEDS: ASPIRIN 81 MG TAB.CHEW PO SCH (10:31)
[2022-06-08] MEDS: CYANOCOBALAMIN 1000 mCg TABLET PO SCH (10:31)
[2022-06-08] MEDS: CHOLECALCIFEROL (VITAMIN D3) 5,000 UNIT TABLET PO SCH (10:31)
[2022-06-08] MEDS: PREGABALIN 25 MG CAPSULE (LYRICA) PO SCH (10:31)
[2022-06-08] MEDS ORDERED: PRED20TA PO (12:06)
[2022-06-08] MEDS ORDERED: HYDROcodone/ACETAMIN 5-325 MG TAB (NORCO/ VICODIN) ONE (15:33)
[2022-06-08] MEDS ORDERED: HYDROcodone/ACETAMIN 5-325 MG TAB (NORCO/ VICODIN) PO ONE (16:15)
[2022-06-08] MEDS ORDERED: NALOXONE HCL 0.4 MG/ML AMP (NARCAN) IVP PRN (16:15)
[2022-06-08 17:18] VITALS: BP_SYST 129
== END 2022-06-08 17:50 | disposition home or self-care (01) | DRG 205 ==
LOC: SED 20:54 → STU 22:15 → SMU 06-08 11:37
PROVIDERS: ADMIT Internal Medicine; ATTEND Internal Medicine
DX: M94.0 Chondrocostal junction syndrome [Tietze] (principal); N17.0 Acute kidney failure with tubular necrosis; E44.1 Mild protein-calorie malnutrition; E16.2 Hypoglycemia, unspecified; D63.1 Anemia in chronic kidney disease; N31.9 Neuromuscular dysfunction of bladder, unspecified; I48.0 Paroxysmal atrial fibrillation; F41.9 Anxiety disorder, unspecified; Z20.822 Contact with and (suspected) exposure to COVID-19; N32.0 Bladder-neck obstruction; N18.9 Chronic kidney disease, unspecified; Z86.718 Personal history of other venous thrombosis and embolism; Z98.84 Bariatric surgery status; Z79.82 Long term (current) use of aspirin
CPT/HCPCS: 36415; 71045; 80053; 80061; 83735; 83880; 84443; 84484; 85025; 87081; 93005; 99285; G0378; J7512

== ENCOUNTER 2022-06-30 12:53 | Emergency (ER) | payer OTHER ==
[~2022-06-30] VITALS: Ht 152.4 cm; Wt 60.3 kg
[~2022-06-30 12:53] MED LIST changes: -HYDR-3917 PO; +PRED20TA PO
[2022-06-30 12:55] VITALS: BP_SYST 146
--- NOTE | 2022-06-30 13:00 | NUR ---
Patient triaged and placed in waiting room. VSS and patient appears in no acute distress at this time. Accompanied by SPOUSE, awaiting available bed, and MD notified of need for MSE.
--- NOTE | 2022-06-30 14:28 | NUR ---
BROUGHT BACK TO BED #[address] VARGAS AT BEDSIDE FOR EVALUATION
--- NOTE | 2022-06-30 14:45 | NUR ---
Patient given written and verbal discharge instructions and verbalizes understanding. ER MD discussed with patient the results and treatment provided. Patient in stable condition. ID arm band removed. IV catheter removed intact and dressing applied, no active bleeding. Rx of given. Patient educated on pain management and to follow up with PMD. Pain Scale . Opportunity for questions provided and answered. Medication side effect fact sheet provided. PT LEFT WITHOUT SIGNING PAPERWORK
== END 2022-06-30 14:45 | disposition home or self-care (01) ==
LOC: SED 12:53
DX: N32.89 Other specified disorders of bladder (principal); J45.909 Unspecified asthma, uncomplicated; I11.0 Hypertensive heart disease with heart failure; I50.9 Heart failure, unspecified; Z88.1 Allergy status to other antibiotic agents; Z79.899 Other long term (current) drug therapy
CPT/HCPCS: 99281

== ENCOUNTER 2022-08-24 13:07 | Emergency (ER) | payer OTHER ==
[~2022-08-24] VITALS: Ht 160 cm; Wt 63.5 kg
[2022-08-24 13:12] VITALS: BP_SYST 213
--- NOTE | 2022-08-24 14:00 | NUR ---
Pt brought by self, A&Ox4, pt presents to ER with chest pain and SOB starting few hours ago, skin pink and warm, cap refill <3, O2 98%, will cont to monitor.
--- NOTE | 2022-08-24 14:20 | NUR ---
Dr Mejia evaluating patient in the triage room
[2022-08-24 14:22] LABS: BASOPHILS % (AUTO) 0.7 % (0.0-2.0); EOSINOPHILS % (AUTO) 0.3 % (0.0-4.0); HEMATOCRIT 34.2 % (36-48); HEMOGLOBIN 10.9 g/dL (12.0-16.0); LYMPHOCYTES # (AUTO) 0.9 K/uL (1.0-5.5); LYMPHOCYTES % (AUTO) 16.3 % (20.5-51.5); MEAN CORPUSCULAR HEMOGLOBIN 27 pg (27-31); MEAN CORPUSCULAR HGB CONC 32 % (32-36); MEAN CORPUSCULAR VOLUME 83 fL (79.0-98.0); MONOCYTES # (AUTO) 0.5 K/uL (0.0-1.0); MONOCYTES % (AUTO) 9.2 % (1.7-9.3); NEUTROPHILS # (AUTO) 4.2 K/uL (1.8-7.7); NEUTROPHILS % (AUTO) 73.5 % (40.0-70.0); PLATELET COUNT (AUTO) 158 K/uL (130-430); RED BLOOD CELL COUNT(AUTO) 4.11 MIL/uL (4.2-6.2); RED CELL DISTRIBUTION WIDTH 16.7 % (9.0-15.0); WHITE BLOOD COUNT (AUTO) 5.7 K/uL (4.8-10.8)
[2022-08-24 14:33] LABS: ANION GAP 7 (5-15); CALCIUM 8.1 mg/dL (8.4-11.0); CHLORIDE 110 mmol/L (98-107); CREATININE 2.04 mg/dL (0.55-1.30); GLUCOSE 85 mg/dL (70-99); UREA NITROGEN, BLOOD 32 mg/dL (8-21)
[2022-08-24 14:34] LABS: GFR AFRICAN AMERICAN 31 mL/min (>90)
[2022-08-24 14:42] LABS: ALANINE AMINOTRANSFERASE 25 U/L (12-78); ALBUMIN 3.5 g/dL (3.4-4.8); ASPARTATE AMINOTRANSFERASE 24 U/L (10-37); TOTAL BILIRUBIN 0.3 mg/dL (0.0-1.0)
--- NOTE | 2022-08-24 15:40 | NUR ---
Dr Ely speaking with patient in the triage room
[2022-08-24] MEDS ORDERED: TRAM50TA2 PO (18:25)
--- NOTE | 2022-08-24 18:33 | NUR ---
Patient given written and verbal discharge instructions and verbalizes understanding. ER MD discussed with patient the results and treatment provided. Patient in stable condition. ID arm band removed. Rx of TRAMADOL given. Patient educated on pain management and to follow up with PMD. Pain Scale . Opportunity for questions provided and answered. Medication side effect fact sheet provided.
[2022-08-24 18:34] VITALS: BP_SYST 177
== END 2022-08-24 18:33 | disposition home or self-care (01) ==
LOC: SED 13:07
DX: R07.9 Chest pain, unspecified (principal); M19.91 Primary osteoarthritis, unspecified site; J45.909 Unspecified asthma, uncomplicated; I11.0 Hypertensive heart disease with heart failure; I50.9 Heart failure, unspecified; Z88.1 Allergy status to other antibiotic agents; Z79.899 Other long term (current) drug therapy; Z20.822 Contact with and (suspected) exposure to COVID-19
CPT/HCPCS: 36415; 71045; 80053; 83880; 84484; 85025; 93005; 99285

== ENCOUNTER 2022-10-29 10:30 | Inpatient (IN) | payer OTHER ==
[~2022-10-29] VITALS: Ht 167.6 cm; Wt 70.3 kg
[~2022-10-29 10:30] MED LIST changes: +TRAM50TA2 PO
[2022-10-29 10:36] VITALS: BP_SYST 185
--- NOTE | 2022-10-29 10:37 | NUR ---
ER at bedside examining patient.
--- NOTE | 2022-10-29 10:40 | NUR ---
ER at bedside examining patient.
--- NOTE | 2022-10-29 10:40 | NUR ---
Global Human Resources Director bedside collecting blood specimen for collection.
--- NOTE | 2022-10-29 10:49 | NUR ---
EKG performed at by Ginger. Physician given copy of EKG for review.
--- NOTE | 2022-10-29 10:55 | NUR ---
Pt brought in by self from kidney doctor visit. Pt states feeling anxious with SOB and chest pain. Pt has a history of asthma and taking Eloquis with previous history of stroke. Pt is aaox3, skin intact, cool and moist.
[2022-10-29 11:02] LABS: BASOPHILS % (AUTO) 0.7 % (0.0-2.0); EOSINOPHILS % (AUTO) 0.8 % (0.0-4.0); HEMATOCRIT 33.3 % (36-48); HEMOGLOBIN 10.5 g/dL (12.0-16.0); LYMPHOCYTES # (AUTO) 0.9 K/uL (1.0-5.5); LYMPHOCYTES % (AUTO) 18.5 % (20.5-51.5); MEAN CORPUSCULAR HEMOGLOBIN 26 pg (27-31); MEAN CORPUSCULAR HGB CONC 32 % (32-36); MEAN CORPUSCULAR VOLUME 84 fL (79.0-98.0); MONOCYTES # (AUTO) 0.3 K/uL (0.0-1.0); MONOCYTES % (AUTO) 6.4 % (1.7-9.3); NEUTROPHILS # (AUTO) 3.7 K/uL (1.8-7.7); NEUTROPHILS % (AUTO) 73.6 % (40.0-70.0); PLATELET COUNT (AUTO) 141 K/uL (130-430); RED BLOOD CELL COUNT(AUTO) 3.98 MIL/uL (4.2-6.2); RED CELL DISTRIBUTION WIDTH 16.5 % (9.0-15.0)
[2022-10-29 11:15] LABS: ANION GAP 12 (5-15); CALCIUM 7.7 mg/dL (8.4-11.0); CHLORIDE 109 mmol/L (98-107); GFR AFRICAN AMERICAN 32 mL/min (>90); GLUCOSE 108 mg/dL (70-99); UREA NITROGEN, BLOOD 32 mg/dL (8-21)
[2022-10-29 11:21] LABS: ALANINE AMINOTRANSFERASE 27 U/L (12-78); ALBUMIN 3.4 g/dL (3.4-4.8); ASPARTATE AMINOTRANSFERASE 22 U/L (10-37); TOTAL BILIRUBIN 0.3 mg/dL (0.0-1.0)
--- NOTE | 2022-10-29 11:29 | NUR ---
Critical value: Troponin 52 reported to MD Mondragon.
--- NOTE | 2022-10-29 11:43 | NUR ---
NASAL SPECIMEN COLLECTED FROM BILATERAL NARES FOR COVID TESTING.
[2022-10-29] MEDS ORDERED: ASPIRIN 325 MG TABLET PO ONE (11:45)
[2022-10-29] MEDS ORDERED: IPRATROPIUM/ALBUTEROL SULFATE 3 ML AMPUL.NEB (DUONEB) INH ONE (11:45)
[2022-10-29] MEDS ORDERED: hydrALAZINE HCL 20 MG/ML VIAL IVP ONE (11:45)
--- NOTE | 2022-10-29 12:25 | NUR ---
# 20 gauge angiocath placed to left hand. Use of asceptic technique. Opsite placed over site. Blood return noted. Blood for lab drawn from site. Flushed with 10 cc of normal saline. No evidence of infiltration noted. Patient tolerated well.
--- NOTE | 2022-10-29 12:26 | NUR ---
Critical value: D-Dimer 585 notified MD Mondragon.
--- NOTE | 2022-10-29 12:29 | NUR ---
Pt medicated per MD orders.
--- NOTE | 2022-10-29 12:38 | NUR ---
Awaiting administrative secretary to clarify admitting doctor.
--- NOTE | 2022-10-29 13:00 | NUR ---
Admit bed requested Patient will be admitted to care of Carlin Huber. Admitted to Tele unit. Diagnosis HTN urgency Inpatient (Yes or No) y Observation (Yes or No) n Orientation concerns or request close to nursing station (Yes or No) n Covid Status negative On vent or bipap n Isolation requirements n Needs a sitter n From Home (Yes or if No enter name of facility) home Requires Dialysis (Yes or No) no Med Rec Completed (Yes of No) yes.
--- NOTE | 2022-10-29 13:19 | NUR ---
Pt complains of muscle tissue cramping to bilateral lower extremities.
[2022-10-29] MEDS ORDERED: ACETAMINOPHEN 325 MG TABLET PO PRN ×3 (13:45)
--- NOTE | 2022-10-29 14:19 | NUR ---
MD Valdez called back to note venous doppler and Morphine admistration for pt treatment of cramping to bilateral extremities.
[2022-10-29] MEDS: MORPHINE 2 MG/ML INJ. SYRINGE IVP PRN ×4 (14:26→18:28)
--- NOTE | 2022-10-29 14:27 | NUR ---
MORPHINE 2MG IVP GIVEN AT THIS TIME FOR LEFT POSTERIOR LOWER LEG PAIN 10/. PT LLE ELEVATED
--- NOTE | 2022-10-29 18:02 | NUR ---
300 ml urine emptied from leg bag, pt empties bag into urinal.
--- NOTE | 2022-10-29 18:13 | NUR ---
Pt served tray in bed. Pt complains of pain. will check EMAR for available pain medication.
--- NOTE | 2022-10-29 18:30 | NUR ---
Received report from outgoing nurse MOE Willson. Received pt awake and alert, no s/s of discomfort. IV patent and intact, no s/s of infiltration noted.
--- NOTE | 2022-10-29 19:02 | NUR ---
Pt medicated for Morphine by RN Ananth with no complaints.
--- NOTE | 2022-10-29 19:05 | NUR ---
Med reconciled and updated by pharmacy.
[2022-10-29] MEDS ORDERED: ALBUTEROL MDI INHALATION 8 GM INH INH PRN (19:15)
--- NOTE | 2022-10-29 19:17 | NUR ---
Report given to MOE San without questions. Pt is sitting HOB up no complaints at this time.
[2022-10-29] MEDS ORDERED: ALBUTEROL SULFATE 0.083% 2.5 MG/3 ML VIAL.NEB INH PRN (19:45)
[2022-10-29 20:12] VITALS: BP_SYST 156
[2022-10-29] MEDS ORDERED: ATORVASTATIN 20 MG TABLET PO SCH (21:00)
[2022-10-29] MEDS ORDERED: NON-FORMULARY MEDICATION (Apixaban (Eliquis) 5 MG) PO SCH (21:00)
--- NOTE | 2022-10-29 22:30 | NUR ---
Admit 67 year old female from Home alert oriented X 4 ambulates BRP noted Dx hypertension Ex. procedures explained 2 gm na po noted call alcantara with patient Respirations Regular also unlabored / .
--- NOTE | 2022-10-29 22:33 | NUR ---
Patient will be admitted to care of Dr Valdez. Admitted to Tele unit. Will go to room 117B. Belongings list completed. Complete and up to date summary report printed. SBAR report to be given at bedside with opportunity for questions.
[2022-10-29] MEDS: SODIUM BICARBONATE 650 MG TABLET PO SCH (22:49)
[2022-10-29] MEDS: PREGABALIN 25 MG CAPSULE (LYRICA) PO SCH (22:49)
[2022-10-29] MEDS: APIXABAN 2.5 MG TABLET PO SCH (22:51)
[2022-10-29] MEDS: traMADol HCL HCL 50 MG TABLET (ULTRAM) PO PRN (22:52)
[2022-10-29 23:39] VITALS: BP_SYST 137
[2022-10-30 03:00] VITALS: BP_SYST 135
[2022-10-30 03:05] LABS: BASOPHILS % (AUTO) 0.9 % (0.0-2.0); EOSINOPHILS # (AUTO) 0.1 K/uL (0.0-0.4); EOSINOPHILS % (AUTO) 1.2 % (0.0-4.0); HEMATOCRIT 31.2 % (36-48); LYMPHOCYTES # (AUTO) 1.5 K/uL (1.0-5.5); LYMPHOCYTES % (AUTO) 27.9 % (20.5-51.5); MEAN CORPUSCULAR HEMOGLOBIN 26 pg (27-31); MEAN CORPUSCULAR HGB CONC 32 % (32-36); MEAN CORPUSCULAR VOLUME 82 fL (79.0-98.0); MONOCYTES # (AUTO) 0.6 K/uL (0.0-1.0); MONOCYTES % (AUTO) 10.7 % (1.7-9.3); NEUTROPHILS # (AUTO) 3.2 K/uL (1.8-7.7); NEUTROPHILS % (AUTO) 59.3 % (40.0-70.0); PLATELET COUNT (AUTO) 166 K/uL (130-430); RED BLOOD CELL COUNT(AUTO) 3.79 MIL/uL (4.2-6.2); RED CELL DISTRIBUTION WIDTH 16.5 % (9.0-15.0); WHITE BLOOD COUNT (AUTO) 5.4 K/uL (4.8-10.8)
[2022-10-30 03:27] LABS: CALCIUM 7.7 mg/dL (8.4-11.0); CREATININE 1.82 mg/dL (0.55-1.30); TOTAL BILIRUBIN 0.4 mg/dL (0.0-1.0)
--- NOTE | 2022-10-30 04:51 | NUR ---
Hourly Rounding patient Resting is verbally Responsive Respirations Remain Regular also unlabored call alcantara with patient / .
[2022-10-30 08:00] VITALS: BP_SYST 141
--- NOTE | 2022-10-30 08:07 | NUR ---
Opening Notes: Patient in bed a/o x4. No s/s of distress or pain reported. Breathing is even and unlabored on RA 96%. Patient repositioned self sitting up to eat breakfast. Brought patient her tray and fresh ice water. Updated patient board. All needs met at this time, safety checks made and call light within reach.
[2022-10-30] MEDS: SODIUM BICARBONATE 650 MG TABLET PO SCH ×2 (08:45→15:24)
[2022-10-30] MEDS: PREGABALIN 25 MG CAPSULE (LYRICA) PO SCH (08:46)
[2022-10-30] MEDS: APIXABAN 2.5 MG TABLET PO SCH (08:47)
[2022-10-30] MEDS ORDERED: ASPIRIN 81 MG TAB.CHEW PO SCH ×2 (09:00)
[2022-10-30] MEDS ORDERED: MELOXICAM 7.5 MG TABLET PO SCH (09:00)
[2022-10-30] MEDS: traMADol HCL HCL 50 MG TABLET (ULTRAM) PO PRN (11:32)
[2022-10-30 12:00] VITALS: BP_SYST 132
--- NOTE | 2022-10-30 12:01 | NUR ---
Critical lab [facility] in lab called with troponin of 60 for pt. will notify cardio dr anderson Addendum: 10/30/22 at 1223 by Annabella Atkinson LVN DR ANDERSON NOTIFIED OF CRITICAL LAB TROPONIN 60
[2022-10-30 14:00] VITALS: BP_SYST 161
--- NOTE | 2022-10-30 14:54 | NUR ---
md: Formal reading of x-ray of shoulder needed before patient is discharged per Dr. Ely.
[2022-10-30 16:00] VITALS: BP_SYST 161
--- NOTE | 2022-10-30 16:50 | NUR ---
discharged pt discharged home with kimberly in private auto
== END 2022-10-30 16:50 | disposition home or self-care (01) | DRG 304 ==
LOC: SED 10:30 → STU 13:38
PROVIDERS: ADMIT Family Medicine; ATTEND Family Medicine
DX: I16.1 Hypertensive emergency (principal); N17.0 Acute kidney failure with tubular necrosis; F41.9 Anxiety disorder, unspecified; D64.9 Anemia, unspecified; M54.9 Dorsalgia, unspecified; G89.29 Other chronic pain; I48.0 Paroxysmal atrial fibrillation; T39.395A Adverse effect of other nonsteroidal anti-inflammatory drugs [NSAID], initial encounter; I12.9 Hypertensive chronic kidney disease with stage 1 through stage 4 chronic kidney disease, or unspecified chronic kidney disease; Z20.822 Contact with and (suspected) exposure to COVID-19; E11.22 Type 2 diabetes mellitus with diabetic chronic kidney disease; N18.30 Chronic kidney disease, stage 3 unspecified; Z98.84 Bariatric surgery status; Z86.718 Personal history of other venous thrombosis and embolism; Z88.8 Allergy status to other drugs, medicaments and biological substances; Z79.899 Other long term (current) drug therapy; Z79.82 Long term (current) use of aspirin; Y92.89 Other specified places as the place of occurrence of the external cause; Z79.1 Long term (current) use of non-steroidal anti-inflammatories (NSAID)
CPT/HCPCS: 36415; 71045; 73030; 80053; 83880; 84484; 85025; 85379; 93005; 93306; 93970; 94640; 94760; 99285; G0378; J0360; J2270

== ENCOUNTER 2022-11-19 15:15 | Emergency (ER) | payer OTHER ==
[~2022-11-19] VITALS: Ht 160 cm; Wt 61.2 kg
[2022-11-19 15:15] VITALS: BP_SYST 140
[~2022-11-19 15:15] MED LIST changes: -MELO-89 PO
--- NOTE | 2022-11-19 15:15 | NUR ---
Patient triaged and placed in waiting room. VSS and patient appears in no acute distress at this time. Accompanied by SELF, awaiting available bed, and MD notified of need for MSE.
--- NOTE | 2022-11-19 15:31 | NUR ---
PT STATES LEFT LOWER QUADRANT PAIN AND SWELLING, STATES PAIN IS PROBABLY FROM SUPRAPUBIC CATHTER. Addendum: 11/19/22 at 1531 by JANINE PAIN HAS BEEN GOING ON FOR ABOUT A MONTH
--- NOTE | 2022-11-19 17:34 | NUR ---
Patient to ER bed 02 to gown for evaluation. Side rails up.
--- NOTE | 2022-11-19 17:34 | NUR ---
[place] of care received, pt A&Ox4, VSS, ambulatory , pt presents to ER with L lower abd pain , pt states pain may be due to his suprapubic catheter, pt is afebrile, no N/V noted, will cont to monitor.
[2022-11-19 17:49] LABS: BILIRUBIN,URINE NEGATIVE (NEGATIVE); BLOOD, URINE 1+ (NEGATIVE); COLOR,URINE YELLOW (YELLOW); GLUCOSE,URINE NEGATIVE (NEGATIVE); KETONES,URINE NEGATIVE (NEGATIVE); NITRITE, URINE NEGATIVE (NEGATIVE); PH,URINE 6.5 (5.0-8.0); PROTEIN URINE 1+ (NEGATIVE); UROBILINOGEN,URINE 0.2 (0.2-1.0)
[2022-11-19 17:59] LABS: CLARITY/URINE HAZY (CLEAR); LEUKOCYTE ESTERASE ,URINE 1+ (NEGATIVE)
[2022-11-19 18:07] LABS: BACTERIA,URINE FEW /HPF (None Seen); MUCUS,URINE 1+ /LPF (None Seen); RBC,URINE 0-3 /HPF (0-3)
[2022-11-19 18:15] LABS: BASOPHILS # (AUTO) 0.1 K/uL (0.0-0.2); BASOPHILS % (AUTO) 0.8 % (0.0-2.0); EOSINOPHILS % (AUTO) 0.5 % (0.0-4.0); HEMATOCRIT 32.9 % (36-48); HEMOGLOBIN 10.6 g/dL (12.0-16.0); LYMPHOCYTES # (AUTO) 1.1 K/uL (1.0-5.5); LYMPHOCYTES % (AUTO) 16.1 % (20.5-51.5); MEAN CORPUSCULAR HEMOGLOBIN 26 pg (27-31); MEAN CORPUSCULAR HGB CONC 32 % (32-36); MEAN CORPUSCULAR VOLUME 82 fL (79.0-98.0); MONOCYTES # (AUTO) 0.6 K/uL (0.0-1.0); MONOCYTES % (AUTO) 8.8 % (1.7-9.3); NEUTROPHILS # (AUTO) 4.9 K/uL (1.8-7.7); NEUTROPHILS % (AUTO) 73.8 % (40.0-70.0); PLATELET COUNT (AUTO) 212 K/uL (130-430); RED BLOOD CELL COUNT(AUTO) 4.03 MIL/uL (4.2-6.2); RED CELL DISTRIBUTION WIDTH 15.9 % (9.0-15.0); WHITE BLOOD COUNT (AUTO) 6.7 K/uL (4.8-10.8)
[2022-11-19 18:19] LABS: CALCIUM 8.4 mg/dL (8.4-11.0); CREATININE 2.01 mg/dL (0.55-1.30)
[2022-11-19 18:23] LABS: ALBUMIN 3.6 g/dL (3.4-4.8); TOTAL BILIRUBIN 0.3 mg/dL (0.0-1.0)
[2022-11-19 18:52] VITALS: BP_SYST 151
[2022-11-19] MEDS ORDERED: CEPH-548 PO (19:04)
--- NOTE | 2022-11-19 19:11 | NUR ---
Patient given written and verbal discharge instructions and verbalizes understanding. ER MD discussed with patient the results and treatment provided. Patient in stable condition. ID arm band removed. IV catheter removed intact and dressing applied, no active bleeding. Rx of CEPHALEXINgiven. Patient educated on pain management and to follow up with PMD. Pain Scale []. Opportunity for questions provided and answered. Medication side effect fact sheet provided.
== END 2022-11-19 19:10 | disposition home or self-care (01) ==
LOC: SED 15:15
DX: N39.0 Urinary tract infection, site not specified (principal); R10.32 Left lower quadrant pain; R07.9 Chest pain, unspecified; J45.909 Unspecified asthma, uncomplicated; I11.0 Hypertensive heart disease with heart failure; I50.9 Heart failure, unspecified; Z88.1 Allergy status to other antibiotic agents; Z79.899 Other long term (current) drug therapy
CPT/HCPCS: 36415; 76376; 80053; 81000; 83605; 85025; 87040; 87086; 99284

== ENCOUNTER 2022-12-13 20:14 | Emergency (ER) | payer OTHER ==
[~2022-12-13] VITALS: Ht 160 cm; Wt 63.5 kg
[~2022-12-13 20:14] MED LIST changes: +CEPH-548 PO
[2022-12-13 20:45] VITALS: BP_SYST 154
[2022-12-13 22:42] LABS: BASOPHILS % (AUTO) 0.5 % (0.0-2.0); EOSINOPHILS % (AUTO) 0.1 % (0.0-4.0); HEMATOCRIT 32.1 % (36-48); HEMOGLOBIN 10.1 g/dL (12.0-16.0); LYMPHOCYTES % (AUTO) 14.8 % (20.5-51.5); MEAN CORPUSCULAR HEMOGLOBIN 26 pg (27-31); MEAN CORPUSCULAR HGB CONC 32 % (32-36); MEAN CORPUSCULAR VOLUME 81 fL (79.0-98.0); MONOCYTES # (AUTO) 0.8 K/uL (0.0-1.0); MONOCYTES % (AUTO) 12.2 % (1.7-9.3); NEUTROPHILS # (AUTO) 4.8 K/uL (1.8-7.7); NEUTROPHILS % (AUTO) 72.4 % (40.0-70.0); PLATELET COUNT (AUTO) 225 K/uL (130-430); RED BLOOD CELL COUNT(AUTO) 3.99 MIL/uL (4.2-6.2); RED CELL DISTRIBUTION WIDTH 15.7 % (9.0-15.0); WHITE BLOOD COUNT (AUTO) 6.7 K/uL (4.8-10.8)
[2022-12-13 22:45] LABS: CALCIUM 8.5 mg/dL (8.4-11.0); CREATININE 2.04 mg/dL (0.55-1.30)
[2022-12-13 22:50] LABS: ALBUMIN 3.2 g/dL (3.4-4.8); TOTAL BILIRUBIN 0.3 mg/dL (0.0-1.0)
[2022-12-13] MEDS ORDERED: HYDROcodone/ACETAMIN 5-325 MG TAB (NORCO/ VICODIN) PO ONE (23:15)
[2022-12-13 23:51] LABS: BILIRUBIN,URINE NEGATIVE (NEGATIVE); BLOOD, URINE 2+ (NEGATIVE); CLARITY/URINE SL CLOUDY (CLEAR); COLOR,URINE YELLOW (YELLOW); GLUCOSE,URINE NEGATIVE (NEGATIVE); KETONES,URINE NEGATIVE (NEGATIVE); LEUKOCYTE ESTERASE ,URINE 2+ (NEGATIVE); NITRITE, URINE POSITIVE (NEGATIVE); PROTEIN URINE 1+ (NEGATIVE); UROBILINOGEN,URINE 0.2 (0.2-1.0)
[2022-12-14 00:36] LABS: BACTERIA,URINE MANY /HPF (None Seen); WBC,URINE 50-80 /HPF (0-3)
[2022-12-14] MEDS ORDERED: CEPH250C PO (00:38)
[2022-12-14] MEDS ORDERED: HYDR-3917 PO ×4 (00:39→00:44)
[2022-12-14] MEDS ORDERED: MORPHINE 4 MG INJ. 4 MG/ML VIAL IM ONE (00:45)
[2022-12-14 01:07] VITALS: BP_SYST 134
== END 2022-12-14 01:07 | disposition home or self-care (01) ==
LOC: SED 20:14
DX: N30.90 Cystitis, unspecified without hematuria (principal); R10.9 Unspecified abdominal pain; R50.9 Fever, unspecified; J45.909 Unspecified asthma, uncomplicated; I12.9 Hypertensive chronic kidney disease with stage 1 through stage 4 chronic kidney disease, or unspecified chronic kidney disease; N18.30 Chronic kidney disease, stage 3 unspecified; Z88.1 Allergy status to other antibiotic agents; Z79.899 Other long term (current) drug therapy
CPT/HCPCS: 99283; 80053; 81000; 83690; 85025; 87086; 36415; 96372; J2270

== ENCOUNTER 2023-02-14 12:54 | Emergency (ER) | payer OTHER ==
[~2023-02-14] VITALS: Ht 160 cm; Wt 65.8 kg
[~2023-02-14 12:54] MED LIST changes: +CEPH250C PO; +HYDR-3917 PO
[2023-02-14 13:10] VITALS: BP_SYST 133; PULSE 84; RESP 18; TEMP 97.3; O2SAT 84
[2023-02-14 15:48] LABS: CALCIUM 7.8 mg/dL (8.4-11.0)
[2023-02-14 15:51] LABS: BASOPHILS % (AUTO) 0.5 % (0.0-2.0); EOSINOPHILS # (AUTO) 0.1 K/uL (0.0-0.4); EOSINOPHILS % (AUTO) 0.6 % (0.0-4.0); HEMATOCRIT 39.1 % (36-48); HEMOGLOBIN 12.1 g/dL (12.0-16.0); LYMPHOCYTES # (AUTO) 1.2 K/uL (1.0-5.5); LYMPHOCYTES % (AUTO) 13.8 % (20.5-51.5); MEAN CORPUSCULAR HEMOGLOBIN 26 pg (27-31); MEAN CORPUSCULAR HGB CONC 31 % (32-36); MEAN CORPUSCULAR VOLUME 84 fL (79.0-98.0); MONOCYTES # (AUTO) 0.5 K/uL (0.0-1.0); MONOCYTES % (AUTO) 6.5 % (1.7-9.3); NEUTROPHILS # (AUTO) 6.6 K/uL (1.8-7.7); NEUTROPHILS % (AUTO) 78.6 % (40.0-70.0); PLATELET COUNT (AUTO) 152 K/uL (130-430); RED BLOOD CELL COUNT(AUTO) 4.68 MIL/uL (4.2-6.2); RED CELL DISTRIBUTION WIDTH 20.1 % (9.0-15.0); WHITE BLOOD COUNT (AUTO) 8.4 K/uL (4.8-10.8)
[2023-02-14 15:52] LABS: ALBUMIN 3.9 g/dL (3.4-4.8); TOTAL BILIRUBIN 0.4 mg/dL (0.0-1.0)
[2023-02-14 17:01] LABS: BILIRUBIN,URINE NEGATIVE (NEGATIVE); BLOOD, URINE 2+ (NEGATIVE); COLOR,URINE YELLOW (YELLOW); GLUCOSE,URINE NEGATIVE (NEGATIVE); KETONES,URINE NEGATIVE (NEGATIVE); LEUKOCYTE ESTERASE ,URINE 1+ (NEGATIVE); NITRITE, URINE POSITIVE (NEGATIVE); PH,URINE 5.5 (5.0-8.0); PROTEIN URINE NEGATIVE (NEGATIVE); UROBILINOGEN,URINE 0.2 (0.2-1.0)
[2023-02-14 17:13] LABS: CLARITY/URINE SLIGHTLY HAZY (CLEAR)
[2023-02-14] MEDS ORDERED: HYDR-3917 PO (17:21)
[2023-02-14] MEDS ORDERED: NITR-85 PO (17:21)
[2023-02-14 17:32] VITALS: BP_SYST 133; PULSE 84; RESP 18; TEMP 97.3; O2SAT 84
[2023-02-14 17:51] LABS: BACTERIA,URINE MODERATE /HPF (None Seen)
== END 2023-02-14 17:32 | disposition home or self-care (01) ==
LOC: SED 12:54
DX: N39.0 Urinary tract infection, site not specified (principal); R10.32 Left lower quadrant pain; R53.1 Weakness; R31.9 Hematuria, unspecified; I12.9 Hypertensive chronic kidney disease with stage 1 through stage 4 chronic kidney disease, or unspecified chronic kidney disease; N18.30 Chronic kidney disease, stage 3 unspecified; J45.909 Unspecified asthma, uncomplicated; Z88.1 Allergy status to other antibiotic agents; Z79.899 Other long term (current) drug therapy
CPT/HCPCS: 36415; 76376; 80053; 81000; 83690; 85025; 87086; 99284

== ENCOUNTER 2023-06-12 18:32 | Emergency (ER) | payer OTHER ==
[~2023-06-12] VITALS: Ht 160 cm; Wt 58.5 kg
[~2023-06-12 18:32] MED LIST changes: +NITR-85 PO
[2023-06-12 18:36] VITALS: BP_SYST 153; PULSE 89; RESP 18; TEMP 98.3; O2SAT 97
[2023-06-12 20:06] VITALS: BP_SYST 139; PULSE 88; RESP 16; TEMP 97.5; O2SAT 98
[2023-06-12] MEDS ORDERED: MORPHINE 4 MG INJ. 4 MG/ML VIAL IM ONE (20:15)
== END 2023-06-12 20:07 | disposition home or self-care (01) ==
LOC: SED 18:32
DX: G89.29 Other chronic pain (principal); M54.50 Low back pain, unspecified; J45.909 Unspecified asthma, uncomplicated; I12.9 Hypertensive chronic kidney disease with stage 1 through stage 4 chronic kidney disease, or unspecified chronic kidney disease; N18.30 Chronic kidney disease, stage 3 unspecified; Z88.1 Allergy status to other antibiotic agents; Z79.899 Other long term (current) drug therapy
CPT/HCPCS: 99283; 96372; J2270

== ENCOUNTER 2023-09-26 14:43 | Emergency (ER) | payer OTHER ==
[~2023-09-26] VITALS: Ht 160 cm; Wt 59.0 kg
[~2023-09-26 14:43] MED LIST changes: -CEPH-548 PO; -CEPH250C PO; -NITR-85 PO; +PRED10TA PO; -PRED20TA PO; +ZIT250 PO
[2023-09-26 14:45] VITALS: BP_SYST 156; PULSE 100; RESP 19; TEMP 97.4; O2SAT 95
[2023-09-26] MEDS ORDERED: IBUP-1969 PO (17:29)
[2023-09-26 19:26] VITALS: BP_SYST 150; PULSE 96; RESP 18; TEMP 97.9; O2SAT 96
== END 2023-09-26 19:26 | disposition home or self-care (01) ==
LOC: SED 14:43
DX: S09.90XA Unspecified injury of head, initial encounter (principal); J45.909 Unspecified asthma, uncomplicated; I10 Essential (primary) hypertension; G89.29 Other chronic pain; Z86.73 Personal history of transient ischemic attack (TIA), and cerebral infarction without residual deficits; Z79.899 Other long term (current) drug therapy; W20.8XXA Other cause of strike by thrown, projected or falling object, initial encounter; Y93.89 Activity, other specified; Y92.89 Other specified places as the place of occurrence of the external cause; Y99.8 Other external cause status
CPT/HCPCS: 70450-TC; 76376; 99284

== ENCOUNTER 2023-10-03 14:02 | Emergency (ER) | payer OTHER ==
[~2023-10-03] VITALS: Ht 160 cm; Wt 56.7 kg
[2023-10-03 14:02] VITALS: BP_SYST 156; PULSE 88; RESP 20; TEMP 97.2; O2SAT 97
[~2023-10-03 14:02] MED LIST changes: +IBUP-1969 PO
[2023-10-03] MEDS: IPRATROPIUM/ALBUTEROL SULFATE 3 ML AMPUL.NEB (DUONEB) INH ONE (14:20)
[2023-10-03] MEDS: DEXAMETHASONE SOD PHOSPHATE 10 MG/ML VIAL IVP ONE (14:26)
[2023-10-03 14:36] LABS: BASOPHILS # (AUTO) 0.1 K/uL (0.0-0.2); BASOPHILS % (AUTO) 1.1 % (0.0-2.0); EOSINOPHILS # (AUTO) 0.1 K/uL (0.0-0.4); EOSINOPHILS % (AUTO) 1.1 % (0.0-4.0); HEMATOCRIT 29.1 % (36-48); HEMOGLOBIN 9.7 g/dL (12.0-16.0); LYMPHOCYTES % (AUTO) 16.6 % (20.5-51.5); MEAN CORPUSCULAR HEMOGLOBIN 30 pg (27-31); MEAN CORPUSCULAR HGB CONC 33 % (32-36); MEAN CORPUSCULAR VOLUME 89 fL (79.0-98.0); MONOCYTES # (AUTO) 0.3 K/uL (0.0-1.0); MONOCYTES % (AUTO) 4.7 % (1.7-9.3); NEUTROPHILS # (AUTO) 4.4 K/uL (1.8-7.7); NEUTROPHILS % (AUTO) 76.5 % (40.0-70.0); PLATELET COUNT (AUTO) 162 K/uL (130-430); RED BLOOD CELL COUNT(AUTO) 3.27 MIL/uL (4.2-6.2); RED CELL DISTRIBUTION WIDTH 16.9 % (9.0-15.0); WHITE BLOOD COUNT (AUTO) 5.8 K/uL (4.8-10.8)
[2023-10-03 14:47] LABS: ANION GAP 10 (5-15); CALCIUM 7.9 mg/dL (8.4-11.0); CARBON DIOXIDE 22 mmol/L (23-29); CHLORIDE 112 mmol/L (98-107); CREATININE 1.49 mg/dL (0.55-1.30); GFR AFRICAN AMERICAN 44 mL/min (>90); GFR NON AFRICAN-AMERICAN 37 mL/min (>90); GLUCOSE 120 mg/dL (74-106); POTASSIUM 4.3 mmol/L (3.5-5.1); SODIUM SERUM 144 mmol/L (136-145); UREA NITROGEN, BLOOD 27 mg/dL (8-21)
[2023-10-03] MEDS: LevALBUTEROL HCL 1.25 MG/0.5 ML *CONC.* VIAL.NEB (XOPENEX CONC.) INH ONE (17:12)
[2023-10-03] MEDS ORDERED: PRED20TA PO (18:10)
[2023-10-03] MEDS: KETOROLAC TROMETHAMINE 30 MG VIAL IVP ONE (18:23)
[2023-10-03 18:55] VITALS: BP_SYST 140; PULSE 93; RESP 16; TEMP 97.7; O2SAT 96
== END 2023-10-03 18:46 | disposition home or self-care (01) ==
LOC: SED 14:02
DX: J45.901 Unspecified asthma with (acute) exacerbation (principal); R07.89 Other chest pain; R06.02 Shortness of breath; I48.91 Unspecified atrial fibrillation; I12.9 Hypertensive chronic kidney disease with stage 1 through stage 4 chronic kidney disease, or unspecified chronic kidney disease; N18.30 Chronic kidney disease, stage 3 unspecified; G89.29 Other chronic pain; E11.22 Type 2 diabetes mellitus with diabetic chronic kidney disease; Z86.73 Personal history of transient ischemic attack (TIA), and cerebral infarction without residual deficits
CPT/HCPCS: 80048; 83880; 85025; 84484; 36415; 93005; 71045; 94640; 99285; 96374; 96375; J7612; J1100; J1885; 94760

== ENCOUNTER 2023-12-31 22:44 | Inpatient (IN) | payer OTHER ==
[~2023-12-31] VITALS: Ht 160 cm; Wt 48.1 kg
[~2023-12-31 22:44] MED LIST changes: -ALBMDI INH; -ASA81 PO; -HYDR-3917 PO; -IBUP-1969 PO; +LEVO250T73 PO; -LYR25 PO; -MECO10005 PO; +NITR-85 PO; -PRED10TA PO; +SENN-301; -TRAM50TA2 PO; -ZIT250 PO
[2023-12-31 22:45] VITALS: BP_SYST 104; PULSE 96; RESP 19; TEMP 97.6; O2SAT 96
[2023-12-31] MEDS: NACL 0.9% 1,500 ML IV ONE (23:14)
[2023-12-31 23:23] LABS: BILIRUBIN,URINE 1+ (NEGATIVE); BLOOD, URINE 2+ (NEGATIVE); CLARITY/URINE SL CLOUDY (CLEAR); COLOR,URINE YELLOW (YELLOW); GLUCOSE,URINE NEGATIVE (NEGATIVE); KETONES,URINE TRACE (NEGATIVE); LEUKOCYTE ESTERASE ,URINE 3+ (NEGATIVE); NITRITE, URINE NEGATIVE (NEGATIVE); PROTEIN URINE 2+ (NEGATIVE); UROBILINOGEN,URINE 0.2 (0.2-1.0)
[2023-12-31] MEDS: cefTRIAXone 1 GM IVPB PREMIX 50 ML IV ONE (23:27)
[2023-12-31 23:41] LABS: BASOPHILS % (AUTO) 0.3 % (0.0-2.0); EOSINOPHILS % (AUTO) 0.1 % (0.0-4.0); HEMATOCRIT 32.4 % (36-48); HEMOGLOBIN 10.4 g/dL (12.0-16.0); LYMPHOCYTES % (AUTO) 7.5 % (20.5-51.5); MEAN CORPUSCULAR HEMOGLOBIN 29 pg (27-31); MEAN CORPUSCULAR HGB CONC 32 % (32-36); MEAN CORPUSCULAR VOLUME 90 fL (79.0-98.0); MONOCYTES # (AUTO) 0.4 K/uL (0.0-1.0); MONOCYTES % (AUTO) 2.9 % (1.7-9.3); NEUTROPHILS # (AUTO) 11.6 K/uL (1.8-7.7); NEUTROPHILS % (AUTO) 89.2 % (40.0-70.0); PLATELET COUNT (AUTO) 252 K/uL (130-430); RED CELL DISTRIBUTION WIDTH 17.2 % (9.0-15.0)
[2023-12-31 23:46] LABS: WBC,URINE >100 /HPF (0-3)
[2023-12-31 23:50] LABS: BACTERIA,URINE MANY /HPF (None Seen)
[2023-12-31 23:52] LABS: YEAST,URINE Few /HPF (None Seen)
[2024-01-01 00:12] LABS: ALBUMIN 3.2 g/dL (3.4-4.8); BILIRUBIN,DIRECT 0.1 mg/dL (0.0-0.3); CALCIUM 8.2 mg/dL (8.4-11.0); CREATININE 2.79 mg/dL (0.55-1.30); POTASSIUM 4.1 mmol/L (3.5-5.1); TOTAL BILIRUBIN 0.5 mg/dL (0.0-1.0); TOTAL PROTEIN, SERUM 6.8 g/dL (6.4-8.3)
[2024-01-01] MEDS ORDERED: SODIUM BICARBONATE 8.4% JECT 50 MEQ/50 ML SYRINGE ONE (01:31)
[2024-01-01] MEDS: SODIUM BICARBONATE 8.4% JECT 100 MEQ in 0.45% NACL 1,000 ML IVP SCH (01:58)
[2024-01-01 03:00] VITALS: BP_SYST 135; PULSE 89; RESP 19; TEMP 98.5
[2024-01-01 08:10] VITALS: BP_SYST 133; PULSE 87; RESP 16; TEMP 96.9; O2SAT 98
[2024-01-01 09:21] VITALS: O2SAT 97
[2024-01-01 11:02] VITALS: BP_SYST 143; PULSE 86; RESP 14; TEMP 99.7; O2SAT 97
[2024-01-01] MEDS: SODIUM BICARBONATE 8.4% JECT 150 MEQ in D5W 1,000 ML IV SCH (11:07)
[2024-01-01] MEDS ORDERED: SODIUM BICARBONATE 8.4% JECT 100 MEQ in 0.45% NACL 1,000 ML IVP SCH (13:00)
[2024-01-01] MEDS: BISMUTH SUBSALICYLATE 240 ML BOTTLE PO PRN (15:28)
[2024-01-01 16:09] VITALS: BP_SYST 140; PULSE 84; RESP 14; TEMP 99.5; O2SAT 97
[2024-01-01 20:00] VITALS: BP_SYST 120; PULSE 82; RESP 16; TEMP 98; O2SAT 99
[2024-01-01] MEDS: cefTRIAXone 1 GM in D5W 50 ML IV SCH (20:23)
[2024-01-01] MEDS: HYDROcodone/ACETAMIN 5-325 MG TAB (NORCO/ VICODIN) PO PRN (22:39)
[2024-01-01] MEDS ORDERED: cefTRIAXone 1 GM in D5W 50 ML IV SCH (23:00)
[2024-01-02 01:28] VITALS: BP_SYST 118; PULSE 67; RESP 18; TEMP 98.4; O2SAT 99
[2024-01-02 08:00] VITALS: BP_SYST 110; PULSE 67; RESP 16; TEMP 97.7; O2SAT 98
[2024-01-02 09:22] VITALS: O2SAT 98
[2024-01-02 11:11] LABS: CALCIUM 7.6 mg/dL (8.4-11.0); CREATININE 2.25 mg/dL (0.55-1.30)
[2024-01-02 12:45] VITALS: BP_SYST 115; PULSE 76; RESP 17; TEMP 98; O2SAT 98
[2024-01-02 16:17] VITALS: BP_SYST 129; PULSE 70; RESP 16; TEMP 97.2; O2SAT 98
[2024-01-02 18:25] LABS: BILIRUBIN,URINE NEGATIVE (NEGATIVE); BLOOD, URINE TRACE (NEGATIVE); CLARITY/URINE HAZY (CLEAR); COLOR,URINE YELLOW (YELLOW); GLUCOSE,URINE NEGATIVE (NEGATIVE); KETONES,URINE NEGATIVE (NEGATIVE); LEUKOCYTE ESTERASE ,URINE 3+ (NEGATIVE); NITRITE, URINE NEGATIVE (NEGATIVE); PH,URINE 7.5 (5.0-8.0); PROTEIN URINE TRACE (NEGATIVE); UROBILINOGEN,URINE 0.2 (0.2-1.0)
[2024-01-02 18:50] LABS: BACTERIA,URINE MODERATE /HPF (None Seen); WBC,URINE 20-50 /HPF (0-3)
[2024-01-02 20:00] VITALS: BP_SYST 112; PULSE 72; RESP 16; TEMP 97.3; O2SAT 96
[2024-01-02] MEDS: ONDANSETRON HCL 4 MG/2 ML VIAL IVP PRN (22:14)
[2024-01-02] MEDS: KCL 20 mEq in 100 mL (PREMIX) 100 ML IV SCH (22:23)
[2024-01-03 00:05] VITALS: BP_SYST 129; PULSE 69; RESP 18; TEMP 97; O2SAT 97
[2024-01-03 06:30] LABS: BASOPHILS % (AUTO) 0.5 % (0.0-2.0); EOSINOPHILS % (AUTO) 0.7 % (0.0-4.0); HEMATOCRIT 27.2 % (36-48); HEMOGLOBIN 9.2 g/dL (12.0-16.0); LYMPHOCYTES # (AUTO) 1.5 K/uL (1.0-5.5); LYMPHOCYTES % (AUTO) 22.2 % (20.5-51.5); MEAN CORPUSCULAR HEMOGLOBIN 30 pg (27-31); MEAN CORPUSCULAR HGB CONC 34 % (32-36); MEAN CORPUSCULAR VOLUME 87 fL (79.0-98.0); MONOCYTES # (AUTO) 0.6 K/uL (0.0-1.0); MONOCYTES % (AUTO) 9.1 % (1.7-9.3); NEUTROPHILS # (AUTO) 4.5 K/uL (1.8-7.7); NEUTROPHILS % (AUTO) 67.5 % (40.0-70.0); PLATELET COUNT (AUTO) 188 K/uL (130-430); RED BLOOD CELL COUNT(AUTO) 3.12 MIL/uL (4.2-6.2); RED CELL DISTRIBUTION WIDTH 17.3 % (9.0-15.0); WHITE BLOOD COUNT (AUTO) 6.7 K/uL (4.8-10.8)
[2024-01-03 06:32] LABS: CALCIUM 7.5 mg/dL (8.4-11.0); CREATININE 1.91 mg/dL (0.55-1.30); POTASSIUM 3.1 mmol/L (3.5-5.1)
[2024-01-03] MEDS ORDERED: DIATR MEGLU/DIATRIZ SOD 30 ML SOLUTION PO ONE (07:18)
[2024-01-03 08:05] VITALS: BP_SYST 125; PULSE 74; RESP 19; TEMP 97.5; O2SAT 99
[2024-01-03] MEDS: CITRIC ACID/SODIUM CITRATE 30 ML UDC PO SCH (09:34)
[2024-01-03] MEDS: 0.45% NACL 1,000 ML IV SCH (09:36)
[2024-01-03] MEDS: KCL IV ONE (09:53)
[2024-01-03 12:10] VITALS: BP_SYST 126; PULSE 75; RESP 18; TEMP 98.2; O2SAT 98
[2024-01-03 16:20] VITALS: BP_SYST 130; PULSE 74; RESP 19; TEMP 97.5; O2SAT 97
[2024-01-03] MEDS: POTASSIUM CHLORIDE 20 MEQ TABLET.ER PO ONE (16:24)
[2024-01-03 17:10] LABS: LYMPHOCYTES # (AUTO) 1.1 K/uL (1.0-5.5)
[2024-01-03 17:15] LABS: BASOPHILS % (AUTO) 0.6 % (0.0-2.0); EOSINOPHILS % (AUTO) 0.1 % (0.0-4.0); HEMATOCRIT 26.5 % (36-48); HEMOGLOBIN 9.1 g/dL (12.0-16.0); LYMPHOCYTES % (AUTO) 18.3 % (20.5-51.5); MEAN CORPUSCULAR HEMOGLOBIN 30 pg (27-31); MEAN CORPUSCULAR HGB CONC 34 % (32-36); MEAN CORPUSCULAR VOLUME 87 fL (79.0-98.0); MONOCYTES # (AUTO) 0.6 K/uL (0.0-1.0); MONOCYTES % (AUTO) 9.6 % (1.7-9.3); NEUTROPHILS # (AUTO) 4.3 K/uL (1.8-7.7); NEUTROPHILS % (AUTO) 71.4 % (40.0-70.0); PLATELET COUNT (AUTO) 169 K/uL (130-430); RED BLOOD CELL COUNT(AUTO) 3.06 MIL/uL (4.2-6.2); RED CELL DISTRIBUTION WIDTH 16.7 % (9.0-15.0); WHITE BLOOD COUNT (AUTO) 6.1 K/uL (4.8-10.8)
[2024-01-03 19:00] VITALS: BP_SYST 126; PULSE 68; RESP 16; TEMP 96.6; O2SAT 99
[2024-01-04] VITALS (14 sets, daily range): BP systolic 87–153; PULSE 69–145; RESP 15–28; TEMP 97–98.4; O2SAT 95–100
[2024-01-04 08:28] LABS: CALCIUM 7.7 mg/dL (8.4-11.0); CREATININE 1.71 mg/dL (0.55-1.30); POTASSIUM 3.7 mmol/L (3.5-5.1)
[2024-01-04 13:08] LABS: ABG O2 SAT% ESTIMATE 98.3 % (94.0-100.0)
[2024-01-04 13:11] LABS: BASOPHILS % (AUTO) 0.4 % (0.0-2.0); BLOOD GAS HCO3 16.7 mmol/L (21.0-27.0); EOSINOPHILS % (AUTO) 0.2 % (0.0-4.0); HEMOGLOBIN 9.1 g/dL (12.0-16.0); LYMPHOCYTES # (AUTO) 3.3 K/uL (1.0-5.5); MEAN CORPUSCULAR HEMOGLOBIN 29 pg (27-31); MEAN CORPUSCULAR HGB CONC 33 % (32-36); MONOCYTES # (AUTO) 0.8 K/uL (0.0-1.0); MONOCYTES % (AUTO) 7.3 % (1.7-9.3); NEUTROPHILS # (AUTO) 6.4 K/uL (1.8-7.7); NEUTROPHILS % (AUTO) 61.1 % (40.0-70.0); PLATELET COUNT (AUTO) 180 K/uL (130-430); RED BLOOD CELL COUNT(AUTO) 3.12 MIL/uL (4.2-6.2); WHITE BLOOD COUNT (AUTO) 10.5 K/uL (4.8-10.8)
[2024-01-04 13:12] LABS: ALLEN'S TEST POSITIVE (P); BLOOD GAS BASE EXCESS -7.9 mmol/L (-3.0-3.0); BLOOD GAS PCO2 31.8 mmHg (35.0-45.0); BLOOD GAS PH 7.337 (7.350-7.450); BLOOD GAS PO2 123.2 mmHg (75.0-100.0); MEAN CORPUSCULAR VOLUME 90 fL (79.0-98.0)
[2024-01-04 13:27] LABS: ANION GAP 16 (5-15); CALCIUM 7.4 mg/dL (8.4-11.0); CARBON DIOXIDE 22 mmol/L (23-29); CHLORIDE 105 mmol/L (98-107); CREATININE 1.94 mg/dL (0.55-1.30); GLUCOSE 233 mg/dL (74-106); POTASSIUM 3.6 mmol/L (3.5-5.1); SODIUM SERUM 143 mmol/L (136-145); UREA NITROGEN, BLOOD 18 mg/dL (8-21)
[2024-01-04 13:29] LABS: GFR AFRICAN AMERICAN 33 mL/min (>90); GFR NON AFRICAN-AMERICAN 27 mL/min (>90)
[2024-01-04] MEDS: PIPERACILLIN/TAZO 3.375 GM in D5W 50 ML IV SCH (14:28)
[2024-01-04] MEDS: FLUCONAZOLE 200 mg/ NS 100 ML IV SCH (15:45)
[2024-01-04] MEDS: APIXABAN 2.5 MG TABLET PO ONE (15:45)
[2024-01-04] MEDS: VANCOMYCIN HCL 750 MG in NS 250 ML IV SCH (17:32)
[2024-01-04] MEDS: APIXABAN 2.5 MG TABLET PO SCH (20:53)
[2024-01-04] MEDS: DIPHENHYDRAMINE HCL 25 MG CAPSULE PO PRN (22:12)
[2024-01-05 06:54] LABS: BASOPHILS % (AUTO) 0.4 % (0.0-2.0); EOSINOPHILS % (AUTO) 0.5 % (0.0-4.0); HEMOGLOBIN 8.3 g/dL (12.0-16.0); LYMPHOCYTES % (AUTO) 18.6 % (20.5-51.5); MEAN CORPUSCULAR HEMOGLOBIN 29 pg (27-31); MEAN CORPUSCULAR HGB CONC 33 % (32-36); MEAN CORPUSCULAR VOLUME 88 fL (79.0-98.0); MONOCYTES # (AUTO) 0.5 K/uL (0.0-1.0); MONOCYTES % (AUTO) 8.8 % (1.7-9.3); NEUTROPHILS # (AUTO) 3.9 K/uL (1.8-7.7); NEUTROPHILS % (AUTO) 71.7 % (40.0-70.0); PLATELET COUNT (AUTO) 131 K/uL (130-430); RED BLOOD CELL COUNT(AUTO) 2.83 MIL/uL (4.2-6.2); RED CELL DISTRIBUTION WIDTH 16.6 % (9.0-15.0)
[2024-01-05 07:35] LABS: ALBUMIN 2.2 g/dL (3.4-4.8); CALCIUM 7.2 mg/dL (8.4-11.0); CREATININE 1.87 mg/dL (0.55-1.30); PHOSPHORUS 3.5 mg/dL (2.7-4.5); POTASSIUM 3.6 mmol/L (3.5-5.1); TOTAL BILIRUBIN 0.3 mg/dL (0.0-1.0)
[2024-01-05 07:58] LABS: WHITE BLOOD COUNT (AUTO) 5.5 K/uL (4.8-10.8)
[2024-01-05 08:00] VITALS: BP_SYST 117; PULSE 85; RESP 18; TEMP 97.1
[2024-01-05] MEDS ORDERED: *HEPARIN PER PHARMACY XX PRN (08:45)
[2024-01-05] MEDS ORDERED: HEPARIN SODIUM,PORCINE 3000 UNITS/0.6 ML BOLUS IVP PRN (10:30)
[2024-01-05] MEDS ORDERED: HEPARIN SODIUM,PORCINE 2000 UNITS/0.4 ML BOLUS IVP PRN (10:30)
[2024-01-05] MEDS: HEPARIN 25,000 UNITS in 250 ML PREMIX IV PRN (12:01)
[2024-01-05 13:19] LABS: ERYTHROCYTE SEDIMENTATION RATE 1 MM/HR (0-20)
[2024-01-05 16:00] VITALS: BP_SYST 119; PULSE 63; RESP 14; TEMP 97.9; O2SAT 97
[2024-01-05] MEDS: ATORVASTATIN 20 MG TABLET PO ONE (17:41)
[2024-01-05] MEDS: ASPIRIN 81 MG TAB.CHEW PO ONE (17:42)
[2024-01-05 20:00] VITALS: O2SAT 100
[2024-01-05] MEDS: METOPROLOL TARTRATE 25 MG TABLET PO SCH (20:16)
[2024-01-06 01:45] VITALS: BP_SYST 118; PULSE 72; RESP 17; TEMP 97.2; O2SAT 100
[2024-01-06 05:47] LABS: BASOPHILS % (AUTO) 0.5 % (0.0-2.0); EOSINOPHILS % (AUTO) 0.7 % (0.0-4.0); HEMATOCRIT 25.2 % (36-48); HEMOGLOBIN 8.3 g/dL (12.0-16.0); LYMPHOCYTES % (AUTO) 17.5 % (20.5-51.5); MEAN CORPUSCULAR HEMOGLOBIN 29 pg (27-31); MEAN CORPUSCULAR HGB CONC 33 % (32-36); MEAN CORPUSCULAR VOLUME 89 fL (79.0-98.0); MONOCYTES # (AUTO) 0.6 K/uL (0.0-1.0); MONOCYTES % (AUTO) 9.9 % (1.7-9.3); NEUTROPHILS # (AUTO) 4.1 K/uL (1.8-7.7); NEUTROPHILS % (AUTO) 71.4 % (40.0-70.0); PLATELET COUNT (AUTO) 124 K/uL (130-430); RED BLOOD CELL COUNT(AUTO) 2.84 MIL/uL (4.2-6.2); RED CELL DISTRIBUTION WIDTH 16.4 % (9.0-15.0); WHITE BLOOD COUNT (AUTO) 5.8 K/uL (4.8-10.8)
[2024-01-06 05:52] LABS: ERYTHROCYTE SEDIMENTATION RATE 5 MM/HR (0-20)
[2024-01-06 08:00] VITALS: BP_SYST 148; PULSE 75; RESP 16; TEMP 98; O2SAT 100
[2024-01-06 08:13] LABS: ALBUMIN 2.1 g/dL (3.4-4.8); CREATININE 2.04 mg/dL (0.55-1.30); PHOSPHORUS 3.3 mg/dL (2.7-4.5); POTASSIUM 3.2 mmol/L (3.5-5.1); TOTAL BILIRUBIN 0.3 mg/dL (0.0-1.0); TOTAL PROTEIN, SERUM 4.9 g/dL (6.4-8.3)
[2024-01-06 09:07] LABS: CALCIUM 6.9 mg/dL (8.4-11.0)
[2024-01-06] MEDS: ASPIRIN 81 MG TABLET(ECOTRIN) PO SCH (09:14)
[2024-01-06] MEDS: ATORVASTATIN 20 MG TABLET PO SCH (09:15)
[2024-01-06 11:21] VITALS: BP_SYST 139; PULSE 72; RESP 16; TEMP 97.6; O2SAT 95
[2024-01-06] MEDS: POTASSIUM CHLORIDE 20 MEQ TABLET.ER PO ONE (13:04)
[2024-01-06] MEDS: CALCIUM GLUC 2 GM/100ML-NACL 100 ML IV ONE (13:05)
[2024-01-06 15:05] VITALS: BP_SYST 133; PULSE 59; RESP 16; TEMP 97.9; O2SAT 100
[2024-01-06 20:00] VITALS: BP_SYST 144; PULSE 89; RESP 18; TEMP 97.3; O2SAT 98
[2024-01-07] VITALS (8 sets, daily range): BP systolic 121–160; PULSE 67–75; RESP 16–20; TEMP 97.3–98.3; O2SAT 92–100
[2024-01-07 05:23] LABS: BASOPHILS % (AUTO) 0.7 % (0.0-2.0); EOSINOPHILS % (AUTO) 0.2 % (0.0-4.0); HEMATOCRIT 25.9 % (36-48); HEMOGLOBIN 8.5 g/dL (12.0-16.0); LYMPHOCYTES % (AUTO) 20.4 % (20.5-51.5); MEAN CORPUSCULAR HEMOGLOBIN 29 pg (27-31); MEAN CORPUSCULAR HGB CONC 33 % (32-36); MEAN CORPUSCULAR VOLUME 89 fL (79.0-98.0); MONOCYTES # (AUTO) 0.6 K/uL (0.0-1.0); MONOCYTES % (AUTO) 10.8 % (1.7-9.3); NEUTROPHILS # (AUTO) 3.5 K/uL (1.8-7.7); NEUTROPHILS % (AUTO) 67.9 % (40.0-70.0); PLATELET COUNT (AUTO) 126 K/uL (130-430); RED BLOOD CELL COUNT(AUTO) 2.92 MIL/uL (4.2-6.2); RED CELL DISTRIBUTION WIDTH 16.5 % (9.0-15.0); WHITE BLOOD COUNT (AUTO) 5.1 K/uL (4.8-10.8)
[2024-01-07 05:31] LABS: ERYTHROCYTE SEDIMENTATION RATE 15 MM/HR (0-20)
[2024-01-07 05:41] LABS: CALCIUM 7.7 mg/dL (8.4-11.0); CREATININE 2.02 mg/dL (0.55-1.30); PHOSPHORUS 3.9 mg/dL (2.7-4.5); POTASSIUM 3.3 mmol/L (3.5-5.1)
[2024-01-07] MEDS: CALCIUM GLUC 2 GM/100ML-NACL 100 ML IV ONE (10:00)
[2024-01-07] MEDS: POTASSIUM CHLORIDE 20 MEQ TABLET.ER PO ONE (10:13)
[2024-01-07] MEDS ORDERED: KCL 40 mEq in 100 mL (PREMIX) 100 ML IV ONE (10:15)
[2024-01-08 06:34] LABS: BASOPHILS % (AUTO) 0.5 % (0.0-2.0); EOSINOPHILS % (AUTO) 0.8 % (0.0-4.0); HEMOGLOBIN 8.1 g/dL (12.0-16.0); LYMPHOCYTES # (AUTO) 0.8 K/uL (1.0-5.5); LYMPHOCYTES % (AUTO) 15.9 % (20.5-51.5); MEAN CORPUSCULAR HEMOGLOBIN 29 pg (27-31); MEAN CORPUSCULAR HGB CONC 32 % (32-36); MEAN CORPUSCULAR VOLUME 89 fL (79.0-98.0); MONOCYTES # (AUTO) 0.6 K/uL (0.0-1.0); MONOCYTES % (AUTO) 11.4 % (1.7-9.3); NEUTROPHILS # (AUTO) 3.8 K/uL (1.8-7.7); NEUTROPHILS % (AUTO) 71.4 % (40.0-70.0); PLATELET COUNT (AUTO) 132 K/uL (130-430); RED BLOOD CELL COUNT(AUTO) 2.81 MIL/uL (4.2-6.2); RED CELL DISTRIBUTION WIDTH 16.5 % (9.0-15.0); WHITE BLOOD COUNT (AUTO) 5.3 K/uL (4.8-10.8)
[2024-01-08 06:40] LABS: ERYTHROCYTE SEDIMENTATION RATE 12 MM/HR (0-20)
[2024-01-08 07:12] LABS: CALCIUM 7.8 mg/dL (8.4-11.0); CREATININE 2.2 mg/dL (0.55-1.30); POTASSIUM 3.9 mmol/L (3.5-5.1)
[2024-01-08 07:13] LABS: PHOSPHORUS 3.3 mg/dL (2.7-4.5)
[2024-01-08 08:03] VITALS: BP_SYST 113; PULSE 67; RESP 16; TEMP 97.2; O2SAT 100
[2024-01-08] MEDS: CALCIUM GLUC 2 GM/100ML-NACL 100 ML IV ONE (14:37)
[2024-01-08 19:37] VITALS: BP_SYST 138; PULSE 82; RESP 18; TEMP 97.6; O2SAT 95
[2024-01-08 20:00] VITALS: O2SAT 98
[2024-01-09 00:04] VITALS: BP_SYST 130; PULSE 76; RESP 18; TEMP 98.2; O2SAT 100
[2024-01-09 05:50] LABS: BASOPHILS % (AUTO) 0.5 % (0.0-2.0); EOSINOPHILS # (AUTO) 0.1 K/uL (0.0-0.4); EOSINOPHILS % (AUTO) 1.5 % (0.0-4.0); HEMATOCRIT 25.8 % (36-48); HEMOGLOBIN 8.5 g/dL (12.0-16.0); LYMPHOCYTES # (AUTO) 1.1 K/uL (1.0-5.5); LYMPHOCYTES % (AUTO) 19.4 % (20.5-51.5); MEAN CORPUSCULAR HEMOGLOBIN 29 pg (27-31); MEAN CORPUSCULAR HGB CONC 33 % (32-36); MEAN CORPUSCULAR VOLUME 88 fL (79.0-98.0); MONOCYTES # (AUTO) 0.7 K/uL (0.0-1.0); MONOCYTES % (AUTO) 12.3 % (1.7-9.3); NEUTROPHILS # (AUTO) 3.6 K/uL (1.8-7.7); NEUTROPHILS % (AUTO) 66.3 % (40.0-70.0); PLATELET COUNT (AUTO) 148 K/uL (130-430); RED BLOOD CELL COUNT(AUTO) 2.92 MIL/uL (4.2-6.2); RED CELL DISTRIBUTION WIDTH 16.6 % (9.0-15.0); WHITE BLOOD COUNT (AUTO) 5.4 K/uL (4.8-10.8)
[2024-01-09 06:13] LABS: ERYTHROCYTE SEDIMENTATION RATE 14 MM/HR (0-20)
[2024-01-09 06:15] LABS: CREATININE 2.18 mg/dL (0.55-1.30); PHOSPHORUS 3.1 mg/dL (2.7-4.5); POTASSIUM 3.7 mmol/L (3.5-5.1)
[2024-01-09 08:18] VITALS: O2SAT 98
[2024-01-09 08:23] VITALS: BP_SYST 137; PULSE 65; RESP 16; TEMP 98.2; O2SAT 98
[2024-01-09 11:45] VITALS: BP_SYST 130; PULSE 65; RESP 16; TEMP 98.6; O2SAT 95
[2024-01-09 16:00] VITALS: BP_SYST 145; PULSE 75; RESP 18; TEMP 98.2; O2SAT 95
[2024-01-10 06:01] LABS: BASOPHILS % (AUTO) 0.9 % (0.0-2.0); EOSINOPHILS % (AUTO) 0.5 % (0.0-4.0); HEMATOCRIT 27.7 % (36-48); HEMOGLOBIN 8.9 g/dL (12.0-16.0); LYMPHOCYTES # (AUTO) 1.3 K/uL (1.0-5.5); LYMPHOCYTES % (AUTO) 23.7 % (20.5-51.5); MEAN CORPUSCULAR HEMOGLOBIN 29 pg (27-31); MEAN CORPUSCULAR HGB CONC 32 % (32-36); MEAN CORPUSCULAR VOLUME 88 fL (79.0-98.0); MONOCYTES # (AUTO) 0.6 K/uL (0.0-1.0); MONOCYTES % (AUTO) 12.1 % (1.7-9.3); NEUTROPHILS # (AUTO) 3.3 K/uL (1.8-7.7); NEUTROPHILS % (AUTO) 62.8 % (40.0-70.0); PLATELET COUNT (AUTO) 164 K/uL (130-430); RED BLOOD CELL COUNT(AUTO) 3.14 MIL/uL (4.2-6.2); RED CELL DISTRIBUTION WIDTH 16.8 % (9.0-15.0); WHITE BLOOD COUNT (AUTO) 5.3 K/uL (4.8-10.8)
[2024-01-10 06:08] LABS: ERYTHROCYTE SEDIMENTATION RATE 20 MM/HR (0-20)
[2024-01-10 06:49] LABS: ALBUMIN 1.9 g/dL (3.4-4.8); CALCIUM 7.5 mg/dL (8.4-11.0); CREATININE 2.15 mg/dL (0.55-1.30); PHOSPHORUS 2.9 mg/dL (2.7-4.5); POTASSIUM 3.6 mmol/L (3.5-5.1); TOTAL BILIRUBIN 0.3 mg/dL (0.0-1.0); TOTAL PROTEIN, SERUM 5.2 g/dL (6.4-8.3)
[2024-01-10 08:00] VITALS: BP_SYST 151; PULSE 69; RESP 16; TEMP 98.2; O2SAT 95
[2024-01-10] MEDS ORDERED: LEVO250T73 PO (09:51)
[2024-01-10] MEDS ORDERED: APIX5TAB PO (09:51)
[2024-01-10] MEDS ORDERED: METO25TA6 PO (09:51)
[2024-01-10] MEDS ORDERED: ASPI-859 PO (09:51)
[2024-01-10] MEDS ORDERED: LIP20 PO (09:51)
[2024-01-10 11:03] VITALS: BP_SYST 142; PULSE 64; RESP 15; TEMP 98.5; O2SAT 97
[2024-01-10 14:41] VITALS: BP_SYST 133; PULSE 65; RESP 16; TEMP 98.2; O2SAT 97
[2024-01-10 16:04] VITALS: BP_SYST 147; PULSE 76; RESP 20; TEMP 97.6; O2SAT 99
== END 2024-01-10 17:00 | disposition home or self-care (01) | DRG 871 ==
LOC: SED 22:44 → STU 01-01 01:08 → SMU 01-03 04:36 → STU 01-04 21:29
PROVIDERS: ADMIT Specialist; ATTEND Specialist
PROC: 0TP9XDZ Removal of Intraluminal Device from Ureter, External Approach (ICD-10-PCS; principal; 2024-01-03)
DX: A41.9 Sepsis, unspecified organism (principal); E43 Unspecified severe protein-calorie malnutrition; I21.4 Non-ST elevation (NSTEMI) myocardial infarction; J96.01 Acute respiratory failure with hypoxia; J18.9 Pneumonia, unspecified organism; I26.99 Other pulmonary embolism without acute cor pulmonale; N17.9 Acute kidney failure, unspecified; E87.20 Acidosis, unspecified; E87.1 Hypo-osmolality and hyponatremia; J44.0 Chronic obstructive pulmonary disease with (acute) lower respiratory infection; Z68.1 Body mass index [BMI] 19.9 or less, adult; N13.6 Pyonephrosis; N39.0 Urinary tract infection, site not specified; E86.0 Dehydration; I25.10 Atherosclerotic heart disease of native coronary artery without angina pectoris; E83.51 Hypocalcemia; E88.09 Other disorders of plasma-protein metabolism, not elsewhere classified; I48.0 Paroxysmal atrial fibrillation; N18.9 Chronic kidney disease, unspecified; K52.9 Noninfective gastroenteritis and colitis, unspecified; K29.70 Gastritis, unspecified, without bleeding; E83.52 Hypercalcemia; I12.9 Hypertensive chronic kidney disease with stage 1 through stage 4 chronic kidney disease, or unspecified chronic kidney disease; D64.9 Anemia, unspecified; D69.6 Thrombocytopenia, unspecified; E87.6 Hypokalemia; G89.29 Other chronic pain; Z86.73 Personal history of transient ischemic attack (TIA), and cerebral infarction without residual deficits; Z93.6 Other artificial openings of urinary tract status; Z93.3 Colostomy status; Z90.710 Acquired absence of both cervix and uterus; Z90.6 Acquired absence of other parts of urinary tract; Z87.891 Personal history of nicotine dependence; Z85.51 Personal history of malignant neoplasm of bladder; Z86.718 Personal history of other venous thrombosis and embolism; Z79.899 Other long term (current) drug therapy; B95.7 Other staphylococcus as the cause of diseases classified elsewhere
CPT/HCPCS: 36415; 36600; 71045; 76770; 78579; 78580; 80048; 80053; 80076; 80202; 81000; 81001; 81015; 82803; 82948; 83605; 83735; 83880; 84100; 84484; 85025; 85651; 85730; 87040; 87086; 87186; 93005; 93306; 93970; 96365; 99285; A9539; A9540; G0378; J0696; J1450; J1644; J2405; J2543; J3480; J7050; J7060; Q0163; Q9964

== ENCOUNTER 2024-01-22 10:10 | Emergency (ER) | payer OTHER ==
[~2024-01-22] VITALS: Ht 160 cm; Wt 54.4 kg
[~2024-01-22 10:10] MED LIST changes: +ASPI-859 PO; +LIP20 PO; +METO25TA6 PO; -NITR-85 PO; -SENN-301
[2024-01-22 10:23] VITALS: BP_SYST 161; PULSE 89; RESP 18; TEMP 98.3; O2SAT 100
[2024-01-22 10:50] LABS: BASOPHILS # (AUTO) 0.1 K/uL (0.0-0.2); NEUTROPHILS # (AUTO) 3.1 K/uL (1.8-7.7)
[2024-01-22 10:54] LABS: BILIRUBIN,URINE NEGATIVE (NEGATIVE); CLARITY/URINE CLEAR (CLEAR); COLOR,URINE YELLOW (YELLOW); GLUCOSE,URINE NEGATIVE (NEGATIVE); KETONES,URINE NEGATIVE (NEGATIVE); LEUKOCYTE ESTERASE ,URINE NEGATIVE (NEGATIVE); NITRITE, URINE NEGATIVE (NEGATIVE); PH,URINE 7.5 (5.0-8.0); PROTEIN URINE NEGATIVE (NEGATIVE); UROBILINOGEN,URINE 0.2 (0.2-1.0)
[2024-01-22 10:55] LABS: BASOPHILS % (AUTO) 1.2 % (0.0-2.0); EOSINOPHILS % (AUTO) 0.5 % (0.0-4.0); HEMATOCRIT 33.3 % (36-48); LYMPHOCYTES # (AUTO) 1.6 K/uL (1.0-5.5); LYMPHOCYTES % (AUTO) 30.8 % (20.5-51.5); MEAN CORPUSCULAR HEMOGLOBIN 29 pg (27-31); MEAN CORPUSCULAR HGB CONC 33 % (32-36); MEAN CORPUSCULAR VOLUME 86 fL (79.0-98.0); MONOCYTES # (AUTO) 0.4 K/uL (0.0-1.0); MONOCYTES % (AUTO) 7.1 % (1.7-9.3); NEUTROPHILS % (AUTO) 60.4 % (40.0-70.0); PLATELET COUNT (AUTO) 279 K/uL (130-430); RED BLOOD CELL COUNT(AUTO) 3.86 MIL/uL (4.2-6.2); RED CELL DISTRIBUTION WIDTH 16.7 % (9.0-15.0); WHITE BLOOD COUNT (AUTO) 5.2 K/uL (4.8-10.8)
[2024-01-22 10:58] LABS: BLOOD, URINE TRACE (NEGATIVE)
[2024-01-22 11:09] LABS: PROTHROMBIN TIME 10.4 SECS (9.5-12.5)
[2024-01-22 11:11] LABS: ALBUMIN 3.2 g/dL (3.4-4.8); BILIRUBIN,DIRECT 0.1 mg/dL (0.0-0.3); CALCIUM 8.7 mg/dL (8.4-11.0); CREATININE 2.03 mg/dL (0.55-1.30); POTASSIUM 5.2 mmol/L (3.5-5.1); TOTAL BILIRUBIN 0.4 mg/dL (0.0-1.0)
[2024-01-22 11:14] LABS: BACTERIA,URINE RARE /HPF (None Seen); MUCUS,URINE 1+ /LPF (None Seen); WBC,URINE 0-3 /HPF (0-3)
[2024-01-22] MEDS: NACL 0.9% 1,000 ML IV ONE (13:12)
[2024-01-22 14:40] VITALS: BP_SYST 188; PULSE 83; RESP 20; TEMP 97.5; O2SAT 97
== END 2024-01-22 14:41 | disposition home or self-care (01) ==
LOC: SED 10:10
DX: R10.9 Unspecified abdominal pain (principal); R19.5 Other fecal abnormalities; J45.909 Unspecified asthma, uncomplicated; I48.91 Unspecified atrial fibrillation; Z79.899 Other long term (current) drug therapy; Z79.2 Long term (current) use of antibiotics
CPT/HCPCS: 36415; 80048; 80076; 81000; 81001; 81015; 85025; 85610; 85730; 99284